=== PATIENT | female | born 1950 | race Caucasian/White ===

== ENCOUNTER → 2023-06-05 | Outpatient (CLI) | payer MEDICARE, OTHER ==
[2023-06-05 20:45] LABS: ALT 7 U/L (8-44); AST 20 U/L (13-35); Albumin 3.9 d/dL (3.8-4.9); Alkaline Phosphatase 81 U/L (41-126); Blood Urea Nitrogen 11.9 mg/dL (9.0-27.0); Calcium 9.2 mg/dL (8.7-10.3); Carbon Dioxide 27.5 mmol/L (21.6-31.8); Chloride 102 mmol/L (96-109); Globulin 2.3 d/dL (1.6-3.3); Glucose 90 mg/dL (70-110); Potassium 4.5 mmol/L (3.5-5.5); Sodium 141 mmol/L (135-145); Total Bilirubin 0.8 mg/dL (0.3-1.2); Total Protein 6.2 d/dL (6.2-8.2)
[2023-06-05 20:58] LABS: Hepatitis C IgG Antibody Reactive (Non-Reactive)
[2023-06-05 21:00] LABS: Hepatitis A Antibody IgM Nonreactive; Hepatitis B Core IgM Nonreactive; Hepatitis B Surface AB- Quant 3.5 mIU/mL; Hepatitis B Surface Antigen Nonreactive
[2023-06-05 21:42] LABS: Basophils # (A) 0.04 X 10*3/uL (0.00-0.10); Basophils % (A) 0.5 %; Eosinophils # (A) 0.34 X 10*3/uL (0.04-0.35); Eosinophils % (A) 4.7 %; HCT 31.7 % (37.2-46.3); Lymphocytes % (A) 28.8 %; MCH 25.6 pg (27.0-32.0); MCHC 28.4 d/dL (32.0-37.0); MCV 90.3 FL (80.0-97.0); Mean Platelet Volume 10.2 FL (9.5-12.2); Monocytes % (A) 9.6 %; NRBC Per 100 WBC 0 X 10*3/uL (0.00-0.01); Neutrophils # (A) 4.07 X 10*3/uL (1.80-7.70); Platelet Count 410 X 10*3/uL (140-440); RBC 3.51 X 10*6/uL (4.10-5.20); RDW 15.1 % (11.5-14.5); WBC 7.28 X 10*3/uL (4.50-10.00)
== END | disposition home or self-care (01) ==
LOC: LABWHC1 14:11
PROVIDERS: ATTEND Internal Medicine Infectious Disease
DX: A15.9 Respiratory tuberculosis unspecified (principal); L40.9 Psoriasis, unspecified; R21 Rash and other nonspecific skin eruption
CPT/HCPCS: 36415; 80053; 85025; 86140; 86480; 86705; 86706; 86709; 86803; 87340

== ENCOUNTER 2023-06-14 13:25 | Inpatient (IN) | payer MEDICARE, OTHER ==
[2023-06-14 16:51] LABS: Glucose,Whole Blood 145 mg/dL (70-110)
[2023-06-14] MEDS ORDERED: ACETAMINOPHEN TAB 325 MG TAB PO PRN (18:26)
[2023-06-14] MEDS ORDERED: DEXTROSE 50% SYRINGE 50 ML IVP PRN ×2 (18:31)
[2023-06-14] MEDS ORDERED: ONDANSETRON 4 MG/2 ML VIAL IVP PRN (18:36)
[2023-06-14] MEDS ORDERED: IPRATROPIUM-ALBUTEROL 3 ML NEB INHALATION SCH (20:00)
[2023-06-14 20:03] LABS: Glucose,Whole Blood 130 mg/dL (70-110)
[2023-06-14] MEDS: BUDESONIDE 0.5 MG/2 ML NEBU INHALATION SCH (20:19)
[2023-06-14] MEDS ORDERED: IPRATROPIUM-ALBUTEROL 3 ML NEB INHALATION PRN (20:27)
[2023-06-14] MEDS ORDERED: ATORVASTATIN 20 MG TAB PO SCH (21:00)
[2023-06-14] MEDS: INSULIN ASPART (NovoLOG) 100 UNIT/ML VIAL SQ SCH (22:05)
[2023-06-14] MEDS: METOPROLOL TARTRATE 25 MG TAB PO SCH (22:28)
[2023-06-14] MEDS: CARBIDOPA-LEVODOPA 25-100 MG 1 EACH TAB PO SCH (22:28)
[2023-06-14] MEDS ORDERED: PANTOPRAZOLE 40 MG/10 ML VIAL IVP ONE (22:51)
[2023-06-15 05:48] LABS: Glucose,Whole Blood 110 mg/dL (70-110)
[2023-06-15] MEDS: INSULIN ASPART (NovoLOG) 100 UNIT/ML VIAL SQ SCH ×4 (06:08→22:06)
[2023-06-15] MEDS: FERROUS SULFATE 325 MG TAB PO SCH ×2 (06:49→17:01)
[2023-06-15] MEDS: LEVOTHYROXINE 137 MCG TAB PO SCH (06:49)
[2023-06-15] MEDS: PANTOPRAZOLE 40 MG TABLET PO SCH (06:49)
[2023-06-15] MEDS: ASPIRIN 81 MG PO SCH (08:16)
[2023-06-15] MEDS: CARBIDOPA-LEVODOPA 25-100 MG 1 EACH TAB PO SCH ×3 (08:16→22:11)
[2023-06-15] MEDS: METOPROLOL TARTRATE 25 MG TAB PO SCH ×2 (08:16→22:10)
[2023-06-15] MEDS: ASCORBIC ACID 500 MG TAB PO SCH (08:17)
[2023-06-15] MEDS: lisinopriL 5 MG TAB PO SCH (08:17)
[2023-06-15 08:38] LABS: Basophils % (A) 0 %; Eosinophils # (A) 0.3 k/uL (0-0.7); Eosinophils % (A) 4 %; HCT 28.8 % (34.0-46.0); HGB 8.9 gm/dL (11.4-16.0); Hypochromasia Marked; Lymphocytes # (A) 1.6 k/uL (1.0-4.8); Lymphocytes % (A) 21 %; MCH 27.1 pg (25.0-35.0); MCHC 30.9 g/dL (31.0-37.0); MCV 87.8 fL (80.0-100.0); Mean Platelet Volume 8.6; Monocytes # (A) 0.5 k/uL (0-1.0); Monocytes % (A) 6 %; Neutrophils # (A) 5.3 k/uL (1.3-7.7); Neutrophils % (A) 67 %; Platelet Count 302 k/uL (150-450); RBC 3.28 m/uL (3.80-5.40); RDW 15.6 % (11.5-15.5); WBC 7.9 k/uL (3.8-10.6)
[2023-06-15] MEDS ORDERED: FAMOTIDINE 20 MG TAB PO SCH (09:00)
[2023-06-15] MEDS ORDERED: CLOPIDOGREL 75 MG TAB PO SCH (09:00)
[2023-06-15 09:08] LABS: African American GFR (CKD) 84 (>60 ml/min/1.73 sqM); Anion Gap 8 mmol/L; Blood Urea Nitrogen 16 mg/dL (7-17); Calcium 8.6 mg/dL (8.4-10.2); Carbon Dioxide 28 mmol/L (22-30); Chloride 101 mmol/L (98-107); Glucose 128 mg/dL (74-99); Non-African American GFR(CKD) 73 (>60 ml/min/1.73 sqM); Potassium 4.1 mmol/L (3.5-5.1); Sodium 137 mmol/L (137-145)
[2023-06-15] MEDS: BUDESONIDE 0.5 MG/2 ML NEBU INHALATION SCH ×2 (09:29→20:46)
[2023-06-15] MEDS: IPRATROPIUM-ALBUTEROL 3 ML NEB INHALATION SCH ×4 (09:29→20:46)
--- NOTE | 2023-06-15 09:29 | P.GSCN ---
History of Present Illness Consult date: 06/15/23 Reason for Consult: Open heart consult Requesting physician: Cleve Odom History of present illness: This is a 73-year-old female patient who follows outpatient with Dr. German Fields for primary care. She has a previous medical history of coronary artery disease with previous myocardial infarction and PCI, hypertension, hyperlipidemia, type 2 diabetes mellitus, previous tobacco dependence with recent cessation, COPD on 3 L nasal cannula around the clock, iron deficiency anemia, hypothyroidism, Parkinson's disease, and family history of heart disease with father from myocardial infarction at 67 years old. She presented to [facility] over the weekend with complaints of left-sided substernal constant chest pain, similar in nature to when she had her previous stent although not quite as intense. Her chest pain was associated with shortness of breath but no nausea, dizziness, lightheadedness, or any other symptoms. Reportedly EKG at [facility] demonstrated normal sinus rhythm with ST depression in leads V4 through V6. She was transferred to [facility] for evaluation and treatment. She had been given sublingual nitro in the ambulance on the ride over which reportedly relieved her symptoms. At [facility] an EKG was also completed with resolution of ST depression. She did have a stress test at [facility] which demonstrated stress-induced ischemia in the mid to distal anterior wall. She was recommended to undergo heart catheterization which demonstrated distal left main 99%, ostial LAD 99%, mid LAD 80%, and proximal RCA 70%. Transthoracic echocardiography demonstrated EF 50- 55%, mild mitral regurgitation, and trace to mild tricuspid regurgitation. Of note, while at [facility] she had some visual disturbances which resolved spontaneously. Due to that finding she underwent carotid dopplers demonstrating right ICA stenosis 50-69%, left ICA stenosis 16-49%, and anterograde flow to her bilateral vertebrals. CTA of the brain was negative. Repeat limited echo demonstrated EF 55-60%, mild to moderate mitral regurgitation as well as mild tricuspid regurgitation. Due to findings on heart catheterization the patient was transported to [facility] for cardiothoracic surgery consultation. Review of Systems Review of systems was completed and was negative except as noted - Cardiovascular Reports as per HPI, Reports chest pain, Reports shortness of breath Past Medical History Past Medical History: Coronary Artery Disease (CAD), Chest Pain / Angina, COPD, Diabetes Mellitus, Hyperlipidemia, Hypertension, Myocardial Infarction (VT), Thyroid Disorder Additional Past Medical History / Comment(s): 3L home oxygen ATC Last Myocardial Infarction Date:: 2018 History of Any Multi-Drug Resistant Organisms: None Reported Past Surgical History: Cholecystectomy, Heart Catheterization With Stent, Hysterectomy, Orthopedic Surgery Additional Past Surgical History / Comment(s): trigger finger surgery, tongue surgery, dental surgery, cataracts and lens implant, bladder surgery Past Anesthesia/Blood Transfusion Reactions: No Reported Reaction Date of Last Stent Placement:: 2018 Past Psychological History: No Psychological Hx Reported Smoking Status: Former smoker Past Alcohol Use History: None Reported Past Drug Use History: None Reported Additional History: Quit smoking approximately 2 weeks ago, reports no drugs or alcohol use - Past Family History Father Family Medical History: Coronary Artery Disease (CAD), Myocardial Infarction (VT) Additional Family Medical History / Comment(s): Father from myocardial infarction at 67 years old Mother Additional Family Medical History / Comment(s): sepsis Medications and Allergies Home Medications Medication Instructions Recorded Confirmed Type Acarbose 50 mg PO AC-TID 06/14/23 06/14/23 History Albuterol Inhaler [Ventolin Hfa 1 - 2 puff INHALATION RT-Q6H PRN 06/14/23 06/14/23 History Inhaler] Ascorbic Acid [Vitamin C] 500 mg PO DAILY 06/14/23 06/14/23 History Aspirin EC [Ecotrin Low Dose] 81 mg PO DAILY 06/14/23 06/14/23 History Atorvastatin [Lipitor] 20 mg PO DAILY 06/14/23 06/14/23 History Budesonide-Formot 160-4.5 Mcg 2 puff INHALATION RT-BID 06/14/23 06/14/23 History [Symbicort 160-4.5 Mcg Inhaler] Carbidopa-Levodopa 25-100 mg 1 tab PO AC-TID 06/14/23 06/14/23 History [Sinemet 25-100] Clobetasol Propionate [Temovate 1 applic TOPICAL DIRECTED 06/14/23 06/14/23 History 0.05% Oint] Clopidogrel [Plavix] 75 mg PO DAILY 06/14/23 06/14/23 History Ferrous Sulfate [Slow Release Iron] 250 mg PO DAILY 06/14/23 06/14/23 History Ketoconazole 2% Shampoo [Nizoral] 1 applic TOPICAL DIRECTED 06/14/23 06/14/23 History Levothyroxine Sodium [Synthroid] 137 mcg PO DAILY 06/14/23 06/14/23 History Metoprolol Tartrate 12.5 mg PO BID 06/14/23 06/14/23 History Nitroglycerin Sl Tabs [Nitrostat] 0.4 mg SUBLINGUAL Q5M PRN 06/14/23 06/14/23 History lisinopriL [Zestril] 20 mg PO DAILY 06/14/23 06/14/23 History rOPINIRole HCL [Requip] 1 mg PO HS 06/14/23 06/14/23 History sitaGLIPtin [Januvia] 100 mg PO DAILY 06/14/23 06/14/23 History Allergies Allergy/AdvReac Type Severity Reaction Status Date / Time diazepam [From Valium] Allergy Rash/Hives Verified 06/14/23 18:56 divalproex sodium Allergy Rash/Hives Verified 06/14/23 18:56 [From Depakote] empagliflozin Allergy Unknown Verified 06/14/23 18:56 [From Jardiance] levofloxacin Allergy Rash/Hives Verified 06/14/23 18:56 propoxyphene [From Darvon] Allergy Rash/Hives Verified 06/14/23 18:56 Surgical - Exam Vital Signs Temp Pulse Resp BP Pulse Ox 98.0 F 66 16 110/50 96 06/14/23 17:00 06/14/23 17:00 06/14/23 17:00 06/14/23 17:00 06/14/23 17:00 CONSTITUTIONAL: Awake and alert, appears comfortable, cooperative, well- developed, well-nourished, no pain, no acute distress EYES: Pupils equal, round, reactive to light, normal ocular movement ENT: Moist mucous membranes without oral lesions present NECK: No masses, no bruits, trachea midline RESPIRATORY: Lungs sounds clear but very diminished bilaterally. Respirations even, nonlabored. Currently on 3 L nasal cannula with oxygen saturation 98%. Strong cough. No chest wall deformities. No clubbing or cyanosis present CARDIOVASCULAR: S1, S2 present. Regular rate and rhythm, sinus rhythm on tele metry. Palpable peripheral pulses bilaterally. No edema present. No calf pain or tenderness noted. No significant lower extremity varicosities noted GASTROINTESTINAL: Abdomen soft, nontender, nondistended without masses or organomegaly noted. There is no rebound or guarding present. Active bowel sounds present 4 quadrants. GENITOURINARY: Deferred INTEGUMENTARY: Skin is warm and dry NEUROLOGIC: Cranial nerves II through XII intact, normal coordination, no obvious motor or sensory deficits, speech is normal MUSKULOSKELETAL: Able to move all extremities, strength equal bilaterally, normal posture PSYCHIATRIC: Alert and oriented to person place and time, appropriate affect, intact judgment and insight Results - Labs 06/15/23 08:04 Abnormal Lab Results - Last 24 Hours (Table) 06/14/23 06/14/23 06/15/23 Range/Units 16:47 20:01 08:04 RBC 3.28 L (3.80-5.40) m/uL Hgb 8.9 L (11.4-16.0) gm/dL Hct 28.8 L (34.0-46.0) % MCHC 30.9 L (31.0-37.0) g/dL RDW 15.6 H (11.5-15.5) % POC Glucose (mg/dL) 145 H 130 H (70-110) mg/dL - Imaging Additional studies: Reviewed heart catheterization/echo/carotid reports from [facility] Assessment and Plan Assessment: Coronary artery disease with previous myocardial infarction and PCI, current catheterization demonstrating distal left main 99%, ostial LAD 99%, mid LAD 80%, and proximal RCA 70% Preserved LV function, EF 50-55% Right internal carotid stenosis 50-69% Transient visual disturbances, resolved spontaneously, negative CTA of the brain History of hypertension History of hyperlipidemia, treated, cholesterol 121, LDL 42 Type 2 diabetes mellitus, hemoglobin A1c 6.8% Previous tobacco dependence with recent cessation 2 weeks ago COPD on 3 L nasal cannula around the clock Iron deficiency anemia Hypothyroidism Parkinson's disease Family history of heart disease with father from myocardial infarction at 67 years old Plan: The patient was seen and examined sitting up in bed on the cardiac stepdown unit in no acute distress. Currently appears quite comfortable and denies any chest pain or shortness of breath. Chart/diagnostics from [facility] as well as [facility] reviewed. The case was discussed briefly with Dr. Harris this morning. The usual perioperative course of open-heart surgery was discussed in detail with the patient, risks and benefits were reviewed, all questions were answered. Currently the patient is listed as a NO CODE status. It was discussed with the patient that she would need to be a full code if she is agreeable to surgery, she wishes to think about it. Of note, the patient had Plavix at [facility] 2 days ago, would need to be off Plavix for 1 week prior to surgical intervention. Recommend continuing aspirin, statin, beta leonora therapy. If patient is agreeable to surgery would recommend discontinuing FRED inhibitor 48 hours prior to surgery to prevent intra-and postoperative hypotension due to vasoplegia. Surgeon to see the patient this afternoon, we will initiate remaining preoperative testing if patient deemed to be a good candidate and patient is agreeable to surgery. Increase activity as tolerated. Medical management of other comorbidities per internal medicine, cardiology. More recommendations to follow. Thank you for this consult. I have personally seen and examined the patient, performed the documentation and the assessment and plan as written. Number of minutes spent on the visit: 30. KIRSTEN Lai
--- NOTE | 2023-06-15 11:44 | US ---
EXAMINATION TYPE: Pre-Operative Non-Invasive Evaluation of the hand for Potential Radial Artery Andrae luke, Measurements only DATE OF EXAM: 06/15/2023 11:32 AM CLINICAL INDICATION: Female, 73 years old with history of measurements only; pre open heart SIDE PERFORMED: Left TECHNIQUE: Radial artery is measured utilizing real time linear array sonography. Dominant hand: Right Duplex Findings: Radial Artery: Color flow seen Measurements in mm, transverse view: Left Radial: Proximal: 3.7 x 3.2 mm Mid: 2.6 x 2.9 mm Distal: 2.3 x 2.8 mm IMPRESSION: Left radial artery is patent with measurements listed above.
[2023-06-15 11:50] LABS: Glucose,Whole Blood 115 mg/dL (70-110)
--- NOTE | 2023-06-15 11:51 | US ---
EXAMINATION TYPE: US vein mapping BILAT DATE OF EXAM: 06/15/2023 11:32 AM COMPARISON: NONE CLINICAL INDICATION: Female, 73 years old with history of preop cardiac surgery; pre open heart SIDE PERFORMED: Bilateral TECHNIQUE: Lower extremity saphenous vein is examined and measured utilizing real time linear array sonography. DUPLEX FINDINGS: Greater Saphenous: Color flow seen Measurements in mm: Right Greater Saphenous: Groin: 11.0 x 10.7 mm High Thigh: 4.9 x 4.3 mm Mid Thigh: 4.4 x 4.7 mm Above Knee: 4.1 x 4.9 mm Knee: 3.2 x 4.1 mm Below Knee: 3.1 x 3.0 mm Mid Calf: 2.4 x 2.9 mm At Ankle: 2.2 x 2.6 mm Left Greater Saphenous: Groin: 10.4 x 9.3 mm High Thigh: 5.4 x 6.9 mm Mid Thigh: 4.1 x 5.0 mm Above Knee: 4.4 x 4.4 mm Knee: 3.1 x 3.4 mm Below Knee: 3.3 x 4.0 mm Mid Calf: 2.8 x 3.3 mm At Ankle: 2.4 x 2.4 mm IMPRESSION: 1. Bilateral GSV measurements listed above. 2. Performing surgeon to determine viability as conduit.
--- NOTE | 2023-06-15 12:28 | HP ---
HISTORY AND PHYSICAL CHIEF COMPLAINT: Chest pain. HISTORY OF PRESENT ILLNESS: This is a 73-year-old woman with a past medical history of multiple medical problems, was admitted with chest pain to [facility]. The patient had cardiac catheterization, which showed 3-vessel disease. The patient was transferred to [facility] for possible evaluation for CABG. The patient also had some visual difficulties in [facility] and ultrasound showed right internal carotid stenosis of 50% to 69%. There is no history of any fever, rigors, or chills at this time. PAST MEDICAL HISTORY: Reviewed include CAD. Rest of the history and rest of the chart is also reviewed. HOME MEDICATIONS: Reviewed include Januvia. Dose and rest of medications reviewed. ALLERGIES: Valium. Rest of the allergies noted. FAMILY HISTORY: History of CAD, myocardial infarction. SOCIAL HISTORY: Previous history of smoker. REVIEW OF SYSTEMS: Fourteen-point review is negative except as mentioned earlier. PHYSICAL EXAMINATION: VITAL SIGNS: Pulse is 72, blood pressure 116/45, respirations 18. CHEST: Conjunctivae normal. NECK: No JVD. RESPIRATIONS: Breath sounds diminished at the bases. No rhonchi. No crackles. ABDOMEN: Soft, nontender. LEGS: No edema. NERVOUS SYSTEM: Nonfocal. SKIN: No ulcer, rash, or bleeding. JOINTS: No active deforming arthropathy. LABORATORY DATA: Hemoglobin 8. Rest of the labs noted. ASSESSMENT: 1. Chest pain. 2. Three-vessel coronary artery disease, coronary artery bypass graft. 3. Transient visual disturbances, possible transient ischemic attack with right internal carotid artery stenosis. 4. Hypertension. 5. Hyperlipidemia. 6. Diabetes mellitus, type 2. 7. Chronic obstructive pulmonary disease. 8. Multiple medical issues. RECOMMENDATIONS: Recommend to continue current management and continue symptomatic treatment. Otherwise, continue the antiplatelet agents, Lipitor, bronchodilators. I would also recommend Neurology and Cardiology consultations. I would also recommend Vascular Surgery consultation for internal carotid artery stenosis also. Prognosis guarded because of multiple complex medical problems. Further recommendations to follow. See orders for further details. MMODL / IJN: [id number] /
--- NOTE | 2023-06-15 13:33 | P.GSCN ---
History of Present Illness Consult date: 06/15/23 Reason for Consult: Internal Carotid artery stenosis Requesting physician: Tanvir Fraser History of present illness: This is a 73-year-old female with a past medical history of coronary artery disease status post stenting, COPD oxygen dependent, diabetes mellitus, hypertension, hyperlipidemia, and Parkinson's disorder who initially presented to [facility] earlier in the week with complaints of chest pain and p ressure that would not subside. Patient was transferred to [facility] for further cardiac workup. While at [facility] she underwent a Cardiolite stress test that showed ischemia. She then underwent a cardiac cath with findings of distal left main 99%, distal LAD 99%, mid LAD 80% and proximal RCA 70% disease. Due to those findings patient was transferred to [facility] for further cardio thoracic consultation and recommendations. According to their consultation notes they reported patient had acute visual changes that lasted minutes of the evening following her stress test. Following that she had a CT without contrast of the brain that showed no acute changes and nonspecific white matter changes likely secondary to chronic small vessel ischemic disease. She also apparently had a carotid duplex which is not available for review at this time however according to cardiothoracic's notes it was reported as right ICA stenosis 50-69% and left 16-49%. Vascular surgery was consulted by the medical team for carotid stenosis. Patient's plan is to go through with the coronary artery bypass. Currently the patient denies any focal deficits. She states the night after her Cardiolite stress test she had acute onset of visual changes where she saw everything white, which she states was out of both eyes and lasted only for a few minutes. Once symptoms resolved she had no further symptoms and no other deficits. She has no prior history of TIA. Home medications did include aspirin and Plavix as well as Lipitor. Patient currently denies any chest pain or shortness of breath. Denies abdominal pain, nausea, vomiting, fevers or chills. Denied any upper or lower extremity weakness, no difficulty with speech or thought process and no facial drooping. Review of Systems A 14 point review systems was completed all pertinent positives and negatives as stated in the HPI. Past Medical History Past Medical History: Coronary Artery Disease (CAD), Chest Pain / Angina, COPD, Diabetes Mellitus, Hyperlipidemia, Hypertension, Myocardial Infarction (MT), Thyroid Disorder Additional Past Medical History / Comment(s): 3L home oxygen ATC Last Myocardial Infarction Date:: 2018 History of Any Multi-Drug Resistant Organisms: None Reported Past Surgical History: Cholecystectomy, Heart Catheterization With Stent, Hysterectomy, Orthopedic Surgery Additional Past Surgical History / Comment(s): trigger finger surgery, tongue surgery, dental surgery, cataracts and lens implant, bladder surgery Past Anesthesia/Blood Transfusion Reactions: No Reported Reaction Date of Last Stent Placement:: 2018 Past Psychological History: No Psychological Hx Reported Smoking Status: Former smoker Past Alcohol Use History: None Reported Past Drug Use History: None Reported - Past Family History Father Family Medical History: Coronary Artery Disease (CAD), Myocardial Infarction (MT) Additional Family Medical History / Comment(s): Father from myocardial infarction at 67 years old Mother Additional Family Medical History / Comment(s): sepsis Medications and Allergies Home Medications Medication Instructions Recorded Confirmed Type Acarbose 50 mg PO AC-TID 06/14/23 06/14/23 History Albuterol Inhaler [Ventolin Hfa 1 - 2 puff INHALATION RT-Q6H PRN 06/14/23 06/14/23 History Inhaler] Ascorbic Acid [Vitamin C] 500 mg PO DAILY 06/14/23 06/14/23 History Aspirin EC [Ecotrin Low Dose] 81 mg PO DAILY 06/14/23 06/14/23 History Atorvastatin [Lipitor] 20 mg PO DAILY 06/14/23 06/14/23 History Budesonide-Formot 160-4.5 Mcg 2 puff INHALATION RT-BID 06/14/23 06/14/23 History [Symbicort 160-4.5 Mcg Inhaler] Carbidopa-Levodopa 25-100 mg 1 tab PO AC-TID 06/14/23 06/14/23 History [Sinemet 25-100] Clobetasol Propionate [Temovate 1 applic TOPICAL DIRECTED 06/14/23 06/14/23 History 0.05% Oint] Clopidogrel [Plavix] 75 mg PO DAILY 06/14/23 06/14/23 History Ferrous Sulfate [Slow Release Iron] 250 mg PO DAILY 06/14/23 06/14/23 History Ketoconazole 2% Shampoo [Nizoral] 1 applic TOPICAL DIRECTED 06/14/23 06/14/23 History Levothyroxine Sodium [Synthroid] 137 mcg PO DAILY 06/14/23 06/14/23 History Metoprolol Tartrate 12.5 mg PO BID 06/14/23 06/14/23 History Nitroglycerin Sl Tabs [Nitrostat] 0.4 mg SUBLINGUAL Q5M PRN 06/14/23 06/14/23 History lisinopriL [Zestril] 20 mg PO DAILY 06/14/23 06/14/23 History rOPINIRole HCL [Requip] 1 mg PO HS 06/14/23 06/14/23 History sitaGLIPtin [Januvia] 100 mg PO DAILY 06/14/23 06/14/23 History Allergies Allergy/AdvReac Type Severity Reaction Status Date / Time diazepam [From Valium] Allergy Rash/Hives Verified 06/14/23 18:56 divalproex sodium Allergy Rash/Hives Verified 06/14/23 18:56 [From Depakote] empagliflozin Allergy Unknown Verified 06/14/23 18:56 [From Jardiance] levofloxacin Allergy Rash/Hives Verified 06/14/23 18:56 propoxyphene [From Darvon] Allergy Rash/Hives Verified 06/14/23 18:56 Surgical - Exam Vital Signs Temp Pulse Resp BP Pulse Ox 98.0 F 66 16 110/50 96 06/14/23 17:00 06/14/23 17:00 06/14/23 17:00 06/14/23 17:00 06/14/23 17:00 General appearance: The patient is alert, oriented, appears in no acute distress. Wearing Oxygen 2 L nasal cannula. HET: Head is normocephalic and atraumatic. Pupils are equal and reactive. Neck: Supple. No audible carotid bruit. Heart: Regular. Lungs: Equal expansion, normal respiratory effort. Abdomen: Soft, nondistended. Extremities: Normal skin color and turgor. Neurological: No focal deficits. Strength and sensation are grossly intact. Results - Labs 06/15/23 08:04 06/15/23 08:04 Abnormal Lab Results - Last 24 Hours (Table) 06/14/23 06/14/23 06/15/23 Range/Units 16:47 20:01 08:04 RBC 3.28 L (3.80-5.40) m/uL Hgb 8.9 L (11.4-16.0) gm/dL Hct 28.8 L (34.0-46.0) % MCHC 30.9 L (31.0-37.0) g/dL RDW 15.6 H (11.5-15.5) % Glucose (74-99) mg/dL POC Glucose (mg/dL) 145 H 130 H (70-110) mg/dL 06/15/23 06/15/23 Range/Units 08:04 11:49 RBC (3.80-5.40) m/uL Hgb (11.4-16.0) gm/dL Hct (34.0-46.0) % MCHC (31.0-37.0) g/dL RDW (11.5-15.5) % Glucose 128 H (74-99) mg/dL POC Glucose (mg/dL) 115 H (70-110) mg/dL Diabetes panel 06/15/23 Range/Units 08:04 Sodium 137 (137-145) mmol/L Potassium 4.1 (3.5-5.1) mmol/L Chloride 101 (98-107) mmol/L Carbon Dioxide 28 (22-30) mmol/L BUN 16 (7-17) mg/dL Creatinine 0.80 (0.52-1.04) mg/dL Glucose 128 H (74-99) mg/dL Calcium 8.6 (8.4-10.2) mg/dL Calcium panel 06/15/23 Range/Units 08:04 Calcium 8.6 (8.4-10.2) mg/dL Pituitary panel 06/15/23 Range/Units 08:04 Sodium 137 (137-145) mmol/L Potassium 4.1 (3.5-5.1) mmol/L Chloride 101 (98-107) mmol/L Carbon Dioxide 28 (22-30) mmol/L BUN 16 (7-17) mg/dL Creatinine 0.80 (0.52-1.04) mg/dL Glucose 128 H (74-99) mg/dL Calcium 8.6 (8.4-10.2) mg/dL Adrenal panel 06/15/23 Range/Units 08:04 Sodium 137 (137-145) mmol/L Potassium 4.1 (3.5-5.1) mmol/L Chloride 101 (98-107) mmol/L Carbon Dioxide 28 (22-30) mmol/L BUN 16 (7-17) mg/dL Creatinine 0.80 (0.52-1.04) mg/dL Glucose 128 H (74-99) mg/dL Calcium 8.6 (8.4-10.2) mg/dL Assessment and Plan Assessment: 1. Right internal carotid artery stenosis 50-69% per cardiothoracic notes (no available report at this time ) 2. Coronary artery disease with previous MT and PCI current catheterization demonstrated distal left main 99%, ostial LAD 99% mid LAD 80% and proximal RCA 70% 3. Chest pain 4. Transient visual disturbance with spontaneous resolution. Negative CT bCT rain 5. Type 2 diabetes mellitus 6. COPD, oxygen dependent 7. Former tobacco dependence, quit approximately 2 weeks ago 8. History of hypertension 9. History of hyperlipidemia 10. Parkinson's disease Plan: Patient would like to proceed with cardiac surgery and is currently undergoing preoperative testing. The patient was discussed with cardiothoracic nurse practitioner regarding her right ICA carotid stenosis 50-69%. Unclear etiology of visual changes with negative brain CT. They would like to proceed with cardiothoracic surgery and have further workup done and if intervention required following CABG as patient would have to be off her Plavix for 7 days prior to her surgery. This was discussed with the patient and patient's family at the bedside, continue medical management. Further workup can be done as an outpatient. Carotid duplex requested from [facility]. Thank you for this consultation, we will continue to follow. The impression and plan of care has been dictated as directed. Dr. Fernandes I performed a history and examination of this patient, discussed the same with the dictator. I agree with the dictator's note ,documented as a scribe. Any additional findings or plans will be noted.
--- NOTE | 2023-06-15 14:09 | P.CRDCN ---
History of Present Illness History of present illness: HISTORY OF PRESENT ILLNESS: This is a 73-year-old female with a past medical history significant for diabetes, hypertension, coronary artery disease with previous stenting, hyperlipidemia, COPD with home oxygen use, Parkinson's disease, and nicotine dependence with recent cessation. Patient initially presented to [facility] with complaints of chest pain. She was transferred to the [facility] for further evaluation. She underwent stress testing at [facility] which revealed stress-induced ischemia in the mid to distal anterior wall. She underwent cardiac catheterization with Dr. Perales revealing 99% distal left main stenosis, 99% ostial LAD stenosis, 80% mid LAD stenosis, and 70% proximal RCA stenosis. Echocardiogram completed [facility] revealed ejection fraction 50-55%, mild MR, trace to mild TR. She was transfe rred to [facility] for evaluation by CT surgery. Apparently, the patient had some vision changes when she was at [facility] and she underwent carotid Dopplers revealing right ICA stenosis 50-69% and left ICA stenosis 16-49%. Her vision issues have since resolved. Patient examined this morning at the bedside. She denies chest pain or pressure. She denies shortness of breath. Telemetry reveals sinus mechanism. Vital signs are stable. Blood pressure 120/61. REVIEW OF SYSTEMS: At the time of my exam: CONSTITUTIONAL: Denies fever or chills. HEENT: Denies blurred vision, vision changes, or eye pain. Denies hemoptysis CARDIOVASCULAR: Denies chest pain. Denies orthopnea. Denies PND. Denies palpitations RESPIRATORY: Denies shortness of breath. GASTROINTESTINAL: Denies abdominal pain. Denies nausea or vomiting. HEMATOLOGIC: Denies bleeding disorders. GENITOURINARY: Denies any blood in urine. SKIN: Denies pruitis. Denies rash. PHYSICAL EXAM: VITAL SIGNS: Reviewed. GENERAL: Well-developed in no acute distress. HEENT: Head is normocephalic. Pupils are equal, round. Sclerae anicteric. Mucous membranes of the mouth are moist. Neck supple. No JVD or thyromegaly LUNGS: Respirations even and unlabored. Lungs with decreased air exchange. HEART: Regular rate and rhythm. S1 and S2 heard. ABDOMEN: Soft. Nondistended. Nontender. EXTREMITIES: Normal range of motion. No clubbing or cyanosis. Peripheral pulse s intact. No lower extremity edema NEUROLOGIC: Awake and alert. Oriented x 3. ASSESSMENT: Chest pain, status post cardiac catheterization revealing 99% distal left main stenosis, 99% ostial LAD stenosis, 80% mid LAD stenosis, and 70% proximal RCA stenosis Coronary disease with previous PCI, details unknown Right internal carotid stenosis, 50-69% Transient visual disturbance with spontaneous resolution Hypertension Hyperlipidemia COPD with home oxygen use Diabetes Parkinson's disease Recent cessation of nicotine use, patient quit smoking 2 weeks ago PLAN: Continue current cardiac medications Continue to hold Plavix Increase atorvastatin to [address] surgery consulted for CABG. Await further input Vascular surgery consulted for ICA stenosis Further recommendations pending patient course Nurse practitioner note has been reviewed by physician. Signing provider agrees with the documented findings, assessment, and plan of care. Past Medical History Past Medical History: Coronary Artery Disease (CAD), Chest Pain / Angina, COPD, Diabetes Mellitus, Hyperlipidemia, Hypertension, Myocardial Infarction (ME), Thyroid Disorder Additional Past Medical History / Comment(s): 3L home oxygen ATC Last Myocardial Infarction Date:: 2018 History of Any Multi-Drug Resistant Organisms: None Reported Past Surgical History: Cholecystectomy, Heart Catheterization With Stent, Hysterectomy, Orthopedic Surgery Additional Past Surgical History / Comment(s): trigger finger surgery, tongue surgery, dental surgery, cataracts and lens implant, bladder surgery Past Anesthesia/Blood Transfusion Reactions: No Reported Reaction Date of Last Stent Placement:: 2018 Past Psychological History: No Psychological Hx Reported Smoking Status: Former smoker Past Alcohol Use History: None Reported Past Drug Use History: None Reported - Past Family History Father Family Medical History: Coronary Artery Disease (CAD), Myocardial Infarction (ME) Additional Family Medical History / Comment(s): Father from myocardial infarction at 67 years old Mother Additional Family Medical History / Comment(s): sepsis Medications and Allergies Home Medications Medication Instructions Recorded Confirmed Type Acarbose 50 mg PO AC-TID 06/14/23 06/14/23 History Albuterol Inhaler [Ventolin Hfa 1 - 2 puff INHALATION RT-Q6H PRN 06/14/23 06/14/23 History Inhaler] Ascorbic Acid [Vitamin C] 500 mg PO DAILY 06/14/23 06/14/23 History Aspirin EC [Ecotrin Low Dose] 81 mg PO DAILY 06/14/23 06/14/23 History Atorvastatin [Lipitor] 20 mg PO DAILY 06/14/23 06/14/23 History Budesonide-Formot 160-4.5 Mcg 2 puff INHALATION RT-BID 06/14/23 06/14/23 History [Symbicort 160-4.5 Mcg Inhaler] Carbidopa-Levodopa 25-100 mg 1 tab PO AC-TID 06/14/23 06/14/23 History [Sinemet 25-100] Clobetasol Propionate [Temovate 1 applic TOPICAL DIRECTED 06/14/23 06/14/23 History 0.05% Oint] Clopidogrel [Plavix] 75 mg PO DAILY 06/14/23 06/14/23 History Ferrous Sulfate [Slow Release Iron] 250 mg PO DAILY 06/14/23 06/14/23 History Ketoconazole 2% Shampoo [Nizoral] 1 applic TOPICAL DIRECTED 06/14/23 06/14/23 History Levothyroxine Sodium [Synthroid] 137 mcg PO DAILY 06/14/23 06/14/23 History Metoprolol Tartrate 12.5 mg PO BID 06/14/23 06/14/23 History Nitroglycerin Sl Tabs [Nitrostat] 0.4 mg SUBLINGUAL Q5M PRN 06/14/23 06/14/23 History lisinopriL [Zestril] 20 mg PO DAILY 06/14/23 06/14/23 History rOPINIRole HCL [Requip] 1 mg PO HS 06/14/23 06/14/23 History sitaGLIPtin [Januvia] 100 mg PO DAILY 06/14/23 06/14/23 History Allergies Allergy/AdvReac Type Severity Reaction Status Date / Time diazepam [From Valium] Allergy Rash/Hives Verified 06/14/23 18:56 divalproex sodium Allergy Rash/Hives Verified 06/14/23 18:56 [From Depakote] empagliflozin Allergy Unknown Verified 06/14/23 18:56 [From Jardiance] levofloxacin Allergy Rash/Hives Verified 06/14/23 18:56 propoxyphene [From Darvon] Allergy Rash/Hives Verified 06/14/23 18:56 Physical Exam Vitals: Vital Signs Temp Pulse Pulse Resp BP Pulse Ox 06/15/23 12:58 72 18 06/15/23 12:48 70 18 06/15/23 12:07 70 18 120/61 98 06/15/23 10:54 72 18 06/15/23 09:40 70 18 06/15/23 09:29 72 18 100 06/15/23 08:13 98.1 F 72 18 116/45 95 06/15/23 04:00 98.7 F 72 18 124/51 98 06/15/23 02:00 73 18 06/15/23 00:00 98.6 F 73 18 109/55 97 06/14/23 21:00 98.6 F 77 16 98/41 99 06/14/23 20:31 87 06/14/23 20:22 87 06/14/23 20:00 77 16 06/14/23 17:00 98.0 F 66 16 110/50 96 Intake and Output 06/14/23 06/15/23 06/15/23 22:59 06:59 14:59 Intake Total 240 Balance 240 Intake: Oral 240 Other: Voiding Method Toilet Toilet Toilet # Voids 1 1 Weight 68.1 kg Results 06/15/23 08:04 06/15/23 08:04 CBC 06/15/23 Range/Units 08:04 WBC 7.9 (3.8-10.6) k/uL RBC 3.28 L (3.80-5.40) m/uL Hgb 8.9 L (11.4-16.0) gm/dL Hct 28.8 L (34.0-46.0) % Plt Count 302 (150-450) k/uL Comprehensive Metabolic Panel 06/15/23 Range/Units 08:04 Sodium 137 (137-145) mmol/L Potassium 4.1 (3.5-5.1) mmol/L Chloride 101 (98-107) mmol/L Carbon Dioxide 28 (22-30) mmol/L BUN 16 (7-17) mg/dL Creatinine 0.80 (0.52-1.04) mg/dL Glucose 128 H (74-99) mg/dL Calcium 8.6 (8.4-10.2) mg/dL Current Medications Generic Name Dose Route Start Last Admin Trade Name Freq PRN Reason Stop Dose Admin Acetaminophen 650 mg 06/14/23 18:26 Acetaminophen Tab 325 Mg Tab PO Q6HR PRN Fever and/ or Pain Albuterol/Ipratropium 3 ml 06/15/23 08:00 06/15/23 12:48 Ipratropium-Albuterol 3 Ml Neb INHALATION 3 ml RT-QID GEORGIE Administration Albuterol/Ipratropium 3 ml 06/14/23 20:27 Ipratropium-Albuterol 3 Ml Neb INHALATION RT-Q2H PRN Shortness Of Breath Or Wheezing Ascorbic Acid 500 mg 06/15/23 09:00 06/15/23 08:17 Ascorbic Acid 500 Mg Tab PO 500 mg DAILY GEORGIE Administration Aspirin 81 mg 06/15/23 09:00 06/15/23 08:16 Aspirin 81 Mg PO 81 mg DAILY GEORGIE Administration Atorvastatin Calcium 40 mg 06/15/23 21:00 Atorvastatin 40 Mg Tab PO HS [facility] Budesonide 0.5 mg 06/14/23 20:00 06/15/23 09:29 Budesonide 0.5 Mg/2 Ml Nebu INHALATION 0.5 mg RT-BID GEORGIE Administration Carbidopa/Levodopa 1 each 06/14/23 22:00 06/15/23 08:16 Carbidopa-Levodopa 25-100 Mg 1 Each Tab PO 1 each TID GEORGIE Administration Clopidogrel Bisulfate 75 mg 06/15/23 09:00 06/15/23 07:59 Clopidogrel 75 Mg Tab PO Not Given DAILY [facility] Dextrose/Water 25 ml 06/14/23 18:31 Dextrose 50% Syringe 50 Ml IVP PER PROTOCOL PRN Hypoglycemia Protocol Dextrose/Water 50 ml 06/14/23 18:31 Dextrose 50% Syringe 50 Ml IVP PER PROTOCOL PRN Hypoglycemia Protocol Ferrous Sulfate 325 mg 06/15/23 07:30 06/15/23 06:49 Ferrous Sulfate 325 Mg Tab PO 325 mg BID-W/MEALS GEORGIE Administration Insulin Aspart 0 unit 06/14/23 21:00 06/15/23 12:07 Insulin Aspart (Novolog) 100 Unit/Ml Vial SQ Not Given ACHS [facility] Protocol Levothyroxine Sodium 137 mcg 06/15/23 06:30 06/15/23 06:49 Levothyroxine 137 Mcg Tab PO 137 mcg DAILY@0630 GEORGIE Administration Lisinopril 5 mg 06/15/23 09:00 06/15/23 08:17 Lisinopril 5 Mg Tab PO 5 mg DAILY GEORGIE Administration Metoprolol Tartrate 25 mg 06/14/23 21:00 06/15/23 08:16 Metoprolol Tartrate 25 Mg Tab PO 25 mg BID GEORGIE Administration Ondansetron HCl 4 mg 06/14/23 18:36 Ondansetron 4 Mg/2 Ml Vial IVP Q6HR PRN Nausea And Vomiting Pantoprazole Sodium 40 mg 06/15/23 07:30 06/15/23 06:49 Pantoprazole 40 Mg Tablet PO 40 mg AC-BRKFST GEORGIE Administration Ropinirole HCl 1 mg 06/14/23 22:00 06/15/23 08:16 Ropinirole Hcl 1 Mg Tab PO 1 mg TID GEORGIE Administration Intake and Output 06/14/23 06/15/23 06/15/23 22:59 06:59 14:59 Intake Total 240 Balance 240 Intake: Oral 240 Other: Voiding Method Toilet Toilet Toilet # Voids 1 1 Weight 68.1 kg 06/15/23 08:04 06/15/23 08:04
[2023-06-15 16:42] LABS: Glucose,Whole Blood 95 mg/dL (70-110)
[2023-06-15 20:15] LABS: Glucose,Whole Blood 141 mg/dL (70-110)
--- NOTE | 2023-06-15 21:54 | CT ---
EXAMINATION TYPE: CT chest wo con DATE OF EXAM: 06/15/2023 HISTORY: Assess ascending aorta for clampability. Inpatient. TECHNIQUE: CT scan of the thorax is performed without IV contrast. CT DLP: 402.1 mGycm. Automated Exposure Control for Dose Reduction was Utilized. COMPARISON: None FINDINGS: LUNGS: Severe emphysematous changes noted. The lungs are grossly clear, there is no concerning parenc hymal mass or nodule identified. There is no pleural effusion or pneumothorax seen. The tracheobronch ial tree is patent. MEDIASTINUM: Lack of IV contrast is noted to limit evaluation for mediastinal and especially hilar ad enopathy. There are no definitive greater than 1 cm hilar or mediastinal lymph nodes. There is mild c ardiomegaly and there are prominent left main, LAD, left circumflex, and RCA coronary calcifications the aorta is not enlarged but demonstrates prominent volume of atherosclerotic intimal calcifications throughout its extent. Pulmonary arteries are top normal OTHER: No additional significant abnormality is seen. IMPRESSION: No acute process.
[2023-06-15] MEDS: ATORVASTATIN 40 MG TAB PO SCH (22:11)
[2023-06-16 06:04] LABS: Glucose,Whole Blood 147 mg/dL (70-110)
[2023-06-16] MEDS: INSULIN ASPART (NovoLOG) 100 UNIT/ML VIAL SQ SCH ×4 (06:05→20:31)
[2023-06-16] MEDS: FERROUS SULFATE 325 MG TAB PO SCH ×2 (06:18→15:17)
[2023-06-16] MEDS: PANTOPRAZOLE 40 MG TABLET PO SCH (06:18)
[2023-06-16] MEDS: LEVOTHYROXINE 137 MCG TAB PO SCH (06:19)
[2023-06-16 06:36] LABS: Anisocytosis Slight; Basophils % (A) 0 %; Eosinophils # (A) 0.3 k/uL (0-0.7); Eosinophils % (A) 4 %; HCT 29.7 % (34.0-46.0); Hypochromasia Marked; Lymphocytes # (A) 1.6 k/uL (1.0-4.8); Lymphocytes % (A) 23 %; MCH 26.8 pg (25.0-35.0); MCHC 30.5 g/dL (31.0-37.0); MCV 88.1 fL (80.0-100.0); Mean Platelet Volume 8.6; Monocytes # (A) 0.5 k/uL (0-1.0); Monocytes % (A) 7 %; Neutrophils # (A) 4.3 k/uL (1.3-7.7); Neutrophils % (A) 63 %; Platelet Count 295 k/uL (150-450); RBC 3.37 m/uL (3.80-5.40); RDW 16.2 % (11.5-15.5); WBC 6.9 k/uL (3.8-10.6)
[2023-06-16 06:47] LABS: ALT 6 U/L (4-34); AST 19 U/L (14-36); African American GFR (CKD) 88 (>60 ml/min/1.73 sqM); Albumin 3.3 g/dL (3.5-5.0); Alkaline Phosphatase 63 U/L (38-126); Anion Gap 8 mmol/L; Blood Urea Nitrogen 12 mg/dL (7-17); Calcium 8.7 mg/dL (8.4-10.2); Carbon Dioxide 31 mmol/L (22-30); Chloride 100 mmol/L (98-107); Glucose 134 mg/dL (74-99); Magnesium 1.9 mg/dL (1.6-2.3); Non-African American GFR(CKD) 76 (>60 ml/min/1.73 sqM); Potassium 4.4 mmol/L (3.5-5.1); Sodium 139 mmol/L (137-145); Total Bilirubin 1.2 mg/dL (0.2-1.3); Total Protein 5.9 g/dL (6.3-8.2)
--- NOTE | 2023-06-16 07:50 | P.PN ---
Subjective Progress Note Date: 06/16/23 Principal diagnosis: Coronary artery disease with previous myocardial infarction and PCI, current catheterization demonstrating distal left main 99%, ostial LAD 99%, mid LAD 80%, and proximal RCA 70%, preserved LV function, EF 50-55%, right internal carotid stenosis 50-69%, transient visual disturbances with spontaneous resolution. History of hypertension, hyperlipidemia, type 2 diabetes mellitus, previous tobacco dependence with recent cessation 2 weeks ago, severe COPD on 3 L nasal cannula around the clock for 7-8 years, iron deficiency anemia, hypothyroidism, Parkinson's disease, family history of heart disease with father from myocardial infarction at 67 years old The patient was seen and examined this morning sitting up in bed on the cardiac stepdown unit in no acute distress. She denies any pain or shortness of breath currently. Remains in sinus rhythm. She was seen by Dr. Harris yesterday and giulia discussion was had with the patient regarding high risk of surgery due to her very poor lung function, however he will defer to pulmonology judgment. Pulmonary function test which was completed yesterday demonstrated FEV1 35% of predicted which is 0.84 L. This was shown to Dr. Ann this morning who ordered an ABG and who will see the patient today. The patient has indicated she has never seen a rn dermatology and her primary care physician has been overseeing her inhaler use as well as oxygen use. In addition the patient's daughter indicated yesterday that the patient was recently told that her mammogram was suspicious for possible breast cancer, patient has had no biopsy, no cancer markers drawn, and states she would not want chemo or radiation anyway. According to the daughter the patient is scheduled to follow-up in August for further monitoring. CT of the chest was completed yesterday demonstrating significant calcifications throughout the aorta, likely rendering the patient unclampable. Objective - Vital Signs Vital signs: Vital Signs Temp 97.7 F 06/16/23 03:40 Pulse 67 06/16/23 03:40 Resp 20 06/16/23 03:40 BP 121/57 06/16/23 03:40 Pulse Ox 95 06/16/23 03:40 FiO2 Intake & Output 06/15/23 06/16/23 06/16/23 18:59 06:59 18:59 Intake Total 118 Output Total 600 Balance -482 Weight 67.8 kg Intake: Oral 118 Output: Urine 600 Other: Voiding Method Toilet Toilet # Voids 2 1 - Exam CONSTITUTIONAL: Appears comfortable, cooperative, no acute distress RESPIRATORY: Lungs sounds diminished bilaterally. Respirations even, nonlabored. Currently on 3 L nasal cannula with oxygen saturation 95%. Able to achieve 1250 mL on incentive spirometry. Strong loose cough. CARDIOVASCULAR: S1, S2 present. Regular rate and rhythm, sinus rhythm on telemetry. Sternum stable. Palpable peripheral pulses bilaterally. No edema present. No calf pain or tenderness noted GASTROINTESTINAL: Abdomen soft, nontender, nondistended. Active bowel sounds present 4 quadrants. Tolerating diet GENITOURINARY: Continues to void INTEGUMENTARY: Skin is warm and dry NEUROLOGIC: Cranial nerves II through XII intact MUSKULOSKELETAL: Able to move all extremities, strength equal bilaterally, gait normal PSYCHIATRIC: Alert and oriented to person place and time, appropriate affect, intact judgment and insight - Allied health notes Allied health notes reviewed: nursing - Labs CBC & Chem 7: 06/16/23 05:53 06/16/23 05:53 Labs: Abnormal Lab Results - Last 24 Hours (Table) 06/15/23 06/15/23 06/15/23 Range/Units 08:04 08:04 08:04 RBC 3.28 L (3.80-5.40) m/uL Hgb 8.9 L (11.4-16.0) gm/dL Hct 28.8 L (34.0-46.0) % MCHC 30.9 L (31.0-37.0) g/dL RDW 15.6 H (11.5-15.5) % Carbon Dioxide (22-30) mmol/L Glucose 128 H (74-99) mg/dL POC Glucose (mg/dL) (70-110) mg/dL Hemoglobin A1c 6.6 H (<=6.0) % Total Protein (6.3-8.2) g/dL Albumin (3.5-5.0) g/dL TSH (0.465-4.680) mIU/L 06/15/23 06/15/23 06/16/23 Range/Units 11:49 20:13 05:53 RBC 3.37 L (3.80-5.40) m/uL Hgb 9.0 L (11.4-16.0) gm/dL Hct 29.7 L (34.0-46.0) % MCHC 30.5 L (31.0-37.0) g/dL RDW 16.2 H (11.5-15.5) % Carbon Dioxide (22-30) mmol/L Glucose (74-99) mg/dL POC Glucose (mg/dL) 115 H 141 H (70-110) mg/dL Hemoglobin A1c (<=6.0) % Total Protein (6.3-8.2) g/dL Albumin (3.5-5.0) g/dL TSH (0.465-4.680) mIU/L 06/16/23 06/16/23 Range/Units 05:53 06:03 RBC (3.80-5.40) m/uL Hgb (11.4-16.0) gm/dL Hct (34.0-46.0) % MCHC (31.0-37.0) g/dL RDW (11.5-15.5) % Carbon Dioxide 31 H (22-30) mmol/L Glucose 134 H (74-99) mg/dL POC Glucose (mg/dL) 147 H (70-110) mg/dL Hemoglobin A1c (<=6.0) % Total Protein 5.9 L (6.3-8.2) g/dL Albumin 3.3 L (3.5-5.0) g/dL TSH 0.157 L (0.465-4.680) mIU/L - Imaging and Cardiology CT scan - chest: report reviewed, image reviewed Assessment and Plan Assessment: Coronary artery disease with previous myocardial infarction and PCI, current catheterization demonstrating distal left main 99%, ostial LAD 99%, mid LAD 80%, and proximal RCA 70% Preserved LV function, EF 50-55% Right internal carotid stenosis 50-69% Transient visual disturbances, resolved spontaneously, negative CTA of the brain History of hypertension History of hyperlipidemia, treated, cholesterol 121, LDL 42 Type 2 diabetes mellitus, hemoglobin A1c 6.8% Previous tobacco dependence with recent cessation 2 weeks ago Severe COPD on 3 L nasal cannula around the clock, preoperative FEV1 35% of predicted Iron deficiency anemia Hypothyroidism Parkinson's disease Questionable breast cancer based on mammography per patient's daughter Family history of heart disease with father from myocardial infarction at 67 years old Plan: Continue to maximize medical therapy with aspirin, statin, beta leonora Encourage incentive spirometry Patient to be seen by pulmonology today, appreciate recommendations Activity as tolerated Medical management of other comorbidities per internal medicine, cardiology More recommendations to follow.
[2023-06-16] MEDS: BUDESONIDE 0.5 MG/2 ML NEBU INHALATION SCH (07:56)
[2023-06-16] MEDS: IPRATROPIUM-ALBUTEROL 3 ML NEB INHALATION SCH ×4 (07:56→19:31)
[2023-06-16] MEDS: ASCORBIC ACID 500 MG TAB PO SCH (08:16)
[2023-06-16] MEDS: lisinopriL 5 MG TAB PO SCH (08:16)
[2023-06-16] MEDS: ASPIRIN 81 MG PO SCH (08:16)
[2023-06-16] MEDS: METOPROLOL TARTRATE 25 MG TAB PO SCH ×2 (08:16→20:31)
[2023-06-16] MEDS: CARBIDOPA-LEVODOPA 25-100 MG 1 EACH TAB PO SCH ×3 (08:16→20:31)
[2023-06-16 08:21] LABS: T4, Free (Free Thyroxine) 2.23 ng/dL (0.78-2.19)
--- NOTE | 2023-06-16 08:36 | CDI ---
Documentation Clarification Form Date: 06/16/2023 08:20:37 AM From: Veronica Roberts RN CCDS Phone: [phone] Admit Date: 06/14/2023 04:09:00 PM Patient Name: Chandrika Mcgrath Visit Number: [id number] Discharge Date: ATTENTION: The Clinical Documentation Specialists (CDI) and [facility] Coding Staff appreciate your assistance in clarifying documentation. Please respond to the clarification below the line at the bottom and electronically sign. The CDI & [facility] Coding staff will review the response and follow-up if needed. Please note: Queries are made part of the Legal Health Record. If you have any questions, please contact the author of this message via ITS. Dr. Tanvir Fraser Your patient is on 3L home oxygen around the clock, 06/15, Cardiology consult. Based on this information and the findings below, is there an additional diagnosis that is clinically appropriate for this patient? History/Risk Factors: 73-year-old female presents as a transfer from [facility] for after a heart catheterization with stents for further work up for possible CABG. Medical History: Severe COPD on 3L nasal cannula around the clock Preoperative FEV1 35% of predicted, HTN, Parkinsons, CAD, HLD and DM2. 06/16, Cardiothoracic Surgery note. Tobacco use: Pervious tobacco dependence with recent cessation two weeks ago Home oxygen: 3L oxygen nasal cannula ATC Clinical Indicators: Vital signs: 06/15 B/P 110/50; HR 66; Temp 98.0F Oral; RR 16; SpO2 96% 3L nasal cannula Lung/Breathing assessment: 06/16, Cardiothoracic Surgery: Lung sounds diminished bilaterally. Respirations even, unlabored. Currently on 3L nasal cannula with oxygen saturation of 95%. Able to achieve 1250ml on incentive spirometry. Strong loose cough. Treatment: Breathing tx: Duoneb Inhalation QID GEORGIE and PRN q2h; Pulmicort Inhalation BID Oxygen 3L nasal cannula Is there an additional diagnosis that is clinically appropriate for this patient? [ ] Chronic Respiratory Failure [ ] Other Diagnosis, please specify [ ] Unable to determine (Template Last Revised: January 2021) Chronic Respiratory Failure MTDD
--- NOTE | 2023-06-16 09:38 | P.PN ---
Subjective Progress Note Date: 06/16/23 Principal diagnosis: Carotid stenosis Patient was seen and examined today as a follow-up. She is sitting up in bed in no apparent acute distress. She remains with 3 L of nasal cannula. Denies any shortness of breath or chest pain at this time. We were able to get the ultraso und report of the carotid duplex which did report 50-69% of right ICA stenosis and 16-49% of left ICA stenosis. Patient denies any focal deficits. She is currently being worked up for possible CABG, however awaiting further evaluation and recommendations from pulmonology. She currently remains on low-dose aspirin and Lipitor. Plavix is currently being held. Objective - Vital Signs Vital signs: Vital Signs Temp 97.7 F 06/16/23 08:15 Pulse 67 06/16/23 08:15 Resp 20 06/16/23 08:15 BP 134/68 06/16/23 08:15 Pulse Ox 100 06/16/23 08:15 FiO2 Intake & Output 06/15/23 06/16/23 06/16/23 18:59 06:59 18:59 Intake Total 118 128 Output Total 600 Balance -482 128 Weight 67.8 kg Intake: IV 10 Invasive Line 1 10 Oral 118 118 Output: Urine 600 Other: Voiding Method Toilet Toilet Toilet # Voids 2 1 - Exam General appearance: The patient is alert, oriented, appears in no acute distress. HET: Head is normocephalic and atraumatic. Pupils are equal and reactive. Neck: Supple. Heart: Regular. Lungs: Equal expansion, normal respiratory effort. Abdomen: Soft, nondistended. Extremities: Normal skin color and turgor. Neurological: No focal deficits. Strength and sensation are grossly intact. - Labs CBC & Chem 7: 06/16/23 05:53 06/16/23 05:53 Labs: Abnormal Lab Results - Last 24 Hours (Table) 06/15/23 06/15/23 06/15/23 Range/Units 08:04 11:49 20:13 RBC (3.80-5.40) m/uL Hgb (11.4-16.0) gm/dL Hct (34.0-46.0) % MCHC (31.0-37.0) g/dL RDW (11.5-15.5) % Carbon Dioxide (22-30) mmol/L Glucose (74-99) mg/dL POC Glucose (mg/dL) 115 H 141 H (70-110) mg/dL Hemoglobin A1c 6.6 H (<=6.0) % Total Protein (6.3-8.2) g/dL Albumin (3.5-5.0) g/dL TSH (0.465-4.680) mIU/L Free T4 (0.78-2.19) ng/dL 06/16/23 06/16/23 06/16/23 Range/Units 05:53 05:53 06:03 RBC 3.37 L (3.80-5.40) m/uL Hgb 9.0 L (11.4-16.0) gm/dL Hct 29.7 L (34.0-46.0) % MCHC 30.5 L (31.0-37.0) g/dL RDW 16.2 H (11.5-15.5) % Carbon Dioxide 31 H (22-30) mmol/L Glucose 134 H (74-99) mg/dL POC Glucose (mg/dL) 147 H (70-110) mg/dL Hemoglobin A1c (<=6.0) % Total Protein 5.9 L (6.3-8.2) g/dL Albumin 3.3 L (3.5-5.0) g/dL TSH 0.157 L (0.465-4.680) mIU/L Free T4 2.23 H (0.78-2.19) ng/dL Assessment and Plan Assessment: 1. Right internal carotid artery stenosis 50-69% per carotid duplex 2. Coronary artery disease with previous IA and PCI current catheterization demonstrated distal left main 99%, ostial LAD 99% mid LAD 80% and proximal RCA 70% 3. Chest pain 4. Transient visual disturbance with spontaneous resolution. Negative CT bCT rain 5. Type 2 diabetes mellitus 6. COPD, oxygen dependent 7. Former tobacco dependence, quit approximately 2 weeks ago 8. History of hypertension 9. History of hyperlipidemia 10. Parkinson's disease Plan: Carotid duplex requested and reviewed from [facility]. Patient would like to proceed with cardiac surgery and is currently undergoing preoperative testing. The patient was discussed with cardiothoracic nurse practitioner regarding her right ICA carotid stenosis 50-69%. Unclear etiology of visual changes with negative brain CT. Cardiothoracic surgery are continuing with workup, Plavix is currently on hold. Pulmonology consuslted for surgical clearance. However pulmonology deemed patient to high risk to proceed with cardiothoracic surgery. Cardiology is recommending transfer to tertiary center for further evaluation and treatment. Plan is for patient be transferred to [facility] in [place]. Further evaluation of internal carotid artery stenosis can be done as an outpatient. Patient and daughter were given business card. Thank you for this consultation, we will sign off at this time. The impression and plan of care has been dictated as directed. Dr. Haas I performed a history and examination of this patient, discussed the same with the dictator. I agree with the dictator's note ,documented as a scribe. Any additional findings or plans will be noted.
[2023-06-16 10:13] LABS: ABG Base Excess 4.9 mmol/L; ABG HCO3 29 mmol/L (21-25); ABG Oxygen Saturation 97.1 % (94-97); ABG PCO2 45 mmHg (35-45); ABG PH 7.42 (7.35-7.45); ABG PO2 84 mmHg (83-108); ABG TCO2 31 mmol/L (19-24); Allen Test Performed? Yes
--- NOTE | 2023-06-16 10:41 | P.CNNES ---
History of Present Illness Consult date: 06/15/23 Requesting physician: Tanvir Fraser Reason for Consult: TIA?? History of Present Illness: Patient is a 73-year-old ambidextrous female with history CAD, COPD, oxygen dependent, diabetes, hypertension, hyperlipidemia and questionable Parkinson's disease was transferred from [facility] yesterday at 4:09 PM for cardiothoracic evaluation. Patient initially presented to [facility] on 06/11/2023 around 3 AM with complaints of chest pain. Patient was immediately transferred to [facility] for further cardiac workup. While she was in [facility] she underwent Cardiolite stress test that showed ischemia. She then underwent cardiac catheterization with findings of distal left main 99%, distal LAD 99% and mid LAD 80% and proximal RCA 70% disease. Due to these findings, patient was transferred to [facility] for further cardiothoracic consultation and recommendation. Patient also had an episode of acute visual changes that lasted minutes of the evening following her stress test. Patient states that she was sitting on the table in the contrast medium was infused in her arm. She moved her chair, did not feel well. And everything turned white in bilateral visual key. Everything in the wall she couldn't see including the TV, clock or the pictures. This episode lasted for about 5-10 minutes, and then the curtain cleared up. Patient denied any associated slurred speech, facial droop, any focal numbness tingling or stroke like symptoms. She denied any headache. She says that she used to get headache before but never had any migraines. The headaches are usually stress related. Following that, she had computed tomography scan without contrast of the brain that showed no acute process. Some white matter changes secondary to chronic small vessel ischemic disease. She had a carotid Doppler which revealed right ICA stenosis 50-69% and left 60-49%. Patient's hemoglobin A1c 6.6, CBC with normal WBC, hemoglobin 8.9, platelets 3 02. Chem-7 is normal. Patient has history of hypertension, diabetes diagnosed 8 or 9 years ago. She smoked 1 pack per day for 54 years, quit 2 weeks ago. She used to drink, but not heavy, and has stopped drinking 35 years ago.Home medications include Januvia, metoprolol, levothyroxine, aspirin 81 mg, lisinopril 20 mg, acarbose 50 mg, Symbicort, Lipitor 20 mg, Requip 1 mg at bedtime, Lasix 75 mg, Sinemet 25/100 3 times a day. patient says that she has been taking aspirin and Plavix for a few years. Denies any previous history of strokes or TIA. She does have a history of tremors, which at one point was diagnosed as essential tremors, but then one neurologist that it was Parkinson's. To me it appears more like essential tremors. It started out with tremor in the dominant right arm, since then she started using the left hand, and became ambidextrous. Records from [facility]: Carotid Doppler 06/13/2023 showed duplex evaluation demonstrates no evidence of hemodynamically significant stenosis of the left internal carotid artery. There is hemodynamically significant stenosis of the right distal ICA moderate intratubular block was visualized in bilateral carotid arteries. Vertebral arteries are patent with antegrade flow. Hemoglobin A1c 6.8, basic metabolic panel normal, CBC normal CMP normal. CT head 06/12/2023 showed no acute intracranial process. Nonspecific white matter changes likely secondary to chronic small vessel ischemic disease. EKG shows sinus rhythm. Patient was seen by neurologist Dr. Skelton on 06/13/2023 by telemedicine, for transient visual scotomata both eyes, which he felt unlikely to be amaurosis fugax since it is bilateral. TIA involving posterior circulation possible with hemianopia. Carotid ultrasound, CTA head and neck, echo with bubble study, lipid panel was recommended. He also recommended to continue aspirin and Plavix and statin. Review of Systems Constitutional: Denies chills, Denies fever Eyes: bilateral loss of vision (Transient, as mentioned in HPI), denies blurred vision, denies diplopia Ears: deny: decreased hearing, ear discharge Ears, nose, mouth and throat: Denies headache, Denies sore throat Cardiovascular: Reports chest pain (Only on presentation to [facility] Reports shortness of breath Respiratory: Reports cough, Denies excessive sputum Gastrointestinal: Denies abdominal pain, Denies diarrhea, Denies nausea, Denies vomiting Genitourinary: Denies dysuria, Denies hematuria Musculoskeletal: Denies low back pain, Denies myalgias, Denies neck pain Integumentary: Denies pruritus, Denies rash Neurological: Reports as per HPI Psychiatric: Denies anxiety, Denies depression Endocrine: Denies thyroid mass, Denies weight change Hematologic/Lymphatic: Reports easy bruising, Denies easy bleeding Past Medical History Past Medical History: Coronary Artery Disease (CAD), Chest Pain / Angina, COPD, Diabetes Mellitus, Hyperlipidemia, Hypertension, Myocardial Infarction (SD), Thyroid Disorder Additional Past Medical History / Comment(s): 3L home oxygen ATC Last Myocardial Infarction Date:: 2018 History of Any Multi-Drug Resistant Organisms: None Reported Past Surgical History: Cholecystectomy, Heart Catheterization With Stent, Hysterectomy, Orthopedic Surgery Additional Past Surgical History / Comment(s): trigger finger surgery, tongue surgery, dental surgery, cataracts and lens implant, bladder surgery Past Anesthesia/Blood Transfusion Reactions: No Reported Reaction Date of Last Stent Placement:: 2018 Past Psychological History: No Psychological Hx Reported Smoking Status: Former smoker Past Alcohol Use History: None Reported Past Drug Use History: None Reported - Past Family History Father Family Medical History: Coronary Artery Disease (CAD), Myocardial Infarction (SD) Additional Family Medical History / Comment(s): Father from myocardial infarction at 67 years old Mother Additional Family Medical History / Comment(s): sepsis Medications and Allergies Home Medications Medication Instructions Recorded Confirmed Type Acarbose 50 mg PO AC-TID 06/14/23 06/14/23 History Albuterol Inhaler [Ventolin Hfa 1 - 2 puff INHALATION RT-Q6H PRN 06/14/23 06/14/23 History Inhaler] Ascorbic Acid [Vitamin C] 500 mg PO DAILY 06/14/23 06/14/23 History Aspirin EC [Ecotrin Low Dose] 81 mg PO DAILY 06/14/23 06/14/23 History Atorvastatin [Lipitor] 20 mg PO DAILY 06/14/23 06/14/23 History Budesonide-Formot 160-4.5 Mcg 2 puff INHALATION RT-BID 06/14/23 06/14/23 History [Symbicort 160-4.5 Mcg Inhaler] Carbidopa-Levodopa 25-100 mg 1 tab PO AC-TID 06/14/23 06/14/23 History [Sinemet 25-100] Clobetasol Propionate [Temovate 1 applic TOPICAL DIRECTED 06/14/23 06/14/23 History 0.05% Oint] Clopidogrel [Plavix] 75 mg PO DAILY 06/14/23 06/14/23 History Ferrous Sulfate [Slow Release Iron] 250 mg PO DAILY 06/14/23 06/14/23 History Ketoconazole 2% Shampoo [Nizoral] 1 applic TOPICAL DIRECTED 06/14/23 06/14/23 History Levothyroxine Sodium [Synthroid] 137 mcg PO DAILY 06/14/23 06/14/23 History Metoprolol Tartrate 12.5 mg PO BID 06/14/23 06/14/23 History Nitroglycerin Sl Tabs [Nitrostat] 0.4 mg SUBLINGUAL Q5M PRN 06/14/23 06/14/23 History lisinopriL [Zestril] 20 mg PO DAILY 06/14/23 06/14/23 History rOPINIRole HCL [Requip] 1 mg PO HS 06/14/23 06/14/23 History sitaGLIPtin [Januvia] 100 mg PO DAILY 06/14/23 06/14/23 History Allergies Allergy/AdvReac Type Severity Reaction Status Date / Time diazepam [From Valium] Allergy Rash/Hives Verified 06/14/23 18:56 divalproex sodium Allergy Rash/Hives Verified 06/14/23 18:56 [From Depakote] empagliflozin Allergy Unknown Verified 06/14/23 18:56 [From Jardiance] levofloxacin Allergy Rash/Hives Verified 06/14/23 18:56 propoxyphene [From Darvon] Allergy Rash/Hives Verified 06/14/23 18:56 Physical Examination - Vital Signs Vital Signs: Vital Signs Temp Pulse Pulse Resp BP Pulse Ox 06/15/23 16:56 74 18 137/57 99 06/15/23 15:54 72 18 06/15/23 15:43 70 18 06/15/23 15:26 70 18 06/15/23 12:58 72 18 06/15/23 12:48 70 18 06/15/23 12:07 70 18 120/61 98 06/15/23 10:54 72 18 06/15/23 09:40 70 18 06/15/23 09:29 72 18 100 06/15/23 08:13 98.1 F 72 18 116/45 95 06/15/23 04:00 98.7 F 72 18 124/51 98 06/15/23 02:00 73 18 06/15/23 00:00 98.6 F 73 18 109/55 97 06/14/23 21:00 98.6 F 77 16 98/41 99 06/14/23 20:31 87 06/14/23 20:22 87 Intake and Output 06/15/23 06/15/23 06/15/23 06:59 14:59 22:59 Intake Total 118 Output Total 600 Balance -482 Intake: Oral 118 Output: Urine 600 Other: Voiding Method Toilet Toilet Toilet # Voids 1 2 Patient is an elderly female, very pleasant, in no acute distress. Patient is alert awake oriented to time place and person. Speech and language functions are normal. Patient can name and repeat very well. No aphasia or dysarthria. Attention, concentration and fund of knowledge is adequate. On cranial nerve examination, pupils are equal, round and reacting to light, visual key are full on confrontation, with no neglect on double simultaneous stimulation. Extraocular muscles are intact with no nystagmus. Face is symmetric, tongue protrudes to the midline. Palatal elevation and sensation normal, hearing and shoulder shrug normal, facial sensation normal. On muscle strength testing, there is no pronator drift and the strength is normal in arms and legs distally and proximally, except hip flexion which is 4+5-bilaterally. Deep tendon reflexes are symmetric 1 in the upper limbs and lower limbs and plantars downgoing. Sensory to touch is equal with no neglect on double simultaneous stimulation. Cerebellar function showed no ataxia for [id number] testing. No dysdiadocho kinesia. No ataxia for [id number] testing on either side. Tone and bulk of muscles normal. Patient has mild tremors of outstretched hands, left more than right. No tremors at rest. Patient has very slight tremor for uayzdo-lf-utto testing. Gait deferred.. On general examination, there is no carotid bruit or murmur, S1-S2 audible. Chest is clear on consultation. Abdomen is soft nontender. No organomegaly, bowel sounds present. Peripheral pulses are present. No edema. Patient has m ultiple bruises on her arms. Results - Laboratory Findings CBC and BMP: 06/16/23 05:53 06/16/23 05:53 Abnormal Lab Findings: Abnormal Labs 06/14/23 06/14/23 06/15/23 16:47 20:01 08:04 RBC Hgb Hct MCHC RDW Glucose POC Glucose (mg/dL) 145 H 130 H Hemoglobin A1c 6.6 H 06/15/23 06/15/23 06/15/23 08:04 08:04 11:49 RBC 3.28 L Hgb 8.9 L Hct 28.8 L MCHC 30.9 L RDW 15.6 H Glucose 128 H POC Glucose (mg/dL) 115 H Hemoglobin A1c Assessment and Plan Assessment: * Probable TIA in the posterior circulation, manifesting with transient bilateral vision loss, that lasted for about 5-10 minutes. Does not appear morose is fugax, as symptoms were bilateral. * Hypertension * Diabetes * Tobacco use * CAD * Hypothyroidism * Carotid stenosis * Tremors, probably essential Plan: * Patient had a probable TIA manifesting with transient vision loss bilaterally. Does not appear amaurosis fugax, as it involved bilateral visual field, but TIA in the posterior circulation is a possibility. * Check 2-D echo with bubble study to rule out PFO * Carotid Doppler from [facility], reported hemodynamically significant stenosis of the right distal ICA with moderate intraluminal plaque visualized in bilateral carotid arteries. No significant stenosis of the left ICA. * Check CTA head and neck to follow up on carotid stenosis, rule out intracranial stenosis. * Cardiology and cardiothoracic surgery on case. * Fasting a.m. lipid panel cholesterol 121, LDL 42, HDL 63 and triglyceride 79. Continue Lipitor 20 mg daily. * Hemoglobin A1c 6.8 06/12/2023. Diabetes well controlled. * Optimize control of blood pressure. * Continue aspirin 81 mg and Plavix 75 g daily. * Thyroid functions are abnormal, we will defer to IM to address. * Telemetry monitoring rule out any arrhythmia * Neurology will continue ot follow. Thank you for the consult.
--- NOTE | 2023-06-16 11:09 | P.PN ---
Subjective HISTORY OF PRESENT ILLNESS: This is a 73-year-old female with a past medical history significant for diabetes, hypertension, coronary artery disease with previous stenting, hyperlipidemia, COPD with home oxygen use, Parkinson's disease, and nicotine dependence with recent cessation. Patient initially presented to [facility] with complaints of chest pain. She was transferred to the [facility] for further evaluation. She underwent stress testing at [facility] which revealed stress-induced ischemia in the mid to distal anterior wall. She underwent cardiac catheterization with Dr. Perales revealing 99% distal left main stenosis, 99% ostial LAD stenosis, 80% mid LAD stenosis, and 70% proximal RCA stenosis. Echocardiogram completed [facility] revealed ejection fraction 50-55%, mild MR, trace to mild TR. She was transferred to [facility] for evaluation by CT surgery. Apparently, the patient had some vision changes when she was at [facility] and she underwent carotid Dopplers revealing right ICA stenosis 50-69% and left ICA stenosis 16-49%. Her vision issues have since resolved. Patient examined this morning at the bedside. She denies chest pain or pressure. She denies shortness of breath. Telemetry reveals sinus mechanism. Vital signs are st able. Blood pressure 120/61. 06/16/2023 Patient examined this morning at the bedside. Patient denies chest pain or pressure. She denies shortness of breath. Patient was evaluated by CT surgery and pulmonary and was deemed too high risk to undergo CABG. Vital signs are stable. PHYSICAL EXAM: VITAL SIGNS: Reviewed. GENERAL: Well-developed in no acute distress. HEENT: Head is normocephalic. Pupils are equal, round. Sclerae anicteric. Mucous membranes of the mouth are moist. Neck supple. No JVD or thyromegaly LUNGS: Respirations even and unlabored. Lungs with decreased air exchange. HEART: Regular rate and rhythm. S1 and S2 heard. ABDOMEN: Soft. Nondistended. Nontender. EXTREMITIES: Normal range of motion. No clubbing or cyanosis. Peripheral pulses intact. No lower extremity edema NEUROLOGIC: Awake and alert. Oriented x 3. ASSESSMENT: Chest pain, status post cardiac catheterization revealing 99% distal left main stenosis, 99% ostial LAD stenosis, 80% mid LAD stenosis, and 70% proximal RCA stenosis Coronary disease with previous PCI, details unknown Right internal carotid stenosis, 50-69% Transient visual disturbance with spontaneous resolution Hypertension Hyperlipidemia COPD with home oxygen use Diabetes Parkinson's disease Recent cessation of nicotine use, patient quit smoking 2 weeks ago PLAN: Continue current cardiac medications Resume Plavix (held yesterday for possibility of CABG) Patient deemed too high risk for CABG from CT surgery and pulmonary standpoint Dr. Perales to speak to Dr. Lr regarding possible PCI versus transfer to tertiary care center for high risk PCI Further recommendations pending patient course Nurse practitioner note has been reviewed by physician. Signing provider agrees with the documented findings, assessment, and plan of care. Objective - Vital Signs Vital signs: Vital Signs Temp 97.7 F 06/16/23 08:15 Pulse 67 06/16/23 08:15 Resp 20 06/16/23 08:15 BP 134/68 06/16/23 08:15 Pulse Ox 100 06/16/23 08:15 FiO2 Intake & Output 06/15/23 06/16/23 06/16/23 18:59 06:59 18:59 Intake Total 118 128 Output Total 600 Balance -482 128 Weight 67.8 kg Intake: IV 10 Invasive Line 1 10 Oral 118 118 Output: Urine 600 Other: Voiding Method Toilet Toilet Toilet # Voids 2 1 1 - Labs CBC & Chem 7: 06/16/23 05:53 06/16/23 05:53 Labs: Abnormal Lab Results - Last 24 Hours (Table) 06/15/23 06/15/23 06/15/23 Range/Units 08:04 11:49 20:13 RBC (3.80-5.40) m/uL Hgb (11.4-16.0) gm/dL Hct (34.0-46.0) % MCHC (31.0-37.0) g/dL RDW (11.5-15.5) % ABG HCO3 (21-25) mmol/L ABG Total CO2 (19-24) mmol/L ABG O2 Saturation (94-97) % Carbon Dioxide (22-30) mmol/L Glucose (74-99) mg/dL POC Glucose (mg/dL) 115 H 141 H (70-110) mg/dL Hemoglobin A1c 6.6 H (<=6.0) % Total Protein (6.3-8.2) g/dL Albumin (3.5-5.0) g/dL TSH (0.465-4.680) mIU/L Free T4 (0.78-2.19) ng/dL 06/16/23 06/16/23 06/16/23 Range/Units 05:53 05:53 06:03 RBC 3.37 L (3.80-5.40) m/uL Hgb 9.0 L (11.4-16.0) gm/dL Hct 29.7 L (34.0-46.0) % MCHC 30.5 L (31.0-37.0) g/dL RDW 16.2 H (11.5-15.5) % ABG HCO3 (21-25) mmol/L ABG Total CO2 (19-24) mmol/L ABG O2 Saturation (94-97) % Carbon Dioxide 31 H (22-30) mmol/L Glucose 134 H (74-99) mg/dL POC Glucose (mg/dL) 147 H (70-110) mg/dL Hemoglobin A1c (<=6.0) % Total Protein 5.9 L (6.3-8.2) g/dL Albumin 3.3 L (3.5-5.0) g/dL TSH 0.157 L (0.465-4.680) mIU/L Free T4 2.23 H (0.78-2.19) ng/dL 06/16/23 Range/Units 10:09 RBC (3.80-5.40) m/uL Hgb (11.4-16.0) gm/dL Hct (34.0-46.0) % MCHC (31.0-37.0) g/dL RDW (11.5-15.5) % ABG HCO3 29 H (21-25) mmol/L ABG Total CO2 31 H (19-24) mmol/L ABG O2 Saturation 97.1 H (94-97) % Carbon Dioxide (22-30) mmol/L Glucose (74-99) mg/dL POC Glucose (mg/dL) (70-110) mg/dL Hemoglobin A1c (<=6.0) % Total Protein (6.3-8.2) g/dL Albumin (3.5-5.0) g/dL TSH (0.465-4.680) mIU/L Free T4 (0.78-2.19) ng/dL
[2023-06-16] MEDS ORDERED: CLOPIDOGREL 75 MG TAB PO SCH (11:15)
[2023-06-16 11:39] LABS: Glucose,Whole Blood 99 mg/dL (70-110)
--- NOTE | 2023-06-16 12:20 | P.CNPUL ---
History of Present Illness Consult date: 06/16/23 Requesting physician: Jr Frias Reason for consult: COPD Chief complaint: Chest pain History of present illness: This is a very pleasant 73-year-old female patient with a known history of Parkinson's disease, hypothyroidism, iron deficiency anemia, coronary artery disease with previous myocardial infarction and intervention, hypertension, hyperlipidemia, diabetes mellitus, chronic and ongoing tobacco dependence of greater than 50 years, chronic obstructive pulmonary disease maintained on oxygen at 3 L/m per nasal cannula. She states she has not been seen by a purchasing administrator in the past. He was having chest pain and was transferred from [facility] to [facility] where she had undergone cardiac catheterization and found to have significant triple-vessel coronary artery disease and was transferred here for further evaluation and care. He is being considered for coronary artery bypass grafting and we are consulted for pulmonary management. The patient however was found to have an FEV1 value of 35% of predicted. Her Blood gases on 32% FiO2 revealed a pO2 of 84, pCO2 45, pH 7.42. White count 6.9. Hemoglobin 9.0. Platelets 295. Sodium 139. Potassium 4.4. Bicarb 31. BUN 12. Creatinine 0.77. Glucose 134. Computed tomography scan of the chest revealed severe emphysematous changes but no acute pulmonary process. He is seen today on the selective care unit. She is currently sitting up in bed. Awake and alert in no acute distress. No chest pain currently. No worsening shortness of breath, cough or congestion. Maintaining O2 saturations in the 90s on 3 L/m per nasal cannula. Afebrile. Hemodynamically stable. Initiated on DuoNeb inhalations, Pulmicort inhalations. Review of Systems REVIEW OF SYSTEMS: CONSTITUTIONAL: Denies any recent significant weight loss or weight gain. EYES: Denies change in vision. EARS, NOSE, MOUTH, THROAT: Denies headaches, denies sore throat. CARDIOVASCULAR: Positive for chest pain, no palpitations or syncopal episodes. RESPIRATORY: Denies shortness of breath, cough, congestion or hemoptysis. GASTROINTESTINAL: Denies change in appetite, denies abdominal pain GENITOURINARY: Denies hematuria, denies infections. MUSKULOSKELETAL: Denies pain, denies swelling. INTEGUMENTARY: Denies rash, denies eczema. NEUROLOGICAL: Denies recent memory loss, no recent seizure activity. PSYCHIATRIC: Denies anxiety, denies depression. HEMATOLOGIC/LYMPHATIC: Denies anemia, denies enlarged lymph nodes. Past Medical History Past Medical History: Coronary Artery Disease (CAD), Chest Pain / Angina, COPD, Diabetes Mellitus, Hyperlipidemia, Hypertension, Myocardial Infarction ([place]), Thyroid Disorder Additional Past Medical History / Comment(s): 3L home oxygen ATC Last Myocardial Infarction Date:: 2018 History of Any Multi-Drug Resistant Organisms: None Reported Past Surgical History: Cholecystectomy, Heart Catheterization With Stent, Hysterectomy, Orthopedic Surgery Additional Past Surgical History / Comment(s): trigger finger surgery, tongue surgery, dental surgery, cataracts and lens implant, bladder surgery Past Anesthesia/Blood Transfusion Reactions: No Reported Reaction Date of Last Stent Placement:: 2018 Past Psychological History: No Psychological Hx Reported Smoking Status: Former smoker Past Alcohol Use History: None Reported Past Drug Use History: None Reported - Past Family History Father Family Medical History: Coronary Artery Disease (CAD), Myocardial Infarction ([place]) Additional Family Medical History / Comment(s): Father from myocardial infarction at 67 years old Mother Additional Family Medical History / Comment(s): sepsis Medications and Allergies Home Medications Medication Instructions Recorded Confirmed Type Acarbose 50 mg PO AC-TID 06/14/23 06/14/23 History Albuterol Inhaler [Ventolin Hfa 1 - 2 puff INHALATION RT-Q6H PRN 06/14/23 06/14/23 History Inhaler] Ascorbic Acid [Vitamin C] 500 mg PO DAILY 06/14/23 06/14/23 History Aspirin EC [Ecotrin Low Dose] 81 mg PO DAILY 06/14/23 06/14/23 History Atorvastatin [Lipitor] 20 mg PO DAILY 06/14/23 06/14/23 History Budesonide-Formot 160-4.5 Mcg 2 puff INHALATION RT-BID 06/14/23 06/14/23 History [Symbicort 160-4.5 Mcg Inhaler] Carbidopa-Levodopa 25-100 mg 1 tab PO AC-TID 06/14/23 06/14/23 History [Sinemet 25-100] Clobetasol Propionate [Temovate 1 applic TOPICAL DIRECTED 06/14/23 06/14/23 History 0.05% Oint] Clopidogrel [Plavix] 75 mg PO DAILY 06/14/23 06/14/23 History Ferrous Sulfate [Slow Release Iron] 250 mg PO DAILY 06/14/23 06/14/23 History Ketoconazole 2% Shampoo [Nizoral] 1 applic TOPICAL DIRECTED 06/14/23 06/14/23 History Levothyroxine Sodium [Synthroid] 137 mcg PO DAILY 06/14/23 06/14/23 History Metoprolol Tartrate 12.5 mg PO BID 06/14/23 06/14/23 History Nitroglycerin Sl Tabs [Nitrostat] 0.4 mg SUBLINGUAL Q5M PRN 06/14/23 06/14/23 History lisinopriL [Zestril] 20 mg PO DAILY 06/14/23 06/14/23 History rOPINIRole HCL [Requip] 1 mg PO HS 06/14/23 06/14/23 History sitaGLIPtin [Januvia] 100 mg PO DAILY 06/14/23 06/14/23 History Allergies Allergy/AdvReac Type Severity Reaction Status Date / Time diazepam [From Valium] Allergy Rash/Hives Verified 06/14/23 18:56 divalproex sodium Allergy Rash/Hives Verified 06/14/23 18:56 [From Depakote] empagliflozin Allergy Unknown Verified 06/14/23 18:56 [From Jardiance] levofloxacin Allergy Rash/Hives Verified 06/14/23 18:56 propoxyphene [From Darvon] Allergy Rash/Hives Verified 06/14/23 18:56 Physical Exam Vitals: Vital Signs Temp Pulse Pulse Resp BP Pulse Ox 06/16/23 11:21 80 06/16/23 11:11 82 06/16/23 08:15 97.7 F 67 20 134/68 100 06/16/23 08:11 80 06/16/23 07:56 78 95 06/16/23 03:40 97.7 F 67 20 121/57 95 06/16/23 02:00 72 18 06/16/23 00:00 98.2 F 72 18 127/56 96 06/15/23 21:02 77 06/15/23 20:46 71 06/15/23 20:00 97.7 F 72 18 120/46 97 06/15/23 16:56 74 18 137/57 99 06/15/23 15:54 72 18 06/15/23 15:43 70 18 06/15/23 15:26 70 18 06/15/23 12:58 72 18 06/15/23 12:48 70 18 06/15/23 12:07 70 18 120/61 98 Intake and Output 06/15/23 06/16/23 06/16/23 22:59 06:59 14:59 Intake Total 118 128 Output Total 600 Balance -482 128 Intake: IV 10 Invasive Line 1 10 Oral 118 118 Output: Urine 600 Other: Voiding Method Toilet Toilet Toilet # Voids 1 1 Weight 67.8 kg GENERAL EXAM: Alert, pleasant 73-year-old female, on 3 L nasal cannula, comfortable in no apparent distress. HEAD: Normocephalic. EYES: Normal reaction of pupils, equal size. NOSE: Clear with pink turbinates. THROAT: No erythema or exudates. NECK: No masses, no JVD. CHEST: No chest wall deformity. LUNGS: Equal air entry with no crackles, wheeze, rhonchi or dullness. Diminished. CVS: S1 and S2 normal with no audible murmur, regular rhythm. ABDOMEN: No hepatosplenomegaly, normal bowel sounds, no guarding or rigidity. SPINE: No scoliosis or deformity SKIN: No rashes CENTRAL NERVOUS SYSTEM: No focal deficits, tone is normal in all 4 extremities. EXTREMITIES: There is no peripheral edema. No clubbing, no cyanosis. Peripheral pulses are intact. Results - Laboratory Findings CBC and BMP: 06/16/23 05:53 06/16/23 05:53 ABG ABG pH 7.42 (7.35-7.45) 06/16/23 10:09 ABG pCO2 45 mmHg (35-45) 06/16/23 10:09 ABG pO2 84 mmHg (83-108) 06/16/23 10:09 ABG O2 Saturation 97.1 % (94-97) H 06/16/23 10:09 Abnormal lab findings: Abnormal Labs 06/14/23 06/14/23 06/15/23 16:47 20:01 08:04 RBC Hgb Hct MCHC RDW ABG HCO3 ABG Total CO2 ABG O2 Saturation Carbon Dioxide Glucose POC Glucose (mg/dL) 145 H 130 H Hemoglobin A1c 6.6 H Total Protein Albumin TSH Free T4 06/15/23 06/15/23 06/15/23 08:04 08:04 11:49 RBC 3.28 L Hgb 8.9 L Hct 28.8 L MCHC 30.9 L RDW 15.6 H ABG HCO3 ABG Total CO2 ABG O2 Saturation Carbon Dioxide Glucose 128 H POC Glucose (mg/dL) 115 H Hemoglobin A1c Total Protein Albumin TSH Free T4 06/15/23 06/16/23 06/16/23 20:13 05:53 05:53 RBC 3.37 L Hgb 9.0 L Hct 29.7 L MCHC 30.5 L RDW 16.2 H ABG HCO3 ABG Total CO2 ABG O2 Saturation Carbon Dioxide 31 H Glucose 134 H POC Glucose (mg/dL) 141 H Hemoglobin A1c Total Protein 5.9 L Albumin 3.3 L TSH 0.157 L Free T4 2.23 H 06/16/23 06/16/23 06:03 10:09 RBC Hgb Hct MCHC RDW ABG HCO3 29 H ABG Total CO2 31 H ABG O2 Saturation 97.1 H Carbon Dioxide Glucose POC Glucose (mg/dL) 147 H Hemoglobin A1c Total Protein Albumin TSH Free T4 - Diagnostic Findings CT scan - chest: image reviewed Assessment and Plan Assessment: Chest pain in a patient found to have significant coronary artery disease including 99% distal left main stenosis, 99% ostial LAD stenosis, 80% mid LAD stenosis and proximal RCA with 70% stenosis. Left ventricular systolic function 50-55% Prior history of coronary artery disease with previous myocardial infarction and her cutaneous coronary intervention Carotid stenosis with 50-70% occlusion on the right Chronic and ongoing tobacco dependence of greater than 50 years Severe chronic obstructive pulmonary disease with an FEV1 value 35% of predicted Chronic hypoxemic respiratory failure secondary to above normally maintained on oxygen at 3 L in the outpatient setting Iron deficiency anemia Hypothyroidism Parkinson's disease Hypertension Hyperlipidemia Diabetes mellitus, type II Plan: The patient was seen and evaluated PFT, CT chest, labs and medications reviewed The patient has severe COPD with FEV1 value 35% of predicted Would be extremely high risk candidate for open heart surgery Discussed with both the cardiothoracic team and business services assistant We'll optimize her COPD medications We will continue to follow and make further recommendations based on her clinical status I have personally seen and examined the patient, performed the documentation and the assessment and plan as written. Number of minutes spent on the visit: 20.
[2023-06-16 13:30] LABS: Hepatitis C IgG Antibody Reactive (Non-Reactive)
[2023-06-16 13:50] LABS: Chol/HDL Ratio 2.38 Ratio; Hepatitis A Antibody IgM Nonreactive; Hepatitis B Core IgM Nonreactive; Hepatitis B Surface Antigen Nonreactive; LDL Cholesterol,Calculated 41.5 mg/dL (0.0-131.0); VLDL Calculation 16.38 mg/dL (5.00-40.00)
--- NOTE | 2023-06-16 13:50 | DS ---
DISCHARGE SUMMARY FINAL DIAGNOSES: 1. Chest pain secondary to three-vessel coronary disease. 2. Transmission visual disturbances and possible TIA. 3. Internal carotid artery stenosis. 4. Hypertension. 5. Hyperlipidemia. 6. Diabetes mellitus, type 2. 7. Severe COPD with FEV1 less than 35%. 8. Multiple complex medical issues. DISCHARGE DISPOSITION: The patient will be transferred to [facility] per Cardiology. HISTORY OF PRESENT ILLNESS: This is a 73-year-old woman with past medical history of multiple medical issues, presented to [facility] with chest pain. Cardiac cath showed three- vessel coronary disease. The patient was transferred for possible CABG, however, the patient was found to have significant severe COPD with FEV1 less than 35%. Dr. Ann recommended percutaneous intervention rather than surgery because of the extremely grave prognosis. Dr. García discussed with [facility] and the patient will be transferred to [facility] for further evaluation and treatment. Please refer to the multiple progress notes and consultations for further details. Please refer to the current medication list for list of medications. Once again the patient is stable but overall prognosis extremely guarded. MMODL / IJN: [id number] /
[2023-06-16 14:55] VITALS: TEMP 97.8
[2023-06-16 16:22] LABS: Glucose,Whole Blood 107 mg/dL (70-110)
[2023-06-16 19:51] LABS: Glucose,Whole Blood 135 mg/dL (70-110)
[2023-06-16] MEDS ORDERED: FORMOTEROL FUMARATE 20 MCG/2 ML NEBU INHALATION SCH (20:00)
[2023-06-16] MEDS ORDERED: BUDESONIDE 1 MG/2 ML NEBU INHALATION SCH (20:00)
[2023-06-16] MEDS: ATORVASTATIN 40 MG TAB PO SCH (20:31)
[2023-06-16 23:59] VITALS: BP 114/60; PULSE 66; RESP 18
--- NOTE | 2023-06-17 00:15 | CT ---
EXAMINATION TYPE: CT head without contrast CT angio head neck DATE OF EXAM: 06/16/2023 COMPARISON: None HISTORY: 73-year-old female Carotid stenosis, h/o TIA TECHNIQUE: Contiguous axial scanning of the head performed without IV contrast. Subsequent scanning o f the head and neck; patient injected with 65 mL of Isovue 370. Coronal/sagittal MIP reconstructions performed. 3-D reconstructions generated on a dedicated independent workstation. CT DLP: 1553.4 mGycm Automated exposure control for dose reduction was used. FINDINGS: CT HEAD WITHOUT CONTRAST: No evidence for acute intracranial hemorrhage, acute ischemic change, mass, mass effect, midline shif t, or extra-axial fluid collection. No hydrocephalus. No effacement of cerebral sulci or basal subara chnoid cisterns. Atherosclerotic calcifications within the carotid siphons. Scattered mild patchy subcortical and lisa ventricular white matter hypodensities. Partially empty sella. Leftward anterior nasal septal deviation. Trace mucosal thickening ethmoid air cells. Orbits and glob es are intact. Mastoid air cells well pneumatized. CTA NECK: Prominent bilateral hilar lymph nodes measuring up to 1.5 cm. Subcarinal node measuring 1.0 cm. Lower right paratracheal node measuring 1.0 cm. AP window node measuring 8 mm. There is advanced underlying emphysematous change in the visualized upper lungs. Moderate atherosclerotic calcifications within the aortic arch with very direct takeoff of the left v ertebral artery directly from the aortic arch. Moderate atherosclerotic narrowing at the origin of the left common carotid artery. There is moderate atherosclerotic change at the left carotid bifurcation and more moderate to severe at the left carotid bulb. This contributes to a severe, 90% narrowing of the left carotid bulb. NASCET criteria was utilized. The right common carotid artery is patent. Moderate atherosclerotic changes of the right carotid bifurcation. This results in a moderate, 60% stenosis at the origin of the right ICA. Additional moderate atherosclerotic calcification in the proximal right ICA just beyond the carotid b ulb with moderate, just over 50% stenosis. The remainder of the right ICA is patent. CTA HEAD: Mild atherosclerotic narrowing within the V4 segments bilateral vertebral arteries. Otherwise, both v ertebral and basilar arteries as well as the remainder of the posterior circulation are patent. Patent bilateral posterior communicating arteries are noted. There is segmental moderate atherosclerotic narrowing throughout the bilateral carotid siphons. Otherwise, the anterior circulation is patent. No aneurysmal change is seen. IMPRESSION: CT HEAD: 1. NO ACUTE INTRACRANIAL ABNORMALITY SEEN. CTA BRAIN: 2. MODERATE SEGMENTAL ATHEROSCLEROTIC STENOSES THROUGHOUT THE BILATERAL CAROTID SIPHONS. 3. PATENT BILATERAL POSTERIOR COMMUNICATING ARTERIES. 4. NO LARGE VESSEL INTRACRANIAL ARTERIAL OCCLUSION, SIGNIFICANT STENOSIS, OR ANEURYSMAL CHANGE IS SEE N. CTA NECK: 5. Severe, 90% proximal left ICA stenosis. 6. Segmental moderate stenoses proximal right ICA; 60% stenosis right ICA origin and just over 50% st enosis just above the carotid bulb 7. There may be a moderate atherosclerotic stenosis at the origin of the left common carotid artery. 8. Incidental: Scattered prominent mediastinal and hilar lymph nodes may be reactive/post inflammator y. Recommend three-month follow-up CT to reassess. COPD with advanced emphysema.
--- NOTE | 2023-06-17 11:25 | CA ---
Transthoracic Echo Report Name: Chandrika Mcgrath Age: 73 Gender: F : 1950 Exam Date: 06/16/2023 11:16 Exam Location: [facility] Ht (in): 65 Wt (lb): 149 Ordering Physician: Hailey Black MD Attending/Referring Phys: Spare Parts Clerk Marichuy Macias RDCS Procedure CPT: Indications: tia Cardiac Hx: Technical Quality: Good Contrast 1: Total Dose (mL): Contrast 2: Total Dose (mL): MEASUREMENTS (Male / Female) Normal Values 2D ECHO LV Diastolic Diameter PLAX 5.1 cm 4.2 - 5.9 / 3.9 - 5.3 cm LV Systolic Diameter PLAX 3.8 cm IVS Diastolic Thickness 1.0 cm 0.6 - 1.0 / 0.6 - 0.9 cm LVPW Diastolic Thickness 1.0 cm 0.6 - 1.0 / 0.6 - 0.9 cm LV Relative Wall Thickness 0.4 RV Internal Dim ED PLAX 3.3 cm LA Systolic Diameter LX 3.9 cm 3.0 - 4.0 / 2.7 - 3.8 cm LV Diastolic Volume MOD 4C 92.6 cm??? LV Systolic Volume MOD 4C 41.0 cm??? LV Ejection Fraction MOD 4C 55.7 % LV Cardiac Index MOD 4C 1892.3 cm???/min???m??? LV Diastolic Length 4C 7.7 cm LV Systolic Length 4C 6.4 cm LV Diastolic Volume MOD 2C 94.0 cm??? LV Systolic Volume MOD 2C 47.2 cm??? LV Ejection Fraction MOD 2C 49.8 % LV Cardiac Index MOD 2C 1716.3 cm???/min???m??? LV Diastolic Length 2C 7.5 cm LV Systolic Length 2C 6.4 cm LA Volume 64.4 cm??? 18 - 58 / 22 - 52 cm??? M-MODE Aortic Root Diameter MM 3.2 cm MV E Point Septal Separation 0.8 cm AV Cusp Separation MM 2.2 cm DOPPLER AV Peak Velocity 98.2 cm/s AV Peak Gradient 3.9 mmHg MV Area PHT 3.7 cm??? Mitral E Point Velocity 85.8 cm/s Mitral A Point Velocity 95.0 cm/s Mitral E to A Ratio 0.9 MV Deceleration Time 204.0 ms MV E' Velocity 3.4 cm/s Mitral E to MV E' Ratio 24.9 TR Peak Velocity 342.7 cm/s TR Peak Gradient 47.0 mmHg Right Ventricular Systolic Press 52.0 mmHg FINDINGS Left Ventricle Left ventricular ejection fraction is estimated at 50-55 %. Left ventricular cavity size normal. Mildly increased septal wall thickness. Mildly increased posterior wall thickness. Right Ventricle Mild right ventricular dilatation. Moderate pulmonary hypertension. Right ventricular systolic pressure estimated at 52 mm hg. Right Atrium Normal right atrial size. Bubbles not needed at this time per medical van driver. Patient beeing transfer for heart stenting Left Atrium Moderately increased left atrial volume. Mildly increased left atrial area. Mitral Valve Structurally normal mitral valve. Mild mitral regurgitation. Aortic Valve Trileaflet aortic valve. No aortic valve stenosis or regurgitation. Tricuspid Valve Structurally normal tricuspid valve. Mild tricuspid regurgitation. Pulmonic Valve Structurally normal pulmonic valve. Trace pulmonic regurgitation. Pericardium No pericardial effusion. Aorta Normal size aortic root and proximal ascending aorta. CONCLUSIONS Normal LV systolic function Mildly enlarged right ventricle with RVSP around 50 mg mercury No Doppler flow across the interatrial septum Previewed by: Dr. Oneil Cottrell MD (Electronically Signed) Final Date: 17 June 2023 11:24
== END 2023-06-17 00:41 | disposition short-term general hospital (02) | DRG 303 ==
LOC: 3SCARD 16:09
PROVIDERS: ADMIT Internal Medicine; ATTEND Internal Medicine
DX: I25.119 Atherosclerotic heart disease of native coronary artery with unspecified angina pectoris (principal); J96.11 Chronic respiratory failure with hypoxia; C50.919 Malignant neoplasm of unspecified site of unspecified female breast; G20 Parkinson's disease; E11.9 Type 2 diabetes mellitus without complications; J44.9 Chronic obstructive pulmonary disease, unspecified; G45.9 Transient cerebral ischemic attack, unspecified; H53.123 Transient visual loss, bilateral; H53.47 Heteronymous bilateral field defects; D50.9 Iron deficiency anemia, unspecified; I10 Essential (primary) hypertension; E03.9 Hypothyroidism, unspecified; H53.459 Other localized visual field defect, unspecified eye; E78.5 Hyperlipidemia, unspecified; Z66 Do not resuscitate; Z99.81 Dependence on supplemental oxygen; I25.2 Old myocardial infarction; Z95.5 Presence of coronary angioplasty implant and graft; Z87.891 Personal history of nicotine dependence; Z79.890 Hormone replacement therapy; Z79.82 Long term (current) use of aspirin; Z79.51 Long term (current) use of inhaled steroids; Z79.02 Long term (current) use of antithrombotics/antiplatelets; Z79.84 Long term (current) use of oral hypoglycemic drugs; Z88.8 Allergy status to other drugs, medicaments and biological substances; Z88.1 Allergy status to other antibiotic agents; Z88.5 Allergy status to narcotic agent; Z79.899 Other long term (current) drug therapy; Z82.49 Family history of ischemic heart disease and other diseases of the circulatory system; Z95.1 Presence of aortocoronary bypass graft
CPT/HCPCS: 36600; 70496; 70498; 71250; 80048; 80053; 80061; 80074; 82805; 83036; 83735; 84439; 84443; 85025; 87070; 87635; 93306; 93970; 94150; 94640; 94760

== ENCOUNTER 2024-05-17 07:42 | Inpatient (IN) | payer MEDICARE, OTHER ==
[2024-05-17] MEDS: HYDROmorphone 0.5 MG/0.5 ML SYRINGE IVP STA ×2 (08:19→10:23)
[2024-05-17 08:22] LABS: Basophils # (A) 0.1 k/uL (0-0.2); Basophils % (A) 1 %; Eosinophils # (A) 0.3 k/uL (0-0.7); Eosinophils % (A) 3 %; HCT 38.2 % (34.0-46.0); HGB 12.4 gm/dL (11.4-16.0); Hypochromasia Slight; Lymphocytes # (A) 1.3 k/uL (1.0-4.8); Lymphocytes % (A) 12 %; MCH 32.5 pg (25.0-35.0); MCHC 32.4 g/dL (31.0-37.0); MCV 100.5 fL (80.0-100.0); Mean Platelet Volume 8.5; Monocytes # (A) 0.6 k/uL (0-1.0); Monocytes % (A) 6 %; Neutrophils # (A) 8.2 k/uL (1.3-7.7); Neutrophils % (A) 77 %; Platelet Count 210 k/uL (150-450); RDW 13.4 % (11.5-15.5); WBC 10.6 k/uL (3.8-10.6)
--- NOTE | 2024-05-17 08:24 | ED ---
General Adult HPI - General Chief complaint: Fall Stated complaint: Hip Pain Time Seen by Provider: 05/17/24 08:00 Source: patient, EMS, RN notes reviewed, old records reviewed Limitations: no limitations - History of Present Illness Initial comments: This is a 74-year-old female who presents to the emergency department after she fell onto her left hip this morning. Patient states she tripped and now she is unable to move her left hip. Patient denied hitting her head or neck. Patient denied hitting her chest or back. Patient Nuys any other complaints besides left hip pain. - Related Data Home Medications Medication Instructions Recorded Confirmed Acarbose 50 mg PO AC-TID 06/14/23 09/20/23 Albuterol Inhaler [Ventolin Hfa 1 - 2 puff INHALATION RT-Q6H PRN 06/14/23 09/20/23 Inhaler] Ascorbic Acid [Vitamin C] 500 mg PO DAILY 06/14/23 09/20/23 Aspirin EC [Ecotrin Low Dose] 81 mg PO DAILY 06/14/23 09/20/23 Atorvastatin [Lipitor] 20 mg PO DAILY 06/14/23 09/20/23 Budesonide-Formot 160-4.5 Mcg 2 puff INHALATION RT-BID 06/14/23 09/20/23 [Symbicort 160-4.5 Mcg Inhaler] Carbidopa-Levodopa 25-100 mg 1 tab PO AC-TID 06/14/23 09/20/23 [Sinemet 25-100] Clopidogrel [Plavix] 75 mg PO DAILY 06/14/23 09/20/23 Ferrous Sulfate [Slow Release Iron] 250 mg PO DAILY 06/14/23 09/20/23 Levothyroxine Sodium [Synthroid] 137 mcg PO DAILY 06/14/23 09/20/23 Metoprolol Tartrate 12.5 mg PO BID 06/14/23 09/20/23 Nitroglycerin Sl Tabs [Nitrostat] 0.4 mg SUBLINGUAL Q5M PRN 06/14/23 09/20/23 lisinopriL [Zestril] 20 mg PO DAILY 06/14/23 09/20/23 rOPINIRole HCL [Requip] 1 mg PO HS 06/14/23 09/20/23 sitaGLIPtin [Januvia] 100 mg PO DAILY 06/14/23 09/20/23 Allergies Allergy/AdvReac Type Severity Reaction Status Date / Time diazepam [From Valium] Allergy Rash/Hives Verified 05/17/24 07:54 divalproex sodium Allergy Rash/Hives Verified 05/17/24 07:54 [From Depakote] empagliflozin Allergy Unknown Verified 05/17/24 07:54 [From Jardiance] levofloxacin Allergy Rash/Hives Verified 05/17/24 07:54 propoxyphene [From Darvon] Allergy Rash/Hives Verified 05/17/24 07:54 Review of Systems ROS Statement: Those systems with pertinent positive or pertinent negative responses have been documented in the HPI. ROS Other: All systems not noted in ROS Statement are negative. Past Medical History Past Medical History: Coronary Artery Disease (CAD), Chest Pain / Angina, COPD, CVA/TIA, Diabetes Mellitus, Hyperlipidemia, Hypertension, Myocardial Infarction ([place]), Thyroid Disorder Additional Past Medical History / Comment(s): 3L home oxygen ATC,parkinson's was told with last mi she'd also had a mild cva. pt reports she's been having dizzy spells and a couple of near falls in last few days. Last Myocardial Infarction Date:: History of Any Multi-Drug Resistant Organisms: None Reported Past Surgical History: Cholecystectomy, Heart Catheterization With Stent, Hysterectomy, Orthopedic Surgery Additional Past Surgical History / Comment(s): trigger finger surgery, tongue surgery, dental surgery, cataracts and lens implant, bladder surgery Past Anesthesia/Blood Transfusion Reactions: No Reported Reaction Additional Past Anesthesia/Blood Transfusion Reaction / Comment(s): no blood tx hx Date of Last Stent Placement:: Past Psychological History: No Psychological Hx Reported Smoking Status: Former smoker - Past Family History Father Family Medical History: Coronary Artery Disease (CAD), Myocardial Infarction ([place]) Additional Family Medical History / Comment(s): Father from myocardial infarction at 67 years old Mother Additional Family Medical History / Comment(s): sepsis General Exam - General Exam Comments Initial Comments: GENERAL: Patient is well-developed and well-nourished. Patient is nontoxic and well- hydrated and is in moderate distress. ENT: Neck is soft and supple. No significant lymphadenopathy is noted. Oropharynx is clear. Moist mucous membranes. Neck has full range of motion without eliciting any pain. EYES: The sclera were anicteric and conjunctiva were pink and moist. Extraocular movements were intact and pupils were equal round and reactive to light. Eyel ids were unremarkable. PULMONARY: Unlabored respirations. Good breath sounds bilaterally. No audible rales rhonchi or wheezing was noted. CARDIOVASCULAR: There is a regular rate and rhythm without any murmurs gallops or rubs. ABDOMEN: Soft and nontender with normal bowel sounds. SKIN: Skin is clear with no lesions or rashes and otherwise unremarkable. NEUROLOGIC: Patient is alert and oriented x3. Cranial nerves II through XII are grossly intact. Motor and sensory are also intact. Normal speech, volume and content. Symmetrical smile. MUSCULOSKELETAL: Patient is unable to move the left hip the leg is shortened and rotated inward and bent at the knee. LYMPHATICS: No significant lymphadenopathy is noted PSYCHIATRIC: Normal psychiatric evaluation. Limitations: no limitations Course Vital Signs 05/17/24 07:51 Temperature 97.7 F Pulse Rate 63 Respiratory 20 Rate Blood Pressure 120/42 O2 Sat by Pulse 92 L Oximetry Medical Decision Making - Medical Decision Making EKG is interpreted by myself. EKG shows sinus rhythm at 64 bpm TN interval 140 QRS is 88 QT interval is 431 QTc is 440. Patient's EKG shows no ST segment ovation or depression. Was pt. sent in by a medical professional or institution (, PA, [facility], urgent care, hospital, or retirement...) When possible be specific @ -No Did you speak to anyone other than the patient for history (EMS, parent, family, police, friend...)? What history was obtained from this source @ -No Did you review nursing and triage notes (agree or disagree)? Why? @ -I reviewed and agree with nursing and triage notes Were old charts reviewed (outside hosp., previous admission, EMS record, old EKG, old radiological studies, urgent care reports/EKG's, retirement records)? Report findings @ -No old charts were reviewed Differential Diagnosis? @ -Differential Musculoskeletal Muscular strain, contusion, ligament sprain, fracture, arthritis, septic arthritis, bursitis, cellulitis, muscle spasm, nerve compression, DVT, arterial occlusion, herpes zoster, electrolyte abnormality, tumor.... This is not meant to be in all inclusive list EKG interpreted by me (3pts min.). @ -As above X-rays interpreted by me (1pt min.). @ -X-ray of the left hip shows an intertrochanteric fracture. Chest x-ray shows no acute normality CT interpreted by me (1pt min.). @ -None done U/S interpreted by me (1pt. min.). @ -None done What testing was considered but not performed or refused? (CT, X-rays, U/S, labs)? Why? @ -None What meds were considered but not given or refused? Why? @ -None Did you discuss the management of the patient with other professionals (professionals i.e. , PA, [facility], lab, RT, psych nurse, social media editor, wound care coordinator, teacher, control officer manager, clinical case manager)? Give summary @ -I spoke with AO and the physician office clerk assistant excepted the admission of this patient. Was smoking cessation discussed for >3mins.? @ -No Was critical care preformed (if so, how long)? @ -No Were there social determinants of health that impacted care today? How? (Homelessness, low income, unemployed, alcoholism, drug addiction, transportation, low edu. Level, literacy, decrease access to med. care, prison, rehab)? @ -No Was there de-escalation of care discussed even if they declined (Discuss DNR or withdrawal of care, Hospice)? DNR status @ -No What co-morbidities impacted this encounter? (DM, HTN, Smoking, COPD, CAD, Cancer, CVA, ARF, Chemo, Hep., AIDS, mental health diagnosis, sleep apnea, mor bid obesity)? @ -None Was patient admitted / discharged? Hospital course, mention meds given and rou te, prescriptions, significant lab abnormalities, going to OR and other pertinent info. @ -Patient had an intertrochanteric hip fracture and will be admitted to advanced orthopedics and a consult we put into medicine Undiagnosed new problem with uncertain prognosis? @ -No Drug Therapy requiring intensive monitoring for toxicity (Heparin, Nitro, Insulin, Cardizem)? @ -No Were any procedures done? @ -No Diagnosis/symptom? @ -Intertrochanteric hip fracture Acute, or Chronic, or Acute on Chronic? @ -Acute Uncomplicated (without systemic symptoms) or Complicated (systemic symptoms)? @ -Complicated Side effects of treatment? @ -No Exacerbation, Progression, or Severe Exacerbation? @ -No Poses a threat to life or bodily function? How? (Chest pain, [place], [place], pneumonia, PE, COPD, DKA, ARF, appy, cholecystitis, CVA, Diverticulitis, Homicidal, Suicidal, threat to staff... and all critical care pts) @ -No - Lab Data Result diagrams: 05/17/24 08:08 05/17/24 08:08 Lab Results 05/17/24 05/17/24 05/17/24 Range/Units 08:08 08:08 08:08 WBC 10.6 (3.8-10.6) k/uL RBC 3.80 (3.80-5.40) m/uL Hgb 12.4 (11.4-16.0) gm/dL Hct 38.2 (34.0-46.0) % MCV 100.5 H (80.0-100.0) fL MCH 32.5 (25.0-35.0) pg MCHC 32.4 (31.0-37.0) g/dL RDW 13.4 (11.5-15.5) % Plt Count 210 (150-450) k/uL MPV 8.5 Neutrophils % 77 % Lymphocytes % 12 % Monocytes % 6 % Eosinophils % 3 % Basophils % 1 % Neutrophils # 8.2 H (1.3-7.7) k/uL Lymphocytes # 1.3 (1.0-4.8) k/uL Monocytes # 0.6 (0-1.0) k/uL Eosinophils # 0.3 (0-0.7) k/uL Basophils # 0.1 (0-0.2) k/uL Hypochromasia Slight PT 10.7 (10.0-12.5) sec INR 1.0 (<1.2) APTT 22.6 (22.0-30.0) sec Sodium 139 (137-145) mmol/L Potassium 4.5 (3.5-5.1) mmol/L Chloride 105 (98-107) mmol/L Carbon Dioxide 32 H (22-30) mmol/L Anion Gap 2 mmol/L BUN 15 (7-17) mg/dL Creatinine 0.85 (0.52-1.04) mg/dL Est GFR (CKD-EPI)AfAm 78 (>60 ml/min/1.73 sqM) Est GFR (CKD-EPI)NonAf 68 (>60 ml/min/1.73 sqM) Glucose 126 H (74-99) mg/dL Calcium 9.2 (8.4-10.2) mg/dL Total Bilirubin 1.8 H (0.2-1.3) mg/dL AST 29 (14-36) U/L ALT 14 (4-34) U/L Alkaline Phosphatase 65 (38-126) U/L Total Protein 5.8 L (6.3-8.2) g/dL Albumin 3.3 L (3.5-5.0) g/dL Disposition Clinical Impression: Fall, Intertrochanteric fracture of left hip Disposition: ADMITTED IP TO THIS HOSP Referrals: Celso Almeida MD [Primary Care Provider] - 1-2 days Time of Disposition: 10:05
[2024-05-17 08:31] LABS: Partial Thromboplastin Time 22.6 sec (22.0-30.0); Prothrombin Time 10.7 sec (10.0-12.5)
[2024-05-17 08:52] LABS: ALT 14 U/L (4-34); AST 29 U/L (14-36); African American GFR (CKD) 78 (>60 ml/min/1.73 sqM); Albumin 3.3 g/dL (3.5-5.0); Alkaline Phosphatase 65 U/L (38-126); Anion Gap 2 mmol/L; Blood Urea Nitrogen 15 mg/dL (7-17); Calcium 9.2 mg/dL (8.4-10.2); Carbon Dioxide 32 mmol/L (22-30); Chloride 105 mmol/L (98-107); Glucose 126 mg/dL (74-99); Non-African American GFR(CKD) 68 (>60 ml/min/1.73 sqM); Potassium 4.5 mmol/L (3.5-5.1); Sodium 139 mmol/L (137-145); Total Bilirubin 1.8 mg/dL (0.2-1.3); Total Protein 5.8 g/dL (6.3-8.2)
--- NOTE | 2024-05-17 09:06 | XR ---
EXAMINATION TYPE: XR Hip LT and AP Pelvis DATE OF EXAM: 05/17/2024 8:45 AM CLINICAL INDICATION:Female, 74 years old with history of fall; [facility] COMPARISON: None. TECHNIQUE: XR Hip LT and AP Pelvis; hip was examined in the frontal and lateral projections and a AP pelvis. FINDINGS: Acute fracture through the left proximal femur with fracture line extending through the int ertrochanteric region. There is mild displacement/distraction of the fracture fragments. Osteophyte f ormation of the superior acetabulum of the hip. There is mild joint space narrowing. Atherosclerosis of the arterial vasculature. IMPRESSION: 1. Acute left femur intertrochanteric fracture. 2. Moderate hip osteoarthrosis.
--- NOTE | 2024-05-17 10:03 | XR ---
EXAMINATION TYPE: XR chest 1V portable DATE OF EXAM: 05/17/2024 COMPARISON: None INDICATION: Surgical evaluation TECHNIQUE: Single frontal view of the chest is obtained. FINDINGS: The heart size is normal. The pulmonary vasculature is normal. Some mild increased lung markings are at the right apex. This may be summation density. However, foll ow-up is recommended. No suspicious infiltrates evident. IMPRESSION: 1. Some mild increased lung markings at the right apex of uncertain etiology. Summation density small densities are within the differential. Follow-up chest x-ray recommended in 3 months.
[2024-05-17] MEDS: SODIUM CHLORIDE 0.9% 1,000 ML IV ONE (10:24)
--- NOTE | 2024-05-17 10:45 | P.HPOR ---
History of Present Illness H&P Date: 05/17/24 Chief Complaint: Left intertrochanteric femur fracture Patient is a 74-year-old female who presented to [facility] on 05/17/2024 after falling at home. Patient got out of bed this morning when she tripped over her nightgown and fell onto her left side. She was unable to weight-bear at that time, EMS did bring patient to the hospital for further evaluation. Imaging did demonstrate a minimally displaced left intertrochanteric femur fracture. I was contacted by the emergency room staff regarding this patient, patient was then admitted under our orthopedic care with plan for likely surgical intervention. Patient was evaluated in the emergency room, she is resting in her hospital bed. She notes most discomfort in the left hip with any type of movement. She denies any right lower extremity pain, bilateral upper extremity pain, new onset cervical, thoracic or lumbar pain. Patient does live alone, she has a daughter that is around and checks in on her quite a bit. Patient denies any previous surgery to the left lower extremity. Patient has a very complicated cardiac and pulmonary history. She has been on home O2 for a long time due to COPD. She has known cardiovascular disease. Review of Systems Constitutional: Reports as per HPI Past Medical History Past Medical History: Coronary Artery Disease (CAD), Chest Pain / Angina, COPD, CVA/TIA, Diabetes Mellitus, Hyperlipidemia, Hypertension, Myocardial Infarction ([place]), Thyroid Disorder Additional Past Medical History / Comment(s): 3L home oxygen ATC,parkinson's was told with last mi she'd also had a mild cva. pt reports she's been having dizzy spells and a couple of near falls in last few days. Last Myocardial Infarction Date:: History of Any Multi-Drug Resistant Organisms: None Reported Past Surgical History: Cholecystectomy, Heart Catheterization With Stent, Hysterectomy, Orthopedic Surgery Additional Past Surgical History / Comment(s): trigger finger surgery, tongue surgery, dental surgery, cataracts and lens implant, bladder surgery Past Anesthesia/Blood Transfusion Reactions: No Reported Reaction Additional Past Anesthesia/Blood Transfusion Reaction / Comment(s): no blood tx hx Date of Last Stent Placement:: Past Psychological History: No Psychological Hx Reported Smoking Status: Former smoker - Past Family History Father Family Medical History: Coronary Artery Disease (CAD), Myocardial Infarction ([place]) Additional Family Medical History / Comment(s): Father from myocardial infarction at 67 years old Mother Additional Family Medical History / Comment(s): sepsis Medications and Allergies Home Medications Medication Instructions Recorded Confirmed Type Acarbose 50 mg PO AC-TID 06/14/23 09/20/23 History Albuterol Inhaler [Ventolin Hfa 1 - 2 puff INHALATION RT-Q6H PRN 06/14/23 09/20/23 History Inhaler] Ascorbic Acid [Vitamin C] 500 mg PO DAILY 06/14/23 09/20/23 History Aspirin EC [Ecotrin Low Dose] 81 mg PO DAILY 06/14/23 09/20/23 History Atorvastatin [Lipitor] 20 mg PO DAILY 06/14/23 09/20/23 History Budesonide-Formot 160-4.5 Mcg 2 puff INHALATION RT-BID 06/14/23 09/20/23 History [Symbicort 160-4.5 Mcg Inhaler] Carbidopa-Levodopa 25-100 mg 1 tab PO AC-TID 06/14/23 09/20/23 History [Sinemet 25-100] Clopidogrel [Plavix] 75 mg PO DAILY 06/14/23 09/20/23 History Ferrous Sulfate [Slow Release Iron] 250 mg PO DAILY 06/14/23 09/20/23 History Levothyroxine Sodium [Synthroid] 137 mcg PO DAILY 06/14/23 09/20/23 History Metoprolol Tartrate 12.5 mg PO BID 06/14/23 09/20/23 History Nitroglycerin Sl Tabs [Nitrostat] 0.4 mg SUBLINGUAL Q5M PRN 06/14/23 09/20/23 History lisinopriL [Zestril] 20 mg PO DAILY 06/14/23 09/20/23 History rOPINIRole HCL [Requip] 1 mg PO HS 06/14/23 09/20/23 History sitaGLIPtin [Januvia] 100 mg PO DAILY 06/14/23 09/20/23 History Allergies Allergy/AdvReac Type Severity Reaction Status Date / Time diazepam [From Valium] Allergy Rash/Hives Verified 05/17/24 10:40 divalproex sodium Allergy Rash/Hives Verified 05/17/24 10:40 [From Depakote] empagliflozin Allergy Unknown Verified 05/17/24 10:40 [From Jardiance] levofloxacin Allergy Rash/Hives Verified 05/17/24 10:40 propoxyphene [From Darvon] Allergy Rash/Hives Verified 05/17/24 10:40 Physical Examination Left lower extremity: No open lesions, sores, ecchymosis to the left lower extremity. Patient's knee is flexed to about 90 and the hip is externally rotated at this time, this is the most comfortable position for at this time Patient demonstrates tenderness to palpation to the proximal femur. She is nontender with palpation surrounding the knee, lower leg, foot or ankle Logroll maneuver reproduces severe pain in the left hip, she is unable to straight leg raise. Range of motion at the knee was limited due to discomfort in her left hip. Plantarflexion, dorsiflexion, EHL, FHL are intact Calf is soft, no tenderness with palpation Plantarflexion, dorsiflexion, EHL, FHL are intact Skin is warm to touch Results - Labs Labs: Abnormal Lab Results - Last 24 Hours (Table) 05/17/24 05/17/24 Range/Units 08:08 08:08 MCV 100.5 H (80.0-100.0) fL Neutrophils # 8.2 H (1.3-7.7) k/uL Carbon Dioxide 32 H (22-30) mmol/L Glucose 126 H (74-99) mg/dL Total Bilirubin 1.8 H (0.2-1.3) mg/dL Total Protein 5.8 L (6.3-8.2) g/dL Albumin 3.3 L (3.5-5.0) g/dL H & H 05/17/24 Range/Units 08:08 Hgb 12.4 (11.4-16.0) gm/dL Hct 38.2 (34.0-46.0) % Coagulation 05/17/24 Range/Units 08:08 INR 1.0 (<1.2) Result Diagrams: 05/17/24 08:08 05/17/24 08:08 - Diagnostic results Hip x-ray: report reviewed, image reviewed ( report and images reviewed of the left hip x-ray. Images demonstrate a nondisplaced left intertrochanteric femur fracture) Assessment and Plan Assessment: Nondisplaced left intertrochanteric femur fracture Status post fall from standing COPD Coronary artery disease Multiple medical comorbidities Plan: I was able to discuss the case, this to include both physical exam findings and imaging studies my attending Dr. Bowden. We are recommending surgical fixation, more specifically a intramedullary nail of the left intertrochanteric femur f racture. We would like to proceed with surgery on 05/18/2024 Discussed the procedure, this to include risk and benefits with the patient today at bedside. I informed patient that I would reach out to her daughter regarding treatment plan Multiple consults have been placed, this to include internal medicine cardiology and pulmonology further input regarding surgical clearance. Await their gabino mmendations DVT prophylaxis, recommend compression sleeves and HELENA hose at this time. Would hold oral anticoagulant with pending surgery Pain control, both IV and oral as needed Nonweightbearing left lower extremity Urinary catheter placement Further recommendations to follow Time with Patient: Less than 30
[2024-05-17] MEDS ORDERED: traMADol 50 MG TAB PO PRN (12:35)
[2024-05-17] MEDS ORDERED: IPRATROPIUM-ALBUTEROL 3 ML NEB INHALATION PRN (12:56)
--- NOTE | 2024-05-17 12:58 | P.CNPUL ---
History of Present Illness Consult date: 05/17/24 Requesting physician: Carlos Bowden Reason for consult: other (Preop clearance) Chief complaint: Left hip pain, status post fall History of present illness: This is a 74-year-old female patient with a known history of coronary disease with previous stent placements, former smoker, oxygen dependent chronic obstructive pulmonary disease with an FEV1 value 30% of predicted, 0.67 L in 2021, diabetes mellitus, hypertension, hyperlipidemia, hypothyroidism. She presented to the emergency room this morning after sustaining a fall while up to her bathroom. She fell on her left hip and has significant left hip pain. She denied any loss of consciousness or other injuries. Left hip x-ray does reveal acute left femur intertrochanteric fracture. Moderate hip osteoarthrosis. EKG reveals sinus rhythm with no significant ST or T wave abnormalities. Chest x- ray shows no acute pulmonary process. White count 10.6. Hemoglobin 12.4. Platelets 210. Sodium 139. Potassium 4.5. Bicarb 32. BUN 15. Creatinine 0.85. Glucose 126. She is seen today in consultation in the emergency department. She is currently resting on a stretcher. Fairly comfortable at present. She has received Dilaudid. Denies any worsening shortness of breath, cough or congestion. No chest pain or palpitations. She is receiving normal saline at 75 MLS per hour. She is maintaining O2 saturation in the 90s on 3 L/ min per nasal cannula. She is afebrile. Hemodynamically stable. Review of Systems REVIEW OF SYSTEMS: CONSTITUTIONAL: Denies any recent significant weight loss or weight gain. EYES: Denies change in vision. EARS, NOSE, MOUTH, THROAT: Denies headaches, denies sore throat. CARDIOVASCULAR: Denies chest pain, palpitations or syncopal episodes. RESPIRATORY: Denies shortness of breath, cough, congestion or hemoptysis. GASTROINTESTINAL: Denies change in appetite, denies abdominal pain GENITOURINARY: Denies hematuria, denies infections. MUSKULOSKELETAL: Positive for left hip pain. INTEGUMENTARY: Denies rash, denies eczema. NEUROLOGICAL: Denies recent memory loss, no recent seizure activity. PSYCHIATRIC: Denies anxiety, denies depression. HEMATOLOGIC/LYMPHATIC: Denies anemia, denies enlarged lymph nodes. Past Medical History Past Medical History: Coronary Artery Disease (CAD), Chest Pain / Angina, COPD, CVA/TIA, Diabetes Mellitus, Hyperlipidemia, Hypertension, Myocardial Infarction ([place]), Thyroid Disorder Additional Past Medical History / Comment(s): 3L home oxygen ATC,parkinson's was told with last mi she'd also had a mild cva. pt reports she's been having dizzy spells and a couple of near falls in last few days. Last Myocardial Infarction Date:: History of Any Multi-Drug Resistant Organisms: None Reported Past Surgical History: Cholecystectomy, Heart Catheterization With Stent, Hysterectomy, Orthopedic Surgery Additional Past Surgical History / Comment(s): trigger finger surgery, tongue surgery, dental surgery, cataracts and lens implant, bladder surgery Past Anesthesia/Blood Transfusion Reactions: No Reported Reaction Additional Past Anesthesia/Blood Transfusion Reaction / Comment(s): no blood tx hx Date of Last Stent Placement:: Past Psychological History: No Psychological Hx Reported Smoking Status: Former smoker - Past Family History Father Family Medical History: Coronary Artery Disease (CAD), Myocardial Infarction ([place]) Additional Family Medical History / Comment(s): Father from myocardial infarction at 67 years old Mother Additional Family Medical History / Comment(s): sepsis Medications and Allergies Home Medications Medication Instructions Recorded Confirmed Type Albuterol Inhaler [Ventolin Hfa 2 puff INHALATION RT-Q4H PRN 06/14/23 05/17/24 History Inhaler] Budesonide-Formot 160-4.5 Mcg 2 puff INHALATION RT-BID 06/14/23 05/17/24 History [Symbicort 160-4.5 Mcg Inhaler] Clopidogrel [Plavix] 75 mg PO DAILY 06/14/23 05/17/24 History Nitroglycerin Sl Tabs [Nitrostat] 0.4 mg SUBLINGUAL Q5M PRN 06/14/23 05/17/24 History lisinopriL [Zestril] 20 mg PO DAILY 06/14/23 05/17/24 History rOPINIRole HCL [Requip] 1 mg PO BID 06/14/23 05/17/24 History sitaGLIPtin [Januvia] 100 mg PO DAILY 06/14/23 05/17/24 History Atorvastatin Calcium [Lipitor] 40 mg PO DAILY 05/17/24 05/17/24 History Levothyroxine Sodium [Synthroid] 125 mcg PO DAILY 05/17/24 05/17/24 History Meclizine [Antivert] 25 mg PO TID PRN 05/17/24 05/17/24 History Metoprolol Succinate (ER) [Toprol 25 mg PO DAILY 05/17/24 05/17/24 History Xl] Allergies Allergy/AdvReac Type Severity Reaction Status Date / Time diazepam [From Valium] Allergy Rash/Hives Verified 05/17/24 10:40 divalproex sodium Allergy Rash/Hives Verified 05/17/24 10:40 [From Depakote] empagliflozin Allergy Unknown Verified 05/17/24 10:40 [From Jardiance] levofloxacin Allergy Rash/Hives Verified 05/17/24 10:40 propoxyphene [From Darvon] Allergy Rash/Hives Verified 05/17/24 10:40 Physical Exam Vitals: Vital Signs Temp Pulse Resp BP Pulse Ox 05/17/24 11:00 93 20 149/54 97 05/17/24 10:00 72 20 146/62 91 L 05/17/24 09:00 71 121/45 93 L 05/17/24 07:51 97.7 F 63 20 120/42 92 L Intake and Output 05/16/24 05/17/24 05/17/24 22:59 06:59 14:59 Other: Weight 65.771 kg GENERAL EXAM: Alert, pleasant 74-year-old female, on 3 L nasal cannula, fairly comfortable in no apparent distress. HEAD: Normocephalic. EYES: Normal reaction of pupils, equal size. NOSE: Clear with pink turbinates. THROAT: No erythema or exudates. NECK: No masses, no JVD. CHEST: No chest wall deformity. LUNGS: Equal air entry with no crackles, wheeze, rhonchi or dullness. CVS: S1 and S2 normal with no audible murmur, regular rhythm. ABDOMEN: No hepatosplenomegaly, normal bowel sounds, no guarding or rigidity. SPINE: No scoliosis or deformity SKIN: No rashes CENTRAL NERVOUS SYSTEM: No focal deficits, tone is normal in all 4 extremities. EXTREMITIES: Pain in left hip. Limited motion. There is no peripheral edema. No clubbing, no cyanosis. Peripheral pulses are intact. Results - Laboratory Findings CBC and BMP: 05/17/24 08:08 05/17/24 08:08 PT/INR, D-dimer PT 10.7 sec (10.0-12.5) 05/17/24 08:08 INR 1.0 (<1.2) 05/17/24 08:08 Abnormal lab findings: Abnormal Labs 05/17/24 05/17/24 08:08 08:08 MCV 100.5 H Neutrophils # 8.2 H Carbon Dioxide 32 H Glucose 126 H Total Bilirubin 1.8 H Total Protein 5.8 L Albumin 3.3 L - Diagnostic Findings Chest x-ray: image reviewed Assessment and Plan Assessment: Acute nondisplaced left intertrochanteric femur fracture status post fall from standing position Severe oxygen dependent chronic obstructive pulmonary disease with an FEV1 value 0.67 L, 30% of predicted Coronary artery disease with previous stent placements Diabetes mellitus Hyperlipidemia Hypertension Hypothyroidism Plan: The patient was seen and evaluated Chest x-ray, labs and medications reviewed Previous PFT from 2021 reviewed The patient is high risk for surgery however no absolute contraindication Benefits outweigh the risk from the pulmonary standpoint Cardiology clearance pending Add DuoNeb inhalations and Symbicort Titrate the FiO2 as tolerated We will continue to follow and make further recommendations after her clinical status I have personally seen and examined the patient, performed the documentation and the assessment and plan as written. Number of minutes spent on the visit: 20.
[2024-05-17] MEDS: HYDROmorphone 0.5 MG/0.5 ML SYRINGE IVP PRN (14:44)
[2024-05-17] MEDS: IPRATROPIUM-ALBUTEROL 3 ML NEB INHALATION SCH (15:30)
[2024-05-17] MEDS ORDERED: MECLIZINE 25 MG TAB PO PRN (17:34)
[2024-05-17] MEDS ORDERED: NITROGLYCERIN SL TABS 0.4 MG TAB SUBLINGUAL PRN (17:34)
[2024-05-17] MEDS ORDERED: NON FORMULARY DRUG (Albuterol Inhaler 90 MCG Puff) INHALATION PRN (17:34)
[2024-05-17 17:35] LABS: Glucose,Whole Blood 133 mg/dL (70-110)
[2024-05-17] MEDS ORDERED: DEXTROSE 50% SYRINGE 50 ML IVP PRN ×2 (17:38)
[2024-05-17] MEDS ORDERED: SYMBICORT 160-4.5 MCG INHALER INHALATION SCH (20:00)
[2024-05-17 20:25] LABS: Glucose,Whole Blood 121 mg/dL (70-110)
[2024-05-17] MEDS: INSULIN ASPART (NovoLOG) 100 UNIT/ML VIAL SQ SCH (20:38)
[2024-05-17] MEDS: lisinopriL 20 MG TAB PO SCH (20:42)
[2024-05-17] MEDS: METOPROLOL SUCCINATE (ER) 25 MG TAB.ER.24H PO SCH (20:42)
[2024-05-17] MEDS: SYMBICORT 160-4.5 MCG INHALER INHALATION SCH (20:48)
--- NOTE | 2024-05-17 23:14 | P.CRDCN ---
History of Present Illness History of present illness: HISTORY OF PRESENT ILLNESS: This is a 74-year-old female with a past medical history significant for diabetes, hypertension, coronary artery disease with previous stenting, hyperlipidemia, COPD with home oxygen use, Parkinson's disease, and nicotine dependence with recent cessation. Patient had been evaluated at [facility] initially 11 months ago with NSTEMI and LM 99% stenosis as well as LAD 99% stenosis. 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 She underwent PCI and was doing OK and eventually able to undergo TCAR with Dr Manzanares. She was able to tolerate this vascular surgery without much issue. Unfortunately she had a fall. Currently patient is somewhat confused that she has been receiving pain medications. Most of the history is supplied by her daughter. She believes this was a mechanical fall. Denies any lightheadedness. She was found to have femur fracture with recommendations for surgery. Cardiology was consulted for preoperative evaluation. She denies any chest pain or pressure. EKG shows normal sinus rhythm, normal axis, no significant ST or T-wave abnormalities. Previous echo around her non-STEMI last June showed normal left circumflex creatinine 50-55% with RVSP 52 REVIEW OF SYSTEMS: At the time of my exam: CONSTITUTIONAL: Denies fever or chills. HEENT: Denies blurred vision, vision changes, or eye pain. Denies hemoptysis CARDIOVASCULAR: Denies chest pain. Denies orthopnea. Denies PND. Denies palpitations RESPIRATORY: Denies shortness of breath. GASTROINTESTINAL: Denies abdominal pain. Denies nausea or vomiting. HEMATOLOGIC: Denies bleeding disorders. GENITOURINARY: Denies any blood in urine. SKIN: Denies pruitis. Denies rash. PHYSICAL EXAM: VITAL SIGNS: Reviewed. GENERAL: Well-developed in no acute distress. HEENT: Head is normocephalic. Pupils are equal, round. Sclerae anicteric. Mucous membranes of the mouth are moist. Neck supple. No JVD or thyromegaly LUNGS: Respirations even and unlabored. Lungs with decreased air exchange. HEART: Regular rate and rhythm. S1 and S2 heard. ABDOMEN: Soft. Nondistended. Nontender. EXTREMITIES: Normal range of motion. No clubbing or cyanosis. Peripheral pulses intact. No lower extremity edema NEUROLOGIC: Awake and alert. Oriented x 3. ASSESSMENT: CAD status post complex left main PCI Elliot Salas 09/2023 Right internal carotid stenosis, S/p TCAR S/p mechanical fall Preoperative cardiovascular evaluation Hypertension Hyperlipidemia COPD with home oxygen use Diabetes Parkinson's disease Recent cessation of nicotine use, patient quit smoking 2 weeks ago PLAN: Patient with multiple medical coronary disease and does have complex coronary disease however underwent successful PCI Elliot Salas 06/2023 and additionally was able to tolerate vascular surgery. Previous echo showed preserved EF and not having significant heart failure or angina-type symptoms. EKG not showing any significant ischemic changes. Patient however at high risk given multiple medical comorbidities however no absolute contraindications and patient is cleared for surgery. Would however recommend continuing aspirin at a minimum throoughout surgery however since his been almost 11 months since stenting okay to stop Plavix from a cardiovascular standpoint. Past Medical History Past Medical History: Coronary Artery Disease (CAD), Chest Pain / Angina, COPD, CVA/TIA, Diabetes Mellitus, Hyperlipidemia, Hypertension, Myocardial Infarction ([place]), Thyroid Disorder Additional Past Medical History / Comment(s): 3L home oxygen ATC,parkinson's was told with last mi she'd also had a mild cva. pt reports she's been having dizzy spells and a couple of near falls in last few days, essential tremors, stage 3 emphysema Last Myocardial Infarction Date:: 2018 History of Any Multi-Drug Resistant Organisms: None Reported Past Surgical History: Cholecystectomy, Heart Catheterization With Stent, Hysterectomy, Orthopedic Surgery Additional Past Surgical History / Comment(s): trigger finger surgery, tongue surgery, dental surgery, cataracts and lens implant, bladder surgery Past Anesthesia/Blood Transfusion Reactions: No Reported Reaction Additional Past Anesthesia/Blood Transfusion Reaction / Comment(s): no blood tx hx Date of Last Stent Placement:: Past Psychological History: No Psychological Hx Reported Smoking Status: Former smoker Past Alcohol Use History: None Reported Additional Past Alcohol Use History / Comment(s): quit smoking off and on. 2 mos this time Past Drug Use History: None Reported Additional Drug Use History / Comment(s): patient smokes "once in a while" - Past Family History Father Family Medical History: Coronary Artery Disease (CAD), Myocardial Infarction ([place]) Additional Family Medical History / Comment(s): Father from myocardial infarction at 67 years old Mother Additional Family Medical History / Comment(s): sepsis Medications and Allergies Home Medications Medication Instructions Recorded Confirmed Type Albuterol Inhaler [Ventolin Hfa 2 puff INHALATION RT-Q4H PRN 06/14/23 05/17/24 History Inhaler] Budesonide-Formot 160-4.5 Mcg 2 puff INHALATION RT-BID 06/14/23 05/17/24 History [Symbicort 160-4.5 Mcg Inhaler] Clopidogrel [Plavix] 75 mg PO DAILY 06/14/23 05/17/24 History Nitroglycerin Sl Tabs [Nitrostat] 0.4 mg SUBLINGUAL Q5M PRN 06/14/23 05/17/24 History lisinopriL [Zestril] 20 mg PO DAILY 06/14/23 05/17/24 History rOPINIRole HCL [Requip] 1 mg PO BID 06/14/23 05/17/24 History sitaGLIPtin [Januvia] 100 mg PO DAILY 06/14/23 05/17/24 History Atorvastatin Calcium [Lipitor] 40 mg PO DAILY 05/17/24 05/17/24 History Levothyroxine Sodium [Synthroid] 125 mcg PO DAILY 05/17/24 05/17/24 History Meclizine [Antivert] 25 mg PO TID PRN 05/17/24 05/17/24 History Metoprolol Succinate (ER) [Toprol 25 mg PO DAILY 05/17/24 05/17/24 History Xl] Allergies Allergy/AdvReac Type Severity Reaction Status Date / Time diazepam [From Valium] Allergy Rash/Hives Verified 05/17/24 10:40 divalproex sodium Allergy Rash/Hives Verified 05/17/24 10:40 [From Depakote] empagliflozin Allergy Unknown Verified 05/17/24 10:40 [From Jardiance] levofloxacin Allergy Rash/Hives Verified 05/17/24 10:40 propoxyphene [From Darvon] Allergy Rash/Hives Verified 05/17/24 10:40 Physical Exam Vitals: Vital Signs Temp Pulse Pulse Pulse Resp BP BP 05/17/24 20:55 96 05/17/24 20:49 95 05/17/24 19:23 97.6 F 92 16 166/71 05/17/24 17:14 99.5 F 104 H 22 160/68 05/17/24 16:00 98.9 F 98 18 149/61 05/17/24 15:40 95 05/17/24 15:31 96 05/17/24 15:00 97 18 168/64 05/17/24 14:00 93 175/72 05/17/24 13:44 05/17/24 13:00 103 H 152/74 05/17/24 12:00 94 132/60 05/17/24 11:00 93 20 149/54 05/17/24 10:00 72 20 146/62 05/17/24 09:00 71 121/45 05/17/24 07:51 97.7 F 63 20 120/42 Pulse Ox 05/17/24 20:55 05/17/24 20:49 05/17/24 19:23 90 L 05/17/24 17:14 90 L 05/17/24 16:00 94 L 05/17/24 15:40 05/17/24 15:31 05/17/24 15:00 94 L 05/17/24 14:00 97 05/17/24 13:44 90 L 05/17/24 13:00 87 L 05/17/24 12:00 90 L 05/17/24 11:00 97 05/17/24 10:00 91 L 05/17/24 09:00 93 L 05/17/24 07:51 92 L Intake and Output 05/17/24 05/17/24 05/18/24 14:59 22:59 06:59 Output Total 200 Balance -200 Output: Urine 200 Other: Voiding Method Indwelling Catheter Weight 65.771 kg 65.771 kg Results 05/17/24 08:08 05/17/24 08:08 Cardiac Enzymes 05/17/24 Range/Units 08:08 AST 29 (14-36) U/L Coagulation 05/17/24 Range/Units 08:08 PT 10.7 (10.0-12.5) sec APTT 22.6 (22.0-30.0) sec CBC 05/17/24 Range/Units 08:08 WBC 10.6 (3.8-10.6) k/uL RBC 3.80 (3.80-5.40) m/uL Hgb 12.4 (11.4-16.0) gm/dL Hct 38.2 (34.0-46.0) % Plt Count 210 (150-450) k/uL Comprehensive Metabolic Panel 05/17/24 Range/Units 08:08 Sodium 139 (137-145) mmol/L Potassium 4.5 (3.5-5.1) mmol/L Chloride 105 (98-107) mmol/L Carbon Dioxide 32 H (22-30) mmol/L BUN 15 (7-17) mg/dL Creatinine 0.85 (0.52-1.04) mg/dL Glucose 126 H (74-99) mg/dL Calcium 9.2 (8.4-10.2) mg/dL AST 29 (14-36) U/L ALT 14 (4-34) U/L Alkaline Phosphatase 65 (38-126) U/L Total Protein 5.8 L (6.3-8.2) g/dL Albumin 3.3 L (3.5-5.0) g/dL Current Medications Generic Name Dose Route Start Last Admin Trade Name Freq PRN Reason Stop Dose Admin Hydrocodone Bitart/Acetaminophen 1 each 05/17/24 12:35 Hydrocodone/Apap 5-325mg 1 Each Tab PO Q6HR PRN Pain Scale 4 to 6 Hydrocodone Bitart/Acetaminophen 1 each 05/17/24 12:36 Hydrocodone/Apap 7.5-325mg 1 Each Tab PO Q6HR PRN Pain Scale 6 To 8 Albuterol/Ipratropium 3 ml 05/17/24 16:00 05/17/24 20:47 Ipratropium-Albuterol 3 Ml Neb INHALATION 3 ml RT-QID GEORGIE Administration Albuterol/Ipratropium 3 ml 05/17/24 12:56 Ipratropium-Albuterol 3 Ml Neb INHALATION RT-Q2H PRN Shortness Of Breath Or Wheezing Atorvastatin Calcium 40 mg 05/18/24 09:00 Atorvastatin 40 Mg Tab PO DAILY GEORGIE Budesonide/Formoterol Fumarate 2 puff 05/17/24 20:00 05/17/24 20:48 Symbicort 160-4.5 Mcg Inhaler INHALATION 2 puff RT-BID GEORGIE Administration Dextrose/Water 25 ml 05/17/24 17:38 Dextrose 50% Syringe 50 Ml IVP PER PROTOCOL PRN Hypoglycemia Protocol Dextrose/Water 50 ml 05/17/24 17:38 Dextrose 50% Syringe 50 Ml IVP PER PROTOCOL PRN Hypoglycemia Protocol Hydromorphone HCl 0.5 mg 05/17/24 12:36 05/17/24 20:42 Hydromorphone 0.5 Mg/0.5 Ml Syringe IVP 0.5 mg Q3HR PRN Administration Pain Scale 9 To 10 Sodium Chloride 1,000 mls @ 75 mls/hr 05/17/24 10:05 05/17/24 10:24 Saline 0.9% IV 05/17/24 23:24 75 mls/hr .[id number] ONE Administration Insulin Aspart 0 unit 05/17/24 21:00 05/17/24 20:38 Insulin Aspart (Novolog) 100 Unit/Ml Vial SQ Not Given ACHS [facility] Protocol Levothyroxine Sodium 125 mcg 05/18/24 06:30 Levothyroxine 125 Mcg Tab PO DAILY@0630 [facility] Linagliptin 5 mg 05/18/24 09:00 Linagliptin 5 Mg Tablet PO DAILY [facility] Lisinopril 20 mg 05/17/24 21:00 05/17/24 20:42 Lisinopril 20 Mg Tab PO 20 mg DAILY [facility] Administration Meclizine HCl 25 mg 05/17/24 17:34 Meclizine 25 Mg Tab PO TID PRN Vertigo Metoprolol Succinate 25 mg 05/17/24 21:00 05/17/24 20:42 Metoprolol Succinate (Er) 25 Mg Tab.Er.24h PO 25 mg DAILY [facility] Administration Nitroglycerin 0.4 mg 05/17/24 17:34 Nitroglycerin Sl Tabs 0.4 Mg Tab SUBLINGUAL Q5M PRN Chest Pain Polyethylene Glycol 17 gm 05/18/24 09:00 Polyethylene Glycol 3350 17 Gm Powd.Pack PO DAILY [facility] Ropinirole HCl 1 mg 05/17/24 21:00 05/17/24 20:42 Ropinirole Hcl 1 Mg Tab PO 1 mg BID [facility] Administration Senna/Docusate Sodium 1 each 05/18/24 09:00 Sennosides-Docusate Sodium 1 Each Tab PO DAILY [facility] Tramadol HCl 50 mg 05/17/24 12:35 Tramadol 50 Mg Tab PO QID PRN Pain Scale 3 To 5 Intake and Output 05/17/24 05/17/24 05/18/24 14:59 22:59 06:59 Output Total 200 Balance -200 Output: Urine 200 Other: Voiding Method Indwelling Catheter Weight 65.771 kg 65.771 kg Patient Weight 05/18/24 06:59 Weight 65.771 kg 05/17/24 08:08 05/17/24 08:08
--- NOTE | 2024-05-18 01:22 | P.CONS ---
History of Present Illness - Reason for Consult Consult date: 05/17/24 Medical management/clearance - Chief Complaint Left femur intertrochanteric fracture - History of Present Illness Patient is a 74-year-old female with a past medical history of coronary disease status post stent placement, COPD on 3 L oxygen via nasal cannula at home, history of CVA/TIA, hypertension, diabetes type 2, hyperlipidemia, history of AL, hypothyroidism, and prior history of smoking and recent dizzy spells. Patient presents to ER after sustaining a fall while she was in her bathroom. She slipped and fell on her left side and injured her hip. Denied any loss of consciousness as per her daughter. Patient is unable to provide much history and has been lethargic and sleepy. Denies any complaints of chest pain or shortness of breath. EKG showed sinus rhythm. 2D echocardiogram done on 06/16/2023 showed normal LV systolic function. Mildly enlarged right ventricle with RVSP around 50 mmHg and Chest x-ray on admission showed some mildly increased lung markings at the right apex of uncertain etiology. Summation density small densities are within the differential. X-ray of the hip/pelvis showed acute left femur intertrochanteric fracture. Moderate hip osteoarthrosis. On admission blood pressure 120/42 pulse 63 respiration 20 pulse ox 92% on 3 L oxygen via nasal cannula. Laboratory data showed WBC 10.6 hemoglobin 12.4 and platelets 210, MCV 100.5 Sodium 139 potassium 4.5 chloride 105 bicarb is 32 BUN 15 and creatinine 0.85 and blood sugar 126 and total bili 1.8 liver enzymes are not elevated albumin 3.3. Review of Systems ROS unobtainable: due to mental status Past Medical History Past Medical History: Coronary Artery Disease (CAD), Chest Pain / Angina, COPD, CVA/TIA, Diabetes Mellitus, Hyperlipidemia, Hypertension, Myocardial Infarction (AL), Thyroid Disorder Additional Past Medical History / Comment(s): 3L home oxygen ATC,parkinson's was told with last mi she'd also had a mild cva. pt reports she's been having dizzy spells and a couple of near falls in last few days. Last Myocardial Infarction Date:: History of Any Multi-Drug Resistant Organisms: None Reported Past Surgical History: Cholecystectomy, Heart Catheterization With Stent, Hysterectomy, Orthopedic Surgery Additional Past Surgical History / Comment(s): trigger finger surgery, tongue surgery, dental surgery, cataracts and lens implant, bladder surgery Past Anesthesia/Blood Transfusion Reactions: No Reported Reaction Additional Past Anesthesia/Blood Transfusion Reaction / Comm: no blood tx hx Date of Last Stent Placement:: Past Psychological History: No Psychological Hx Reported Smoking Status: Former smoker - Past Family History Father Family Medical History: Coronary Artery Disease (CAD), Myocardial Infarction (AL) Additional Family Medical History / Comment(s): Father from myocardial infarction at 67 years old Mother Additional Family Medical History / Comment(s): sepsis Medications and Allergies Home Medications Medication Instructions Recorded Confirmed Type Albuterol Inhaler [Ventolin Hfa 2 puff INHALATION RT-Q4H PRN 06/14/23 05/17/24 History Inhaler] Budesonide-Formot 160-4.5 Mcg 2 puff INHALATION RT-BID 06/14/23 05/17/24 History [Symbicort 160-4.5 Mcg Inhaler] Clopidogrel [Plavix] 75 mg PO DAILY 06/14/23 05/17/24 History Nitroglycerin Sl Tabs [Nitrostat] 0.4 mg SUBLINGUAL Q5M PRN 06/14/23 05/17/24 History lisinopriL [Zestril] 20 mg PO DAILY 06/14/23 05/17/24 History rOPINIRole HCL [Requip] 1 mg PO BID 06/14/23 05/17/24 History sitaGLIPtin [Januvia] 100 mg PO DAILY 06/14/23 05/17/24 History Atorvastatin Calcium [Lipitor] 40 mg PO DAILY 05/17/24 05/17/24 History Levothyroxine Sodium [Synthroid] 125 mcg PO DAILY 05/17/24 05/17/24 History Meclizine [Antivert] 25 mg PO TID PRN 05/17/24 05/17/24 History Metoprolol Succinate (ER) [Toprol 25 mg PO DAILY 05/17/24 05/17/24 History Xl] Allergies Allergy/AdvReac Type Severity Reaction Status Date / Time diazepam [From Valium] Allergy Rash/Hives Verified 05/17/24 10:40 divalproex sodium Allergy Rash/Hives Verified 05/17/24 10:40 [From Depakote] empagliflozin Allergy Unknown Verified 05/17/24 10:40 [From Jardiance] levofloxacin Allergy Rash/Hives Verified 05/17/24 10:40 propoxyphene [From Darvon] Allergy Rash/Hives Verified 05/17/24 10:40 Physical Exam Vitals: Vital Signs Temp Pulse Resp BP Pulse Ox 05/17/24 13:44 90 L 05/17/24 11:00 93 20 149/54 97 05/17/24 10:00 72 20 146/62 91 L 05/17/24 09:00 71 121/45 93 L 05/17/24 07:51 97.7 F 63 20 120/42 92 L Intake and Output 05/16/24 05/17/24 05/17/24 22:59 06:59 14:59 Other: Weight 65.771 kg PHYSICAL EXAMINATION: Patient is lying in the bed comfortably, no acute distress, awake alert but lethargic and drowsy. HEENT: Normocephalic. Neck is supple. Pupils reactive. Nostrils clear. Oral cavity is moist. Neck reveals no JVD, carotid bruits, or thyromegaly. CHEST EXAMINATION: Trachea is central. Symmetrical expansion. Lung key clear to auscultation and percussion. CARDIAC: Normal S1, S2 with no gallops. No murmurs ABDOMEN: Soft. Bowel sounds present, nontender.. No organomegaly. No abdominal b ruits. Extremities: reveal no edema. No clubbing or cyanosis Neurologically awake, alert, oriented x 2-3. Lethargic and drowsy. Able to move all extremities. No gross no focal deficits noted Skin: No rash or skin lesions. Psychiatric: Coperative. Could not be assessed completely Musculoskeletal: No joint swelling or deformity. Left hip tenderness over the trochanteric region and decreased range of motion. Results CBC & Chem 7: 05/17/24 08:08 05/17/24 08:08 Labs: Abnormal Lab Results - Last 24 Hours (Table) 05/17/24 05/17/24 Range/Units 08:08 08:08 MCV 100.5 H (80.0-100.0) fL Neutrophils # 8.2 H (1.3-7.7) k/uL Carbon Dioxide 32 H (22-30) mmol/L Glucose 126 H (74-99) mg/dL Total Bilirubin 1.8 H (0.2-1.3) mg/dL Total Protein 5.8 L (6.3-8.2) g/dL Albumin 3.3 L (3.5-5.0) g/dL Assessment and Plan Assessment: Status post mechanical fall Acute left femur intertrochanteric fracture COPD on home oxygen 3 L via nasal cannula Coronary artery disease with history of stent placement to left main at [facility] in September 2023 History of right internal carotid artery stenosis status post TCAR by vascular surgery. History of AL Hypertension Hyperlipidemia Diabetes type 2 jqy-[id number]-[id number] Parkinson's disease Prior history of smoking Hypothyroidism DVT prophylaxis as per primary team. Plan: Patient will be continued on telemonitoring. Gentle IV hydration. Continue insulin sliding scale for better blood sugar control. Started back on home medication including metoprolol, lisinopril and statins. Aspirin to be started immediately after surgery. Plavix is on hold. Current with home medication including Synthroid. Patient does not have any active symptoms of chest pain or shortness of breath. Patient does have significant cardiac disease and peripheral vascular disease but there is no absolute contraindication for orthopedic surgery at this time. Will continue to follow and further recommendations based on the clinical course. Cardiology and pulmonary is on board. Thank you kindly for your consult. Time with Patient: Greater than 30
[2024-05-18] MEDS: FUROSEMIDE 10 MG/ML 2 ML VIAL IV ONE (05:01)
[2024-05-18 06:16] LABS: Glucose,Whole Blood 130 mg/dL (70-110)
[2024-05-18] MEDS: LEVOTHYROXINE 125 MCG TAB PO SCH (06:58)
[2024-05-18] MEDS: ONDANSETRON 4 MG TAB PO PRN (07:38)
--- NOTE | 2024-05-18 07:51 | XR ---
EXAMINATION TYPE: XR chest 1V portable DATE OF EXAM: 05/18/2024 COMPARISON: 05/17/2024 INDICATION: New short of breath TECHNIQUE: Single frontal view of the chest is obtained. FINDINGS: The heart size is prominent. The pulmonary vasculature is normal. Bibasilar infiltrates are present. No acute pulmonary process radiographically apparent. IMPRESSION: 1. Bibasilar infiltrates. Correlate for atelectasis or pneumonia. Follow-up is recommended
--- NOTE | 2024-05-18 09:24 | CT ---
CTA CHEST EXAMINATION TYPE: CT angio chest DATE OF EXAM: 05/18/2024 INDICATION: PE, SOB CT DLP: 229.6 mGycm, Automated exposure control for dose reduction was used. CONTRAST: Patient injected with 100 ml mL of Isovue 370. COMPARISON: 06/15/2023 TECHNIQUE: CT of the chest is performed on a spiral scan at 2 mm thick sections. Study is performed with intravenous contrast timed for evaluation for pulmonary embolism. This will limit additional po rtions of the evaluation. 3-D MIP images reconstructed by the technologist are reviewed on the compu ter in the coronal and sagittal planes. FINDINGS: No persistent filling defects are evident to suggest an acute pulmonary embolism. No mediastinal or hilar adenopathy enlarged by CT criteria is evident. The ascending aorta diameter at the level of the main pulmonary artery is 3.3 cm. The main pulmonary artery diameter at the bifurcation is 3.2 cm. Moderately advanced Emphysematous changes are present in the lung key. Compressive atelectasis at the right base is present. Minimal compressive atelectasis at the left lung base. Minimal effusion is present on the right lung base Limited CT sections were through the upper abdomen. Upper abdomen appears unremarkable. IMPRESSION: 1. No acute pulmonary embolism. 2. COPD.
[2024-05-18 09:35] LABS: Glucose,Whole Blood 137 mg/dL (70-110)
--- NOTE | 2024-05-18 09:51 | XR ---
EXAMINATION TYPE: XR Hip Complete LT DATE OF EXAM: 05/18/2024 COMPARISON: None HISTORY: Presurgical evaluation TECHNIQUE: 2 view left hip crosstable lateral view is essentially nondiagnostic. FINDINGS: There is an intertrochanteric fracture. This extends from the lesser trochanter to the grea ter trochanter. Femoral head articulates with the acetabulum. Joint space is preserved. No additional fractures evide nt. IMPRESSION: 1. Intertrochanteric fracture left hip
[2024-05-18 09:57] LABS: BUN/Creat Ratio 20.09 Ratio (12.00-20.00); Blood Urea Nitrogen 22.1 mg/dL (9.0-27.0); Calcium 8.8 mg/dL (8.7-10.3); Carbon Dioxide 23.9 mmol/L (21.6-31.8); Chloride 105 mmol/L (96-109); Glucose 152 mg/dL (70-110); Potassium 5.1 mmol/L (3.5-5.5); Sodium 141 mmol/L (135-145)
[2024-05-18] MEDS: SODIUM CHLORIDE 0.9% 1,000 ML IV SCH (10:03)
[2024-05-18] MEDS: SENNOSIDES-DOCUSATE SODIUM 1 EACH TAB PO SCH (10:08)
[2024-05-18] MEDS: ASPIRIN 81 MG PO SCH (10:08)
[2024-05-18] MEDS: ATORVASTATIN 40 MG TAB PO SCH (10:08)
[2024-05-18 10:27] LABS: Vitamin B12 <150.0 pg/mL (200.0-944.0)
--- NOTE | 2024-05-18 10:27 | P.PN ---
Subjective Progress Note Date: 05/18/24 Principal diagnosis: Left hip fracture secondary to mechanical fall This is a 74-year-old female patient with a known history of coronary disease with previous stent placements, former smoker, oxygen dependent chronic obstructive pulmonary disease with an FEV1 value 30% of predicted, 0.67 L in 2021, diabetes mellitus, hypertension, hyperlipidemia, hypothyroidism. She presented to the emergency room this morning after sustaining a fall while up to her bathroom. She fell on her left hip and has significant left hip pain. She denied any loss of consciousness or other injuries. Left hip x-ray does reveal acute left femur intertrochanteric fracture. Moderate hip osteoarthrosis. EKG reveals sinus rhythm with no significant ST or T wave abnormalities. Chest x- ray shows no acute pulmonary process. White count 10.6. Hemoglobin 12.4. Platelets 210. Sodium 139. Potassium 4.5. Bicarb 32. BUN 15. Creatinine 0.85. Glucose 126. She is seen today in consultation in the emergency department. She is currently resting on a stretcher. Fairly comfortable at present. She has received Dilaudid. Denies any worsening shortness of breath, cough or congestion. No chest pain or palpitations. She is receiving normal saline at 75 MLS per hour. She is maintaining O2 saturation in the 90s on 3 L/min per nasal cannula. She is afebrile. Hemodynamically stable. Patient was reevaluated today on 05/18/24, patient was seen yesterday and cleared for surgery for her left hip, although she does have severe end-stage COPD. Today the patient developed more shortness of breath, she was initially on few liters nasal cannula, and overnight her O2 requirement has gone up significantly, I was notified multiple times about this patient earlier today not doing well experiencing mostly episodes of shortness of breath, and episodes of nausea and vomiting. I recommended placing the patient on BiPAP, and I recommended transferring the patient to the ICU. In the meantime I recommended holding on surgical plans, and a CT angiogram of the chest was ordered which came back negative for pulmonary embolism, but it did show evidence of advanced emphysema and compressive atelectasis at the right base as well as the left base with minimal effusion present at the right base labs today showed relatively normal electrolytes, BUN is 22 creatinine 1.1, blood sugar is 152. D-dimer was elevated at 5.32, but CT angiogram showed no evidence of thromboembolic disease. Objective - Vital Signs Vital signs: Vital Signs Temp 98.1 F 05/18/24 08:14 Pulse 92 05/18/24 08:54 Resp 20 05/18/24 08:14 BP 133/57 05/18/24 08:14 Pulse Ox 92 L 05/18/24 08:14 FiO2 40 05/18/24 08:46 Intake & Output 05/17/24 05/18/24 05/18/24 18:59 06:59 18:59 Output Total 200 550 Balance -200 -550 Weight 65.771 kg Output: Urine 200 550 Other: Voiding Method Indwelling Catheter Indwelling Catheter Indwelling Catheter - Exam GENERAL EXAM: Revealed a 74-year-old female anxious on BiPAP, in mild distress. HEAD: Normocephalic. EYES: Normal reaction of pupils, equal size. NOSE: Clear with pink turbinates. THROAT: No erythema or exudates. NECK: No masses, no JVD. CHEST: No chest wall deformity. LUNGS: Diminished breath sound bilaterally no crackles rhonchi or wheezes CVS: S1 and S2 normal with no audible murmur, regular rhythm. ABDOMEN: No hepatosplenomegaly, normal bowel sounds, no guarding or rigidity. SKIN: No rashes CENTRAL NERVOUS SYSTEM: Alert and oriented x 3 no gross focal deficit Psychiatric: Anxious mood, normal affect and normal mental status examination. EXTREMITIES: Pain in left hip. Limited motion. - Labs CBC & Chem 7: 05/17/24 08:08 05/18/24 04:36 Labs: Abnormal Lab Results - Last 24 Hours (Table) 05/17/24 05/17/24 05/18/24 Range/Units 17:33 20:23 04:36 D-Dimer (<0.60) mg/L FEU Anion Gap 12.10 H (4.00-12.00) mmol/L Est GFR (CKD-EPI) 52 L (>=60) BUN/Creatinine Ratio 20.09 H (12.00-20.00) Ratio Glucose 152 H (70-110) mg/dL POC Glucose (mg/dL) 133 H 121 H (70-110) mg/dL Troponin I (0.000-0.034) ng/mL 05/18/24 05/18/24 05/18/24 Range/Units 04:36 06:14 08:34 D-Dimer 5.32 H (<0.60) mg/L FEU Anion Gap (4.00-12.00) mmol/L Est GFR (CKD-EPI) (>=60) BUN/Creatinine Ratio (12.00-20.00) Ratio Glucose (70-110) mg/dL POC Glucose (mg/dL) 130 H (70-110) mg/dL Troponin I 0.051 H* (0.000-0.034) ng/mL 05/18/24 Range/Units 09:33 D-Dimer (<0.60) mg/L FEU Anion Gap (4.00-12.00) mmol/L Est GFR (CKD-EPI) (>=60) BUN/Creatinine Ratio (12.00-20.00) Ratio Glucose (70-110) mg/dL POC Glucose (mg/dL) 137 H (70-110) mg/dL Troponin I (0.000-0.034) ng/mL Assessment and Plan Assessment: Impression: Severe COPD with acute exacerbation Acute nondisplaced left intertrochanteric femur fracture status post fall from standing position Severe oxygen dependent chronic obstructive pulmonary disease with an FEV1 value 0.67 L, 30% of predicted Coronary artery disease with previous stent placements Diabetes mellitus Hyperlipidemia Hypertension Hypothyroidism Recommendation: Transfer patient to ICU Continue BiPAP Hold plans for surgery, patient to be reevaluated by cardiology for elevated troponin level Check ABG on BiPAP CT angiogram of the chest was reviewed and negative for thromboembolic disease but significantly abnormal with significant bullous disease. Continue bronchodilators/DuoNeb, continue inhalers, Will continue to follow Time with Patient: Less than 30
--- NOTE | 2024-05-18 10:46 | P.PN ---
Subjective Progress Note Date: 05/18/24 HISTORY OF PRESENT ILLNESS: This is a 74-year-old female with a past medical history significant for di abetes, hypertension, coronary artery disease with previous stenting, hyperlipidemia, COPD with home oxygen use, Parkinson's disease, and nicotine dependence with recent cessation. Patient had been evaluated at [facility] initially 11 months ago with NSTEMI and LM 99% stenosis as well as LAD 99% stenosis. 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 She underwent PCI and was doing OK and eventually able to undergo TCAR with Dr Manzanares. She was able to tolerate this vascular surgery without much issue. Unfortunately she had a fall. Currently patient is somewhat confused that she has been receiving pain medications. Most of the history is supplied by her daughter. She believes this was a mechanical fall. Denies any lightheadedness. She was found to have femur fracture with recommendations for surgery. Cardiology was consulted for preoperative evaluation. She denies any chest pain or pressure. EKG shows normal sinus rhythm, normal axis, no significant ST or T-wave abnormalities. Previous echo around her non-STEMI last June showed normal left circumflex creatinine 50-55% with RVSP 52 05/18 Patient is seen today and examined. Chest x-ray reveals bibasilar infiltrates correlate for atelectasis or pneumonia. Blood pressure 133/57, pulse ox 92% on BiPAP, heart rate 85. Telemetry is sinus rhythm. Overnight, patient had a deterioration of her respiratory status with increased oxygen need to eventually placed on nonrebreather, transition to Ventimask and is now on BiPAP with pulse ox of 92%. Pulmonary medicine has been on consult for COPD and subsequently ordered CTA of the chest as D-dimer came back elevated. Echocardiogram is currently pending. She is tentatively scheduled for surgery on 05/19. PHYSICAL EXAM: VITAL SIGNS: Reviewed. GENERAL: Well-developed in no acute distress. HEENT: Head is normocephalic. Pupils are equal, round. Sclerae anicteric. Mucous membranes of the mouth are moist. Neck supple. No JVD or thyromegaly LUNGS: Respirations even and unlabored. Lungs with decreased air exchange. HEART: Regular rate and rhythm. S1 and S2 heard. ABDOMEN: Soft. Nondistended. Nontender. EXTREMITIES: Normal range of motion. No clubbing or cyanosis. Peripheral pulses intact. No lower extremity edema ASSESSMENT: CAD status post complex left main PCI [facility] Salas 09/2023 Right internal carotid stenosis, S/p TCAR S/p mechanical fall Preoperative cardiovascular evaluation Acute hypoxic respiratory failure Elevated D-dimer Hypertension Hyperlipidemia COPD with home oxygen use Diabetes Parkinson's disease Recent cessation of nicotine use, patient quit smoking 2 weeks ago PLAN: Patient with multiple medical coronary disease and does have complex coronary disease however underwent successful PCI [facility] 06/2023 and additionally was able to tolerate vascular surgery. Previous echo showed preserved EF and not having significant heart failure or angina-type symptoms. EKG not showing any significant ischemic changes. Patient however at high risk given multiple medic al comorbidities however no absolute contraindications. Patient has now developed acute respiratory failure which will need to be stabilized prior to surgery. Patient was transferred into the intensive care unit. Would however recommend continuing aspirin at a minimum throoughout surgery however since it has been almost 11 months since stenting okay to stop Plavix from a cardiovascular standpoint. Nurse practitioner note has been reviewed, I agree with documented findings and plan of care. Patient was seen and examined. Objective - Vital Signs Vital signs: Vital Signs Temp 98.1 F 05/18/24 08:14 Pulse 85 05/18/24 08:14 Resp 20 05/18/24 08:14 BP 133/57 05/18/24 08:14 Pulse Ox 92 L 05/18/24 08:14 FiO2 40 05/18/24 06:51 Intake & Output 05/17/24 05/18/24 05/18/24 18:59 06:59 18:59 Output Total 200 550 Balance -200 -550 Weight 65.771 kg Output: Urine 200 550 Other: Voiding Method Indwelling Catheter Indwelling Catheter Indwelling Catheter - Labs CBC & Chem 7: 05/17/24 08:08 05/18/24 04:36 Labs: Abnormal Lab Results - Last 24 Hours (Table) 05/17/24 05/17/24 05/17/24 Range/Units 08:08 17:33 20:23 D-Dimer (<0.60) mg/L FEU Carbon Dioxide 32 H (22-30) mmol/L Glucose 126 H (74-99) mg/dL POC Glucose (mg/dL) 133 H 121 H (70-110) mg/dL Total Bilirubin 1.8 H (0.2-1.3) mg/dL Total Protein 5.8 L (6.3-8.2) g/dL Albumin 3.3 L (3.5-5.0) g/dL 05/18/24 05/18/24 Range/Units 04:36 06:14 D-Dimer 5.32 H (<0.60) mg/L FEU Carbon Dioxide (22-30) mmol/L Glucose (74-99) mg/dL POC Glucose (mg/dL) 130 H (70-110) mg/dL Total Bilirubin (0.2-1.3) mg/dL Total Protein (6.3-8.2) g/dL Albumin (3.5-5.0) g/dL
--- NOTE | 2024-05-18 11:08 | P.PN ---
Progress Note - Text Progress Note Date: 05/18/24 Patient was scheduled for surgery for 05/18/2024, the morning of she developed worsening COPD symptoms which required to be placed on BiPAP. Patient was then transferred to the ICU. Surgery was canceled for today for patient to continue further workup with both cardiology and pulmonology. Ortho recommendations to include nonweightbearing of the left lower extremity. Recommend symptomatic treatment at this time with pain medication as needed. Surgery is tentatively scheduled for 05/19/2024 pending clinical state. We will continue to follow patient during hospital stay
[2024-05-18 11:29] LABS: ABG Base Excess 0.3 mmol/L; ABG HCO3 27 mmol/L (21-25); ABG Oxygen Saturation 95.2 % (94-97); ABG PCO2 54 mmHg (35-45); ABG PH 7.31 (7.35-7.45); ABG PO2 74 mmHg (83-108); ABG TCO2 29 mmol/L (19-24); Allen Test Performed? Yes
[2024-05-18 11:40] LABS: Glucose,Whole Blood 145 mg/dL (70-110)
[2024-05-18] MEDS: polyethylene glycoL 3350 17 GM POWD.PACK PO SCH (11:54)
[2024-05-18] MEDS: LINAGLIPTIN 5 MG TABLET PO SCH (11:55)
--- NOTE | 2024-05-18 12:42 | PN ---
PROGRESS NOTE SUBJECTIVE: Chandrika is a 74-year-old lady who has history of coronary artery disease, status post prior angioplasty, hypertension, dyslipidemia, COPD on home O2, and diabetes who presented to hospital following a fall and Cardiology had been consulted for preop cardiac evaluation prior to hip surgery. She has history of coronary artery disease with severe left main stenosis and stenosis is about 99% at the proximal LAD. She had heavily calcified aorta due to which surgery was thought to be high-risk and she underwent complex percutaneous intervention that was done at [facility]. She has history of carotid stenosis and underwent right carotid stenting. She was thought to be high-risk for surgery without any absolute contraindications for surgery following cardiac evaluation by Dr. Grubbs yesterday. The patient developed worsening shortness of breath overnight with increased requirement of the oxygen. She also had episodes of nausea and vomiting. The patient was placed on BiPAP and transferred to the ICU. A D-dimer was done that came back elevated. She underwent a CT angiogram that was negative for pulmonary embolism. The EKG done yesterday was within normal limits. I do not have an EKG from this morning. Troponin is slightly elevated at 0.05. At the time of my evaluation, I am not able to obtain any information from the patient. OBJECTIVE: VITAL SIGNS: Heart rate is 80 beats per minute, blood pressure is 133/57, respiratory rate is 18, and O2 saturation is 92% on BiPAP. CHEST: Reveals occasional rhonchi bilaterally. HEART: Reveals first and second heart sounds and systolic murmur at the apex. ABDOMEN: Soft. EXTREMITIES: Did not reveal any edema. Peripheral pulses are felt. LABS: Showed that the potassium is 5.1, creatinine is 1.1. ASSESSMENT: 1. Fall, status post hip fracture, awaiting surgery. 2. Known coronary artery disease, status post stenting of the left main and LAD. 3. Preop cardiac evaluation. 4. Shortness of breath. PLAN: I am going to check an EKG on her today. Obtain a 2D echo. Obtain another set of troponin and decide on whether she can proceed with surgery tomorrow or not. MMODL / IJN: [id number] /
[2024-05-18 13:11] LABS: Glucose,Whole Blood 128 mg/dL (70-110)
[2024-05-18] MEDS: ONDANSETRON 4 MG/2 ML VIAL IVP PRN (13:12)
[2024-05-18] MEDS: DEXMEDETOMIDINE/0.9% NACL(PMX) 400 MCG in EMPTY BAG 1 BAG IV SCH (15:15)
[2024-05-18] MEDS: amLODIPine 10 MG TAB PO SCH (15:19)
[2024-05-18 17:04] LABS: Glucose,Whole Blood 128 mg/dL (70-110)
[2024-05-18 20:45] LABS: Glucose,Whole Blood 147 mg/dL (70-110)
[2024-05-19] MEDS: CYANOCOBALAMIN 1,000 MCG/ML 1 ML VIAL IM ONE (00:01)
[2024-05-19 05:27] LABS: Basophils % (A) 0 %; Eosinophils % (A) 0 %; HCT 37.7 % (34.0-46.0); HGB 11.5 gm/dL (11.4-16.0); Hypochromasia Moderate; Lymphocytes % (A) 11 %; MCH 31.6 pg (25.0-35.0); MCHC 30.6 g/dL (31.0-37.0); MCV 103.5 fL (80.0-100.0); Macrocytosis Slight; Mean Platelet Volume 8.5; Monocytes # (A) 0.5 k/uL (0-1.0); Monocytes % (A) 6 %; Neutrophils # (A) 6.9 k/uL (1.3-7.7); Neutrophils % (A) 81 %; Platelet Count 189 k/uL (150-450); RBC 3.65 m/uL (3.80-5.40); RDW 13.3 % (11.5-15.5); WBC 8.5 k/uL (3.8-10.6)
[2024-05-19 05:41] LABS: African American GFR (CKD) 60 (>60 ml/min/1.73 sqM); Anion Gap 11 mmol/L; Blood Urea Nitrogen 41 mg/dL (7-17); Calcium 9.2 mg/dL (8.4-10.2); Carbon Dioxide 20 mmol/L (22-30); Chloride 108 mmol/L (98-107); Glucose 144 mg/dL (74-99); Non-African American GFR(CKD) 52 (>60 ml/min/1.73 sqM); Sodium 139 mmol/L (137-145)
[2024-05-19 06:56] LABS: Glucose,Whole Blood 144 mg/dL (70-110)
[2024-05-19] MEDS: HYDROcodone/APAP 5-325MG 1 EACH TAB PO PRN (08:12)
[2024-05-19] MEDS: FUROSEMIDE 10 MG/ML 2 ML VIAL IV ONE (08:40)
[2024-05-19] MEDS: CYANOCOBALAMIN 500 MCG TAB PO SCH (09:19)
[2024-05-19] MEDS: methylPREDNISolone 4 MG TAB TAPER PO SCH (09:20)
--- NOTE | 2024-05-19 09:54 | XR ---
EXAMINATION TYPE: XR chest 1V portable DATE OF EXAM: 05/19/2024 HISTORY: Shortness of breath. COMPARISON: 05/18/2024 TECHNIQUE: Single view of the chest is submitted. FINDINGS: Demonstrated are scattered senescent parenchymal change. Improving basilar aeration with mild strandy atelectasis or improving infiltrates. The heart is stable. Hilar and mediastinal structures are within normal limits. Degenerative changes are seen of the dorsal spine. IMPRESSION: 1. Improving basilar aeration with mild strandy atelectasis or improving infiltrates.
--- NOTE | 2024-05-19 10:22 | P.PN ---
Subjective Progress Note Date: 05/18/24 Patient is a 74-year-old female with a past medical history of coronary disease status post stent placement, COPD on 3 L oxygen via nasal cannula at home, history of CVA/TIA, hypertension, diabetes type 2, hyperlipidemia, history of AL, hypothyroidism, and prior history of smoking and recent dizzy spells. Patient presents to ER after sustaining a fall while she was in her bathroom. She slipped and fell on her left side and injured her hip. Denied any loss of consciousness as per her daughter. Patient is unable to provide much history and has been lethargic and sleepy. Denies any complaints of chest pain or shortness of breath. EKG showed sinus rhythm. 2D echocardiogram done on 06/16/2023 showed normal LV systolic function. Mildly enlarged right ventricle with RVSP around 50 mmHg and Chest x-ray on admission showed some mildly increased lung markings at the right apex of uncertain etiology. Summation density small densities are within the differential. X-ray of the hip/pelvis showed acute left femur intertrochanteric fracture. Moderate hip osteoarthrosis. On admission blood pressure 120/42 pulse 63 respiration 20 pulse ox 92% on 3 L oxygen via nasal cannula. Laboratory data showed WBC 10.6 hemoglobin 12.4 and platelets 210, MCV 100.5 Sodium 139 potassium 4.5 chloride 105 bicarb is 32 BUN 15 and creatinine 0.85 and blood sugar 126 and total bili 1.8 liver enzymes are not elevated albumin 3.3. 05/18/2024 Patient is in the MICU currently. Overnight patient has patient's respiratory status worsened requiring nonrebreather and was transferred to MICU and gradually transition to BiPAP. Patient is currently on BiPAP. Slightly agitated and trying to remove the mask. Chest x-ray showed bibasilar infiltrates correlate for atelectasis or pneumonia. Patient has been afebrile. No complaints of chest pain. Hip pain is better controlled. Patient was also found to have elevated D-dimer level. CTA chest was ordered negative for PE. Laboratory data showed sodium 141 potassium 5.1 chloride 105 BUN 22.1 creatinine 1.1 and blood sugar 152. A1c 6.0. Patient was also found to have B12 vitamin less than 150. Current medications reviewed. Objective - Vital Signs Vital signs: Vital Signs Temp 97.6 F 05/18/24 20:00 Pulse 67 05/18/24 22:00 Resp 19 05/18/24 22:00 BP 102/54 05/18/24 22:00 Pulse Ox 95 05/18/24 22:00 FiO2 35 05/18/24 20:19 Intake & Output 05/18/24 05/18/24 05/19/24 06:59 18:59 06:59 Intake Total 600 255.368 Output Total 550 285 110 Balance -550 315 145.368 Weight 65.771 kg Intake: Intake, IV Titration 600 255.368 Amount Dexmedetomidine/0.9% NaCl 30.368 (Pmx) 400 mcg In Empty Bag 1 bag @ 0.2 MCG/KG/HR 3.289 mls/hr IV .Q24H [facility] Rx#:[id number] Sodium Chloride 0.9% 1, 600 225 000 ml @ 75 mls/hr IV . [id number] [facility] Rx#:[id number] Output: Urine 550 285 110 Other: Voiding Method Indwelling Catheter Indwelling Catheter Indwelling Catheter - Exam PHYSICAL EXAMINATION: Patient is lying in the bed. Agitated and trying to remove the BiPAP mask. Awake alert and oriented. HEENT: Normocephalic. Neck is supple. Pupils reactive. Nostrils clear. Oral cavity is moist. Neck reveals no JVD, carotid bruits, or thyromegaly. CHEST EXAMINATION: Trachea is central. Symmetrical expansion. Bibasilar diminished sounds otherwise lung key clear to auscultation and percussion. CARDIAC: Normal S1, S2 with no gallops. No murmurs ABDOMEN: Soft. Bowel sounds present, nontender.. No organomegaly. No abdominal bruits. Extremities: reveal no edema. No clubbing or cyanosis Neurologically awake, alert, oriented x 2-3. L patient is agitated. Able to move all extremities. No gross no focal deficits noted Skin: No rash or skin lesions. Psychiatric: Coperative. Could not be assessed completely Musculoskeletal: No joint swelling or deformity. Left hip tenderness over the trochanteric region and decreased range of motion. - Labs CBC & Chem 7: 05/19/24 04:35 05/19/24 04:35 Labs: Abnormal Lab Results - Last 24 Hours (Table) 05/18/24 05/18/24 05/18/24 Range/Units 04:36 04:36 06:14 D-Dimer 5.32 H (<0.60) mg/L FEU ABG pH (7.35-7.45) ABG pCO2 (35-45) mmHg ABG pO2 (83-108) mmHg ABG HCO3 (21-25) mmol/L ABG Total CO2 (19-24) mmol/L Anion Gap 12.10 H (4.00-12.00) mmol/L Est GFR (CKD-EPI) 52 L (>=60) BUN/Creatinine Ratio 20.09 H (12.00-20.00) Ratio Glucose 152 H (70-110) mg/dL POC Glucose (mg/dL) 130 H (70-110) mg/dL Troponin I (0.000-0.034) ng/mL Vitamin B12 <150.0 L (200.0-944.0) pg/mL 05/18/24 05/18/24 05/18/24 Range/Units 08:34 09:33 11:28 D-Dimer (<0.60) mg/L FEU ABG pH 7.31 L (7.35-7.45) ABG pCO2 54 H (35-45) mmHg ABG pO2 74 L (83-108) mmHg ABG HCO3 27 H (21-25) mmol/L ABG Total CO2 29 H (19-24) mmol/L Anion Gap (4.00-12.00) mmol/L Est GFR (CKD-EPI) (>=60) BUN/Creatinine Ratio (12.00-20.00) Ratio Glucose (70-110) mg/dL POC Glucose (mg/dL) 137 H (70-110) mg/dL Troponin I 0.051 H* (0.000-0.034) ng/mL Vitamin B12 (200.0-944.0) pg/mL 05/18/24 05/18/24 05/18/24 Range/Units 11:39 13:09 14:11 D-Dimer (<0.60) mg/L FEU ABG pH (7.35-7.45) ABG pCO2 (35-45) mmHg ABG pO2 (83-108) mmHg ABG HCO3 (21-25) mmol/L ABG Total CO2 (19-24) mmol/L Anion Gap (4.00-12.00) mmol/L Est GFR (CKD-EPI) (>=60) BUN/Creatinine Ratio (12.00-20.00) Ratio Glucose (70-110) mg/dL POC Glucose (mg/dL) 145 H 128 H (70-110) mg/dL Troponin I 0.062 H* (0.000-0.034) ng/mL Vitamin B12 (200.0-944.0) pg/mL 05/18/24 05/18/24 Range/Units 17:03 20:44 D-Dimer (<0.60) mg/L FEU ABG pH (7.35-7.45) ABG pCO2 (35-45) mmHg ABG pO2 (83-108) mmHg ABG HCO3 (21-25) mmol/L ABG Total CO2 (19-24) mmol/L Anion Gap (4.00-12.00) mmol/L Est GFR (CKD-EPI) (>=60) BUN/Creatinine Ratio (12.00-20.00) Ratio Glucose (70-110) mg/dL POC Glucose (mg/dL) 128 H 147 H (70-110) mg/dL Troponin I (0.000-0.034) ng/mL Vitamin B12 (200.0-944.0) pg/mL Assessment and Plan Assessment: Acute on chronic hypoxic respiratory failure secondary to COPD exacerbation. Currently on BiPAP. Status post mechanical fall Acute left femur intertrochanteric fracture COPD on home oxygen 3 L via nasal cannula Coronary artery disease with history of stent placement to left main at [facility] in September 2023 History of right internal carotid artery stenosis status post TCAR by vascular surgery. History of AL Hypertension Hyperlipidemia Diabetes type 2 [id number] Parkinson's disease Prior history of smoking Hypothyroidism DVT prophylaxis as per primary team. Plan: Patient will be continued on telemonitoring. Patient was given a dose of IV Lasix.. Patient is in MICU. Currently on BiPAP. Continue insulin sliding scale for better blood sugar control. Started back on home medication including metoprolol, lisinopril and statins. Aspirin to be started immediately after surgery. Plavix is on hold. Current with home medication including Synthroid. Patient does have significant cardiac disease and peripheral vascular disease but there is no absolute contraindication for orthopedic surgery at this time. Will continue to follow and further recommendations based on the clinical course. Cardiology and pulmonary is on board. Continue to monitor respiratory status closely. Time with Patient: Greater than 30
--- NOTE | 2024-05-19 11:08 | P.PN ---
Subjective Progress Note Date: 05/19/24 Principal diagnosis: Left hip fracture secondary to mechanical fall This is a 74-year-old female patient with a known history of coronary disease with previous stent placements, former smoker, oxygen dependent chronic obstructive pulmonary disease with an FEV1 value 30% of predicted, 0.67 L in 2021, diabetes mellitus, hypertension, hyperlipidemia, hypothyroidism. She presented to the emergency room this morning after sustaining a fall while up to her bathroom. She fell on her left hip and has significant left hip pain. She denied any loss of consciousness or other injuries. Left hip x-ray does reveal acute left femur intertrochanteric fracture. Moderate hip osteoarthrosis. EKG reveals sinus rhythm with no significant ST or T wave abnormalities. Chest x- ray shows no acute pulmonary process. White count 10.6. Hemoglobin 12.4. Platelets 210. Sodium 139. Potassium 4.5. Bicarb 32. BUN 15. Creatinine 0.85. Glucose 126. She is seen today in consultation in the emergency department. She is currently resting on a stretcher. Fairly comfortable at present. She has received Dilaudid. Denies any worsening shortness of breath, cough or congestion. No chest pain or palpitations. She is receiving normal saline at 75 MLS per hour. She is maintaining O2 saturation in the 90s on 3 L/min per nasal cannula. She is afebrile. Hemodynamically stable. Patient was reevaluated today on 05/18/24, patient was seen yesterday and cleared for surgery for her left hip, although she does have severe end-stage COPD. Today the patient developed more shortness of breath, she was initially on few liters nasal cannula, and overnight her O2 requirement has gone up significantly, I was notified multiple times about this patient earlier today not doing well experiencing mostly episodes of shortness of breath, and episodes of nausea and vomiting. I recommended placing the patient on BiPAP, and I recommended transferring the patient to the ICU. In the meantime I recommended holding on surgical plans, and a CT angiogram of the chest was ordered which came back negative for pulmonary embolism, but it did show evidence of advanced emphysema and compressive atelectasis at the right base as well as the left base with minimal effusion present at the right base labs today showed relatively normal electrolytes, BUN is 22 creatinine 1.1, blood sugar is 152. D-dimer was elevated at 5.32, but CT angiogram showed no evidence of thromboembolic disease. Patient was reevaluated today on 05/19/2024, remains on BiPAP 10/11/35%, patient became extremely agitated yesterday, and had to place the patient on Precedex at 0.8 mcg/kg/h. Patient seems to be doing better today, she is [place]. Troponin level has been on the rise, cardiology is evaluating the patient, she does have very strong history of coronary artery disease and multiple stents, cardiology will decide whether a cardiac catheterization will be necessary before clearing the patient for surgery. Workup by cardiology is in progress. In the meantime surgery for her intertrochanteric hip fracture is pending. Patient had a bit of low urine output, she will receive some Lasix today, and her daughter is at bedside, updated daughter on her condition. Labs today show WBC count of 8.5 hemoglobin 11.5 electrolytes are normal renal profile showed a BUN of [address] angiogram on this patient showed mostly COPD, no evidence of pulmonary embolism Objective - Vital Signs Vital signs: Vital Signs Temp 97.5 F L 05/19/24 08:00 Pulse 74 05/19/24 10:00 Resp 18 05/19/24 10:00 BP 107/41 05/19/24 10:00 Pulse Ox 98 05/19/24 10:00 FiO2 35 05/19/24 08:00 Intake & Output 05/18/24 05/19/24 05/19/24 18:59 06:59 18:59 Intake Total 600 805.232 265.940 Output Total 285 285 90 Balance 315 520.232 175.940 Weight 65.771 kg 72.2 kg Intake: Intake, IV Titration 600 805.232 265.940 Amount Dexmedetomidine/0.9% NaCl 130.232 40.940 (Pmx) 400 mcg In Empty Bag 1 bag @ 0.2 MCG/KG/HR 3.289 mls/hr IV .Q24H [facility] Rx#:[id number] Sodium Chloride 0.9% 1, 600 675 225 000 ml @ 75 mls/hr IV . [id number] [facility] Rx#:[id number] Output: Urine 285 285 90 Other: Voiding Method Indwelling Catheter Indwelling Catheter - Exam GENERAL EXAM: Revealed a 74-year-old female anxious on BiPAP, in no distress, calm, patient is on Precedex HEAD: Normocephalic. EYES: Normal reaction of pupils, equal size. NOSE: Clear with pink turbinates. THROAT: No erythema or exudates. NECK: No masses, no JVD. CHEST: No chest wall deformity. LUNGS: Diminished breath sound bilaterally no crackles rhonchi or wheezes CVS: S1 and S2 normal with no audible murmur, regular rhythm. ABDOMEN: No hepatosplenomegaly, normal bowel sounds, no guarding or rigidity. SKIN: No rashes CENTRAL NERVOUS SYSTEM: Arousable, no gross focal deficit. Psychiatric: Normal mood, normal affect and normal mental status examination. EXTREMITIES: Pain in left hip. Limited motion. - Labs CBC & Chem 7: 05/19/24 04:35 05/19/24 04:35 Labs: Abnormal Lab Results - Last 24 Hours (Table) 05/18/24 05/18/24 05/18/24 Range/Units 11:28 11:39 13:09 RBC (3.80-5.40) m/uL MCV (80.0-100.0) fL MCHC (31.0-37.0) g/dL ABG pH 7.31 L (7.35-7.45) ABG pCO2 54 H (35-45) mmHg ABG pO2 74 L (83-108) mmHg ABG HCO3 27 H (21-25) mmol/L ABG Total CO2 29 H (19-24) mmol/L Chloride (98-107) mmol/L Carbon Dioxide (22-30) mmol/L BUN (7-17) mg/dL Creatinine (0.52-1.04) mg/dL Glucose (74-99) mg/dL POC Glucose (mg/dL) 145 H 128 H (70-110) mg/dL Troponin I (0.000-0.034) ng/mL 05/18/24 05/18/24 05/18/24 Range/Units 14:11 17:03 20:44 RBC (3.80-5.40) m/uL MCV (80.0-100.0) fL MCHC (31.0-37.0) g/dL ABG pH (7.35-7.45) ABG pCO2 (35-45) mmHg ABG pO2 (83-108) mmHg ABG HCO3 (21-25) mmol/L ABG Total CO2 (19-24) mmol/L Chloride (98-107) mmol/L Carbon Dioxide (22-30) mmol/L BUN (7-17) mg/dL Creatinine (0.52-1.04) mg/dL Glucose (74-99) mg/dL POC Glucose (mg/dL) 128 H 147 H (70-110) mg/dL Troponin I 0.062 H* (0.000-0.034) ng/mL 05/19/24 05/19/24 05/19/24 Range/Units 04:35 04:35 06:54 RBC 3.65 L (3.80-5.40) m/uL MCV 103.5 H (80.0-100.0) fL MCHC 30.6 L (31.0-37.0) g/dL ABG pH (7.35-7.45) ABG pCO2 (35-45) mmHg ABG pO2 (83-108) mmHg ABG HCO3 (21-25) mmol/L ABG Total CO2 (19-24) mmol/L Chloride 108 H (98-107) mmol/L Carbon Dioxide 20 L (22-30) mmol/L BUN 41 H (7-17) mg/dL Creatinine 1.06 H (0.52-1.04) mg/dL Glucose 144 H (74-99) mg/dL POC Glucose (mg/dL) 144 H (70-110) mg/dL Troponin I (0.000-0.034) ng/mL Assessment and Plan Assessment: Impression: Severe COPD with acute exacerbation Acute nondisplaced left intertrochanteric femur fracture status post fall from standing position Severe oxygen dependent chronic obstructive pulmonary disease with an FEV1 value 0.67 L, 30% of predicted Coronary artery disease with previous stent placements Acute non-ST elevation myocardial infarction Diabetes mellitus Hyperlipidemia Hypertension Hypothyroidism Recommendation: Continue to hold plans for surgery Continue to monitor in the ICU on BiPAP Continue bronchodilators Cardiology is addressing the issue as he went to clear for surgery considering her elevated troponin CT angiogram of the chest was reviewed and negative for thromboembolic disease Continue bronchodilators/DuoNeb, continue inhalers Awaiting to hear from cardiology regarding clearance for surgery. Will continue to follow Time with Patient: Less than 30
--- NOTE | 2024-05-19 11:59 | P.PN ---
Progress Note - Text Progress Note Date: 05/19/24 Surgery for 05/19/2024 for the left intertrochanteric femur fracture has been canceled due to her current medical state. Patient continues to be followed by both internal medicine, pulmonology and cardiology. Surgery is tentatively scheduled for 05/20/2024 pending clearances
[2024-05-19 12:48] LABS: Glucose,Whole Blood 149 mg/dL (70-110)
[2024-05-19] MEDS: HALOPERIDOL LACTATE 5 MG/ML 1 ML VIAL IVP PRN (13:52)
[2024-05-19 16:25] LABS: Glucose,Whole Blood 162 mg/dL (70-110)
[2024-05-19 20:37] LABS: Glucose,Whole Blood 169 mg/dL (70-110)
--- NOTE | 2024-05-19 21:47 | P.PN ---
Subjective Progress Note Date: 05/19/24 Patient is a 74-year-old female with a past medical history of coronary disease status post stent placement, COPD on 3 L oxygen via nasal cannula at home, history of CVA/TIA, hypertension, diabetes type 2, hyperlipidemia, history of ME, hypothyroidism, and prior history of smoking and recent dizzy spells. Patient presents to ER after sustaining a fall while she was in her bathroom. She slipped and fell on her left side and injured her hip. Denied any loss of consciousness as per her daughter. Patient is unable to provide much history and has been lethargic and sleepy. Denies any complaints of chest pain or shortness of breath. EKG showed sinus rhythm. 2D echocardiogram done on 06/16/2023 showed normal LV systolic function. Mildly enlarged right ventricle with RVSP around 50 mmHg and Chest x-ray on admission showed some mildly increased lung markings at the right apex of uncertain etiology. Summation density small densities are within the differential. X-ray of the hip/pelvis showed acute left femur intertrochanteric fracture. Moderate hip osteoarthrosis. On admission blood pressure 120/42 pulse 63 respiration 20 pulse ox 92% on 3 L oxygen via nasal cannula. Laboratory data showed WBC 10.6 hemoglobin 12.4 and platelets 210, MCV 100.5 Sodium 139 potassium 4.5 chloride 105 bicarb is 32 BUN 15 and creatinine 0.85 and blood sugar 126 and total bili 1.8 liver enzymes are not elevated albumin 3.3. 05/18/2024 Patient is in the MICU currently. Overnight patient has patient's respiratory status worsened requiring nonrebreather and was transferred to MICU and gradually transition to BiPAP. Patient is currently on BiPAP. Slightly agitated and trying to remove the mask. Chest x-ray showed bibasilar infiltrates correlate for atelectasis or pneumonia. Patient has been afebrile. No complaints of chest pain. Hip pain is better controlled. Patient was also found to have elevated D-dimer level. CTA chest was ordered negative for PE. Laboratory data showed sodium 141 potassium 5.1 chloride 105 BUN 22.1 creatinine 1.1 and blood sugar 152. A1c 6.0. Patient was also found to have B12 vitamin less than 150. 05/19/2024 Patient is in the MICU. Agitated and delirious. Still on Precedex drip. Currently on oxygen via nasal cannula. Repeat chest x-ray showed improving basilar aeration with mild strandy atelectasis are improving infiltrates. Patient was given another dose of IV Lasix today. EKG last night showed sinus rhythm. Afebrile. Laboratory data WBC 8.4 hemoglobin 11.5 and platelets 189 sodium 139 potassium 5.0 chloride 108 bicarb is 20 BUN 41 creatinine 1.08 and blood sugar is 144. Current medications reviewed. Objective - Vital Signs Vital signs: Vital Signs Temp 97.9 F 05/19/24 16:00 Pulse 84 05/19/24 21:00 Resp 19 05/19/24 21:00 BP 129/59 05/19/24 21:00 Pulse Ox 96 05/19/24 21:00 FiO2 35 05/19/24 19:59 Intake & Output 05/19/24 05/19/24 05/20/24 06:59 18:59 06:59 Intake Total 611.145 8219.430 243.882 Output Total 285 920 105 Balance 520.232 83.430 138.882 Weight 72.2 kg Intake: Intake, IV Titration 715.908 1621.430 243.882 Amount Dexmedetomidine/0.9% NaCl 130.232 178.430 18.882 (Pmx) 400 mcg In Empty Bag 1 bag @ 0.2 MCG/KG/HR 3.289 mls/hr IV .Q24H [facility] Rx#:[id number] Sodium Chloride 0.9% 1, 675 825 225 000 ml @ 75 mls/hr IV . [id number] [facility] Rx#:[id number] Output: Urine 285 920 105 Other: Voiding Method Indwelling Catheter Indwelling Catheter Indwelling Catheter - Exam PHYSICAL EXAMINATION: Patient is lying in the bed. Agitated and delirious.. Awake alert and oriented x 1. HEENT: Normocephalic. Neck is supple. Pupils reactive. Nostrils clear. Oral cavity is moist. Neck reveals no JVD, carotid bruits, or thyromegaly. CHEST EXAMINATION: Trachea is central. Symmetrical expansion. Bibasilar diminis hed sounds otherwise lung key clear to auscultation and percussion. CARDIAC: Normal S1, S2 with no gallops. No murmurs ABDOMEN: Soft. Bowel sounds present, nontender.. No organomegaly. No abdominal bruits. Extremities: reveal no edema. No clubbing or cyanosis Neurologically awake, alert, oriented x 1-2. patient is agitated. Able to move all extremities. No gross no focal deficits noted Skin: No rash or skin lesions. Psychiatric: Coperative. Could not be assessed completely Musculoskeletal: No joint swelling or deformity. Left hip tenderness over the trochanteric region and decreased range of motion. - Labs CBC & Chem 7: 05/19/24 04:35 05/19/24 04:35 Labs: Abnormal Lab Results - Last 24 Hours (Table) 05/19/24 05/19/24 05/19/24 Range/Units 04:35 04:35 06:54 RBC 3.65 L (3.80-5.40) m/uL MCV 103.5 H (80.0-100.0) fL MCHC 30.6 L (31.0-37.0) g/dL Chloride 108 H (98-107) mmol/L Carbon Dioxide 20 L (22-30) mmol/L BUN 41 H (7-17) mg/dL Creatinine 1.06 H (0.52-1.04) mg/dL Glucose 144 H (74-99) mg/dL POC Glucose (mg/dL) 144 H (70-110) mg/dL 05/19/24 05/19/24 05/19/24 Range/Units 12:41 16:23 20:36 RBC (3.80-5.40) m/uL MCV (80.0-100.0) fL MCHC (31.0-37.0) g/dL Chloride (98-107) mmol/L Carbon Dioxide (22-30) mmol/L BUN (7-17) mg/dL Creatinine (0.52-1.04) mg/dL Glucose (74-99) mg/dL POC Glucose (mg/dL) 149 H 162 H 169 H (70-110) mg/dL Assessment and Plan Assessment: Acute on chronic hypoxic respiratory failure secondary to COPD exacerbation. Was on BiPAP. Titrated down to nasal cannula oxygen. Acute delirium Status post mechanical fall Acute left femur intertrochanteric fracture COPD on home oxygen 3 L via nasal cannula Coronary artery disease with history of stent placement to left main at [facility] in September 2023 History of right internal carotid artery stenosis status post TCAR by vascular surgery. History of ME Hypertension Hyperlipidemia Diabetes type 2 [id number] Parkinson's disease Prior history of smoking Hypothyroidism DVT prophylaxis as per primary team. Plan: Patient will be continued on telemonitoring. Patient was given another dose of IV Lasix.. Patient is in MICU. Currently on oxygen via nasal cannula. Continue insulin sliding scale for better blood sugar control. Started back on home medication including metoprolol, lisinopril and statins. Aspirin to be sta rted immediately after surgery. Plavix is on hold. Current with home medication including Synthroid. Patient does have significant cardiac disease and peripheral vascular disease but there is no absolute contraindication for orthopedic surgery at this time. Will continue to follow and further recommendations based on the clinical course. Cardiology and pulmonary is on board. Continue to monitor respiratory status closely. Time with Patient: Greater than 30
--- NOTE | 2024-05-19 23:48 | PN ---
PROGRESS NOTE SUBJECTIVE: Chandrika is a 74-year-old lady who is admitted to hospital with hip fracture, was thought to be high-risk but supposed to go through surgery, developed sudden-onset shortness of breath due to which the surgery had been held. There is mild elevation in her troponin. An echocardiogram shows that her LV systolic function is normal, but she has severe pulmonary hypertension. An EKG yesterday revealed sinus rhythm without any acute ST-T wave changes. The mild non ST-segment elevation [place] could be related to the respiratory distress that she had. This morning she appears confused and combative in the bed and denies any cardiac symptoms. OBJECTIVE: VITAL SIGNS: Shows that the vital signs are stable. She is on saturating at 98% on 3 L of nasal cannula. Rest of the exam is unchanged. LABS: Show that the hemoglobin is 11.5, platelet count is 189, creatinine is 1. ASSESSMENT AND PLAN: 1. Preop cardiac evaluation. 2. Severe pulmonary hypertension. 3. CAD, status post prior stenting of left main and proximal LAD. 4. Elevated troponin, could either be a mild [id number] elevation [place] or due to respiratory distress. The patient is at high risk for perioperative cardiac events. I spoke to her daughter and explained to her. She will undergo surgery tomorrow. MMODL / IJN: [id number] /
[2024-05-20 06:11] LABS: Basophils % (A) 0 %; Eosinophils % (A) 0 %; HCT 33.8 % (34.0-46.0); HGB 10.8 gm/dL (11.4-16.0); Hypochromasia Slight; Lymphocytes # (A) 0.3 k/uL (1.0-4.8); Lymphocytes % (A) 4 %; MCH 32.1 pg (25.0-35.0); MCV 100.5 fL (80.0-100.0); Mean Platelet Volume 8.8; Monocytes # (A) 0.4 k/uL (0-1.0); Monocytes % (A) 4 %; Neutrophils # (A) 8.9 k/uL (1.3-7.7); Neutrophils % (A) 92 %; Platelet Count 178 k/uL (150-450); RBC 3.36 m/uL (3.80-5.40); RDW 13.5 % (11.5-15.5); WBC 9.7 k/uL (3.8-10.6)
[2024-05-20 06:24] LABS: African American GFR (CKD) >90 (>60 ml/min/1.73 sqM); Anion Gap 5 mmol/L; Blood Urea Nitrogen 39 mg/dL (7-17); Carbon Dioxide 25 mmol/L (22-30); Chloride 110 mmol/L (98-107); Glucose 139 mg/dL (74-99); Non-African American GFR(CKD) 86 (>60 ml/min/1.73 sqM); Sodium 140 mmol/L (137-145)
[2024-05-20 06:48] LABS: Glucose,Whole Blood 155 mg/dL (70-110)
--- NOTE | 2024-05-20 07:25 | XR ---
EXAMINATION TYPE: XR chest 1V portable DATE OF EXAM: 05/20/2024 COMPARISON: 05/19/2024 INDICATION: Assess lungs difficulty breathing TECHNIQUE: Single frontal view of the chest is obtained. FINDINGS: The heart size is normal. The pulmonary vasculature is normal. Mild diffuse increased lung markings are present. Correlate for pulmonary edema and atelectasis IMPRESSION: 1. Nonspecific mild increased lung markings diffusely. Correlate for pulmonary edema and atelectasis. Follow-up is recommended.
[2024-05-20] MEDS: NICOTINE 14MG/24HR PATCH TRANSDERM SCH (09:16)
--- NOTE | 2024-05-20 09:26 | P.PN ---
Subjective Progress Note Date: 05/20/24 The patient is a 74-year-old female who was admitted to the hospital with hip fracture. Patient was scheduled to undergo surgery, however she developed severe shortness of breath. Troponins were mildly elevated and therefore cardiology was consulted. Patient was seen by Dr. García yesterday, and there wa s an extensive conversation with the patient and her daughter regarding plan of care. Patient may proceed with surgery, however she is deemed a high risk candidate GENERAL: Well-appearing, well-nourished and in mild respiratory distress. On BiPAP. NECK: Supple without JVD or thyromegaly. LUNGS: Breath sounds severely diminished to auscultation bilaterally. Respiration equal and unlabored. Fine crackles noted in the lung bases HEART: Regular rate and rhythm without murmurs, rubs or gallops. S1 and S2 heard. EXTREMITIES: Normal range of motion, no edema. No clubbing or cyanosis. Peripheral pulses intact and strong. TELEMETRY: Sinus rhythm overnight IMPRESSION: Preoperative evaluation, high risk for surgery Status post hip fracture Pulmonary hypertension, severe History of CAD, prior stenting of left main and LAD Troponin elevation, NSTEMI versus respiratory distress PLAN: Patient and family have been informed that she is high risk for surgery Patient is cleared by cardiology to proceed I am dictating on behalf of Dr Oneil Cottrell's history/physical and assessment/plan. Objective - Vital Signs Vital signs: Vital Signs Temp 97.3 F L 05/20/24 04:00 Pulse 75 05/20/24 08:12 Resp 20 05/20/24 08:00 BP 145/78 05/20/24 08:00 Pulse Ox 99 05/20/24 08:00 FiO2 35 05/20/24 07:45 Intake & Output 05/19/24 05/20/24 05/20/24 18:59 06:59 18:59 Intake Total 1003.430 953.385 322.836 Output Total 920 475 130 Balance 83.430 478.385 192.836 Weight 70 kg Intake: Intake, IV Titration 1003.430 953.385 322.836 Amount Dexmedetomidine/0.9% NaCl 178.430 53.385 97.836 (Pmx) 400 mcg In Empty Bag 1 bag @ 0.2 MCG/KG/HR 3.289 mls/hr IV .Q24H [facility] Rx#:[id number] Sodium Chloride 0.9% 1, 825 900 225 000 ml @ 75 mls/hr IV . [id number] [facility] Rx#:[id number] Output: Urine 920 475 130 Other: Voiding Method Indwelling Catheter Indwelling Catheter - Labs CBC & Chem 7: 05/20/24 05:35 05/20/24 05:35 Labs: Abnormal Lab Results - Last 24 Hours (Table) 05/19/24 05/19/24 05/19/24 Range/Units 12:41 16:23 20:36 RBC (3.80-5.40) m/uL Hgb (11.4-16.0) gm/dL Hct (34.0-46.0) % MCV (80.0-100.0) fL Neutrophils # (1.3-7.7) k/uL Lymphocytes # (1.0-4.8) k/uL Chloride (98-107) mmol/L BUN (7-17) mg/dL Glucose (74-99) mg/dL POC Glucose (mg/dL) 149 H 162 H 169 H (70-110) mg/dL 05/20/24 05/20/24 05/20/24 Range/Units 05:35 05:35 06:47 RBC 3.36 L (3.80-5.40) m/uL Hgb 10.8 L (11.4-16.0) gm/dL Hct 33.8 L (34.0-46.0) % MCV 100.5 H (80.0-100.0) fL Neutrophils # 8.9 H (1.3-7.7) k/uL Lymphocytes # 0.3 L (1.0-4.8) k/uL Chloride 110 H (98-107) mmol/L BUN 39 H (7-17) mg/dL Glucose 139 H (74-99) mg/dL POC Glucose (mg/dL) 155 H (70-110) mg/dL
[2024-05-20] MEDS: ACETAMINOPHEN TAB 325 MG TAB PO PRN (09:31)
--- NOTE | 2024-05-20 10:39 | P.PN ---
Subjective Progress Note Date: 05/20/24 This is a 74-year-old female patient with a known history of coronary disease with previous stent placements, former smoker, oxygen dependent chronic obstructive pulmonary disease with an FEV1 value 30% of predicted, 0.67 L in 2021, diabetes mellitus, hypertension, hyperlipidemia, hypothyroidism. She pre sented to the emergency room this morning after sustaining a fall while up to her bathroom. She fell on her left hip and has significant left hip pain. She denied any loss of consciousness or other injuries. Left hip x-ray does reveal acute left femur intertrochanteric fracture. Moderate hip osteoarthrosis. EKG reveals sinus rhythm with no significant ST or T wave abnormalities. Chest x- ray shows no acute pulmonary process. White count 10.6. Hemoglobin 12.4. Platelets 210. Sodium 139. Potassium 4.5. Bicarb 32. BUN 15. Creatinine 0.85. Glucose 126. She is seen today in consultation in the emergency department. She is currently resting on a stretcher. Fairly comfortable at pr esent. She has received Dilaudid. Denies any worsening shortness of breath, cough or congestion. No chest pain or palpitations. She is receiving normal saline at 75 MLS per hour. She is maintaining O2 saturation in the 90s on 3 L/min per nasal cannula. She is afebrile. Hemodynamically stable. Patient was reevaluated today on 05/18/24, patient was seen yesterday and cleared for surgery for her left hip, although she does have severe end-stage COPD. Today the patient developed more shortness of breath, she was initially on few liters nasal cannula, and overnight her O2 requirement has gone up significantly, I was notified multiple times about this patient earlier today not doing well experiencing mostly episodes of shortness of breath, and episodes of nausea and vomiting. I recommended placing the patient on BiPAP, and I recommended transferring the patient to the ICU. In the meantime I recommended holding on surgical plans, and a CT angiogram of the chest was ordered which came back negative for pulmonary embolism, but it did show evidence of advanced emphysema and compressive atelectasis at the right base as well as the left base with minimal effusion present at the right base labs today showed relatively normal electrolytes, BUN is 22 creatinine 1.1, blood sugar is 152. D-dimer was elevated at 5.32, but CT angiogram showed no evidence of thromboembolic disease. Patient was reevaluated today on 05/19/2024, remains on BiPAP 12/6/35%, patient became extremely agitated yesterday, and had to place the patient on Precedex at 0.8 mcg/kg/h. Patient seems to be doing better today, she is Colmer. Troponin level has been on the rise, cardiology is evaluating the patient, she does have very strong history of coronary artery disease and multiple stents, cardiology will decide whether a cardiac catheterization will be necessary before clearing the patient for surgery. Workup by cardiology is in progress. In the meantime surgery for her intertrochanteric hip fracture is pending. Patient had a bit of low urine output, she will receive some Lasix today, and her daughter is at bedside, updated daughter on her condition. Labs today show WBC count of 8.5 hemoglobin 11.5 electrolytes are normal renal profile showed a BUN of [address] angiogram on this patient showed mostly COPD, no evidence of pulmonary embolism The patient is seen today May 20, 2024 in follow-up in the intensive care unit. She is currently sitting up in bed. Awake and alert. She is on BiPAP 12/6 and 35% FiO2. She is requiring Precedex at 1 mg/kg/h. She has normal saline at 75 MLS per hour. Chest x-ray reveals nonspecific mild increased lung markings diffusely. Mild pulmonary edema versus atelectasis. White count 9.7. Hemoglobin 10.8. Platelets 175. Sodium 140. Potassium 5.0. Bicarb 25. BUN 39. Creatinine 0.68. Glucose 139. She remains on DuoNeb ventilations, Pulmicort and Perforomist inhalations, Solu-Medrol. NicoDerm patch will be applied. The plan may be for repair of her left hip fracture today. Objective - Vital Signs Vital signs: Vital Signs Temp 97.6 F 05/20/24 09:00 Pulse 73 05/20/24 10:00 Resp 18 05/20/24 10:00 BP 186/167 05/20/24 10:00 Pulse Ox 100 05/20/24 10:00 FiO2 35 05/20/24 10:00 Intake & Output 05/19/24 05/20/24 05/20/24 18:59 06:59 18:59 Intake Total 1003.430 953.385 397.836 Output Total 920 475 175 Balance 83.430 478.385 222.836 Weight 70 kg Intake: Intake, IV Titration 1003.430 953.385 397.836 Amount Dexmedetomidine/0.9% NaCl 178.430 53.385 97.836 (Pmx) 400 mcg In Empty Bag 1 bag @ 0.2 MCG/KG/HR 3.289 mls/hr IV .Q24H [facility] Rx#:[id number] Sodium Chloride 0.9% 1, 825 900 300 000 ml @ 75 mls/hr IV . [id number] [facility] Rx#:[id number] Output: Urine 920 475 175 Other: Voiding Method Indwelling Catheter Indwelling Catheter - Exam GENERAL EXAM: Alert, 74-year-old female, on BiPAP, fairly comfortable in no apparent distress. HEAD: Normocephalic. EYES: Normal reaction of pupils, equal size. NOSE: Clear with pink turbinates. THROAT: No erythema or exudates. NECK: No masses, no JVD. CHEST: No chest wall deformity. LUNGS: Equal air entry with bilateral end expiratory wheeze, diminished. CVS: S1 and S2 normal with no audible murmur, regular rhythm. ABDOMEN: No hepatosplenomegaly, normal bowel sounds, no guarding or rigidity. SPINE: No scoliosis or deformity SKIN: No rashes CENTRAL NERVOUS SYSTEM: No focal deficits, tone is normal in all 4 extremities. EXTREMITIES: There is no peripheral edema. No clubbing, no cyanosis. Peripheral pulses are intact. - Labs CBC & Chem 7: 05/20/24 05:35 05/20/24 05:35 Labs: Abnormal Lab Results - Last 24 Hours (Table) 05/19/24 05/19/24 05/19/24 Range/Units 12:41 16:23 20:36 RBC (3.80-5.40) m/uL Hgb (11.4-16.0) gm/dL Hct (34.0-46.0) % MCV (80.0-100.0) fL Neutrophils # (1.3-7.7) k/uL Lymphocytes # (1.0-4.8) k/uL Chloride (98-107) mmol/L BUN (7-17) mg/dL Glucose (74-99) mg/dL POC Glucose (mg/dL) 149 H 162 H 169 H (70-110) mg/dL 05/20/24 05/20/24 05/20/24 Range/Units 05:35 05:35 06:47 RBC 3.36 L (3.80-5.40) m/uL Hgb 10.8 L (11.4-16.0) gm/dL Hct 33.8 L (34.0-46.0) % MCV 100.5 H (80.0-100.0) fL Neutrophils # 8.9 H (1.3-7.7) k/uL Lymphocytes # 0.3 L (1.0-4.8) k/uL Chloride 110 H (98-107) mmol/L BUN 39 H (7-17) mg/dL Glucose 139 H (74-99) mg/dL POC Glucose (mg/dL) 155 H (70-110) mg/dL Assessment and Plan Assessment: Acute nondisplaced left intertrochanteric femur fracture status post fall from standing position Severe oxygen dependent chronic obstructive pulmonary disease with an FEV1 value 0.67 L, 30% of predicted Former smoker Coronary artery disease with previous stent placements Diabetes mellitus Hyperlipidemia Hypertension Hypothyroidism Plan: The patient was seen and evaluated Chest x-ray, labs and medications reviewed The patient is high risk for surgery however no absolute contraindication Benefits outweigh the risk from the pulmonary standpoint Continue DuoNeb inhalations and Symbicort Titrate the FiO2 as tolerated Patient remains quite restless and requiring Precedex Plan for a CT scan of the head Add a NicoDerm patch We will continue to follow I have personally seen and examined the patient, performed the documentation and the assessment and plan as written. Number of minutes spent on the visit: 10.
--- NOTE | 2024-05-20 12:36 | P.PN ---
Progress Note - Text Progress Note Date: 05/20/24 Patient seen and examined at bedside today, she is on Bipap and responds to verbal stimulus but is confused. Son is present during encounter and details regarding the surgical plan were discussed and now that clearance has been obtained we will proceed today with left hip IT fracture cephalomedullary nailing. Risks and benefits of surgery were discussed including bleeding, infection, need for further surgery and even were discussed. -Carlos Bowden DO Orthopedic Surgeon
[2024-05-20] MEDS ORDERED: ceFAZolin 1 GM/50 ML BAG (PMX) ONE (12:40)
[2024-05-20] MEDS ORDERED: GLYCOPYRROLATE 0.2 MG/ML 2 ML VIAL ONE (12:40)
[2024-05-20] MEDS ORDERED: ROCURONIUM 10 MG/ML (5 ML VIAL) IV ONE (12:40)
[2024-05-20] MEDS ORDERED: PROPOFOL 10 MG/ML 20 ML VIAL IV ONE (12:40)
[2024-05-20] MEDS ORDERED: SUCCINYLCHOLINE CHLORIDE 200 MG/10 ML VIAL IV ONE (12:40)
[2024-05-20] MEDS ORDERED: PHENYLEPHRINE-0.9% NACL SYG 1,000 MCG/10 ML SYRINGE ONE (12:40)
[2024-05-20] MEDS ORDERED: NEOSTIGMINE 1 MG/ML 10 ML VIAL ONE (12:40)
[2024-05-20] MEDS: SODIUM CHLORIDE 0.9% 50 ML with ceFAZolin 2,000 MG IV ONE (12:45)
[2024-05-20] MEDS: IV FLUID CONTINUATION 900 ML IV ONE (12:45)
--- NOTE | 2024-05-20 13:51 | P.OP ---
Date of Procedure: 05/20/24 Preoperative Diagnosis: Left hip intertrochanteric femur fracture Postoperative Diagnosis: Left hip intertrochanteric femur fracture Procedure(s) Performed: Left hip intertrochanteric femur fracture cephalomedullary nailing. Implants: 1.) Gamma3 11x 180mm IMN 2.) 37.5x5mm distal locking screw 3.) A 10.5x 90mm lag screw Anesthesia: spinal Surgeon: Carlos Bowden [employer] Manager #1: iFsh Barrera Estimated Blood Loss (ml): 200 Pathology: none sent Condition: stable Disposition: PACU Description of Procedure: This is a 74 year old female who sustained a left intertrochanteric hip fracture after a fall from standing and presents today for surgical intervention. Risks and benefits of surgery were discussed with the patient including bleeding, damage to surrounding tissue, infection, need for further surgery as well as risks of anesthesia including pulmonary embolism and even and the patient wished to proceed with surgical intervention. The patient was seen in the pre- operative area by myself. Consent and H&P were completed and updated. The correct extremity was marked in the pre-operative area by myself and all other questions were answered. Operative Narrative: The patient was brought to the operating room by the department of anesthesia. Spinal anesthesia was performed. The patient was then transferred to the SWEETSER traction table. All rangel prominences were well padded. Timeout was performed indicating the correct patient, procedure and laterality and all in the room were in agreement. Closed reduction maneuver was performed consisting of traction, adduction and internal rotation. The patient was then prepped and draped in normal sterile fashion. A 5cm longitudinal incision was made 3 finger breadths above the level of the greater trochanter. The gluteal fascia was split with scalpel and blunt fingertip dissection was taken down to the tip of the greater trochanter. A starting awl was then used to initiate the starting point at the tip of the greater trochanter, inline with the medullary canal on AP and lateral views. Awl was then advanced. Ball tip guide wire was then entered through the awl and intramedullary placement was confirmed on X-ray. Opening reamer was then used to ream over the guide wire down to the level of the lesser trochanter. A 12.5 mm reamer was then used to ream the entire length of the femur. A Beaman [id number] IMN was then inserted over the ball tip guidew lio and impacted to the appropriate depth. Lag screw guide was then placed and skin incision was made along the lateral aspect of the femur, IT fascia was split and guidewire sleeve was inserted down to bone. Threaded k-wire was then advanced through the femoral neck to subchondral bone of the femoral head without penetrating the cortex and confirmed on AP/Lat views. Size was measured at 90mm. Drill was then set to 90mm and over drilling was performed. A 10.5x 90mm lag screw was then inserted to an appropriate TAD distance. Guide pin was then removed. Set screw was then placed proximally and a quarter back turn was performed and there was a small amount of play when lag screw was twisted indicating correct seating of the set screw in the lag screw rivets. Distal locking attachment was then set to static locking. Drilling was performed and measured with depth gauge. A 37.5x5mm distal locking screw was then placed. Final imaging was taken confirming appropriate reduction of fracture. Wounds were irrigated with sterile saline. Gluteal and IT fascia was closed with 0 vicryl suture, followed by subcutaneous closure with 2-0 vicryl suture and jordan and a sterile optifoam dressing. The patient was then awoken by the department of anesthesia and transferred to PACU in stable condition. Fish GARZON was present for the case and assisted in hardware placement and fracture reduction and closure. -Carlos Bowden DO Orthopedic Surgeon
[2024-05-20 14:24] LABS: Glucose,Whole Blood 134 mg/dL (70-110)
[2024-05-20] MEDS: SODIUM CHLORIDE 0.9% 1,000 ML BAG IV STA (14:55)
[2024-05-20] MEDS: methylPREDNISolone SOD SUCCI 125 MG/2 ML VIAL IV SCH (15:03)
[2024-05-20 15:13] LABS: ABG Base Excess -4.9 mmol/L; ABG HCO3 23 mmol/L (21-25); ABG Oxygen Saturation 100.3 % (94-97); ABG PCO2 60 mmHg (35-45); ABG PO2 374 mmHg (83-108); ABG TCO2 25 mmol/L (19-24); Allen Test Performed? Yes
--- NOTE | 2024-05-20 15:44 | XR ---
EXAMINATION TYPE: XR chest 1V portable DATE OF EXAM: 05/20/2024 COMPARISON: 05/20/2024 INDICATION: ET tube placement TECHNIQUE: Single frontal view of the chest is obtained. FINDINGS: The heart size is normal. The pulmonary vasculature is prominent. There may be some developing infiltrate in the retrocardiac region. Correlate for atypical pulmonary edema. Atelectasis and pneumonia could be considered. Endotracheal tube tip is 4.4 cm above. Nasogastric tube tip is in the left upper quadrant of the abdo men. IMPRESSION: 1. Developing retrocardiac infiltrate. 2. Volume overload 3. Lines and catheters discussed above.
--- NOTE | 2024-05-20 15:52 | XR ---
Fluoroscopy INDICATION: Pain FINDINGS: Fluoroscopy time: 38.4 seconds. Total dose area product (DAP) in uGy*m?, mGy*cm? (or similar): 2.8083 Images obtained: 5. IMPRESSION: 1. Documentation of fluoroscopy.
[2024-05-20] MEDS: NOREPINEPHRINE 4 MG in SODIUM CHLORIDE 0.9% 250 ML IV SCH (16:00)
[2024-05-20 16:09] LABS: Glucose,Whole Blood 111 mg/dL (70-110)
--- NOTE | 2024-05-20 17:16 | CT ---
EXAMINATION TYPE: CT brain wo con DATE OF EXAM: 05/20/2024 COMPARISON: 06/16/2023 HISTORY: 74-year-old female confused TECHNIQUE: Examination was done in axial plane without intravenous contrast. Coronal and sagittal r econstructions performed. CT DLP: 1166.1 mGycm Automated exposure control for dose reduction was used. FINDINGS: There is no evidence of acute intracranial hemorrhage, acute ischemic changes, mass, mass-effect, or extra-axial fluid collection. There is no effacement of cerebral sulci or basal subarachnoid cister ns. There is no hydrocephalus. There is no midline shift. Rodriguez-white matter distinction is preserv ed. Partially empty sella. Atherosclerotic calcifications in the carotid siphons. Mild patchy white matte r hypodensity suggesting mild burden of chronic small vessel ischemic disease. Patient is intubated with NG tube. Leftward nasal septal deviation. Paranasal sinuses and mastoid air cells well pneumatized. Orbits and globes are intact. IMPRESSION: No acute intracranial abnormality seen.
[2024-05-20] MEDS: HYDROcodone/APAP 7.5-325MG 1 EACH TAB PO PRN (20:05)
--- NOTE | 2024-05-20 20:05 | FL ---
Fluoroscopy INDICATION: Pain FINDINGS: Fluoroscopy time: 27 seconds. Total dose area product (DAP) in uGy*m?, mGy*cm? (or similar): 2.8083 Images obtained: 0. IMPRESSION: 1. Documentation of fluoroscopy.
[2024-05-20] MEDS: CHLORHEXIDINE GLUCONATE 15 ML CUP MUCOUS MEM SCH (20:06)
[2024-05-20 20:24] LABS: Glucose,Whole Blood 115 mg/dL (70-110)
[2024-05-20] MEDS: BUDESONIDE 1 MG/2 ML NEBU INHALATION SCH (20:31)
[2024-05-20] MEDS: FORMOTEROL FUMARATE 20 MCG/2 ML NEBU INHALATION SCH (20:31)
[2024-05-21 06:08] LABS: ABG HCO3 19 mmol/L (21-25); ABG Oxygen Saturation 97.5 % (94-97); ABG PCO2 41 mmHg (35-45); ABG PH 7.26 (7.35-7.45); ABG PO2 90 mmHg (83-108); ABG TCO2 20 mmol/L (19-24); Allen Test Performed? Yes
[2024-05-21 06:15] LABS: Basophils % (A) 0 %; Eosinophils % (A) 0 %; HCT 34.3 % (34.0-46.0); HGB 10.2 gm/dL (11.4-16.0); Hypochromasia Marked; Lymphocytes # (A) 0.4 k/uL (1.0-4.8); Lymphocytes % (A) 3 %; MCH 31.2 pg (25.0-35.0); MCHC 29.8 g/dL (31.0-37.0); MCV 104.6 fL (80.0-100.0); Macrocytosis Slight; Mean Platelet Volume 9.1; Monocytes # (A) 0.3 k/uL (0-1.0); Monocytes % (A) 2 %; Neutrophils # (A) 14.4 k/uL (1.3-7.7); Neutrophils % (A) 95 %; Platelet Count 279 k/uL (150-450); RBC 3.28 m/uL (3.80-5.40); RDW 13.5 % (11.5-15.5); WBC 15.2 k/uL (3.8-10.6)
[2024-05-21 06:16] LABS: Glucose,Whole Blood 180 mg/dL (70-110)
[2024-05-21 06:50] LABS: African American GFR (CKD) 67 (>60 ml/min/1.73 sqM); Anion Gap 12 mmol/L; Blood Urea Nitrogen 41 mg/dL (7-17); Calcium 8.5 mg/dL (8.4-10.2); Carbon Dioxide 16 mmol/L (22-30); Chloride 114 mmol/L (98-107); Glucose 156 mg/dL (74-99); Non-African American GFR(CKD) 58 (>60 ml/min/1.73 sqM); Potassium 4.7 mmol/L (3.5-5.1); Sodium 142 mmol/L (137-145)
--- NOTE | 2024-05-21 09:23 | P.PN ---
Subjective Progress Note Date: 05/21/24 The patient is a 74-year-old female who was admitted to the hospital with hip fracture. Patient was scheduled to undergo surgery, however she developed severe shortness of breath. Troponins were mildly elevated and therefore cardiology was consulted. Patient was deemed a high risk candidate, but underwe nt left hip intercurrent trochanteric femur fracture cephalomedullary nailing. According to nursing staff overall surgery was unremarkable. She did undergo CT scan of the brain as a standard follow-up after mechanical fall. GENERAL: Well-appearing, well-nourished. Patient is currently ventilated. NECK: Supple without JVD or thyromegaly. LUNGS: Breath sounds severely diminished to auscultation bilaterally. Respiration equal and unlabored. HEART: Regular rate and rhythm without murmurs, rubs or gallops. S1 and S2 heard. EXTREMITIES: Normal range of motion, no edema. No clubbing or cyanosis. Peripheral pulses intact and strong. TELEMETRY: Sinus rhythm overnight IMPRESSION: Preoperative evaluation, high risk for surgery Status post mechanical fall Acute hip fracture, status post cephalomedullary nailing Pulmonary hypertension, severe History of CAD, prior stenting of left main and LAD Troponin elevation, NSTEMI versus respiratory distress PLAN: Continue supportive treatment Wean from ventilator Further recommendations to be based upon clinical course I am dictating on behalf of Dr Oneil Cottrell's history/physical and assessment/plan. Objective - Vital Signs Vital signs: Vital Signs Temp 99.1 F 05/21/24 08:00 Pulse 85 05/21/24 08:00 Resp 26 H 05/21/24 08:00 BP 100/45 05/21/24 08:00 Pulse Ox 100 05/21/24 08:00 FiO2 35 05/21/24 08:00 Intake & Output 05/20/24 05/21/24 05/21/24 18:59 06:59 18:59 Intake Total 2754.536 1258.423 242.363 Output Total 580 530 105 Balance 2174.536 728.423 137.363 Weight 74.4 kg Intake: IV 1850 825 150 .9NS bolus 1000 Sodium Chloride 0.9% 1, 825 150 000 ml @ 75 mls/hr IV . [id number] [facility] Rx#:[id number] Intake, IV Titration 904.536 433.423 92.363 Amount Dexmedetomidine/0.9% NaCl 97.836 (Pmx) 400 mcg In Empty Bag 1 bag @ 0.2 MCG/KG/HR 3.289 mls/hr IV .Q24H [facility] Rx#:[id number] Empty Bag 1 bag @ 10 MCG/ 56.700 133.95 79.695 KG/MIN 4.2 mls/hr IV . [id number] [facility] with propofoL 1,000 mg Rx#:[id number] Norepinephrine 4 mg In 224.473 12.668 Sodium Chloride 0.9% 250 ml @ 0.03 MCG/KG/MIN 8. 001 mls/hr IV .Q24H [facility] Rx#:[id number] Sodium Chloride 0.9% 1, 750 75 000 ml @ 75 mls/hr IV . [id number] [facility] Rx#:[id number] Output: Urine 380 530 105 Estimated Blood Loss 200 Other: Voiding Method Indwelling Catheter Indwelling Catheter Indwelling Catheter - Labs CBC & Chem 7: 05/21/24 05:37 05/21/24 05:37 Labs: Abnormal Lab Results - Last 24 Hours (Table) 05/20/24 05/20/24 05/20/24 Range/Units 14:21 15:11 16:07 WBC (3.8-10.6) k/uL RBC (3.80-5.40) m/uL Hgb (11.4-16.0) gm/dL MCV (80.0-100.0) fL MCHC (31.0-37.0) g/dL Neutrophils # (1.3-7.7) k/uL Lymphocytes # (1.0-4.8) k/uL ABG pH 7.20 L (7.35-7.45) ABG pCO2 60 H (35-45) mmHg ABG pO2 374 H (83-108) mmHg ABG HCO3 (21-25) mmol/L ABG Total CO2 25 H (19-24) mmol/L ABG O2 Saturation 100.3 H (94-97) % Chloride (98-107) mmol/L Carbon Dioxide (22-30) mmol/L BUN (7-17) mg/dL Glucose (74-99) mg/dL POC Glucose (mg/dL) 134 H 111 H (70-110) mg/dL 05/20/24 05/21/24 05/21/24 Range/Units 20:22 05:37 05:37 WBC 15.2 H (3.8-10.6) k/uL RBC 3.28 L (3.80-5.40) m/uL Hgb 10.2 L (11.4-16.0) gm/dL MCV 104.6 H (80.0-100.0) fL MCHC 29.8 L (31.0-37.0) g/dL Neutrophils # 14.4 H (1.3-7.7) k/uL Lymphocytes # 0.4 L (1.0-4.8) k/uL ABG pH (7.35-7.45) ABG pCO2 (35-45) mmHg ABG pO2 (83-108) mmHg ABG HCO3 (21-25) mmol/L ABG Total CO2 (19-24) mmol/L ABG O2 Saturation (94-97) % Chloride 114 H (98-107) mmol/L Carbon Dioxide 16 L (22-30) mmol/L BUN 41 H (7-17) mg/dL Glucose 156 H (74-99) mg/dL POC Glucose (mg/dL) 115 H (70-110) mg/dL 05/21/24 05/21/24 Range/Units 06:00 06:14 WBC (3.8-10.6) k/uL RBC (3.80-5.40) m/uL Hgb (11.4-16.0) gm/dL MCV (80.0-100.0) fL MCHC (31.0-37.0) g/dL Neutrophils # (1.3-7.7) k/uL Lymphocytes # (1.0-4.8) k/uL ABG pH 7.26 L (7.35-7.45) ABG pCO2 (35-45) mmHg ABG pO2 (83-108) mmHg ABG HCO3 19 L (21-25) mmol/L ABG Total CO2 (19-24) mmol/L ABG O2 Saturation 97.5 H (94-97) % Chloride (98-107) mmol/L Carbon Dioxide (22-30) mmol/L BUN (7-17) mg/dL Glucose (74-99) mg/dL POC Glucose (mg/dL) 180 H (70-110) mg/dL
--- NOTE | 2024-05-21 09:28 | XR ---
EXAMINATION TYPE: XR chest 1V portable DATE OF EXAM: 05/21/2024 COMPARISON: 05/20/2024 INDICATION: Tube placement TECHNIQUE: Single frontal view of the chest is obtained. FINDINGS: The heart size is mild the prominent. The pulmonary vasculature is normal. Bibasilar mild infiltrates are present. Correlate for subsegmental atelectasis. Findings are improved . Endotracheal tube tip is 4.2 cm above the sanjana. Nasogastric tube tip is within the left upper quadr ant of the abdomen. IMPRESSION: 1. . Bibasilar infiltrates. Correlate for atelectasis. Continued Follow-up is recommended
[2024-05-21] MEDS: FUROSEMIDE 10 MG/ML 4 ML VIAL IV STA (09:40)
[2024-05-21 11:21] LABS: Glucose,Whole Blood 175 mg/dL (70-110)
--- NOTE | 2024-05-21 11:26 | P.PN ---
Subjective Progress Note Date: 05/21/24 This is a 74-year-old female patient with a known history of coronary disease with previous stent placements, former smoker, oxygen dependent chronic obstructive pulmonary disease with an FEV1 value 30% of predicted, 0.67 L in 2021, diabetes mellitus, hypertension, hyperlipidemia, hypothyroidism. She pre sented to the emergency room this morning after sustaining a fall while up to her bathroom. She fell on her left hip and has significant left hip pain. She denied any loss of consciousness or other injuries. Left hip x-ray does reveal acute left femur intertrochanteric fracture. Moderate hip osteoarthrosis. EKG reveals sinus rhythm with no significant ST or T wave abnormalities. Chest x- ray shows no acute pulmonary process. White count 10.6. Hemoglobin 12.4. Platelets 210. Sodium 139. Potassium 4.5. Bicarb 32. BUN 15. Creatinine 0.85. Glucose 126. She is seen today in consultation in the emergency department. She is currently resting on a stretcher. Fairly comfortable at pr esent. She has received Dilaudid. Denies any worsening shortness of breath, cough or congestion. No chest pain or palpitations. She is receiving normal saline at 75 MLS per hour. She is maintaining O2 saturation in the 90s on 3 L/min per nasal cannula. She is afebrile. Hemodynamically stable. Patient was reevaluated today on 05/18/24, patient was seen yesterday and cleared for surgery for her left hip, although she does have severe end-stage COPD. Today the patient developed more shortness of breath, she was initially on few liters nasal cannula, and overnight her O2 requirement has gone up significantly, I was notified multiple times about this patient earlier today not doing well experiencing mostly episodes of shortness of breath, and episodes of nausea and vomiting. I recommended placing the patient on BiPAP, and I recommended transferring the patient to the ICU. In the meantime I recommended holding on surgical plans, and a CT angiogram of the chest was ordered which came back negative for pulmonary embolism, but it did show evidence of advanced emphysema and compressive atelectasis at the right base as well as the left base with minimal effusion present at the right base labs today showed relatively normal electrolytes, BUN is 22 creatinine 1.1, blood sugar is 152. D-dimer was elevated at 5.32, but CT angiogram showed no evidence of thromboembolic disease. Patient was reevaluated today on 05/19/2024, remains on BiPAP 12/6/35%, patient became extremely agitated yesterday, and had to place the patient on Precedex at 0.8 mcg/kg/h. Patient seems to be doing better today, she is [place]. Troponin level has been on the rise, cardiology is evaluating the patient, she does have very strong history of coronary artery disease and multiple stents, cardiology will decide whether a cardiac catheterization will be necessary before clearing the patient for surgery. Workup by cardiology is in progress. In the meantime surgery for her intertrochanteric hip fracture is pending. Patient had a bit of low urine output, she will receive some Lasix today, and her daughter is at bedside, updated daughter on her condition. Labs today show WBC count of 8.5 hemoglobin 11.5 electrolytes are normal renal profile showed a BUN of [address] angiogram on this patient showed mostly COPD, no evidence of pulmonary embolism The patient is seen today May 20, 2024 in follow-up in the intensive care unit. She is currently sitting up in bed. Awake and alert. She is on BiPAP 12/6 and 35% FiO2. She is requiring Precedex at 1 mg/kg/h. She has normal saline at 75 MLS per hour. Chest x-ray reveals nonspecific mild increased lung markings diffusely. Mild pulmonary edema versus atelectasis. White count 9.7. Hemoglobin 10.8. Platelets 175. Sodium 140. Potassium 5.0. Bicarb 25. BUN 39. Creatinine 0.68. Glucose 139. She remains on DuoNeb ventilations, Pulmicort and Perforomist inhalations, Solu-Medrol. NicoDerm patch will be applied. The plan may be for repair of her left hip fracture today. The patient is seen today May 21, 2024 in follow-up in the intensive care unit. She did undergo left hip IT fracture cephalomedullary nailing yesterday. She did remain intubated on the mechanical ventilator currently on assist-control mode at a rate of 26, tidal volume 400, FiO2 40% and a PEEP of 5. Morning blood gases revealed a PaO2 of 90, pCO2 41 and a pH of 7.26. She is sedated with propofol at 45 mcg/kg/min. She has normal saline at 75 MLS per hour. She did receive 2 L of fluid resuscitation yesterday. She is currently in a 2.9 liter positive balance. Chest x-ray shows bibasilar infiltrates. Probable atelectasis. White count 15.2. Hemoglobin 10.2. Platelets 279. Sodium 142. Potassium 4.7. Bicarb 16. Chloride 114. BUN 41. Creatinine 0.96. Glucose 156. Continued on DuoNeb inhalations, Pulmicort and Perforomist inhalations, IV Solu-Medrol. NicoDerm patch in place. CT scan of the brain from yesterday revealed no acute intracranial abnormalities. Objective - Vital Signs Vital signs: Vital Signs Temp 99.1 F 05/21/24 08:00 Pulse 90 05/21/24 10:00 Resp 26 H 05/21/24 10:00 BP 126/50 05/21/24 10:00 Pulse Ox 100 05/21/24 10:00 FiO2 35 05/21/24 08:00 Intake & Output 05/20/24 05/21/24 05/21/24 18:59 06:59 18:59 Intake Total 2754.536 1258.423 457.813 Output Total 580 530 255 Balance 2174.536 728.423 202.813 Weight 74.4 kg 74.4 kg Intake: IV 1850 825 300 .9NS bolus 1000 Sodium Chloride 0.9% 1, 825 300 000 ml @ 75 mls/hr IV . [id number] [facility] Rx#:[id number] Intake, IV Titration 904.536 433.423 157.813 Amount Dexmedetomidine/0.9% NaCl 97.836 (Pmx) 400 mcg In Empty Bag 1 bag @ 0.2 MCG/KG/HR 3.289 mls/hr IV .Q24H [facility] Rx#:[id number] Empty Bag 1 bag @ 10 MCG/ 56.700 133.95 145.145 KG/MIN 4.2 mls/hr IV . [id number] [facility] with propofoL 1,000 mg Rx#:[id number] Norepinephrine 4 mg In 224.473 12.668 Sodium Chloride 0.9% 250 ml @ 0.03 MCG/KG/MIN 8. 001 mls/hr IV .Q24H [facility] Rx#:[id number] Sodium Chloride 0.9% 1, 750 75 000 ml @ 75 mls/hr IV . [id number] [facility] Rx#:[id number] Output: Urine 380 530 255 Estimated Blood Loss 200 Other: Voiding Method Indwelling Catheter Indwelling Catheter Indwelling Catheter - Exam GENERAL EXAM: Intubated, sedated, 74-year-old female, comfortable in no apparent distress. HEAD: Normocephalic. EYES: Normal reaction of pupils, equal size. NOSE: Clear with pink turbinates. THROAT: Oral endotracheal and gastric tube secured in place. No erythema or exudates. NECK: No masses, no JVD. CHEST: No chest wall deformity. LUNGS: Equal air entry with bilateral end expiratory wheeze, diminished. CVS: S1 and S2 normal with no audible murmur, regular rhythm. ABDOMEN: No hepatosplenomegaly, normal bowel sounds, no guarding or rigidity. SPINE: No scoliosis or deformity SKIN: No rashes CENTRAL NERVOUS SYSTEM: Sedated, tone is normal in all 4 extremities. EXTREMITIES: Left hip dressing dry and intact. There is no peripheral edema. No clubbing, no cyanosis. Peripheral pulses are intact. - Labs CBC & Chem 7: 05/21/24 05:37 05/21/24 05:37 Labs: Abnormal Lab Results - Last 24 Hours (Table) 05/20/24 05/20/24 05/20/24 Range/Units 14:21 15:11 16:07 WBC (3.8-10.6) k/uL RBC (3.80-5.40) m/uL Hgb (11.4-16.0) gm/dL MCV (80.0-100.0) fL MCHC (31.0-37.0) g/dL Neutrophils # (1.3-7.7) k/uL Lymphocytes # (1.0-4.8) k/uL ABG pH 7.20 L (7.35-7.45) ABG pCO2 60 H (35-45) mmHg ABG pO2 374 H (83-108) mmHg ABG HCO3 (21-25) mmol/L ABG Total CO2 25 H (19-24) mmol/L ABG O2 Saturation 100.3 H (94-97) % Chloride (98-107) mmol/L Carbon Dioxide (22-30) mmol/L BUN (7-17) mg/dL Glucose (74-99) mg/dL POC Glucose (mg/dL) 134 H 111 H (70-110) mg/dL 05/20/24 05/21/24 05/21/24 Range/Units 20:22 05:37 05:37 WBC 15.2 H (3.8-10.6) k/uL RBC 3.28 L (3.80-5.40) m/uL Hgb 10.2 L (11.4-16.0) gm/dL MCV 104.6 H (80.0-100.0) fL MCHC 29.8 L (31.0-37.0) g/dL Neutrophils # 14.4 H (1.3-7.7) k/uL Lymphocytes # 0.4 L (1.0-4.8) k/uL ABG pH (7.35-7.45) ABG pCO2 (35-45) mmHg ABG pO2 (83-108) mmHg ABG HCO3 (21-25) mmol/L ABG Total CO2 (19-24) mmol/L ABG O2 Saturation (94-97) % Chloride 114 H (98-107) mmol/L Carbon Dioxide 16 L (22-30) mmol/L BUN 41 H (7-17) mg/dL Glucose 156 H (74-99) mg/dL POC Glucose (mg/dL) 115 H (70-110) mg/dL 05/21/24 05/21/24 Range/Units 06:00 06:14 WBC (3.8-10.6) k/uL RBC (3.80-5.40) m/uL Hgb (11.4-16.0) gm/dL MCV (80.0-100.0) fL MCHC (31.0-37.0) g/dL Neutrophils # (1.3-7.7) k/uL Lymphocytes # (1.0-4.8) k/uL ABG pH 7.26 L (7.35-7.45) ABG pCO2 (35-45) mmHg ABG pO2 (83-108) mmHg ABG HCO3 19 L (21-25) mmol/L ABG Total CO2 (19-24) mmol/L ABG O2 Saturation 97.5 H (94-97) % Chloride (98-107) mmol/L Carbon Dioxide (22-30) mmol/L BUN (7-17) mg/dL Glucose (74-99) mg/dL POC Glucose (mg/dL) 180 H (70-110) mg/dL Assessment and Plan Assessment: Acute nondisplaced left intertrochanteric femur fracture status post fall from standing position. Status post repair with intramedullary nailing 05/20/2024. Postoperative day #1 Acute on chronic hypoxemic respiratory failure requiring intubation and mechanical ventilatory support on 05/20/2024, an expected outcome of surgery in a patient with severe COPD Severe oxygen dependent chronic obstructive pulmonary disease with an FEV1 value 0.67 L, 30% of predicted Former smoker Coronary artery disease with previous stent placements Diabetes mellitus Hyperlipidemia Hypertension Hypothyroidism Plan: The patient was seen and evaluated Chest x-ray, labs, ABGs and medications reviewed CT scan of the brain reviewed, no acute abnormalities Continue DuoNeb inhalations, Pulmicort and Perforomist inhalations Continue Solu-Medrol Add Lovenox for DVT prophylaxis NicoDerm patch in place Will plan for daily interruption of sedation Attempt weaning parameters if possible We will continue to follow I have personally seen and examined the patient, performed the documentation and the assessment and plan as written. Number of minutes spent on the visit: 15.
--- NOTE | 2024-05-21 12:38 | P.PN ---
Subjective Progress Note Date: 05/21/24 Principal diagnosis: Left hip IT fracture Patient was seen at bedside this morning lying in the semirecumbent position in the ICU currently intubated. Dressings are present over left hip. Nurse at bedside this morning mention that patient may be extubated later today. Objective - Vital Signs Vital signs: Vital Signs Temp 99.1 F 05/21/24 08:00 Pulse 90 05/21/24 10:00 Resp 26 H 05/21/24 10:00 BP 126/50 05/21/24 10:00 Pulse Ox 100 05/21/24 10:00 FiO2 35 05/21/24 08:00 Intake & Output 05/20/24 05/21/24 05/21/24 18:59 06:59 18:59 Intake Total 2754.536 1258.423 449.063 Output Total 580 530 255 Balance 2174.536 728.423 194.063 Weight 74.4 kg Intake: IV 1850 825 300 .9NS bolus 1000 Sodium Chloride 0.9% 1, 825 300 000 ml @ 75 mls/hr IV . [id number] [facility] Rx#:[id number] Intake, IV Titration 904.536 433.423 149.063 Amount Dexmedetomidine/0.9% NaCl 97.836 (Pmx) 400 mcg In Empty Bag 1 bag @ 0.2 MCG/KG/HR 3.289 mls/hr IV .Q24H [facility] Rx#:[id number] Empty Bag 1 bag @ 10 MCG/ 56.700 133.95 136.395 KG/MIN 4.2 mls/hr IV . [id number] [facility] with propofoL 1,000 mg Rx#:[id number] Norepinephrine 4 mg In 224.473 12.668 Sodium Chloride 0.9% 250 ml @ 0.03 MCG/KG/MIN 8. 001 mls/hr IV .Q24H [facility] Rx#:[id number] Sodium Chloride 0.9% 1, 750 75 000 ml @ 75 mls/hr IV . [id number] [facility] Rx#:[id number] Output: Urine 380 530 255 Estimated Blood Loss 200 Other: Voiding Method Indwelling Catheter Indwelling Catheter Indwelling Catheter - Exam Dressings are clean, dry, intact present over left hip. Negative for any active drainage. Patient currently intubated. Bilateral lower extremities are warm to the touch. Negative for any significant erythema/ecchymosis or open wounds. - Labs CBC & Chem 7: 05/21/24 05:37 05/21/24 05:37 Labs: Abnormal Lab Results - Last 24 Hours (Table) 05/20/24 05/20/24 05/20/24 Range/Units 14:21 15:11 16:07 WBC (3.8-10.6) k/uL RBC (3.80-5.40) m/uL Hgb (11.4-16.0) gm/dL MCV (80.0-100.0) fL MCHC (31.0-37.0) g/dL Neutrophils # (1.3-7.7) k/uL Lymphocytes # (1.0-4.8) k/uL ABG pH 7.20 L (7.35-7.45) ABG pCO2 60 H (35-45) mmHg ABG pO2 374 H (83-108) mmHg ABG HCO3 (21-25) mmol/L ABG Total CO2 25 H (19-24) mmol/L ABG O2 Saturation 100.3 H (94-97) % Chloride (98-107) mmol/L Carbon Dioxide (22-30) mmol/L BUN (7-17) mg/dL Glucose (74-99) mg/dL POC Glucose (mg/dL) 134 H 111 H (70-110) mg/dL 05/20/24 05/21/24 05/21/24 Range/Units 20:22 05:37 05:37 WBC 15.2 H (3.8-10.6) k/uL RBC 3.28 L (3.80-5.40) m/uL Hgb 10.2 L (11.4-16.0) gm/dL MCV 104.6 H (80.0-100.0) fL MCHC 29.8 L (31.0-37.0) g/dL Neutrophils # 14.4 H (1.3-7.7) k/uL Lymphocytes # 0.4 L (1.0-4.8) k/uL ABG pH (7.35-7.45) ABG pCO2 (35-45) mmHg ABG pO2 (83-108) mmHg ABG HCO3 (21-25) mmol/L ABG Total CO2 (19-24) mmol/L ABG O2 Saturation (94-97) % Chloride 114 H (98-107) mmol/L Carbon Dioxide 16 L (22-30) mmol/L BUN 41 H (7-17) mg/dL Glucose 156 H (74-99) mg/dL POC Glucose (mg/dL) 115 H (70-110) mg/dL 05/21/24 05/21/24 Range/Units 06:00 06:14 WBC (3.8-10.6) k/uL RBC (3.80-5.40) m/uL Hgb (11.4-16.0) gm/dL MCV (80.0-100.0) fL MCHC (31.0-37.0) g/dL Neutrophils # (1.3-7.7) k/uL Lymphocytes # (1.0-4.8) k/uL ABG pH 7.26 L (7.35-7.45) ABG pCO2 (35-45) mmHg ABG pO2 (83-108) mmHg ABG HCO3 19 L (21-25) mmol/L ABG Total CO2 (19-24) mmol/L ABG O2 Saturation 97.5 H (94-97) % Chloride (98-107) mmol/L Carbon Dioxide (22-30) mmol/L BUN (7-17) mg/dL Glucose (74-99) mg/dL POC Glucose (mg/dL) 180 H (70-110) mg/dL Assessment and Plan Assessment: 1. Left hip IT fracture -Postop day 1 status post left hip IM nail Plan: 1. Left hip IT fracture -surgery performed yesterday, 05/20/2024left hip IM nail. Patient currently intubated in ICU. Nurse mentioned patient to be extubated possibly later today. Dressings appear to be clean, dry, intact. Weightbearing as tolerated with walker and assistance as needed once extubated. Assess dressings daily. Pain medication as needed. We will continue to follow patient during stay in hospital. 2. Appreciate medical management 3. Pain management -[place]; Tylenol 4. DVT prophylaxis -aspirin; Lovenox 5. GI prophylaxis -senna; MiraLAX 6. PT/OT -weightbearing as tolerated with walker and assistance once extubated 7. Encourage incentive spirometer use Time with Patient: Less than 30
[2024-05-21] MEDS: ENOXAPARIN 40 MG/0.4 ML SYRINGE SQ SCH (13:07)
[2024-05-21 16:08] LABS: Glucose,Whole Blood 163 mg/dL (70-110)
[2024-05-21 17:55] LABS: Glucose,Whole Blood 175 mg/dL (70-110)
[2024-05-21 21:29] LABS: Glucose,Whole Blood 193 mg/dL (70-110)
[2024-05-21 23:33] LABS: Glucose,Whole Blood 455 mg/dL (70-110)
--- NOTE | 2024-05-22 00:56 | P.PN ---
Subjective Progress Note Date: 05/20/24 Patient is a 74-year-old female with a past medical history of coronary disease status post stent placement, COPD on 3 L oxygen via nasal cannula at home, history of CVA/TIA, hypertension, diabetes type 2, hyperlipidemia, history of NH, hypothyroidism, and prior history of smoking and recent dizzy spells. Patient presents to ER after sustaining a fall while she was in her bathroom. She slipped and fell on her left side and injured her hip. Denied any loss of consciousness as per her daughter. Patient is unable to provide much history and has been lethargic and sleepy. Denies any complaints of chest pain or shortness of breath. EKG showed sinus rhythm. 2D echocardiogram done on 06/16/2023 showed normal LV systolic function. Mildly enlarged right ventricle with RVSP around 50 mmHg and Chest x-ray on admission showed some mildly increased lung markings at the right apex of uncertain etiology. Summation density small densities are within the differential. X-ray of the hip/pelvis showed acute left femur intertrochanteric fracture. Moderate hip osteoarthrosis. On admission blood pressure 120/42 pulse 63 respiration 20 pulse ox 92% on 3 L oxygen via nasal cannula. Laboratory data showed WBC 10.6 hemoglobin 12.4 and platelets 210, MCV 100.5 Sodium 139 potassium 4.5 chloride 105 bicarb is 32 BUN 15 and creatinine 0.85 and blood sugar 126 and total bili 1.8 liver enzymes are not elevated albumin 3.3. 05/18/2024 Patient is in the MICU currently. Overnight patient has patient's respiratory status worsened requiring nonrebreather and was transferred to MICU and gradually transition to BiPAP. Patient is currently on BiPAP. Slightly agitated and trying to remove the mask. Chest x-ray showed bibasilar infiltrates correlate for atelectasis or pneumonia. Patient has been afebrile. No complaints of chest pain. Hip pain is better controlled. Patient was also found to have elevated D-dimer level. CTA chest was ordered negative for PE. Laboratory data showed sodium 141 potassium 5.1 chloride 105 BUN 22.1 creatinine 1.1 and blood sugar 152. A1c 6.0. Patient was also found to have B12 vitamin less than 150. 05/19/2024 Patient is in the MICU. Agitated and delirious. Still on Precedex drip. Currently on oxygen via nasal cannula. Repeat chest x-ray showed improving basilar aeration with mild strandy atelectasis are improving infiltrates. Patient was given another dose of IV Lasix today. EKG last night showed sinus rhythm. Afebrile. Laboratory data WBC 8.4 hemoglobin 11.5 and platelets 189 sodium 139 potassium 5.0 chloride 108 bicarb is 20 BUN 41 creatinine 1.08 and blood sugar is 144. 05/20/2024 Patient is s/p hip surgery today. Less agitated. Postoperatively patient became hypotensive. Was requiring BiPAP. Chest x-ray this morning showed nonspecific mildly increased lung markings bile diffusely. Mild pulmonary edema. Versus atelectasis. Patient is being continued on IV salmeterol, DuoNebs and Pulmicort/Perforomist inhalation. Laboratory data showed WBC 9.7 hemoglobin 10.8 and platelets 178. Sodium 140 potassium 5.0 chloride 110 bicarb is 25 BUN 39 and creatinine 0.68 and blood sugar is 139 and calcium 9.0. Current medications reviewed. Objective - Vital Signs Vital signs: Vital Signs Temp 97.8 F 05/20/24 20:00 Pulse 78 05/20/24 22:00 Resp 26 H 05/20/24 22:00 BP 100/44 05/20/24 22:00 Pulse Ox 96 05/20/24 22:00 FiO2 40 05/20/24 20:32 Intake & Output 05/20/24 05/20/24 05/21/24 06:59 18:59 06:59 Intake Total 642.550 5863.536 336.005 Output Total 475 580 140 Balance 286.781 3550.536 196.005 Weight 70 kg Intake: IV 1850 225 .9NS bolus 1000 Sodium Chloride 0.9% 1, 225 000 ml @ 75 mls/hr IV . [id number] [facility] Rx#:[id number] Intake, IV Titration 953.385 904.536 111.005 Amount Dexmedetomidine/0.9% NaCl 53.385 97.836 (Pmx) 400 mcg In Empty Bag 1 bag @ 0.2 MCG/KG/HR 3.289 mls/hr IV .Q24H [facility] Rx#:[id number] Empty Bag 1 bag @ 10 MCG/ 56.700 KG/MIN 4.2 mls/hr IV . [id number] [facility] with propofoL 1,000 mg Rx#:[id number] Norepinephrine 4 mg In 36.005 Sodium Chloride 0.9% 250 ml @ 0.03 MCG/KG/MIN 8. 001 mls/hr IV .Q24H [facility] Rx#:[id number] Sodium Chloride 0.9% 1, 900 750 75 000 ml @ 75 mls/hr IV . [id number] [facility] Rx#:[id number] Output: Urine 475 380 140 Estimated Blood Loss 200 Other: Voiding Method Indwelling Catheter Indwelling Catheter Indwelling Catheter - Exam PHYSICAL EXAMINATION: Patient is lying in the bed. delirious.. Awake alert and oriented x 1. HEENT: Normocephalic. Neck is supple. Pupils reactive. Nostrils clear. Oral cavity is moist. Neck reveals no JVD, carotid bruits, or thyromegaly. CHEST EXAMINATION: Trachea is central. Symmetrical expansion. Bibasilar diminished sounds otherwise lung key clear to auscultation and percussion. CARDIAC: Normal S1, S2 with no gallops. No murmurs ABDOMEN: Soft. Bowel sounds present, nontender.. No organomegaly. No abdominal bruits. Extremities: reveal no edema. No clubbing or cyanosis Neurologically awake, alert, oriented x 1-2. patient is agitated. Able to move all extremities. No gross no focal deficits noted Skin: No rash or skin lesions. Psychiatric: Coperative. Could not be assessed completely Musculoskeletal: No joint swelling or deformity. Left hip tenderness over the trochanteric region and decreased range of motion. - Labs CBC & Chem 7: 05/21/24 05:37 05/21/24 05:37 Labs: Abnormal Lab Results - Last 24 Hours (Table) 05/20/24 05/20/24 05/20/24 Range/Units 05:35 05:35 06:47 RBC 3.36 L (3.80-5.40) m/uL Hgb 10.8 L (11.4-16.0) gm/dL Hct 33.8 L (34.0-46.0) % MCV 100.5 H (80.0-100.0) fL Neutrophils # 8.9 H (1.3-7.7) k/uL Lymphocytes # 0.3 L (1.0-4.8) k/uL ABG pH (7.35-7.45) ABG pCO2 (35-45) mmHg ABG pO2 (83-108) mmHg ABG Total CO2 (19-24) mmol/L ABG O2 Saturation (94-97) % Chloride 110 H (98-107) mmol/L BUN 39 H (7-17) mg/dL Glucose 139 H (74-99) mg/dL POC Glucose (mg/dL) 155 H (70-110) mg/dL 05/20/24 05/20/24 05/20/24 Range/Units 14:21 15:11 16:07 RBC (3.80-5.40) m/uL Hgb (11.4-16.0) gm/dL Hct (34.0-46.0) % MCV (80.0-100.0) fL Neutrophils # (1.3-7.7) k/uL Lymphocytes # (1.0-4.8) k/uL ABG pH 7.20 L (7.35-7.45) ABG pCO2 60 H (35-45) mmHg ABG pO2 374 H (83-108) mmHg ABG Total CO2 25 H (19-24) mmol/L ABG O2 Saturation 100.3 H (94-97) % Chloride (98-107) mmol/L BUN (7-17) mg/dL Glucose (74-99) mg/dL POC Glucose (mg/dL) 134 H 111 H (70-110) mg/dL 05/20/24 Range/Units 20:22 RBC (3.80-5.40) m/uL Hgb (11.4-16.0) gm/dL Hct (34.0-46.0) % MCV (80.0-100.0) fL Neutrophils # (1.3-7.7) k/uL Lymphocytes # (1.0-4.8) k/uL ABG pH (7.35-7.45) ABG pCO2 (35-45) mmHg ABG pO2 (83-108) mmHg ABG Total CO2 (19-24) mmol/L ABG O2 Saturation (94-97) % Chloride (98-107) mmol/L BUN (7-17) mg/dL Glucose (74-99) mg/dL POC Glucose (mg/dL) 115 H (70-110) mg/dL Assessment and Plan Assessment: Acute on chronic hypoxic respiratory failure secondary to COPD exacerbation. Patient is requiring BiPAP. Acute delirium Status post mechanical fall Acute left femur intertrochanteric fracture. Status post IM nailing. Postoperative day 0 COPD on home oxygen 3 L via nasal cannula Coronary artery disease with history of stent placement to left main at [facility] in September 2023 History of right internal carotid artery stenosis status post TCAR by vascular surgery. History of NH Hypertension Hyperlipidemia Diabetes type 2 [id number] Parkinson's disease Prior history of smoking Hypothyroidism DVT prophylaxis as per primary team. Plan: Patient is s/p left hip IM nail Continue with BiPAP Patient will be continued on telemonitoring. Patient was given another dose of IV Lasix.. Patient is in MICU. Currently on oxygen via nasal cannula. Continue insulin sliding scale for better blood sugar control. Started back on home medication including metoprolol, lisinopril and statins. Aspirin to be started immediately after surgery. Plavix is on hold. Current with home medication including Synthroid. Will continue to follow and further recommendations based on the clinical course. Cardiology and pulmonary is on board. Continue to monitor respiratory status closely. Time with Patient: Greater than 30
--- NOTE | 2024-05-22 01:02 | P.PN ---
Subjective Progress Note Date: 05/21/24 Patient is a 74-year-old female with a past medical history of coronary disease status post stent placement, COPD on 3 L oxygen via nasal cannula at home, history of CVA/TIA, hypertension, diabetes type 2, hyperlipidemia, history of TX, hypothyroidism, and prior history of smoking and recent dizzy spells. Patient presents to ER after sustaining a fall while she was in her bathroom. She slipped and fell on her left side and injured her hip. Denied any loss of consciousness as per her daughter. Patient is unable to provide much history and has been lethargic and sleepy. Denies any complaints of chest pain or shortness of breath. EKG showed sinus rhythm. 2D echocardiogram done on 06/16/2023 showed normal LV systolic function. Mildly enlarged right ventricle with RVSP around 50 mmHg and Chest x-ray on admission showed some mildly increased lung markings at the right apex of uncertain etiology. Summation density small densities are within the differential. X-ray of the hip/pelvis showed acute left femur intertrochanteric fracture. Moderate hip osteoarthrosis. On admission blood pressure 120/42 pulse 63 respiration 20 pulse ox 92% on 3 L oxygen via nasal cannula. Laboratory data showed WBC 10.6 hemoglobin 12.4 and platelets 210, MCV 100.5 Sodium 139 potassium 4.5 chloride 105 bicarb is 32 BUN 15 and creatinine 0.85 and blood sugar 126 and total bili 1.8 liver enzymes are not elevated albumin 3.3. 05/18/2024 Patient is in the MICU currently. Overnight patient has patient's respiratory status worsened requiring nonrebreather and was transferred to MICU and gradually transition to BiPAP. Patient is currently on BiPAP. Slightly agitated and trying to remove the mask. Chest x-ray showed bibasilar infiltrates correlate for atelectasis or pneumonia. Patient has been afebrile. No complaints of chest pain. Hip pain is better controlled. Patient was also found to have elevated D-dimer level. CTA chest was ordered negative for PE. Laboratory data showed sodium 141 potassium 5.1 chloride 105 BUN 22.1 creatinine 1.1 and blood sugar 152. A1c 6.0. Patient was also found to have B12 vitamin less than 150. 05/19/2024 Patient is in the MICU. Agitated and delirious. Still on Precedex drip. Currently on oxygen via nasal cannula. Repeat chest x-ray showed improving basilar aeration with mild strandy atelectasis are improving infiltrates. Patient was given another dose of IV Lasix today. EKG last night showed sinus rhythm. Afebrile. Laboratory data WBC 8.4 hemoglobin 11.5 and platelets 189 sodium 139 potassium 5.0 chloride 108 bicarb is 20 BUN 41 creatinine 1.08 and blood sugar is 144. 05/20/2024 Patient is s/p hip surgery today. Less agitated. Postoperatively patient became hypotensive. Was requiring BiPAP. Chest x-ray this morning showed nonspecific mildly increased lung markings bile diffusely. Mild pulmonary edema. Versus atelectasis. Patient is being continued on IV salmeterol, DuoNebs and Pulmicort/Perforomist inhalation. Laboratory data showed WBC 9.7 hemoglobin 10.8 and platelets 178. Sodium 140 potassium 5.0 chloride 110 bicarb is 25 BUN 39 and creatinine 0.68 and blood sugar is 139 and calcium 9.0. 05/21/2024 Patient is currently in the MICU. Sedated and intubated. On assist-control. ABG showed pH 7.26 pCO2 41 pO2 90. On IV hydration with normal saline 75 cc/h.. Patient did receive 2 L IV fluid bolus yesterday due to hypotension. Chest x- ray showed bibasilar infiltrates and possible atelectasis. CT head showed no acute intracranial process. Laboratory data showed WBC 9.7 hemoglobin 10.8 and MCV 100.5 and platelets 178 sodium 140 potassium 5.0 chloride 110 bicarb is 25 BUN 39 creatinine 0.68 and blood sugar is 139. Andrea hurt is currently not on pressor support. Cardiology and pulmonary is on board. Current medications reviewed. Objective - Vital Signs Vital signs: Vital Signs Temp 98.1 F 05/21/24 16:00 Pulse 76 05/21/24 20:06 Resp 26 H 05/21/24 19:00 BP 112/43 05/21/24 19:00 Pulse Ox 99 05/21/24 19:00 FiO2 40 05/21/24 19:51 Intake & Output 05/21/24 05/21/24 05/22/24 06:59 18:59 06:59 Intake Total 8710.631 9650.618 147.765 Output Total 530 1195 45 Balance 728.423 74.618 102.765 Weight 74.4 kg 74.4 kg Intake: IV 825 900 75 Sodium Chloride 0.9% 1, 825 900 75 000 ml @ 75 mls/hr IV . [id number] [facility] Rx#:[id number] Intake, IV Titration 433.423 279.618 72.765 Amount Empty Bag 1 bag @ 10 MCG/ 133.95 266.950 72.765 KG/MIN 4.2 mls/hr IV . [id number] [facility] with propofoL 1,000 mg Rx#:[id number] Norepinephrine 4 mg In 224.473 12.668 Sodium Chloride 0.9% 250 ml @ 0.03 MCG/KG/MIN 8. 001 mls/hr IV .Q24H [facility] Rx#:[id number] Sodium Chloride 0.9% 1, 75 000 ml @ 75 mls/hr IV . [id number] [facility] Rx#:[id number] Tube Feeding 60 Other 30 Output: Urine 530 1195 45 Other: Voiding Method Indwelling Catheter Indwelling Catheter - Exam PHYSICAL EXAMINATION: Patient is sedated and intubated. HEENT: Normocephalic. Neck is supple. Pupils reactive. Nostrils clear. Oral cavity is moist. Neck reveals no JVD, carotid bruits, or thyromegaly. CHEST EXAMINATION: Trachea is central. Symmetrical expansion. Bibasilar diminished sounds otherwise lung key clear to auscultation and percussion. CARDIAC: Normal S1, S2 with no gallops. No murmurs ABDOMEN: Soft. Bowel sounds present, nontender.. No organomegaly. No abdominal bruits. Extremities: reveal no edema. No clubbing or cyanosis Neurologically sedated and intubated. No gross no focal deficits noted Skin: No rash or skin lesions. Psychiatric: Could not be assessed completely Musculoskeletal: No joint swelling or deformity. Left hip surgical site intact. - Labs CBC & Chem 7: 05/21/24 05:37 05/21/24 05:37 Labs: Abnormal Lab Results - Last 24 Hours (Table) 05/21/24 05/21/24 05/21/24 Range/Units 05:37 05:37 06:00 WBC 15.2 H (3.8-10.6) k/uL RBC 3.28 L (3.80-5.40) m/uL Hgb 10.2 L (11.4-16.0) gm/dL MCV 104.6 H (80.0-100.0) fL MCHC 29.8 L (31.0-37.0) g/dL Neutrophils # 14.4 H (1.3-7.7) k/uL Lymphocytes # 0.4 L (1.0-4.8) k/uL ABG pH 7.26 L (7.35-7.45) ABG HCO3 19 L (21-25) mmol/L ABG O2 Saturation 97.5 H (94-97) % Chloride 114 H (98-107) mmol/L Carbon Dioxide 16 L (22-30) mmol/L BUN 41 H (7-17) mg/dL Glucose 156 H (74-99) mg/dL POC Glucose (mg/dL) (70-110) mg/dL 05/21/24 05/21/24 05/21/24 Range/Units 06:14 11:19 16:06 WBC (3.8-10.6) k/uL RBC (3.80-5.40) m/uL Hgb (11.4-16.0) gm/dL MCV (80.0-100.0) fL MCHC (31.0-37.0) g/dL Neutrophils # (1.3-7.7) k/uL Lymphocytes # (1.0-4.8) k/uL ABG pH (7.35-7.45) ABG HCO3 (21-25) mmol/L ABG O2 Saturation (94-97) % Chloride (98-107) mmol/L Carbon Dioxide (22-30) mmol/L BUN (7-17) mg/dL Glucose (74-99) mg/dL POC Glucose (mg/dL) 180 H 175 H 163 H (70-110) mg/dL 05/21/24 05/21/24 Range/Units 17:54 21:27 WBC (3.8-10.6) k/uL RBC (3.80-5.40) m/uL Hgb (11.4-16.0) gm/dL MCV (80.0-100.0) fL MCHC (31.0-37.0) g/dL Neutrophils # (1.3-7.7) k/uL Lymphocytes # (1.0-4.8) k/uL ABG pH (7.35-7.45) ABG HCO3 (21-25) mmol/L ABG O2 Saturation (94-97) % Chloride (98-107) mmol/L Carbon Dioxide (22-30) mmol/L BUN (7-17) mg/dL Glucose (74-99) mg/dL POC Glucose (mg/dL) 175 H 193 H (70-110) mg/dL Assessment and Plan Assessment: Acute on chronic hypoxic respiratory failure secondary to COPD exacerbation. Patient is on mechanical ventilator. Postoperative hypotension. Improved with fluid boluses. Acute delirium on admission Status post mechanical fall Acute left femur intertrochanteric fracture. Status post IM nailing. Postoperative day 1 COPD on home oxygen 3 L via nasal cannula Coronary artery disease with history of stent placement to left main at [facility] in September 2023 History of right internal carotid artery stenosis status post TCAR by vascular surgery. History of TX Hypertension Hyperlipidemia Diabetes type 2 [id number] Parkinson's disease Prior history of smoking Hypothyroidism DVT prophylaxis as per primary team. Plan: Patient is s/p left hip IM nail Patient is on mechanical ventilator. Patient will be continued on telemonitoring. Continue insulin sliding scale for better blood sugar control. Started back on home medication including metoprolol, lisinopril and statins. Continue with aspirin.. Will start back on Plavix once cleared by surgery. Current with home medication including Synthroid. Will continue to follow and further recommendations based on the clinical course. Cardiology and pulmonary is on board. Time with Patient: Greater than 30
[2024-05-22 05:32] LABS: Glucose,Whole Blood 215 mg/dL (70-110)
[2024-05-22 05:51] LABS: ABG Base Excess -2.3 mmol/L; ABG HCO3 24 mmol/L (21-25); ABG Oxygen Saturation 97.3 % (94-97); ABG PCO2 48 mmHg (35-45); ABG PH 7.31 (7.35-7.45); ABG PO2 87 mmHg (83-108); ABG TCO2 26 mmol/L (19-24); Allen Test Performed? Yes
[2024-05-22 06:25] LABS: African American GFR (CKD) 83 (>60 ml/min/1.73 sqM); Anion Gap 5 mmol/L; Blood Urea Nitrogen 47 mg/dL (7-17); Calcium 8.5 mg/dL (8.4-10.2); Carbon Dioxide 21 mmol/L (22-30); Chloride 114 mmol/L (98-107); Glucose 203 mg/dL (74-99); Non-African American GFR(CKD) 72 (>60 ml/min/1.73 sqM); Potassium 4.3 mmol/L (3.5-5.1); Sodium 140 mmol/L (137-145)
[2024-05-22 06:49] LABS: Basophils % (A) 0 %; Eosinophils % (A) 0 %; HCT 32.5 % (34.0-46.0); HGB 10.1 gm/dL (11.4-16.0); Hypochromasia Slight; Lymphocytes # (A) 0.7 k/uL (1.0-4.8); Lymphocytes % (A) 6 %; MCH 31.6 pg (25.0-35.0); MCHC 31.1 g/dL (31.0-37.0); MCV 101.7 fL (80.0-100.0); Macrocytosis Slight; Monocytes # (A) 0.6 k/uL (0-1.0); Monocytes % (A) 5 %; Neutrophils # (A) 10.1 k/uL (1.3-7.7); Neutrophils % (A) 89 %; Platelet Count 168 k/uL (150-450); RBC 3.19 m/uL (3.80-5.40); RDW 13.8 % (11.5-15.5); WBC 11.4 k/uL (3.8-10.6)
--- NOTE | 2024-05-22 07:05 | XR ---
EXAMINATION TYPE: XR chest 1V portable DATE OF EXAM: 05/22/2024 COMPARISON: 05/21/2024 INDICATION: Tube placement difficulty breathing TECHNIQUE: Single frontal view of the chest is obtained. FINDINGS: The heart size is mildly prominent. The pulmonary vasculature is normal. Scattered diffuse alveolar infiltrate appears to be present. Correlate for pulmonary edema. Findings are worsening. There is placement of an endotracheal tube 4.5 cm above the sanjana. Nasogastric tube transverses the thorax with the tip in the abdomen IMPRESSION: 1. Diffuse alveolar infiltrate. Correlate for pulmonary edema. Follow-up recommended. 2. Lines and catheters discussed above
[2024-05-22] MEDS: FUROSEMIDE 10 MG/ML 10 ML VIAL IV STA (09:42)
--- NOTE | 2024-05-22 09:48 | P.PN ---
Subjective Progress Note Date: 05/22/24 The patient is a 74-year-old female who was admitted to the hospital with hip fracture. Patient was scheduled to undergo surgery, however she developed severe shortness of breath. Troponins were mildly elevated and therefore cardiology was consulted. Patient was deemed a high risk candidate, but underwe nt left hip intercurrent trochanteric femur fracture cephalomedullary nailing. Unfortunately the patient was not able to be extubated yesterday due to not passing her weaning parameters. Nursing staff states that they will attempt again later today. GENERAL: Well-appearing, well-nourished. Patient is currently ventilated. NECK: Supple without JVD or thyromegaly. LUNGS: Breath sounds severely diminished to auscultation bilaterally. Respiration equal and unlabored. HEART: Regular rate and rhythm without murmurs, rubs or gallops. S1 and S2 heard. EXTREMITIES: Normal range of motion, no edema. No clubbing or cyanosis. Peripheral pulses intact and strong. TELEMETRY: Sinus rhythm overnight. No episodes of atrial fibrillation IMPRESSION: Preoperative evaluation, high risk for surgery Status post mechanical fall Acute hip fracture, status post cephalomedullary nailing Pulmonary hypertension, severe History of CAD, prior stenting of left main and LAD Troponin elevation, NSTEMI versus respiratory distress PLAN: Continue supportive treatment Wean from ventilator No further recommendations from the cardiac standpoint Outpatient follow-up with primary pricing intern I am dictating on behalf of Dr Oneil Cottrell's history/physical and assessment/plan. Objective - Vital Signs Vital signs: Vital Signs Temp 98.7 F 05/22/24 08:00 Pulse 71 05/22/24 09:00 Resp 26 H 05/22/24 09:00 BP 106/45 05/22/24 09:00 Pulse Ox 100 05/22/24 09:00 FiO2 40 05/22/24 08:00 Intake & Output 05/21/24 05/22/24 05/22/24 18:59 06:59 18:59 Intake Total 4316.166 5971.765 428.61 Output Total 1195 580 165 Balance 74.618 702.765 263.61 Weight 74.4 kg 74.6 kg Intake: IV 900 825 225 Sodium Chloride 0.9% 1, 900 825 225 000 ml @ 75 mls/hr IV . [id number] [facility] Rx#:[id number] Intake, IV Titration 279.618 172.765 92.61 Amount Empty Bag 1 bag @ 10 MCG/ 266.950 172.765 92.61 KG/MIN 4.2 mls/hr IV . [id number] [facility] with propofoL 1,000 mg Rx#:[id number] Norepinephrine 4 mg In 12.668 Sodium Chloride 0.9% 250 ml @ 0.03 MCG/KG/MIN 8. 001 mls/hr IV .Q24H [facility] Rx#:[id number] Tube Feeding 60 285 111 Other 30 Output: Urine 1195 580 165 Other: Voiding Method Indwelling Catheter Indwelling Catheter Indwelling Catheter # Bowel Movements 1 - Labs CBC & Chem 7: 05/22/24 05:24 05/22/24 05:24 Labs: Abnormal Lab Results - Last 24 Hours (Table) 05/21/24 05/21/24 05/21/24 Range/Units 11:19 16:06 17:54 WBC (3.8-10.6) k/uL RBC (3.80-5.40) m/uL Hgb (11.4-16.0) gm/dL Hct (34.0-46.0) % MCV (80.0-100.0) fL Neutrophils # (1.3-7.7) k/uL Lymphocytes # (1.0-4.8) k/uL ABG pH (7.35-7.45) ABG pCO2 (35-45) mmHg ABG Total CO2 (19-24) mmol/L ABG O2 Saturation (94-97) % Chloride (98-107) mmol/L Carbon Dioxide (22-30) mmol/L BUN (7-17) mg/dL Glucose (74-99) mg/dL POC Glucose (mg/dL) 175 H 163 H 175 H (70-110) mg/dL 05/21/24 05/21/24 05/22/24 Range/Units 21:27 23:32 05:24 WBC 11.4 H (3.8-10.6) k/uL RBC 3.19 L (3.80-5.40) m/uL Hgb 10.1 L (11.4-16.0) gm/dL Hct 32.5 L (34.0-46.0) % MCV 101.7 H (80.0-100.0) fL Neutrophils # 10.1 H (1.3-7.7) k/uL Lymphocytes # 0.7 L (1.0-4.8) k/uL ABG pH (7.35-7.45) ABG pCO2 (35-45) mmHg ABG Total CO2 (19-24) mmol/L ABG O2 Saturation (94-97) % Chloride (98-107) mmol/L Carbon Dioxide (22-30) mmol/L BUN (7-17) mg/dL Glucose (74-99) mg/dL POC Glucose (mg/dL) 193 H 455 H (70-110) mg/dL 05/22/24 05/22/24 05/22/24 Range/Units 05:24 05:30 05:47 WBC (3.8-10.6) k/uL RBC (3.80-5.40) m/uL Hgb (11.4-16.0) gm/dL Hct (34.0-46.0) % MCV (80.0-100.0) fL Neutrophils # (1.3-7.7) k/uL Lymphocytes # (1.0-4.8) k/uL ABG pH 7.31 L (7.35-7.45) ABG pCO2 48 H (35-45) mmHg ABG Total CO2 26 H (19-24) mmol/L ABG O2 Saturation 97.3 H (94-97) % Chloride 114 H (98-107) mmol/L Carbon Dioxide 21 L (22-30) mmol/L BUN 47 H (7-17) mg/dL Glucose 203 H (74-99) mg/dL POC Glucose (mg/dL) 215 H (70-110) mg/dL
--- NOTE | 2024-05-22 10:40 | P.PN ---
Subjective Progress Note Date: 05/22/24 Principal diagnosis: Status post IM nail left intertrochanteric femur fracture Patient was evaluated in the ICU, she remains intubated at this time. Nursing staff mentioned they are attempting to extubate again later today. Labs remain stable at this time. Bandages remained stable Objective - Vital Signs Vital signs: Vital Signs Temp 98.7 F 05/22/24 08:00 Pulse 68 05/22/24 10:00 Resp 26 H 05/22/24 10:00 BP 120/48 05/22/24 10:00 Pulse Ox 100 05/22/24 10:00 FiO2 40 05/22/24 08:00 Intake & Output 05/21/24 05/22/24 05/22/24 18:59 06:59 18:59 Intake Total 9467.945 4908.765 438.61 Output Total 1195 580 290 Balance 74.618 702.765 148.61 Weight 74.4 kg 74.6 kg Intake: IV 900 825 235 Sodium Chloride 0.9% 1, 900 825 235 000 ml @ 10 mls/hr IV . Q24H [facility] Rx#:[id number] Intake, IV Titration 279.618 172.765 92.61 Amount Empty Bag 1 bag @ 10 MCG/ 266.950 172.765 92.61 KG/MIN 4.2 mls/hr IV . [id number] [facility] with propofoL 1,000 mg Rx#:[id number] Norepinephrine 4 mg In 12.668 Sodium Chloride 0.9% 250 ml @ 0.03 MCG/KG/MIN 8. 001 mls/hr IV .Q24H [facility] Rx#:[id number] Tube Feeding 60 285 111 Other 30 Output: Urine 1195 580 290 Other: Voiding Method Indwelling Catheter Indwelling Catheter Indwelling Catheter # Bowel Movements 1 - Exam Left lower extremity: Foam dressings are in good condition. There is minimal soft tissue swelling and ecchymosis surrounding the medial and lateral aspects of the incision. Calf is soft, no tenderness with palpation. Plantar flexion, dorsiflexion, EHL, FHL are intact. Sensory exam to light touch throughout the extremity is intact, dorsal pedis pulses 2+. - Labs CBC & Chem 7: 05/22/24 05:24 05/22/24 05:24 Labs: Abnormal Lab Results - Last 24 Hours (Table) 05/21/24 05/21/24 05/21/24 Range/Units 11:19 16:06 17:54 WBC (3.8-10.6) k/uL RBC (3.80-5.40) m/uL Hgb (11.4-16.0) gm/dL Hct (34.0-46.0) % MCV (80.0-100.0) fL Neutrophils # (1.3-7.7) k/uL Lymphocytes # (1.0-4.8) k/uL ABG pH (7.35-7.45) ABG pCO2 (35-45) mmHg ABG Total CO2 (19-24) mmol/L ABG O2 Saturation (94-97) % Chloride (98-107) mmol/L Carbon Dioxide (22-30) mmol/L BUN (7-17) mg/dL Glucose (74-99) mg/dL POC Glucose (mg/dL) 175 H 163 H 175 H (70-110) mg/dL 05/21/24 05/21/24 05/22/24 Range/Units 21:27 23:32 05:24 WBC 11.4 H (3.8-10.6) k/uL RBC 3.19 L (3.80-5.40) m/uL Hgb 10.1 L (11.4-16.0) gm/dL Hct 32.5 L (34.0-46.0) % MCV 101.7 H (80.0-100.0) fL Neutrophils # 10.1 H (1.3-7.7) k/uL Lymphocytes # 0.7 L (1.0-4.8) k/uL ABG pH (7.35-7.45) ABG pCO2 (35-45) mmHg ABG Total CO2 (19-24) mmol/L ABG O2 Saturation (94-97) % Chloride (98-107) mmol/L Carbon Dioxide (22-30) mmol/L BUN (7-17) mg/dL Glucose (74-99) mg/dL POC Glucose (mg/dL) 193 H 455 H (70-110) mg/dL 05/22/24 05/22/24 05/22/24 Range/Units 05:24 05:30 05:47 WBC (3.8-10.6) k/uL RBC (3.80-5.40) m/uL Hgb (11.4-16.0) gm/dL Hct (34.0-46.0) % MCV (80.0-100.0) fL Neutrophils # (1.3-7.7) k/uL Lymphocytes # (1.0-4.8) k/uL ABG pH 7.31 L (7.35-7.45) ABG pCO2 48 H (35-45) mmHg ABG Total CO2 26 H (19-24) mmol/L ABG O2 Saturation 97.3 H (94-97) % Chloride 114 H (98-107) mmol/L Carbon Dioxide 21 L (22-30) mmol/L BUN 47 H (7-17) mg/dL Glucose 203 H (74-99) mg/dL POC Glucose (mg/dL) 215 H (70-110) mg/dL Assessment and Plan Assessment: Postoperative day #2 status post intramedullary nail left intertrochanteric femur fracture COPD Coronary artery disease Multiple medical comorbidities Plan: DVT prophylaxis, continue HELENA hose and compression stockings, she remains on Lovenox. Okay to restart Plavix Pain control, continue on current regimen Weight-bear as tolerated, recommend use of a walker at all times PT/OT evaluation once extubated Other medical specialty recommendations appreciated Orthopedically patient remains stable, will continue to follow Time with Patient: Less than 30
[2024-05-22 11:15] LABS: Glucose,Whole Blood 249 mg/dL (70-110)
--- NOTE | 2024-05-22 12:28 | P.PN ---
Subjective Progress Note Date: 05/22/24 This is a 74-year-old female patient with a known history of coronary disease with previous stent placements, former smoker, oxygen dependent chronic obstructive pulmonary disease with an FEV1 value 30% of predicted, 0.67 L in 2021, diabetes mellitus, hypertension, hyperlipidemia, hypothyroidism. She pre sented to the emergency room this morning after sustaining a fall while up to her bathroom. She fell on her left hip and has significant left hip pain. She denied any loss of consciousness or other injuries. Left hip x-ray does reveal acute left femur intertrochanteric fracture. Moderate hip osteoarthrosis. EKG reveals sinus rhythm with no significant ST or T wave abnormalities. Chest x- ray shows no acute pulmonary process. White count 10.6. Hemoglobin 12.4. Platelets 210. Sodium 139. Potassium 4.5. Bicarb 32. BUN 15. Creatinine 0.85. Glucose 126. She is seen today in consultation in the emergency department. She is currently resting on a stretcher. Fairly comfortable at pr esent. She has received Dilaudid. Denies any worsening shortness of breath, cough or congestion. No chest pain or palpitations. She is receiving normal saline at 75 MLS per hour. She is maintaining O2 saturation in the 90s on 3 L/min per nasal cannula. She is afebrile. Hemodynamically stable. Patient was reevaluated today on 05/18/24, patient was seen yesterday and cleared for surgery for her left hip, although she does have severe end-stage COPD. Today the patient developed more shortness of breath, she was initially on few liters nasal cannula, and overnight her O2 requirement has gone up significantly, I was notified multiple times about this patient earlier today not doing well experiencing mostly episodes of shortness of breath, and episodes of nausea and vomiting. I recommended placing the patient on BiPAP, and I recommended transferring the patient to the ICU. In the meantime I recommended holding on surgical plans, and a CT angiogram of the chest was ordered which came back negative for pulmonary embolism, but it did show evidence of advanced emphysema and compressive atelectasis at the right base as well as the left base with minimal effusion present at the right base labs today showed relatively normal electrolytes, BUN is 22 creatinine 1.1, blood sugar is 152. D-dimer was elevated at 5.32, but CT angiogram showed no evidence of thromboembolic disease. Patient was reevaluated today on 05/19/2024, remains on BiPAP 12/6/35%, patient became extremely agitated yesterday, and had to place the patient on Precedex at 0.8 mcg/kg/h. Patient seems to be doing better today, she is Col[place]. Troponin level has been on the rise, cardiology is evaluating the patient, she does have very strong history of coronary artery disease and multiple stents, cardiology will decide whether a cardiac catheterization will be necessary before clearing the patient for surgery. Workup by cardiology is in progress. In the meantime surgery for her intertrochanteric hip fracture is pending. Patient had a bit of low urine output, she will receive some Lasix today, and her daughter is at bedside, updated daughter on her condition. Labs today show WBC count of 8.5 hemoglobin 11.5 electrolytes are normal renal profile showed a BUN of [address] angiogram on this patient showed mostly COPD, no evidence of pulmonary embolism The patient is seen today May 20, 2024 in follow-up in the intensive care unit. She is currently sitting up in bed. Awake and alert. She is on BiPAP 12/6 and 35% FiO2. She is requiring Precedex at 1 mg/kg/h. She has normal saline at 75 MLS per hour. Chest x-ray reveals nonspecific mild increased lung markings diffusely. Mild pulmonary edema versus atelectasis. White count 9.7. Hemoglobin 10.8. Platelets 175. Sodium 140. Potassium 5.0. Bicarb 25. BUN 39. Creatinine 0.68. Glucose 139. She remains on DuoNeb ventilations, Pulmicort and Perforomist inhalations, Solu-Medrol. NicoDerm patch will be applied. The plan may be for repair of her left hip fracture today. The patient is seen today May 21, 2024 in follow-up in the intensive care unit. She did undergo left hip IT fracture cephalomedullary nailing yesterday. She did remain intubated on the mechanical ventilator currently on assist-control mode at a rate of 26, tidal volume 400, FiO2 40% and a PEEP of 5. Morning blood gases revealed a PaO2 of 90, pCO2 41 and a pH of 7.26. She is sedated with propofol at 45 mcg/kg/min. She has normal saline at 75 MLS per hour. She did receive 2 L of fluid resuscitation yesterday. She is currently in a 2.9 liter positive balance. Chest x-ray shows bibasilar infiltrates. Probable atelectasis. White count 15.2. Hemoglobin 10.2. Platelets 279. Sodium 142. Potassium 4.7. Bicarb 16. Chloride 114. BUN 41. Creatinine 0.96. Glucose 156. Continued on DuoNeb inhalations, Pulmicort and Perforomist inhalations, IV Solu-Medrol. NicoDerm patch in place. CT scan of the brain from yesterday revealed no acute intracranial abnormalities. The patient is seen today May 22, 2024 in follow-up in the intensive care unit. She remains intubated on mechanical ventilator currently on assist-control mode at a rate of 26, tidal volume 400, FiO2 40% and a PEEP of 5. Morning blood gases revealed a PaO2 of 87, pCO2 48 and a pH of 7.21. She remains sedated on propofol at 45 mcg/kg/min. Normal saline at 75 MLS per hour. She is being nourished with vital AF at 37 MLS per hour which is goal. Chest x-ray reveals diffuse alveolar infiltrate. White count 11.4. Hemoglobin 10.1. Platelets 168. Sodium 140. Potassium 4.3. Bicarb 21. BUN 47. Creatinine 0.81. Glucose 203. She is currently in a 770 mL positive balance. Remains on DuoNeb inhalations, Pulmicort and Perforomist inhalations, Solu-Medrol. NicoDerm patch in place. Lovenox for DVT prophylaxis. Objective - Vital Signs Vital signs: Vital Signs Temp 98.7 F 05/22/24 08:00 Pulse 76 05/22/24 12:11 Resp 26 H 05/22/24 10:00 BP 120/48 05/22/24 10:00 Pulse Ox 100 05/22/24 10:00 FiO2 40 05/22/24 08:00 Intake & Output 05/21/24 05/22/24 05/22/24 18:59 06:59 18:59 Intake Total 3247.995 5741.765 438.61 Output Total 1195 580 290 Balance 74.618 702.765 148.61 Weight 74.4 kg 74.6 kg Intake: IV 900 825 235 Sodium Chloride 0.9% 1, 900 825 235 000 ml @ 10 mls/hr IV . Q24H GE[facility]IE Rx#:[id number] Intake, IV Titration 279.618 172.765 92.61 Amount Empty Bag 1 bag @ 10 MCG/ 266.950 172.765 92.61 KG/MIN 4.2 mls/hr IV . [id number] GE[facility]IE with propofoL 1,000 mg Rx#:[id number] Norepinephrine 4 mg In 12.668 Sodium Chloride 0.9% 250 ml @ 0.03 MCG/KG/MIN 8. 001 mls/hr IV .Q24H GE[facility]IE Rx#:[id number] Tube Feeding 60 285 111 Other 30 Output: Urine 1195 580 290 Other: Voiding Method Indwelling Catheter Indwelling Catheter Indwelling Catheter # Bowel Movements 1 - Exam GENERAL EXAM: Intubated, 74-year-old female, on the mechanical ventilator, in no apparent distress. HEAD: Normocephalic. EYES: Normal reaction of pupils, equal size. NOSE: Clear with pink turbinates. THROAT: Oral endotracheal and gastric tube secured in place. No erythema or exudates. NECK: No masses, no JVD. CHEST: No chest wall deformity. LUNGS: Equal air entry with bilateral end expiratory wheeze, diminished. CVS: S1 and S2 normal with no audible murmur, regular rhythm. ABDOMEN: No hepatosplenomegaly, normal bowel sounds, no guarding or rigidity. SPINE: No scoliosis or deformity SKIN: No rashes CENTRAL NERVOUS SYSTEM: Sedated, tone is normal in all 4 extremities. EXTREMITIES: Left hip dressing dry and intact. There is no peripheral edema. No clubbing, no cyanosis. Peripheral pulses are intact. - Labs CBC & Chem 7: 05/22/24 05:24 05/22/24 05:24 Labs: Abnormal Lab Results - Last 24 Hours (Table) 05/21/24 05/21/24 05/21/24 Range/Units 16:06 17:54 21:27 WBC (3.8-10.6) k/uL RBC (3.80-5.40) m/uL Hgb (11.4-16.0) gm/dL Hct (34.0-46.0) % MCV (80.0-100.0) fL Neutrophils # (1.3-7.7) k/uL Lymphocytes # (1.0-4.8) k/uL ABG pH (7.35-7.45) ABG pCO2 (35-45) mmHg ABG Total CO2 (19-24) mmol/L ABG O2 Saturation (94-97) % Chloride (98-107) mmol/L Carbon Dioxide (22-30) mmol/L BUN (7-17) mg/dL Glucose (74-99) mg/dL POC Glucose (mg/dL) 163 H 175 H 193 H (70-110) mg/dL 05/21/24 05/22/24 05/22/24 Range/Units 23:32 05:24 05:24 WBC 11.4 H (3.8-10.6) k/uL RBC 3.19 L (3.80-5.40) m/uL Hgb 10.1 L (11.4-16.0) gm/dL Hct 32.5 L (34.0-46.0) % MCV 101.7 H (80.0-100.0) fL Neutrophils # 10.1 H (1.3-7.7) k/uL Lymphocytes # 0.7 L (1.0-4.8) k/uL ABG pH (7.35-7.45) ABG pCO2 (35-45) mmHg ABG Total CO2 (19-24) mmol/L ABG O2 Saturation (94-97) % Chloride 114 H (98-107) mmol/L Carbon Dioxide 21 L (22-30) mmol/L BUN 47 H (7-17) mg/dL Glucose 203 H (74-99) mg/dL POC Glucose (mg/dL) 455 H (70-110) mg/dL 05/22/24 05/22/24 05/22/24 Range/Units 05:30 05:47 11:13 WBC (3.8-10.6) k/uL RBC (3.80-5.40) m/uL Hgb (11.4-16.0) gm/dL Hct (34.0-46.0) % MCV (80.0-100.0) fL Neutrophils # (1.3-7.7) k/uL Lymphocytes # (1.0-4.8) k/uL ABG pH 7.31 L (7.35-7.45) ABG pCO2 48 H (35-45) mmHg ABG Total CO2 26 H (19-24) mmol/L ABG O2 Saturation 97.3 H (94-97) % Chloride (98-107) mmol/L Carbon Dioxide (22-30) mmol/L BUN (7-17) mg/dL Glucose (74-99) mg/dL POC Glucose (mg/dL) 215 H 249 H (70-110) mg/dL Assessment and Plan Assessment: Acute nondisplaced left intertrochanteric femur fracture status post fall from standing position. Status post repair with intramedullary nailing 05/20/2024. Postoperative day #2 Acute on chronic hypoxemic respiratory failure requiring intubation and mechanical ventilatory support on 05/20/2024, an expected outcome of surgery in a patient with severe COPD Severe oxygen dependent chronic obstructive pulmonary disease with an FEV1 value 0.67 L, 30% of predicted Former smoker Coronary artery disease with previous stent placements Diabetes mellitus Hyperlipidemia Hypertension Hypothyroidism Plan: The patient was seen and evaluated Chest x-ray, labs, ABGs and medications reviewed Give Lasix 60 mg IVP x 1 Continue bronchodilators, steroids Continue Lovenox for DVT prophylaxis Will plan for daily interruption of sedation Attempt weaning parameters if possible We will continue to follow I have personally seen and examined the patient, performed the documentation and the assessment and plan as written. Number of minutes spent on the visit: 15.
[2024-05-22 16:37] LABS: Glucose,Whole Blood 231 mg/dL (70-110)
[2024-05-22 17:04] LABS: Glucose,Whole Blood 225 mg/dL (70-110)
[2024-05-22 20:02] LABS: Glucose,Whole Blood 227 mg/dL (70-110)
--- NOTE | 2024-05-22 20:23 | P.PN ---
Subjective Patient is a 74-year-old female with a past medical history of coronary disease status post stent placement, COPD on 3 L oxygen via nasal cannula at home, history of CVA/TIA, hypertension, diabetes type 2, hyperlipidemia, history of DC, hypothyroidism, and prior history of smoking and recent dizzy spells. Patient presents to ER after sustaining a fall while she was in her bathroom. She slipped and fell on her left side and injured her hip. Denied any loss of consciousness as per her daughter. Patient is unable to provide much history and has been lethargic and sleepy. Denies any complaints of chest pain or shortness of breath. EKG showed sinus rhythm. 2D echocardiogram done on 06/16/2023 showed normal LV systolic function. Mildly enlarged right ventricle with RVSP around 50 mmHg and Chest x-ray on admission showed some mildly increased lung markings at the right apex of uncertain etiology. Summation density small densities are within the differential. X-ray of the hip/pelvis showed acute left femur intertrochanteric fracture. Moderate hip osteoarthrosis. On admission blood pressure 120/42 pulse 63 respiration 20 pulse ox 92% on 3 L oxygen via nasal cannula. Laboratory data showed WBC 10.6 hemoglobin 12.4 and platelets 210, MCV 100.5 Sodium 139 potassium 4.5 chloride 105 bicarb is 32 BUN 15 and creatinine 0.85 and blood sugar 126 and total bili 1.8 liver enzymes are not elevated albumin 3.3. 05/18/2024 Patient is in the MICU currently. Overnight patient has patient's respiratory status worsened requiring nonrebreather and was transferred to MICU and gradually transition to BiPAP. Patient is currently on BiPAP. Slightly agitated and trying to remove the mask. Chest x-ray showed bibasilar infiltrates correlate for atelectasis or pneumonia. Patient has been afebrile. No complaints of chest pain. Hip pain is better controlled. Patient was also found to have elevated D-dimer level. CTA chest was ordered negative for PE. Laboratory data showed sodium 141 potassium 5.1 chloride 105 BUN 22.1 creatinine 1.1 and blood sugar 152. A1c 6.0. Patient was also found to have B12 vitamin less than 150. 05/19/2024 Patient is in the MICU. Agitated and delirious. Still on Precedex drip. Currently on oxygen via nasal cannula. Repeat chest x-ray showed improving basilar aeration with mild strandy atelectasis are improving infiltrates. Patient was given another dose of IV Lasix today. EKG last night showed sinus rhythm. Afebrile. Laboratory data WBC 8.4 hemoglobin 11.5 and platelets 189 sodium 139 potassium 5.0 chloride 108 bicarb is 20 BUN 41 creatinine 1.08 and blood sugar is 144. 05/20/2024 Patient is s/p hip surgery today. Less agitated. Postoperatively patient became hypotensive. Was requiring BiPAP. Chest x-ray this morning showed nonspecific mildly increased lung markings bile diffusely. Mild pulmonary edema. Versus atelectasis. Patient is being continued on IV salmeterol, DuoNebs and Pulmicort/Perforomist inhalation. Laboratory data showed WBC 9.7 hemoglobin 10.8 and platelets 178. Sodium 140 potassium 5.0 chloride 110 bicarb is 25 BUN 39 and creatinine 0.68 and blood sugar is 139 and calcium 9.0. 05/21/2024 Patient is currently in the MICU. Sedated and intubated. On assist-control. ABG showed pH 7.26 pCO2 41 pO2 90. On IV hydration with normal saline 75 cc/h.. Patient did receive 2 L IV fluid bolus yesterday due to hypotension. Chest x- ray showed bibasilar infiltrates and possible atelectasis. CT head showed no acute intracranial process. Laboratory data showed WBC 9.7 hemoglobin 10.8 and MCV 100.5 and platelets 178 sodium 140 potassium 5.0 chloride 110 bicarb is 25 BUN 39 creatinine 0.68 and blood sugar is 139. Patient is currently not on pressor support. Cardiology and pulmonary is on board. 05/22 Patient remains in the ICU intubated and sedated with pulmonary/critical care following closely Patient received some dose of Lasix today IV fluid was decreased Undergoing a breathing trial Labs and images reviewed Objective - Vital Signs Vital signs: Vital Signs Temp 98.7 F 05/22/24 08:00 Pulse 76 05/22/24 12:45 Resp 26 H 05/22/24 10:00 BP 120/48 05/22/24 10:00 Pulse Ox 100 05/22/24 10:00 FiO2 40 05/22/24 08:00 Intake & Output 05/21/24 05/22/24 05/22/24 18:59 06:59 18:59 Intake Total 0535.098 2493.765 438.61 Output Total 1195 580 290 Balance 74.618 702.765 148.61 Weight 74.4 kg 74.6 kg Intake: IV 900 825 235 Sodium Chloride 0.9% 1, 900 825 235 000 ml @ 10 mls/hr IV . Q24H [facility] Rx#:[id number] Intake, IV Titration 279.618 172.765 92.61 Amount Empty Bag 1 bag @ 10 MCG/ 266.950 172.765 92.61 KG/MIN 4.2 mls/hr IV . [id number] [facility] with propofoL 1,000 mg Rx#:[id number] Norepinephrine 4 mg In 12.668 Sodium Chloride 0.9% 250 ml @ 0.03 MCG/KG/MIN 8. 001 mls/hr IV .Q24H [facility] Rx#:[id number] Tube Feeding 60 285 111 Other 30 Output: Urine 1195 580 290 Other: Voiding Method Indwelling Catheter Indwelling Catheter Indwelling Catheter # Bowel Movements 1 - Exam -GENERAL: The patient is intubated and sedated HEENT: Pupils are round and equally reacting to light. EOMI. No scleral icterus. No conjunctival pallor. Normocephalic, atraumatic. No pharyngeal erythema. No thyromegaly. CARDIOVASCULAR: S1 and S2 present. No murmurs, rubs, or gallops. PULMONARY: Chest is clear to auscultation, no wheezing , no crackles. ABDOMEN: Soft, nontender, nondistended, normoactive bowel sounds. No palpable organomegaly. MUSCULOSKELETAL: No joint swelling or deformity. EXTREMITIES: No cyanosis, clubbing, or pedal edema. NEUROLOGICAL: Gross neurological examination did not reveal any focal deficits. SKIN: No rashes. no petechiae. - Labs CBC & Chem 7: 05/22/24 05:24 05/22/24 05:24 Labs: Abnormal Lab Results - Last 24 Hours (Table) 05/21/24 05/21/24 05/21/24 Range/Units 16:06 17:54 21:27 WBC (3.8-10.6) k/uL RBC (3.80-5.40) m/uL Hgb (11.4-16.0) gm/dL Hct (34.0-46.0) % MCV (80.0-100.0) fL Neutrophils # (1.3-7.7) k/uL Lymphocytes # (1.0-4.8) k/uL ABG pH (7.35-7.45) ABG pCO2 (35-45) mmHg ABG Total CO2 (19-24) mmol/L ABG O2 Saturation (94-97) % Chloride (98-107) mmol/L Carbon Dioxide (22-30) mmol/L BUN (7-17) mg/dL Glucose (74-99) mg/dL POC Glucose (mg/dL) 163 H 175 H 193 H (70-110) mg/dL 05/21/24 05/22/24 05/22/24 Range/Units 23:32 05:24 05:24 WBC 11.4 H (3.8-10.6) k/uL RBC 3.19 L (3.80-5.40) m/uL Hgb 10.1 L (11.4-16.0) gm/dL Hct 32.5 L (34.0-46.0) % MCV 101.7 H (80.0-100.0) fL Neutrophils # 10.1 H (1.3-7.7) k/uL Lymphocytes # 0.7 L (1.0-4.8) k/uL ABG pH (7.35-7.45) ABG pCO2 (35-45) mmHg ABG Total CO2 (19-24) mmol/L ABG O2 Saturation (94-97) % Chloride 114 H (98-107) mmol/L Carbon Dioxide 21 L (22-30) mmol/L BUN 47 H (7-17) mg/dL Glucose 203 H (74-99) mg/dL POC Glucose (mg/dL) 455 H (70-110) mg/dL 05/22/24 05/22/24 05/22/24 Range/Units 05:30 05:47 11:13 WBC (3.8-10.6) k/uL RBC (3.80-5.40) m/uL Hgb (11.4-16.0) gm/dL Hct (34.0-46.0) % MCV (80.0-100.0) fL Neutrophils # (1.3-7.7) k/uL Lymphocytes # (1.0-4.8) k/uL ABG pH 7.31 L (7.35-7.45) ABG pCO2 48 H (35-45) mmHg ABG Total CO2 26 H (19-24) mmol/L ABG O2 Saturation 97.3 H (94-97) % Chloride (98-107) mmol/L Carbon Dioxide (22-30) mmol/L BUN (7-17) mg/dL Glucose (74-99) mg/dL POC Glucose (mg/dL) 215 H 249 H (70-110) mg/dL Assessment and Plan Assessment: Acute on chronic hypoxic respiratory failure secondary to COPD exacerbation. Patient is on mechanical ventilator. Postoperative hypotension. Improved with fluid boluses. Acute delirium on admission Status post mechanical fall Acute left femur intertrochanteric fracture. Status post IM nailing. Postoperative day 1 COPD on home oxygen 3 L via nasal cannula Coronary artery disease with history of stent placement to left main at [facility] in September 2023 History of right internal carotid artery stenosis status post TCAR by vascular surgery. History of DC Hypertension Hyperlipidemia Diabetes type 2 [id number] Parkinson's disease Prior history of smoking Hypothyroidism Plan: Patient is s/p left hip IM nail Patient is on mechanical ventilator. Patient will be continued on telemonitoring. Continue insulin sliding scale for better blood sugar control. Started back on home medication including metoprolol, lisinopril and statins. Continue with aspirin.. Will start back on Plavix once cleared by surgery. Current with home medication including Synthroid. Will continue to follow and further recommendations based on the clinical course. Cardiology and pulmonary is on board. Time with Patient: Greater than 30
[2024-05-23 00:15] LABS: Glucose,Whole Blood 255 mg/dL (70-110)
[2024-05-23] MEDS: INSULIN ASPART (NovoLOG) 100 UNIT/ML VIAL SQ SCH ×2 (00:34→16:30)
[2024-05-23 03:37] LABS: Basophils % (A) 0 %; Eosinophils % (A) 0 %; HCT 31.7 % (34.0-46.0); HGB 9.9 gm/dL (11.4-16.0); Hypochromasia Moderate; Lymphocytes # (A) 0.5 k/uL (1.0-4.8); Lymphocytes % (A) 4 %; MCH 31.9 pg (25.0-35.0); MCHC 31.3 g/dL (31.0-37.0); MCV 101.8 fL (80.0-100.0); Macrocytosis Slight; Mean Platelet Volume 9.4; Monocytes # (A) 0.7 k/uL (0-1.0); Monocytes % (A) 5 %; Neutrophils # (A) 11.8 k/uL (1.3-7.7); Neutrophils % (A) 90 %; Platelet Count 219 k/uL (150-450); RBC 3.12 m/uL (3.80-5.40); RDW 13.8 % (11.5-15.5); WBC 13.1 k/uL (3.8-10.6)
[2024-05-23 04:05] LABS: African American GFR (CKD) >90 (>60 ml/min/1.73 sqM); Anion Gap 5 mmol/L; Blood Urea Nitrogen 54 mg/dL (7-17); Calcium 8.3 mg/dL (8.4-10.2); Carbon Dioxide 25 mmol/L (22-30); Chloride 110 mmol/L (98-107); Glucose 235 mg/dL (74-99); Magnesium 2.1 mg/dL (1.6-2.3); Non-African American GFR(CKD) 81 (>60 ml/min/1.73 sqM); Potassium 3.6 mmol/L (3.5-5.1); Sodium 140 mmol/L (137-145)
[2024-05-23] MEDS ORDERED: Potassium Replacement Protocol 1 EACH MISC MISCELLANE PRN (04:25)
[2024-05-23] MEDS: POTASSIUM BICARBONATE/CIT AC 20 MEQ TABLET.EFF NG-TUBE SCH ×2 (04:33→15:31)
[2024-05-23 05:52] LABS: Glucose,Whole Blood 242 mg/dL (70-110)
[2024-05-23 06:16] LABS: ABG Base Excess 3.8 mmol/L; ABG HCO3 29 mmol/L (21-25); ABG PCO2 46 mmHg (35-45); ABG PH 7.41 (7.35-7.45); ABG TCO2 30 mmol/L (19-24); Allen Test Performed? Yes
[2024-05-23 06:18] LABS: ABG PO2 56 mmHg (83-108)
--- NOTE | 2024-05-23 06:46 | XR ---
EXAMINATION TYPE: XR chest 1V portable DATE OF EXAM: 05/23/2024 COMPARISON: 05/22/2024 INDICATION: Tube placement TECHNIQUE: Single frontal view of the chest is obtained. FINDINGS: The heart size is normal. The pulmonary vasculature is normal. Bibasilar infiltrates are present, greater on the right. Findings are increasing over the interval Endotracheal tube tip is above the sanjana. Nasogastric tube tip is in the left upper quadrant of the abdomen IMPRESSION: 1. Increasing right lower lobe infiltrate. Some mild left lower lobe infiltrate may be present. 2. Lines and catheters discussed above
--- NOTE | 2024-05-23 10:59 | P.PN ---
Subjective Progress Note Date: 05/23/24 This is a 74-year-old female patient with a known history of coronary disease with previous stent placements, former smoker, oxygen dependent chronic obstructive pulmonary disease with an FEV1 value 30% of predicted, 0.67 L in 2021, diabetes mellitus, hypertension, hyperlipidemia, hypothyroidism. She pre sented to the emergency room this morning after sustaining a fall while up to her bathroom. She fell on her left hip and has significant left hip pain. She denied any loss of consciousness or other injuries. Left hip x-ray does reveal acute left femur intertrochanteric fracture. Moderate hip osteoarthrosis. EKG reveals sinus rhythm with no significant ST or T wave abnormalities. Chest x- ray shows no acute pulmonary process. White count 10.6. Hemoglobin 12.4. Platelets 210. Sodium 139. Potassium 4.5. Bicarb 32. BUN 15. Creatinine 0.85. Glucose 126. She is seen today in consultation in the emergency department. She is currently resting on a stretcher. Fairly comfortable at pr esent. She has received Dilaudid. Denies any worsening shortness of breath, cough or congestion. No chest pain or palpitations. She is receiving normal saline at 75 MLS per hour. She is maintaining O2 saturation in the 90s on 3 L/min per nasal cannula. She is afebrile. Hemodynamically stable. Patient was reevaluated today on 05/18/24, patient was seen yesterday and cleared for surgery for her left hip, although she does have severe end-stage COPD. Today the patient developed more shortness of breath, she was initially on few liters nasal cannula, and overnight her O2 requirement has gone up significantly, I was notified multiple times about this patient earlier today not doing well experiencing mostly episodes of shortness of breath, and episodes of nausea and vomiting. I recommended placing the patient on BiPAP, and I recommended transferring the patient to the ICU. In the meantime I recommended holding on surgical plans, and a CT angiogram of the chest was ordered which came back negative for pulmonary embolism, but it did show evidence of advanced emphysema and compressive atelectasis at the right base as well as the left base with minimal effusion present at the right base labs today showed relatively normal electrolytes, BUN is 22 creatinine 1.1, blood sugar is 152. D-dimer was elevated at 5.32, but CT angiogram showed no evidence of thromboembolic disease. Patient was reevaluated today on 05/19/2024, remains on BiPAP 12/6/35%, patient became extremely agitated yesterday, and had to place the patient on Precedex at 0.8 mcg/kg/h. Patient seems to be doing better today, she is Colmer. Troponin level has been on the rise, cardiology is evaluating the patient, she does have very strong history of coronary artery disease and multiple stents, cardiology will decide whether a cardiac catheterization will be necessary before clearing the patient for surgery. Workup by cardiology is in progress. In the meantime surgery for her intertrochanteric hip fracture is pending. Patient had a bit of low urine output, she will receive some Lasix today, and her daughter is at bedside, updated daughter on her condition. Labs today show WBC count of 8.5 hemoglobin 11.5 electrolytes are normal renal profile showed a BUN of [address] angiogram on this patient showed mostly COPD, no evidence of pulmonary embolism The patient is seen today May 20, 2024 in follow-up in the intensive care unit. She is currently sitting up in bed. Awake and alert. She is on BiPAP 12/6 and 35% FiO2. She is requiring Precedex at 1 mg/kg/h. She has normal saline at 75 MLS per hour. Chest x-ray reveals nonspecific mild increased lung markings diffusely. Mild pulmonary edema versus atelectasis. White count 9.7. Hemoglobin 10.8. Platelets 175. Sodium 140. Potassium 5.0. Bicarb 25. BUN 39. Creatinine 0.68. Glucose 139. She remains on DuoNeb ventilations, Pulmicort and Perforomist inhalations, Solu-Medrol. NicoDerm patch will be applied. The plan may be for repair of her left hip fracture today. The patient is seen today May 21, 2024 in follow-up in the intensive care unit. She did undergo left hip IT fracture cephalomedullary nailing yesterday. She did remain intubated on the mechanical ventilator currently on assist-control mode at a rate of 26, tidal volume 400, FiO2 40% and a PEEP of 5. Morning blood gases revealed a PaO2 of 90, pCO2 41 and a pH of 7.26. She is sedated with propofol at 45 mcg/kg/min. She has normal saline at 75 MLS per hour. She did receive 2 L of fluid resuscitation yesterday. She is currently in a 2.9 liter positive balance. Chest x-ray shows bibasilar infiltrates. Probable atelectasis. White count 15.2. Hemoglobin 10.2. Platelets 279. Sodium 142. Potassium 4.7. Bicarb 16. Chloride 114. BUN 41. Creatinine 0.96. Glucose 156. Continued on DuoNeb inhalations, Pulmicort and Perforomist inhalations, IV Solu-Medrol. NicoDerm patch in place. CT scan of the brain from yesterday revealed no acute intracranial abnormalities. The patient is seen today May 22, 2024 in follow-up in the intensive care unit. She remains intubated on mechanical ventilator currently on assist-control mode at a rate of 26, tidal volume 400, FiO2 40% and a PEEP of 5. Morning blood gases revealed a PaO2 of 87, pCO2 48 and a pH of 7.21. She remains sedated on propofol at 45 mcg/kg/min. Normal saline at 75 MLS per hour. She is being nourished with vital AF at 37 MLS per hour which is goal. Chest x-ray reveals diffuse alveolar infiltrate. White count 11.4. Hemoglobin 10.1. Platelets 168. Sodium 140. Potassium 4.3. Bicarb 21. BUN 47. Creatinine 0.81. Glucose 203. She is currently in a 770 mL positive balance. Remains on DuoNeb inhalations, Pulmicort and Perforomist inhalations, Solu-Medrol. NicoDerm patch in place. Lovenox for DVT prophylaxis. The patient is seen today May 23, 2024 in follow-up in the intensive care unit. Postoperative day #3. She remains intubated on the mechanical ventilator and assist-control mode at a rate of 26, tidal volume 400, FiO2 40% and a PEEP of 5. ABGs reveal a PaO2 of 56, pCO2 46 and a pH of 7.41. She is sedated on propofol at 50 mcg/kg/min. Normal saline at KVO. She is being nourished with vital HP at 37 MLS per hour which is goal. She did undergo a daily interruption of sedation yesterday at which time she became quite tachycardic and decreasing FiO2 within approximately 10 minutes. Chest x-ray reveals a right lower lobe infiltrate and mild left lower lobe infiltrate. White count 13.1. Hemoglobin 9.9. Platelets 219. Sodium 140. Potassium 3.6. Bicarb 25. BUN 54. Creatinine 0.73. Glucose 235. Michael on DuoNeb ventilations, Pulmicort and Perforomist inhalations, Solu-Medrol. NicoDerm patch in place. Lovenox for DVT prophylaxis. Objective - Vital Signs Vital signs: Vital Signs Temp 98.2 F 05/23/24 04:00 Pulse 66 05/23/24 08:29 Resp 8 L 05/23/24 07:00 BP 130/60 05/23/24 07:00 Pulse Ox 94 L 05/23/24 07:00 FiO2 40 05/23/24 08:14 Intake & Output 05/22/24 05/23/24 05/23/24 18:59 06:59 18:59 Intake Total 618.61 917.540 17.64 Output Total 1830 600 Balance -1211.39 317.540 17.64 Weight 74 kg Intake: IV 315 130 Sodium Chloride 0.9% 1, 315 130 000 ml @ 10 mls/hr IV . Q24H GEORGIE Rx#:[id number] Intake, IV Titration 192.61 253.540 17.64 Amount Empty Bag 1 bag @ 10 MCG/ 192.61 253.540 17.64 KG/MIN 4.2 mls/hr IV . [id number] GEORGIE with propofoL 1,000 mg Rx#:[id number] Tube Feeding 111 444 Other 90 Output: Urine 1830 600 Other: Voiding Method Indwelling Catheter Indwelling Catheter - Exam GENERAL EXAM: Intubated, 74-year-old female, on 40% FiO2 on the ventilator, in no apparent distress. HEAD: Normocephalic. EYES: Normal reaction of pupils, equal size. NOSE: Clear with pink turbinates. THROAT: Oral endotracheal and gastric tube secured in place. No erythema or exudates. NECK: No masses, no JVD. CHEST: No chest wall deformity. LUNGS: Equal air entry with bilateral end expiratory wheeze, diminished. CVS: S1 and S2 normal with no audible murmur, regular rhythm. ABDOMEN: No hepatosplenomegaly, normal bowel sounds, no guarding or rigidity. SPINE: No scoliosis or deformity SKIN: No rashes CENTRAL NERVOUS SYSTEM: Sedated, tone is normal in all 4 extremities. EXTREMITIES: Left hip dressing dry and intact. There is no peripheral edema. No clubbing, no cyanosis. Peripheral pulses are intact. - Labs CBC & Chem 7: 05/23/24 03:15 05/23/24 03:15 Labs: Abnormal Lab Results - Last 24 Hours (Table) 05/22/24 05/22/24 05/22/24 Range/Units 11:13 16:36 17:03 WBC (3.8-10.6) k/uL RBC (3.80-5.40) m/uL Hgb (11.4-16.0) gm/dL Hct (34.0-46.0) % MCV (80.0-100.0) fL Neutrophils # (1.3-7.7) k/uL Lymphocytes # (1.0-4.8) k/uL ABG pCO2 (35-45) mmHg ABG pO2 (83-108) mmHg ABG HCO3 (21-25) mmol/L ABG Total CO2 (19-24) mmol/L ABG O2 Saturation (94-97) % Chloride (98-107) mmol/L BUN (7-17) mg/dL Glucose (74-99) mg/dL POC Glucose (mg/dL) 249 H 231 H 225 H (70-110) mg/dL Calcium (8.4-10.2) mg/dL 05/22/24 05/23/24 05/23/24 Range/Units 20:01 00:14 03:15 WBC 13.1 H (3.8-10.6) k/uL RBC 3.12 L (3.80-5.40) m/uL Hgb 9.9 L (11.4-16.0) gm/dL Hct 31.7 L (34.0-46.0) % MCV 101.8 H (80.0-100.0) fL Neutrophils # 11.8 H (1.3-7.7) k/uL Lymphocytes # 0.5 L (1.0-4.8) k/uL ABG pCO2 (35-45) mmHg ABG pO2 (83-108) mmHg ABG HCO3 (21-25) mmol/L ABG Total CO2 (19-24) mmol/L ABG O2 Saturation (94-97) % Chloride (98-107) mmol/L BUN (7-17) mg/dL Glucose (74-99) mg/dL POC Glucose (mg/dL) 227 H 255 H (70-110) mg/dL Calcium (8.4-10.2) mg/dL 05/23/24 05/23/24 05/23/24 Range/Units 03:15 04:32 05:51 WBC (3.8-10.6) k/uL RBC (3.80-5.40) m/uL Hgb (11.4-16.0) gm/dL Hct (34.0-46.0) % MCV (80.0-100.0) fL Neutrophils # (1.3-7.7) k/uL Lymphocytes # (1.0-4.8) k/uL ABG pCO2 46 H (35-45) mmHg ABG pO2 56 L* (83-108) mmHg ABG HCO3 29 H (21-25) mmol/L ABG Total CO2 30 H (19-24) mmol/L ABG O2 Saturation 91.0 L (94-97) % Chloride 110 H (98-107) mmol/L BUN 54 H (7-17) mg/dL Glucose 235 H (74-99) mg/dL POC Glucose (mg/dL) 242 H (70-110) mg/dL Calcium 8.3 L (8.4-10.2) mg/dL Assessment and Plan Assessment: Acute nondisplaced left intertrochanteric femur fracture status post fall from standing position. Status post repair with intramedullary nailing 05/20/2024. Postoperative day #3 Acute on chronic hypoxemic respiratory failure requiring intubation and mechanical ventilatory support on 05/20/2024, an expected outcome of surgery in a patient with severe COPD Severe oxygen dependent chronic obstructive pulmonary disease with an FEV1 value 0.67 L, 30% of predicted Former smoker Coronary artery disease with previous stent placements Diabetes mellitus Hyperlipidemia Hypertension Hypothyroidism Plan: The patient was seen and evaluated Chest x-ray, labs, ABGs and medications reviewed Continue bronchodilators, steroids Continue Lovenox for DVT prophylaxis Continue tube feedings Will plan for daily interruption of sedation Attempt to obtainweaning parameters If patient continues to fail weaning trials will require trach and PEG tube placement We will continue to follow I have personally seen and examined the patient, performed the documentation and the assessment and plan as written. Number of minutes spent on the visit: 15.
[2024-05-23 11:36] LABS: Glucose,Whole Blood 268 mg/dL (70-110)
[2024-05-23 16:14] LABS: Glucose,Whole Blood 281 mg/dL (70-110)
[2024-05-23 20:00] LABS: Glucose,Whole Blood 211 mg/dL (70-110)
--- NOTE | 2024-05-23 22:35 | P.PN ---
Subjective Patient is a 74-year-old female with a past medical history of coronary disease status post stent placement, COPD on 3 L oxygen via nasal cannula at home, history of CVA/TIA, hypertension, diabetes type 2, hyperlipidemia, history of LA, hypothyroidism, and prior history of smoking and recent dizzy spells. Patient presents to ER after sustaining a fall while she was in her bathroom. She slipped and fell on her left side and injured her hip. Denied any loss of consciousness as per her daughter. Patient is unable to provide much history and has been lethargic and sleepy. Denies any complaints of chest pain or shortness of breath. EKG showed sinus rhythm. 2D echocardiogram done on 06/16/2023 showed normal LV systolic function. Mildly enlarged right ventricle with RVSP around 50 mmHg and Chest x-ray on admission showed some mildly increased lung markings at the right apex of uncertain etiology. Summation density small densities are within the differential. X-ray of the hip/pelvis showed acute left femur intertrochanteric fracture. Moderate hip osteoarthrosis. On admission blood pressure 120/42 pulse 63 respiration 20 pulse ox 92% on 3 L oxygen via nasal cannula. Laboratory data showed WBC 10.6 hemoglobin 12.4 and platelets 210, MCV 100.5 Sodium 139 potassium 4.5 chloride 105 bicarb is 32 BUN 15 and creatinine 0.85 and blood sugar 126 and total bili 1.8 liver enzymes are not elevated albumin 3.3. 05/18/2024 Patient is in the MICU currently. Overnight patient has patient's respiratory status worsened requiring nonrebreather and was transferred to MICU and gradually transition to BiPAP. Patient is currently on BiPAP. Slightly agitated and trying to remove the mask. Chest x-ray showed bibasilar infiltrates correlate for atelectasis or pneumonia. Patient has been afebrile. No complaints of chest pain. Hip pain is better controlled. Patient was also found to have elevated D-dimer level. CTA chest was ordered negative for PE. Laboratory data showed sodium 141 potassium 5.1 chloride 105 BUN 22.1 creatinine 1.1 and blood sugar 152. A1c 6.0. Patient was also found to have B12 vitamin less than 150. 05/19/2024 Patient is in the MICU. Agitated and delirious. Still on Precedex drip. Currently on oxygen via nasal cannula. Repeat chest x-ray showed improving basilar aeration with mild strandy atelectasis are improving infiltrates. Patient was given another dose of IV Lasix today. EKG last night showed sinus rhythm. Afebrile. Laboratory data WBC 8.4 hemoglobin 11.5 and platelets 189 sodium 139 potassium 5.0 chloride 108 bicarb is 20 BUN 41 creatinine 1.08 and blood sugar is 144. 05/20/2024 Patient is s/p hip surgery today. Less agitated. Postoperatively patient became hypotensive. Was requiring BiPAP. Chest x-ray this morning showed nonspecific mildly increased lung markings bile diffusely. Mild pulmonary edema. Versus atelectasis. Patient is being continued on IV salmeterol, DuoNebs and Pulmicort/Perforomist inhalation. Laboratory data showed WBC 9.7 hemoglobin 10.8 and platelets 178. Sodium 140 potassium 5.0 chloride 110 bicarb is 25 BUN 39 and creatinine 0.68 and blood sugar is 139 and calcium 9.0. 05/21/2024 Patient is currently in the MICU. Sedated and intubated. On assist-control. ABG showed pH 7.26 pCO2 41 pO2 90. On IV hydration with normal saline 75 cc/h.. Patient did receive 2 L IV fluid bolus yesterday due to hypotension. Chest x- ray showed bibasilar infiltrates and possible atelectasis. CT head showed no acute intracranial process. Laboratory data showed WBC 9.7 hemoglobin 10.8 and MCV 100.5 and platelets 178 sodium 140 potassium 5.0 chloride 110 bicarb is 25 BUN 39 creatinine 0.68 and blood sugar is 139. Patient is currently not on pressor support. Cardiology and pulmonary is on board. 05/22 Patient remains in the ICU intubated and sedated with pulmonary/critical care following closely Patient received some dose of Lasix today IV fluid was decreased Undergoing a breathing trial Labs and images reviewed 05/23 Patient remains in the ICU intubated and on mechanical ventilation with pulmonary/critical care team following closely Patient is going breathing trial today She still mildly uncomfortable Not following commands quite well while off sedation Objective - Vital Signs Vital signs: Vital Signs Temp 98.2 F 05/23/24 04:00 Pulse 66 05/23/24 08:29 Resp 8 L 05/23/24 07:00 BP 130/60 05/23/24 07:00 Pulse Ox 94 L 05/23/24 07:00 FiO2 40 07/18/24 08:14 Intake & Output 05/22/24 05/23/24 05/23/24 18:59 06:59 18:59 Intake Total 618.61 917.540 83.090 Output Total 1830 600 Balance -1211.39 317.540 83.090 Weight 74 kg Intake: IV 315 130 Sodium Chloride 0.9% 1, 315 130 000 ml @ 10 mls/hr IV . Q24H GE[facility]IE Rx#:[id number] Intake, IV Titration 192.61 253.540 83.090 Amount Empty Bag 1 bag @ 10 MCG/ 192.61 253.540 83.090 KG/MIN 4.2 mls/hr IV . [id number] GEORGIE with propofoL 1,000 mg Rx#:[id number] Tube Feeding 111 444 Other 90 Output: Urine 1830 600 Other: Voiding Method Indwelling Catheter Indwelling Catheter - Exam -GENERAL: The patient is intubated and sedated HEENT: Pupils are round and equally reacting to light. EOMI. No scleral icterus. No conjunctival pallor. Normocephalic, atraumatic. No pharyngeal erythema. No thyromegaly. CARDIOVASCULAR: S1 and S2 present. No murmurs, rubs, or gallops. PULMONARY: Chest is clear to auscultation, no wheezing , no crackles. ABDOMEN: Soft, nontender, nondistended, normoactive bowel sounds. No palpable organomegaly. MUSCULOSKELETAL: No joint swelling or deformity. EXTREMITIES: No cyanosis, clubbing, or pedal edema. NEUROLOGICAL: Gross neurological examination did not reveal any focal deficits. SKIN: No rashes. no petechiae. - Labs CBC & Chem 7: 05/23/24 03:15 05/23/24 17:01 Labs: Abnormal Lab Results - Last 24 Hours (Table) 05/22/24 05/22/24 05/22/24 Range/Units 11:13 16:36 17:03 WBC (3.8-10.6) k/uL RBC (3.80-5.40) m/uL Hgb (11.4-16.0) gm/dL Hct (34.0-46.0) % MCV (80.0-100.0) fL Neutrophils # (1.3-7.7) k/uL Lymphocytes # (1.0-4.8) k/uL ABG pCO2 (35-45) mmHg ABG pO2 (83-108) mmHg ABG HCO3 (21-25) mmol/L ABG Total CO2 (19-24) mmol/L ABG O2 Saturation (94-97) % Chloride (98-107) mmol/L BUN (7-17) mg/dL Glucose (74-99) mg/dL POC Glucose (mg/dL) 249 H 231 H 225 H (70-110) mg/dL Calcium (8.4-10.2) mg/dL 05/22/24 05/23/24 05/23/24 Range/Units 20:01 00:14 03:15 WBC 13.1 H (3.8-10.6) k/uL RBC 3.12 L (3.80-5.40) m/uL Hgb 9.9 L (11.4-16.0) gm/dL Hct 31.7 L (34.0-46.0) % MCV 101.8 H (80.0-100.0) fL Neutrophils # 11.8 H (1.3-7.7) k/uL Lymphocytes # 0.5 L (1.0-4.8) k/uL ABG pCO2 (35-45) mmHg ABG pO2 (83-108) mmHg ABG HCO3 (21-25) mmol/L ABG Total CO2 (19-24) mmol/L ABG O2 Saturation (94-97) % Chloride (98-107) mmol/L BUN (7-17) mg/dL Glucose (74-99) mg/dL POC Glucose (mg/dL) 227 H 255 H (70-110) mg/dL Calcium (8.4-10.2) mg/dL 05/23/24 05/23/24 05/23/24 Range/Units 03:15 04:32 05:51 WBC (3.8-10.6) k/uL RBC (3.80-5.40) m/uL Hgb (11.4-16.0) gm/dL Hct (34.0-46.0) % MCV (80.0-100.0) fL Neutrophils # (1.3-7.7) k/uL Lymphocytes # (1.0-4.8) k/uL ABG pCO2 46 H (35-45) mmHg ABG pO2 56 L* (83-108) mmHg ABG HCO3 29 H (21-25) mmol/L ABG Total CO2 30 H (19-24) mmol/L ABG O2 Saturation 91.0 L (94-97) % Chloride 110 H (98-107) mmol/L BUN 54 H (7-17) mg/dL Glucose 235 H (74-99) mg/dL POC Glucose (mg/dL) 242 H (70-110) mg/dL Calcium 8.3 L (8.4-10.2) mg/dL Assessment and Plan Assessment: Acute on chronic hypoxic respiratory failure secondary to COPD exacerbation. Patient is on mechanical ventilator. Postoperative hypotension. Improved with fluid boluses. Acute delirium on admission Status post mechanical fall Acute left femur intertrochanteric fracture. Status post IM nailing. Postoperative day 1 COPD on home oxygen 3 L via nasal cannula Coronary artery disease with history of stent placement to left main at [facility] in September 2023 History of right internal carotid artery stenosis status post TCAR by vascular surgery. History of LA Hypertension Hyperlipidemia Diabetes type 2 [id number] Parkinson's disease Prior history of smoking Hypothyroidism Plan: Patient is s/p left hip IM nail Patient is on mechanical ventilator. Patient will be continued on telemonitoring. Continue insulin sliding scale for better blood sugar control. Started back on home medication including metoprolol, lisinopril and statins. Continue with aspirin.. Will start back on Plavix once cleared by surgery. Current with home medication including Synthroid. Will continue to follow and further recommendations based on the clinical course. Cardiology and pulmonary is on board. Time with Patient: Greater than 30
[2024-05-24 00:37] LABS: Glucose,Whole Blood 274 mg/dL (70-110)
[2024-05-24 05:09] LABS: Glucose,Whole Blood 253 mg/dL (70-110)
[2024-05-24 05:23] LABS: ABG Base Excess 6.3 mmol/L; ABG HCO3 31 mmol/L (21-25); ABG Oxygen Saturation 90.9 % (94-97); ABG PCO2 46 mmHg (35-45); ABG PH 7.44 (7.35-7.45); ABG TCO2 33 mmol/L (19-24); Allen Test Performed? Yes
[2024-05-24 05:27] LABS: ABG PO2 56 mmHg (83-108)
[2024-05-24 05:59] LABS: HCT 30.5 % (34.0-46.0); HGB 9.7 gm/dL (11.4-16.0); Hypochromasia Marked; MCH 32.1 pg (25.0-35.0); MCHC 31.9 g/dL (31.0-37.0); MCV 100.8 fL (80.0-100.0); Macrocytosis Slight; Mean Platelet Volume 9.5; Platelet Count 227 k/uL (150-450); RBC 3.03 m/uL (3.80-5.40); RDW 13.8 % (11.5-15.5); WBC 11.1 k/uL (3.8-10.6)
[2024-05-24 06:10] LABS: African American GFR (CKD) >90 (>60 ml/min/1.73 sqM); Anion Gap -1 mmol/L; Blood Urea Nitrogen 59 mg/dL (7-17); Calcium 8.3 mg/dL (8.4-10.2); Carbon Dioxide 29 mmol/L (22-30); Chloride 110 mmol/L (98-107); Glucose 254 mg/dL (74-99); Magnesium 2.2 mg/dL (1.6-2.3); Non-African American GFR(CKD) 86 (>60 ml/min/1.73 sqM); Potassium 4.7 mmol/L (3.5-5.1); Sodium 138 mmol/L (137-145)
--- NOTE | 2024-05-24 07:20 | XR ---
EXAMINATION TYPE: XR chest 1V portable DATE OF EXAM: 05/24/2024 Comparison: 05/23/2024 Clinical History: 74-year-old female Vented Findings: ET and NG tubes are satisfactory. Limited due to semiupright view and leftward patient rotation. Hear t size stable, upper limits of normal. Hyperinflation. [id number] right and small left pleural effusions and interstitial prominence persists. Impression: Limited by rotation. Undergo a [id number] right and small left pleural effusions with adjacent atelectasis and or consolidation. Background COPD and possible mild pulmonary vascular congestion al so similar.
[2024-05-24 07:58] LABS: Glucose,Whole Blood 200 mg/dL (70-110)
--- NOTE | 2024-05-24 09:59 | P.PN ---
Subjective Progress Note Date: 05/24/24 Principal diagnosis: Status post IM nail left intertrochanteric femur fracture Patient was evaluated in the ICU, she remains intubated at this time. Bandages remained stable Objective - Vital Signs Vital signs: Vital Signs Temp 98.0 F 05/24/24 08:00 Pulse 71 05/24/24 09:00 Resp 36 H 05/24/24 09:00 BP 124/46 05/24/24 09:00 Pulse Ox 100 05/24/24 09:00 FiO2 50 05/24/24 08:45 Intake & Output 05/23/24 05/24/24 05/24/24 18:59 06:59 18:59 Intake Total 796.915 857.7 234 Output Total 613 617 105 Balance 183.915 240.7 129 Weight 74 kg 75.8 kg Intake: IV 110 120 30 Sodium Chloride 0.9% 1, 110 120 30 000 ml @ 10 mls/hr IV . Q24H [facility] Rx#:[id number] Intake, IV Titration 189.915 163.7 100 Amount Empty Bag 1 bag @ 10 MCG/ 189.915 163.7 100 KG/MIN 4.2 mls/hr IV . [id number] [facility] with propofoL 1,000 mg Rx#:[id number] Tube Feeding 407 444 74 Other 90 130 30 Output: Urine 613 617 105 Other: Voiding Method Indwelling Catheter Indwelling Catheter Indwelling Catheter - Exam Left lower extremity: Foam dressings are in good condition. There is minimal soft tissue swelling and ecchymosis surrounding the medial and lateral aspects of the incision. Calf is soft, no tenderness with palpation. Plantar flexion, dorsiflexion, EHL, FHL are intact. Sensory exam to light touch throughout the extremity is intact, dorsal pedis pulses 2+. - Labs CBC & Chem 7: 05/24/24 05:45 05/24/24 05:45 Labs: Abnormal Lab Results - Last 24 Hours (Table) 05/23/24 05/23/24 05/23/24 Range/Units 03:15 11:34 16:12 WBC (3.8-10.6) k/uL RBC (3.80-5.40) m/uL Hgb (11.4-16.0) gm/dL Hct (34.0-46.0) % MCV (80.0-100.0) fL ABG pCO2 (35-45) mmHg ABG pO2 (83-108) mmHg ABG HCO3 (21-25) mmol/L ABG Total CO2 (19-24) mmol/L ABG O2 Saturation (94-97) % Chloride (98-107) mmol/L BUN (7-17) mg/dL Glucose (74-99) mg/dL POC Glucose (mg/dL) 268 H 281 H (70-110) mg/dL Calcium (8.4-10.2) mg/dL Procalcitonin 0.11 H (0.02-0.09) ng/mL 05/23/24 05/24/24 05/24/24 Range/Units 19:59 00:36 05:07 WBC (3.8-10.6) k/uL RBC (3.80-5.40) m/uL Hgb (11.4-16.0) gm/dL Hct (34.0-46.0) % MCV (80.0-100.0) fL ABG pCO2 (35-45) mmHg ABG pO2 (83-108) mmHg ABG HCO3 (21-25) mmol/L ABG Total CO2 (19-24) mmol/L ABG O2 Saturation (94-97) % Chloride (98-107) mmol/L BUN (7-17) mg/dL Glucose (74-99) mg/dL POC Glucose (mg/dL) 211 H 274 H 253 H (70-110) mg/dL Calcium (8.4-10.2) mg/dL Procalcitonin (0.02-0.09) ng/mL 05/24/24 05/24/24 05/24/24 Range/Units 05:20 05:45 05:45 WBC 11.1 H (3.8-10.6) k/uL RBC 3.03 L (3.80-5.40) m/uL Hgb 9.7 L (11.4-16.0) gm/dL Hct 30.5 L (34.0-46.0) % MCV 100.8 H (80.0-100.0) fL ABG pCO2 46 H (35-45) mmHg ABG pO2 56 L* (83-108) mmHg ABG HCO3 31 H (21-25) mmol/L ABG Total CO2 33 H (19-24) mmol/L ABG O2 Saturation 90.9 L (94-97) % Chloride 110 H (98-107) mmol/L BUN 59 H (7-17) mg/dL Glucose 254 H (74-99) mg/dL POC Glucose (mg/dL) (70-110) mg/dL Calcium 8.3 L (8.4-10.2) mg/dL Procalcitonin (0.02-0.09) ng/mL 05/24/24 Range/Units 07:57 WBC (3.8-10.6) k/uL RBC (3.80-5.40) m/uL Hgb (11.4-16.0) gm/dL Hct (34.0-46.0) % MCV (80.0-100.0) fL ABG pCO2 (35-45) mmHg ABG pO2 (83-108) mmHg ABG HCO3 (21-25) mmol/L ABG Total CO2 (19-24) mmol/L ABG O2 Saturation (94-97) % Chloride (98-107) mmol/L BUN (7-17) mg/dL Glucose (74-99) mg/dL POC Glucose (mg/dL) 200 H (70-110) mg/dL Calcium (8.4-10.2) mg/dL Procalcitonin (0.02-0.09) ng/mL Assessment and Plan Assessment: Postoperative day #4 status post intramedullary nail left intertrochanteric femur fracture COPD Coronary artery disease Multiple medical comorbidities Plan: DVT prophylaxis, continue HELENA hose and compression stockings, she remains on Lovenox. Okay to restart Plavix Pain control, continue on current regimen Weight-bear as tolerated, recommend use of a walker at all times PT/OT evaluation once extubated Other medical specialty recommendations appreciated Recommend dressing change in 05/27/2024, jordan can be removed on 06/03/2024 Please contact our orthopedic service there are any questions regarding this patient Time with Patient: Less than 30
[2024-05-24] MEDS ORDERED: fentaNYL (PF) 50 MCG/ML 2 ML AMP ONE (10:49)
[2024-05-24] MEDS ORDERED: ROCURONIUM 10 MG/ML (5 ML VIAL) IV ONE (10:49)
[2024-05-24] MEDS ORDERED: PROPOFOL 10 MG/ML 20 ML VIAL IV ONE (10:49)
--- NOTE | 2024-05-24 11:25 | P.OP ---
Date of Procedure: 05/24/24 Preoperative Diagnosis: protein calorie malnutrition Respiratory failure Postoperative Diagnosis: same Procedure(s) Performed: EGD PEG tube placement Tracheostomy Anesthesia: JYOTSNA Surgeon: Jose Lockhart Estimated Blood Loss (ml): 5 Pathology: none sent Condition: stable Disposition: PACU Description of Procedure: The patient's placed on the bed in the supine position. The patient received general anesthesia. The neck was prepped and draped in usual sterile fashion. A standard transverse skin incision was made approximately 2 cm above the sternal notch. Using electrocautery the subcutaneous tissues were divided. The platysma was divided. A Wheatlander retractor was placed in the wound. Next the strap muscles were divided in the midline. Another weatlander retractor was placed the wound. The pretracheal fat was then divided with left cautery. The trachea was exposed. At this point the ZIGZAGGER advance the and the tracheal tube into the right mainstem bronchus. The balloon was inflated. A tracheotomy was then performed between the second and third tracheal rings. The perivascular tissues a gracilis the trachea. The endotracheal tube was brought back under direct vision. And then the #8 Portex tracheostomy tube was placed into the trachea. End-tidal CO2 was confirmed. The patient had been connected to the ventilator. The patient was ventilated satisfactory. The skin incision site was then closed with 3-0 nylon after the retractors were withdrawn. An umbilical tie was used to secure the tracheostomy tube. Next the gastroscope placed oropharynx passed in the esophagus and stomach. There is no evidence of any outlet obstruction. Stomach was insufflated with air. The light reflux seen the anterior abdominal wall. The abdomen was prepped and draped usual fashion. The skin was incised. And the needles placed and stomach under direct visualization. The needle was snared. And the wires placed through the needle and the wire was snared and brought the oropharynx. The PEG tube was placed over top the wire brought down to the stomach. The PEG tube was secured. At the 3 cm michelle. The one-piece bolster was used. Patient tolerated procedure well.
--- NOTE | 2024-05-24 11:26 | P.GSCN ---
History of Present Illness Consult date: 05/24/24 History of present illness: CHIEF COMPLAINT: Fall Reason for consult :trach and PEG placement HISTORY OF PRESENT ILLNESS: status post fall and left hip and trochanteric femur fracture. She is status post orthopedic surgery on 05/20/2024. Patient has severe end-stage COPD exacerbation and difficulty to wean from the vent. Surgical service has been consulted for trach and PEG placement. PAST MEDICAL HISTORY: Coronary Artery Disease (CAD), Chest Pain / Angina, COPD, CVA/TIA, Diabetes Mellitus, Hyperlipidemia, Hypertension, Myocardial Infarction ([place]), Thyroid D isorder, 3 L home O2, Parkinson's, mild CVA PAST SURGICAL HISTORY: Cholecystectomy, Heart Catheterization With Stent, Hysterectomy, Orthopedic Surgery MEDICATIONS: See below ALLERGIES: See below SOCIAL HISTORY: No illicit drug use. REVIEW OF SYSTEMS: CONSTITUTIONAL: Denies fever or chills. HEENT: Denies blurred vision, vision changes, or eye pain. Denies hemoptysis CARDIOVASCULAR: Denies chest pain or pressure. RESPIRATORY: No shortness of breath. GASTROINTESTINAL: See HPI for pertinent findings HEMATOLOGIC: Denies bleeding disorders. GENITOURINARY: Denies any blood in urine or increased urinary frequency. SKIN: Denies pruitis. Denies rash. PHYSICAL EXAM: VITAL SIGNS: Reviewed GENERAL: intubated and sedated ABDOMEN: Soft. Nondistended. nontender LABORATORY DATA: WBC 11.1 Hgb 9.7 platelets 227 Na 138 K 4.7 Cr 0.68 Albumin 3.3 IMAGING: ASSESSMENT: 1. Acute on chronic hypoxic respiratory failure with difficulty to wean from the vent 2. Severe COPD 3. Moderate protein calorie malnutrition PLAN: -Patient scheduled for tracheostomy and PEG tube placement today with Dr. jones -Hold tube feeds Physician [employer] Specialist note has been reviewed by physician. Signing provider agrees with the documented findings, assessment, and plan of care. Past Medical History Past Medical History: Coronary Artery Disease (CAD), Chest Pain / Angina, COPD, CVA/TIA, Diabetes Mellitus, Hyperlipidemia, Hypertension, Myocardial Infarction ([place]), Thyroid Disorder Additional Past Medical History / Comment(s): 3L home oxygen ATC,parkinson's was told with last mi she'd also had a mild cva. pt reports she's been having dizzy spells and a couple of near falls in last few days. Last Myocardial Infarction Date:: History of Any Multi-Drug Resistant Organisms: None Reported Past Surgical History: Cholecystectomy, Heart Catheterization With Stent, Hysterectomy, Orthopedic Surgery Additional Past Surgical History / Comment(s): trigger finger surgery, tongue surgery, dental surgery, cataracts and lens implant, bladder surgery Past Anesthesia/Blood Transfusion Reactions: No Reported Reaction Additional Past Anesthesia/Blood Transfusion Reaction / Comm: no blood tx hx Date of Last Stent Placement:: Past Psychological History: No Psychological Hx Reported Smoking Status: Former smoker - Past Family History Father Family Medical History: Coronary Artery Disease (CAD), Myocardial Infarction ([place]) Additional Family Medical History / Comment(s): Father from myocardial infarction at 67 years old Mother Additional Family Medical History / Comment(s): sepsis Medications and Allergies Home Medications Medication Instructions Recorded Confirmed Type Albuterol Inhaler [Ventolin Hfa 2 puff INHALATION RT-Q4H PRN 06/14/23 05/17/24 History Inhaler] Budesonide-Formot 160-4.5 Mcg 2 puff INHALATION RT-BID 06/14/23 05/17/24 History [Symbicort 160-4.5 Mcg Inhaler] Clopidogrel [Plavix] 75 mg PO DAILY 06/14/23 05/17/24 History Nitroglycerin Sl Tabs [Nitrostat] 0.4 mg SUBLINGUAL Q5M PRN 06/14/23 05/17/24 History lisinopriL [Zestril] 20 mg PO DAILY 06/14/23 05/17/24 History rOPINIRole HCL [Requip] 1 mg PO BID 06/14/23 05/17/24 History sitaGLIPtin [Januvia] 100 mg PO DAILY 06/14/23 05/17/24 History Atorvastatin Calcium [Lipitor] 40 mg PO DAILY 05/17/24 05/17/24 History Levothyroxine Sodium [Synthroid] 125 mcg PO DAILY 05/17/24 05/17/24 History Meclizine [Antivert] 25 mg PO TID PRN 05/17/24 05/17/24 History Metoprolol Succinate (ER) [Toprol 25 mg PO DAILY 05/17/24 05/17/24 History Xl] Allergies Allergy/AdvReac Type Severity Reaction Status Date / Time diazepam [From Valium] Allergy Rash/Hives Verified 05/17/24 10:40 divalproex sodium Allergy Rash/Hives Verified 05/17/24 10:40 [From Depakote] empagliflozin Allergy Unknown Verified 05/17/24 10:40 [From Jardiance] levofloxacin Allergy Rash/Hives Verified 05/17/24 10:40 propoxyphene [From Darvon] Allergy Rash/Hives Verified 05/17/24 10:40 Surgical - Exam Vital Signs Temp Pulse Resp BP Pulse Ox 97.7 F 63 20 120/42 92 L 05/17/24 07:51 05/17/24 07:51 05/17/24 07:51 05/17/24 07:51 05/17/24 07:51 Results - Labs 05/24/24 05:45 05/24/24 05:45 Abnormal Lab Results - Last 24 Hours (Table) 05/23/24 05/23/24 05/23/24 Range/Units 03:15 11:34 16:12 WBC (3.8-10.6) k/uL RBC (3.80-5.40) m/uL Hgb (11.4-16.0) gm/dL Hct (34.0-46.0) % MCV (80.0-100.0) fL ABG pCO2 (35-45) mmHg ABG pO2 (83-108) mmHg ABG HCO3 (21-25) mmol/L ABG Total CO2 (19-24) mmol/L ABG O2 Saturation (94-97) % Chloride (98-107) mmol/L BUN (7-17) mg/dL Glucose (74-99) mg/dL POC Glucose (mg/dL) 268 H 281 H (70-110) mg/dL Calcium (8.4-10.2) mg/dL Procalcitonin 0.11 H (0.02-0.09) ng/mL 05/23/24 05/24/24 05/24/24 Range/Units 19:59 00:36 05:07 WBC (3.8-10.6) k/uL RBC (3.80-5.40) m/uL Hgb (11.4-16.0) gm/dL Hct (34.0-46.0) % MCV (80.0-100.0) fL ABG pCO2 (35-45) mmHg ABG pO2 (83-108) mmHg ABG HCO3 (21-25) mmol/L ABG Total CO2 (19-24) mmol/L ABG O2 Saturation (94-97) % Chloride (98-107) mmol/L BUN (7-17) mg/dL Glucose (74-99) mg/dL POC Glucose (mg/dL) 211 H 274 H 253 H (70-110) mg/dL Calcium (8.4-10.2) mg/dL Procalcitonin (0.02-0.09) ng/mL 05/24/24 05/24/24 05/24/24 Range/Units 05:20 05:45 05:45 WBC 11.1 H (3.8-10.6) k/uL RBC 3.03 L (3.80-5.40) m/uL Hgb 9.7 L (11.4-16.0) gm/dL Hct 30.5 L (34.0-46.0) % MCV 100.8 H (80.0-100.0) fL ABG pCO2 46 H (35-45) mmHg ABG pO2 56 L* (83-108) mmHg ABG HCO3 31 H (21-25) mmol/L ABG Total CO2 33 H (19-24) mmol/L ABG O2 Saturation 90.9 L (94-97) % Chloride 110 H (98-107) mmol/L BUN 59 H (7-17) mg/dL Glucose 254 H (74-99) mg/dL POC Glucose (mg/dL) (70-110) mg/dL Calcium 8.3 L (8.4-10.2) mg/dL Procalcitonin (0.02-0.09) ng/mL 05/24/24 Range/Units 07:57 WBC (3.8-10.6) k/uL RBC (3.80-5.40) m/uL Hgb (11.4-16.0) gm/dL Hct (34.0-46.0) % MCV (80.0-100.0) fL ABG pCO2 (35-45) mmHg ABG pO2 (83-108) mmHg ABG HCO3 (21-25) mmol/L ABG Total CO2 (19-24) mmol/L ABG O2 Saturation (94-97) % Chloride (98-107) mmol/L BUN (7-17) mg/dL Glucose (74-99) mg/dL POC Glucose (mg/dL) 200 H (70-110) mg/dL Calcium (8.4-10.2) mg/dL Procalcitonin (0.02-0.09) ng/mL Diabetes panel 05/23/24 05/24/24 Range/Units 17:01 05:45 Sodium 138 (137-145) mmol/L Potassium 4.5 4.7 (3.5-5.1) mmol/L Chloride 110 H (98-107) mmol/L Carbon Dioxide 29 (22-30) mmol/L BUN 59 H (7-17) mg/dL Creatinine 0.68 (0.52-1.04) mg/dL Glucose 254 H (74-99) mg/dL Calcium 8.3 L (8.4-10.2) mg/dL Calcium panel 05/24/24 Range/Units 05:45 Calcium 8.3 L (8.4-10.2) mg/dL Pituitary panel 05/23/24 05/24/24 Range/Units 17:01 05:45 Sodium 138 (137-145) mmol/L Potassium 4.5 4.7 (3.5-5.1) mmol/L Chloride 110 H (98-107) mmol/L Carbon Dioxide 29 (22-30) mmol/L BUN 59 H (7-17) mg/dL Creatinine 0.68 (0.52-1.04) mg/dL Glucose 254 H (74-99) mg/dL Calcium 8.3 L (8.4-10.2) mg/dL Adrenal panel 05/23/24 05/24/24 Range/Units 17:01 05:45 Sodium 138 (137-145) mmol/L Potassium 4.5 4.7 (3.5-5.1) mmol/L Chloride 110 H (98-107) mmol/L Carbon Dioxide 29 (22-30) mmol/L BUN 59 H (7-17) mg/dL Creatinine 0.68 (0.52-1.04) mg/dL Glucose 254 H (74-99) mg/dL Calcium 8.3 L (8.4-10.2) mg/dL
[2024-05-24 11:45] LABS: Glucose,Whole Blood 167 mg/dL (70-110)
[2024-05-24 11:56] LABS: Glucose,Whole Blood 180 mg/dL (70-110)
[2024-05-24 15:37] LABS: Glucose,Whole Blood 162 mg/dL (70-110)
--- NOTE | 2024-05-24 15:41 | P.PN ---
Subjective Progress Note Date: 05/24/24 74-year-old female with a past medical history of coronary disease status post stent placement, COPD on 3 L oxygen via nasal cannula at home, history of CVA/TIA, hypertension, diabetes type 2, hyperlipidemia, history of NE, hypothyroidism, and prior history of smoking and recent dizzy spells. Patient presents to ER after sustaining a fall while she was in her bathroom. She slipped and fell on her left side and injured her hip. Denied any loss of consciousness as per her daughter. Patient is unable to provide much history and has been lethargic and sleepy. Denies any complaints of chest pain or shortness of breath. EKG showed sinus rhythm. 2D echocardiogram done on 06/16/2023 showed normal LV systolic function. Mildly enlarged right ventricle with RVSP around 50 mmHg and Chest x-ray on admission showed some mildly increased lung markings at the right apex of uncertain etiology. Summation density small densities are within the differential. X-ray of the hip/pelvis showed acute left femur intertrochanteric fracture. Moderate hip osteoarthrosis. On admission blood pressure 120/42 pulse 63 respiration 20 pulse ox 92% on 3 L oxygen via nasal cannula. Laboratory data showed WBC 10.6 hemoglobin 12.4 and platelets 210, MCV 100.5 Sodium 139 potassium 4.5 chloride 105 bicarb is 32 BUN 15 and creatinine 0.85 and blood sugar 126 and total bili 1.8 liver enzymes are not elevated albumin 3.3. Objective - Vital Signs Vital signs: Vital Signs Temp 98.0 F 05/24/24 08:00 Pulse 68 05/24/24 15:00 Resp 27 H 05/24/24 15:00 BP 113/44 05/24/24 15:00 Pulse Ox 100 05/24/24 15:00 FiO2 50 05/24/24 12:00 Intake & Output 05/23/24 05/24/24 05/24/24 18:59 06:59 18:59 Intake Total 796.915 857.7 394 Output Total 613 617 335 Balance 183.915 240.7 59 Weight 74 kg 75.8 kg Intake: IV 110 120 90 Sodium Chloride 0.9% 1, 110 120 90 000 ml @ 10 mls/hr IV . Q24H [facility] Rx#:[id number] Intake, IV Titration 189.915 163.7 200 Amount Empty Bag 1 bag @ 10 MCG/ 189.915 163.7 200 KG/MIN 4.2 mls/hr IV . [id number] [facility] with propofoL 1,000 mg Rx#:[id number] Tube Feeding 407 444 74 Other 90 130 30 Output: Urine 613 617 335 Other: Voiding Method Indwelling Catheter Indwelling Catheter Indwelling Catheter - Exam -GENERAL: The patient is intubated and sedated HEENT: Pupils are round and equally reacting to light. EOMI. No scleral icterus. No conjunctival pallor. Normocephalic, atraumatic. No pharyngeal erythema. No thyromegaly. CARDIOVASCULAR: S1 and S2 present. No murmurs, rubs, or gallops. PULMONARY: Chest is clear to auscultation, no wheezing , no crackles. ABDOMEN: Soft, nontender, nondistended, normoactive bowel sounds. No palpable organomegaly. MUSCULOSKELETAL: No joint swelling or deformity. EXTREMITIES: No cyanosis, clubbing, or pedal edema. NEUROLOGICAL: Gross neurological examination did not reveal any focal deficits. SKIN: No rashes. no petechiae. - Labs CBC & Chem 7: 05/24/24 05:45 05/24/24 05:45 Labs: Abnormal Lab Results - Last 24 Hours (Table) 05/23/24 05/23/24 05/24/24 Range/Units 16:12 19:59 00:36 WBC (3.8-10.6) k/uL RBC (3.80-5.40) m/uL Hgb (11.4-16.0) gm/dL Hct (34.0-46.0) % MCV (80.0-100.0) fL ABG pCO2 (35-45) mmHg ABG pO2 (83-108) mmHg ABG HCO3 (21-25) mmol/L ABG Total CO2 (19-24) mmol/L ABG O2 Saturation (94-97) % Chloride (98-107) mmol/L BUN (7-17) mg/dL Glucose (74-99) mg/dL POC Glucose (mg/dL) 281 H 211 H 274 H (70-110) mg/dL Calcium (8.4-10.2) mg/dL 05/24/24 05/24/24 05/24/24 Range/Units 05:07 05:20 05:45 WBC 11.1 H (3.8-10.6) k/uL RBC 3.03 L (3.80-5.40) m/uL Hgb 9.7 L (11.4-16.0) gm/dL Hct 30.5 L (34.0-46.0) % MCV 100.8 H (80.0-100.0) fL ABG pCO2 46 H (35-45) mmHg ABG pO2 56 L* (83-108) mmHg ABG HCO3 31 H (21-25) mmol/L ABG Total CO2 33 H (19-24) mmol/L ABG O2 Saturation 90.9 L (94-97) % Chloride (98-107) mmol/L BUN (7-17) mg/dL Glucose (74-99) mg/dL POC Glucose (mg/dL) 253 H (70-110) mg/dL Calcium (8.4-10.2) mg/dL 05/24/24 05/24/24 05/24/24 Range/Units 05:45 07:57 11:44 WBC (3.8-10.6) k/uL RBC (3.80-5.40) m/uL Hgb (11.4-16.0) gm/dL Hct (34.0-46.0) % MCV (80.0-100.0) fL ABG pCO2 (35-45) mmHg ABG pO2 (83-108) mmHg ABG HCO3 (21-25) mmol/L ABG Total CO2 (19-24) mmol/L ABG O2 Saturation (94-97) % Chloride 110 H (98-107) mmol/L BUN 59 H (7-17) mg/dL Glucose 254 H (74-99) mg/dL POC Glucose (mg/dL) 200 H 167 H (70-110) mg/dL Calcium 8.3 L (8.4-10.2) mg/dL 05/24/24 05/24/24 Range/Units 11:54 15:36 WBC (3.8-10.6) k/uL RBC (3.80-5.40) m/uL Hgb (11.4-16.0) gm/dL Hct (34.0-46.0) % MCV (80.0-100.0) fL ABG pCO2 (35-45) mmHg ABG pO2 (83-108) mmHg ABG HCO3 (21-25) mmol/L ABG Total CO2 (19-24) mmol/L ABG O2 Saturation (94-97) % Chloride (98-107) mmol/L BUN (7-17) mg/dL Glucose (74-99) mg/dL POC Glucose (mg/dL) 180 H 162 H (70-110) mg/dL Calcium (8.4-10.2) mg/dL Assessment and Plan Assessment: Acute on chronic hypoxic respiratory failure secondary to COPD exacerbation. Patient is on mechanical ventilator. Postoperative hypotension. Improved with fluid boluses. Acute delirium on admission Status post mechanical fall Acute left femur intertrochanteric fracture. Status post IM nailing. Postoperative day 1 COPD on home oxygen 3 L via nasal cannula Coronary artery disease with history of stent placement to left main at [facility] in September 2023 History of right internal carotid artery stenosis status post TCAR by vascular surgery. History of NE Hypertension Hyperlipidemia Diabetes type 2 [id number] Parkinson's disease Prior history of smoking Hypothyroidism Plan: Patient is s/p left hip IM nail Patient is on mechanical ventilator. Patient will be continued on telemonitoring. Continue insulin sliding scale for better blood sugar control. Started back on home medication including metoprolol, lisinopril and statins. Continue with aspirin.. Will start back on Plavix once cleared by surgery. Current with home medication including Synthroid. Will continue to follow and further recommendations based on the clinical course. Cardiology and pulmonary is on board.
[2024-05-24 20:06] LABS: Glucose,Whole Blood 180 mg/dL (70-110)
[2024-05-25 00:02] LABS: Glucose,Whole Blood 262 mg/dL (70-110)
[2024-05-25 03:42] LABS: Glucose,Whole Blood 233 mg/dL (70-110)
[2024-05-25 05:15] LABS: ABG Base Excess 5.8 mmol/L; ABG HCO3 31 mmol/L (21-25); ABG Oxygen Saturation 95.6 % (94-97); ABG PCO2 48 mmHg (35-45); ABG PH 7.42 (7.35-7.45); ABG PO2 71 mmHg (83-108); ABG TCO2 33 mmol/L (19-24); Allen Test Performed? Yes
[2024-05-25 05:59] LABS: Basophils % (A) 0 %; Eosinophils % (A) 0 %; HCT 31.6 % (34.0-46.0); HGB 9.9 gm/dL (11.4-16.0); Hypochromasia Marked; Lymphocytes # (A) 0.4 k/uL (1.0-4.8); Lymphocytes % (A) 3 %; MCH 31.6 pg (25.0-35.0); MCHC 31.5 g/dL (31.0-37.0); MCV 100.2 fL (80.0-100.0); Mean Platelet Volume 8.6; Monocytes # (A) 0.6 k/uL (0-1.0); Monocytes % (A) 4 %; Neutrophils # (A) 12.3 k/uL (1.3-7.7); Neutrophils % (A) 92 %; Platelet Count 236 k/uL (150-450); RBC 3.15 m/uL (3.80-5.40); RDW 13.8 % (11.5-15.5); WBC 13.4 k/uL (3.8-10.6)
[2024-05-25 06:07] LABS: African American GFR (CKD) >90 (>60 ml/min/1.73 sqM); Anion Gap 5 mmol/L; Blood Urea Nitrogen 55 mg/dL (7-17); Calcium 8.4 mg/dL (8.4-10.2); Carbon Dioxide 28 mmol/L (22-30); Chloride 110 mmol/L (98-107); Glucose 164 mg/dL (74-99); Non-African American GFR(CKD) 86 (>60 ml/min/1.73 sqM); Potassium 4.2 mmol/L (3.5-5.1); Sodium 143 mmol/L (137-145)
--- NOTE | 2024-05-25 07:17 | XR ---
EXAMINATION TYPE: XR chest 1V DATE OF EXAM: 05/25/2024 5:04 AM CLINICAL INDICATION:Female, 74 years old with history of Mechanical ventilation; [facility] COMPARISON: Chest radiograph from one day prior. TECHNIQUE: XR chest 1V Frontal view of the chest. FINDINGS: Lungs/Pleura: There is no evidence of pleural effusion, focal consolidation, or pneumothorax. Pulmonary vascularity: Unremarkable. Heart/mediastinum: Cardiomediastinal silhouette is unremarkable. Musculoskeletal: No acute osseous pathology. Other findings: None Lines/Tubes: Tracheostomy cannula tip projecting over the trachea. Suspected PEG tube now in place. IMPRESSION: Stable appearance of lungs with now a tracheostomy cannula.
--- NOTE | 2024-05-25 07:52 | PN ---
PROGRESS NOTE DATE OF SERVICE: 05/24/2024 HISTORY OF PRESENT ILLNESS: This patient is seen today on May 24, 2024 in followup in the intensive care unit, postoperative day #4. She remains intubated on mechanical ventilator on assist-control mode at a rate of 26, tidal volume 400, FiO2 60%, and a PEEP of 5. Morning blood gases revealed a pO2 of 56, pCO2 46, pH 7.44. She is currently sedated on propofol at 50 mcg/kg per minute. She has normal saline at KVO. She has a VITAL AF at 37 mL/h, which is goal. This will be placed on hold. The plan is for tracheostomy and PEG tube placement today. A chest x-ray reveals small to moderate right and left bilateral pleural effusions with adjacent atelectasis. Background COPD. LABORATORY DATA: Lab results reveal a white count of 11.1. Hemoglobin 9.7. Platelets 227. Sodium 138, potassium 4.7, bicarb 39. BUN 59. Creatinine 0.68, glucose 254. She remains on DuoNeb inhalations, Pulmicort and Perforomist inhalation, Solu-Medrol. Lovenox for DVT prophylaxis. Nicoderm patch in place. PHYSICAL EXAMINATION: GENERAL: Intubated, 74-year-old female, 60% FiO2 on mechanical ventilator. In no apparent distress. HEENT: Head normocephalic. Eyes, sluggish reaction to pupils, equal size. Nose clear with pink turbinates. Throat, oral endotracheal and gastric tubes situated place. No erythema or exudate. NECK: No masses, no JVD. CHEST: No chest wall deformity. LUNGS: Equal air entry with bilateral end-expiratory wheezes, diminished. CVS: S1 and S2 normal with no audible murmur, regular rhythm. ABDOMEN: No hepatosplenomegaly, normal bowel sounds. No guarding or rigidity. SPINE: No scoliosis or deformity. SKIN: No rashes. CENTRAL NERVOUS SYSTEM: Sedated, tone is normal in all 4 extremities. EXTREMITIES: Left hip dressing dry and intact. No peripheral edema. No clubbing or cyanosis. Peripheral pulses are intact. ASSESSMENT: 1. Acute nondisplaced left intertrochanteric femur fracture, status post fall from standing position. Status post repair with intramedullary nailing on 05/20/2024. Postoperative day #4. 2. Acute on chronic hypoxemic respiratory failure requiring intubation, mechanical ventilatory support on 05/20/2024. 3. Severe oxygen-dependent chronic obstructive pulmonary disease with FEV1 value 0.67 L, 30% of predicted. 4. Former smoker. 5. Coronary artery disease with previous stent placement. 6. Diabetes mellitus. 7. Hyperlipidemia. 8. Hypertension. 9. Hypothyroidism. PLAN: The patient was seen and evaluated. Chest x-ray, labs, ABGs, and medications reviewed. Continue bronchodilators and steroids. Hold tube feedings for now. Plan is for tracheostomy and PEG tube placement today. Lovenox for DVT prophylaxis. We will continue to follow and make further recommendations based on her clinical status. I have personally seen and examined the patient, performed the documentation and the assessment and plan as written. Number of minutes spent on this visit: 15. YASEMIN / ANDI: [id number] /
[2024-05-25 08:46] LABS: Glucose,Whole Blood 165 mg/dL (70-110)
[2024-05-25] MEDS: QUEtiapine 25 MG TAB PO SCH (09:05)
--- NOTE | 2024-05-25 10:21 | P.PN ---
Progress Note - Text Progress Note Date: 05/24/24 Attestation note dated May 24, 2024. 74-year-old female seen in room 256. The patient remains on mechanical ventilator. Her blood gases show pO2 of 56, pCO2 of 46, pH of 7.44. The patient is postoperative day 4 status post repair of left hip fracture. Labs, x-rays, medications are all reviewed. We will continue to follow the patient, make recommendations along the way. The assessment and plan, were developed by myself. The patient was seen in conjunction with the nurse practitioner
--- NOTE | 2024-05-25 10:34 | P.PN ---
Subjective Progress Note Date: 05/25/24 Principal diagnosis: Respiratory failure. This is a 74-year-old female patient with a known history of coronary disease with previous stent placements, former smoker, oxygen dependent chronic obstructive pulmonary disease with an FEV1 value 30% of predicted, 0.67 L in 2021, diabetes mellitus, hypertension, hyperlipidemia, hypothyroidism. She presented to the emergency room this morning after sustaining a fall while up to her bathroom. She fell on her left hip and has significant left hip pain. She denied any loss of consciousness or other injuries. Left hip x-ray does reveal acute left femur intertrochanteric fracture. Moderate hip osteoarthrosis. EKG reveals sinus rhythm with no significant ST or T wave abnormalities. Chest x- ray shows no acute pulmonary process. White count 10.6. Hemoglobin 12.4. Platelets 210. Sodium 139. Potassium 4.5. Bicarb 32. BUN 15. Creatinine 0.85. Glucose 126. She is seen today in consultation in the emergency department. She is currently resting on a stretcher. Fairly comfortable at present. She has received Dilaudid. Denies any worsening shortness of breath, cough or congestion. No chest pain or palpitations. She is receiving normal saline at 75 MLS per hour. She is maintaining O2 saturation in the 90s on 3 L/min per nasal cannula. She is afebrile. Hemodynamically stable. Patient was reevaluated today on 05/18/24, patient was seen yesterday and cleared for surgery for her left hip, although she does have severe end-stage COPD. Today the patient developed more shortness of breath, she was initially on few liters nasal cannula, and overnight her O2 requirement has gone up significantly, I was notified multiple times about this patient earlier today not doing well experiencing mostly episodes of shortness of breath, and episodes of nausea and vomiting. I recommended placing the patient on BiPAP, and I recommended transferring the patient to the ICU. In the meantime I recommended holding on surgical plans, and a CT angiogram of the chest was ordered which came back negative for pulmonary embolism, but it did show evidence of advanced emphysema and compressive atelectasis at the right base as well as the left base with minimal effusion present at the right base labs today showed relatively normal electrolytes, BUN is 22 creatinine 1.1, blood sugar is 152. D-dimer was elevated at 5.32, but CT angiogram showed no evidence of thromboembolic disease. Patient was reevaluated today on 05/19/2024, remains on BiPAP 12/6/35%, patient became extremely agitated yesterday, and had to place the patient on Precedex at 0.8 mcg/kg/h. Patient seems to be doing better today, she is Col[place]. Troponin level has been on the rise, cardiology is evaluating the patient, she does have very strong history of coronary artery disease and multiple stents, cardiology will decide whether a cardiac catheterization will be necessary before clearing the patient for surgery. Workup by cardiology is in progress. In the meantime surgery for her intertrochanteric hip fracture is pending. Patient had a bit of low urine output, she will receive some Lasix today, and her daughter is at bedside, updated daughter on her condition. Labs today show WBC count of 8.5 hemoglobin 11.5 electrolytes are normal renal profile showed a BUN of [address] angiogram on this patient showed mostly COPD, no evidence of pulmonary embolism The patient is seen today May 20, 2024 in follow-up in the intensive care unit. She is currently sitting up in bed. Awake and alert. She is on BiPAP 12/6 and 35% FiO2. She is requiring Precedex at 1 mg/kg/h. She has normal saline at 75 MLS per hour. Chest x-ray reveals nonspecific mild increased lung markings diffusely. Mild pulmonary edema versus atelectasis. White count 9.7. Hemoglobin 10.8. Platelets 175. Sodium 140. Potassium 5.0. Bicarb 25. BUN 39. Creatinine 0.68. Glucose 139. She remains on DuoNeb ventilations, Pulmicort and Perforomist inhalations, Solu-Medrol. NicoDerm patch will be applied. The plan may be for repair of her left hip fracture today. The patient is seen today May 21, 2024 in follow-up in the intensive care unit. She did undergo left hip IT fracture cephalomedullary nailing yesterday. She did remain intubated on the mechanical ventilator currently on assist-control mode at a rate of 26, tidal volume 400, FiO2 40% and a PEEP of 5. Morning blood gases revealed a PaO2 of 90, pCO2 41 and a pH of 7.26. She is sedated with propofol at 45 mcg/kg/min. She has normal saline at 75 MLS per hour. She did receive 2 L of fluid resuscitation yesterday. She is currently in a 2.9 liter positive balance. Chest x-ray shows bibasilar infiltrates. Probable atelectasis. White count 15.2. Hemoglobin 10.2. Platelets 279. Sodium 142. Potassium 4.7. Bicarb 16. Chloride 114. BUN 41. Creatinine 0.96. Glucose 156. Continued on DuoNeb inhalations, Pulmicort and Perforomist inhalations, IV Solu-Medrol. NicoDerm patch in place. CT scan of the brain from yesterday revealed no acute intracranial abnormalities. The patient is seen today May 22, 2024 in follow-up in the intensive care unit. She remains intubated on mechanical ventilator currently on assist-control mode at a rate of 26, tidal volume 400, FiO2 40% and a PEEP of 5. Morning blood gases revealed a PaO2 of 87, pCO2 48 and a pH of 7.21. She remains sedated on propofol at 45 mcg/kg/min. Normal saline at 75 MLS per hour. She is being nourished with vital AF at 37 MLS per hour which is goal. Chest x-ray reveals diffuse alveolar infiltrate. White count 11.4. Hemoglobin 10.1. Platelets 168. Sodium 140. Potassium 4.3. Bicarb 21. BUN 47. Creatinine 0.81. Glucose 203. She is currently in a 770 mL positive balance. Remains on DuoNeb inhalations, Pulmicort and Perforomist inhalations, Solu-Medrol. NicoDerm patch in place. Lovenox for DVT prophylaxis. The patient is seen today May 23, 2024 in follow-up in the intensive care unit. Postoperative day #3. She remains intubated on the mechanical ventilator and assist-control mode at a rate of 26, tidal volume 400, FiO2 40% and a PEEP of 5. ABGs reveal a PaO2 of 56, pCO2 46 and a pH of 7.41. She is sedated on propofol at 50 mcg/kg/min. Normal saline at KVO. She is being nourished with vital HP at 37 MLS per hour which is goal. She did undergo a daily interruption of sedation yesterday at which time she became quite tachycardic and decreasing FiO2 within approximately 10 minutes. Chest x-ray reveals a right lower lobe infiltrate and mild left lower lobe infiltrate. White count 13.1. Hemoglobin 9.9. Platelets 219. Sodium 140. Potassium 3.6. Bicarb 25. BUN 54. Creatinine 0.73. Glucose 235. Michael on DuoNeb ventilations, Pulmicort and Perforomist inhalations, Solu-Medrol. NicoDerm patch in place. Lovenox for DVT prophylaxis. Progress note dated May 25, 2024. 74-year-old female seen today in room 256. The patient remains on the mechani freda ventilator. She is on volume assist-control, rate 26, tidal volume 400, FiO2 50%, PEEP of 5. Blood gases show up pO2 of 71, pCO2 of 48, pH of 7.42. This is a mixed acid-base disturbance. The patient had a tracheostomy and PEG tube placement on May 24. She remains on propofol at 50 mcg/kg/min, and saline at KVO. She is getting vital AF at 37 cc an hour, which will be resumed later today, after 24 hours, after the insertion of the PEG tube. The patient will have a daily interruption of sedation today. In addition, we add Seroquel 25 mg 3 times a day to her regimen. Current labs include a white count 13.4, hemoglobin 9.9, hematocrit 31.6, and a platelet count of 236,000. Sodium 143, potassium 4.2, chlorides 110, CO2 28, BUN 55, and creatinine 0.67. Glucose 165. Calcium 8.4. Chest x-ray shows a stable chest x-ray, with a well-placed midline tracheostomy tube. Objective - Vital Signs Vital signs: Vital Signs Temp 98.0 F 05/25/24 08:00 Pulse 92 05/25/24 09:00 Resp 22 05/25/24 09:00 BP 145/55 05/25/24 09:00 Pulse Ox 97 05/25/24 09:00 FiO2 50 05/25/24 08:00 Intake & Output 05/24/24 05/25/24 05/25/24 18:59 06:59 18:59 Intake Total 424 389.05 125 Output Total 465 635 100 Balance -41 -245.95 25 Weight 73.9 kg Intake: IV 120 120 30 Sodium Chloride 0.9% 1, 120 120 30 000 ml @ 10 mls/hr IV . [facility] Rx#:[id number] Intake, IV Titration 200 269.05 95 Amount Empty Bag 1 bag @ 10 MCG/ 200 269.05 95 KG/MIN 4.2 mls/hr IV . [id number] [facility] with propofoL 1,000 mg Rx#:[id number] Tube Feeding 74 0 Other 30 Output: Urine 465 635 100 Other: Voiding Method Indwelling Catheter Indwelling Catheter Indwelling Catheter - Exam No acute distress, sedated on propofol. HEENT examination is grossly unremarkable. Mucous membranes are moist. No oral lesions. Neck supple. Full range of motion. No adenopathy thyromegaly or neck vein distention. Midline tracheostomy tube is noted. Cardiovascular examination reveals regular rhythm rate. S1-S2 normal. No S3 or S4. No discernible murmur noted. Heart rate 75 bpm. Lungs reveal diminished bilateral breath sounds. Scattered rhonchi are noted. No wheezes. Breath sounds equal bilaterally. Abdomen soft bowel sounds are heard. No masses or tenderness. PEG tube is noted. Extremities are intact. No cyanosis clubbing or edema. Skin is without rash or lesion. Neurologic examination cannot be assessed at this time. - Labs CBC & Chem 7: 05/25/24 05:18 05/25/24 05:18 Labs: Abnormal Lab Results - Last 24 Hours (Table) 05/24/24 05/24/24 05/24/24 Range/Units 11:44 11:54 15:36 WBC (3.8-10.6) k/uL RBC (3.80-5.40) m/uL Hgb (11.4-16.0) gm/dL Hct (34.0-46.0) % MCV (80.0-100.0) fL Neutrophils # (1.3-7.7) k/uL Lymphocytes # (1.0-4.8) k/uL ABG pCO2 (35-45) mmHg ABG pO2 (83-108) mmHg ABG HCO3 (21-25) mmol/L ABG Total CO2 (19-24) mmol/L Chloride (98-107) mmol/L BUN (7-17) mg/dL Glucose (74-99) mg/dL POC Glucose (mg/dL) 167 H 180 H 162 H (70-110) mg/dL 05/24/24 05/25/24 05/25/24 Range/Units 20:05 00:01 03:40 WBC (3.8-10.6) k/uL RBC (3.80-5.40) m/uL Hgb (11.4-16.0) gm/dL Hct (34.0-46.0) % MCV (80.0-100.0) fL Neutrophils # (1.3-7.7) k/uL Lymphocytes # (1.0-4.8) k/uL ABG pCO2 (35-45) mmHg ABG pO2 (83-108) mmHg ABG HCO3 (21-25) mmol/L ABG Total CO2 (19-24) mmol/L Chloride (98-107) mmol/L BUN (7-17) mg/dL Glucose (74-99) mg/dL POC Glucose (mg/dL) 180 H 262 H 233 H (70-110) mg/dL 05/25/24 05/25/24 05/25/24 Range/Units 05:10 05:18 05:18 WBC 13.4 H (3.8-10.6) k/uL RBC 3.15 L (3.80-5.40) m/uL Hgb 9.9 L (11.4-16.0) gm/dL Hct 31.6 L (34.0-46.0) % MCV 100.2 H (80.0-100.0) fL Neutrophils # 12.3 H (1.3-7.7) k/uL Lymphocytes # 0.4 L (1.0-4.8) k/uL ABG pCO2 48 H (35-45) mmHg ABG pO2 71 L (83-108) mmHg ABG HCO3 31 H (21-25) mmol/L ABG Total CO2 33 H (19-24) mmol/L Chloride 110 H (98-107) mmol/L BUN 55 H (7-17) mg/dL Glucose 164 H (74-99) mg/dL POC Glucose (mg/dL) (70-110) mg/dL 05/25/24 Range/Units 08:44 WBC (3.8-10.6) k/uL RBC (3.80-5.40) m/uL Hgb (11.4-16.0) gm/dL Hct (34.0-46.0) % MCV (80.0-100.0) fL Neutrophils # (1.3-7.7) k/uL Lymphocytes # (1.0-4.8) k/uL ABG pCO2 (35-45) mmHg ABG pO2 (83-108) mmHg ABG HCO3 (21-25) mmol/L ABG Total CO2 (19-24) mmol/L Chloride (98-107) mmol/L BUN (7-17) mg/dL Glucose (74-99) mg/dL POC Glucose (mg/dL) 165 H (70-110) mg/dL Assessment and Plan Assessment: Acute nondisplaced left intertrochanteric femur fracture status post fall from standing position. Status post repair with intramedullary nailing 05/20/2024. Postoperative day #4. Postop day #1, status post tracheostomy and PEG tube placement, for failure to wean. Acute on chronic hypoxemic respiratory failure requiring intubation and mechanical ventilatory support on 05/20/2024, an expected outcome of surgery in a patient with severe COPD. Severe oxygen dependent chronic obstructive pulmonary disease with an FEV1 value 0.67 L, 30% of predicted. Former smoker. Coronary artery disease with previous stent placements. Diabetes mellitus. Hyperlipidemia. Hypertension. Hypothyroidism. Plan: Plan dated May 25, 2024. The patient had a tracheostomy and PEG tube placed yesterday. Tube feedings will be resumed sometime later today. The patient remains on the mechanical ventilator. Vent settings and blood gases are appropriate. Labs, x-rays, and medications are all reviewed. We will continue to follow the patient, make recommendations along the way. Today is postoperative day #4, S/P repair of a nondisplaced left intertrochanteric femur fracture. The patient's overall prognosis remains guarded. Tube feedings were resumed later today. She continues on GI and DVT prophylaxis. Prognosis is significantly guarded. Time with Patient: Greater than 30
[2024-05-25 12:01] LABS: Glucose,Whole Blood 248 mg/dL (70-110)
[2024-05-25 16:12] LABS: Glucose,Whole Blood 218 mg/dL (70-110)
--- NOTE | 2024-05-25 16:55 | P.PN ---
Progress Note - Text Progress Note Date: 05/25/24 CHIEF COMPLAINT: Fall HISTORY OF PRESENT ILLNESS: Patient is s/p tracheostomy and EGD with PEG insertion. NAEO PHYSICAL EXAM: VITAL SIGNS: Reviewed GENERAL: no acute distress. ABDOMEN: Soft. Nondistended. ASSESSMENT: 1. Acute on chronic hypoxic respiratory failure with difficulty to wean from the vent 2. Severe COPD 3. Moderate protein calorie malnutrition PLAN: -Tube Feeds per employment counselor
--- NOTE | 2024-05-25 18:58 | P.PN ---
Subjective Progress Note Date: 05/25/24 74-year-old female with a past medical history of coronary disease status post stent placement, COPD on 3 L oxygen via nasal cannula at home, history of CVA/TIA, hypertension, diabetes type 2, hyperlipidemia, history of UT, hypothyroidism, and prior history of smoking and recent dizzy spells. Patient presents to ER after sustaining a fall while she was in her bathroom. She slipped and fell on her left side and injured her hip. Denied any loss of consciousness as per her daughter. Patient is unable to provide much history and has been lethargic and sleepy. Denies any complaints of chest pain or shortness of breath. EKG showed sinus rhythm. 2D echocardiogram done on 06/16/2023 showed normal LV systolic function. Mildly enlarged right ventricle with RVSP around 50 mmHg and Chest x-ray on admission showed some mildly increased lung markings at the right apex of uncertain etiology. Summation density small densities are within the differential. X-ray of the hip/pelvis showed acute left femur intertrochanteric fracture. Moderate hip osteoarthrosis. On admission blood pressure 120/42 pulse 63 respiration 20 pulse ox 92% on 3 L oxygen via nasal cannula. Laboratory data showed WBC 10.6 hemoglobin 12.4 and platelets 210, MCV 100.5 Sodium 139 potassium 4.5 chloride 105 bicarb is 32 BUN 15 and creatinine 0.85 and blood sugar 126 and total bili 1.8 liver enzymes are not elevated albumin 3.3. 24-hour interval change 05/25/2024 Patient is seen and evaluated with nursing staff at bedside; The patient remains on the mechanical ventilator. She is on volume assist-control, rate 26, tidal volume 400, FiO2 50%, PEEP of 5. Blood gases show up pO2 of 71, pCO2 of 48, pH of 7.42. This is a mixed acid-base disturbance. The patient had a tracheostomy and PEG tube placement on May 24. She remains on propofol at 50 mcg/kg/min, and saline at KVO. She is getting vital AF at 37 cc an hour, which will be resumed later today, after 24 hours, after the insertion of the PEG tube. The patient will have a daily interruption of sedation today. In addition, we add Seroquel 25 mg 3 times a day to her regimen. Current labs include a white count 13.4, hemoglobin 9.9, hematocrit 31.6, and a platelet count of 236,000. Sodium 143, potassium 4.2, chlorides 110, CO2 28, BUN 55, and creatinine 0.67. Glucose 165. Calcium 8.4. Chest x-ray shows a stable chest x-ray, with a well-placed midline tracheostomy tube Objective - Vital Signs Vital signs: Vital Signs Temp 98.0 F 05/25/24 08:00 Pulse 92 05/25/24 09:00 Resp 22 05/25/24 09:00 BP 145/55 05/25/24 09:00 Pulse Ox 97 05/25/24 09:00 FiO2 50 05/25/24 08:00 Intake & Output 05/24/24 05/25/24 05/25/24 18:59 06:59 18:59 Intake Total 424 389.05 125 Output Total 465 635 100 Balance -41 -245.95 25 Weight 73.9 kg Intake: IV 120 120 30 Sodium Chloride 0.9% 1, 120 120 30 000 ml @ 10 mls/hr IV . Q24H [facility] Rx#:[id number] Intake, IV Titration 200 269.05 95 Amount Empty Bag 1 bag @ 10 MCG/ 200 269.05 95 KG/MIN 4.2 mls/hr IV . [id number] [facility] with propofoL 1,000 mg Rx#:[id number] Tube Feeding 74 0 Other 30 Output: Urine 465 635 100 Other: Voiding Method Indwelling Catheter Indwelling Catheter Indwelling Catheter - Exam -GENERAL: The patient is intubated and sedated HEENT: Pupils are round and equally reacting to light. EOMI. No scleral icterus. No conjunctival pallor. Normocephalic, atraumatic. No pharyngeal erythema. No thyromegaly. CARDIOVASCULAR: S1 and S2 present. No murmurs, rubs, or gallops. PULMONARY: Chest is clear to auscultation, no wheezing , no crackles. ABDOMEN: Soft, nontender, nondistended, normoactive bowel sounds. No palpable organomegaly. MUSCULOSKELETAL: No joint swelling or deformity. EXTREMITIES: No cyanosis, clubbing, or pedal edema. NEUROLOGICAL: Gross neurological examination did not reveal any focal deficits. SKIN: No rashes. no petechiae. - Labs CBC & Chem 7: 05/25/24 05:18 05/25/24 05:18 Labs: Abnormal Lab Results - Last 24 Hours (Table) 05/24/24 05/24/24 05/24/24 Range/Units 11:44 11:54 15:36 WBC (3.8-10.6) k/uL RBC (3.80-5.40) m/uL Hgb (11.4-16.0) gm/dL Hct (34.0-46.0) % MCV (80.0-100.0) fL Neutrophils # (1.3-7.7) k/uL Lymphocytes # (1.0-4.8) k/uL ABG pCO2 (35-45) mmHg ABG pO2 (83-108) mmHg ABG HCO3 (21-25) mmol/L ABG Total CO2 (19-24) mmol/L Chloride (98-107) mmol/L BUN (7-17) mg/dL Glucose (74-99) mg/dL POC Glucose (mg/dL) 167 H 180 H 162 H (70-110) mg/dL 05/24/24 05/25/24 05/25/24 Range/Units 20:05 00:01 03:40 WBC (3.8-10.6) k/uL RBC (3.80-5.40) m/uL Hgb (11.4-16.0) gm/dL Hct (34.0-46.0) % MCV (80.0-100.0) fL Neutrophils # (1.3-7.7) k/uL Lymphocytes # (1.0-4.8) k/uL ABG pCO2 (35-45) mmHg ABG pO2 (83-108) mmHg ABG HCO3 (21-25) mmol/L ABG Total CO2 (19-24) mmol/L Chloride (98-107) mmol/L BUN (7-17) mg/dL Glucose (74-99) mg/dL POC Glucose (mg/dL) 180 H 262 H 233 H (70-110) mg/dL 05/25/24 05/25/24 05/25/24 Range/Units 05:10 05:18 05:18 WBC 13.4 H (3.8-10.6) k/uL RBC 3.15 L (3.80-5.40) m/uL Hgb 9.9 L (11.4-16.0) gm/dL Hct 31.6 L (34.0-46.0) % MCV 100.2 H (80.0-100.0) fL Neutrophils # 12.3 H (1.3-7.7) k/uL Lymphocytes # 0.4 L (1.0-4.8) k/uL ABG pCO2 48 H (35-45) mmHg ABG pO2 71 L (83-108) mmHg ABG HCO3 31 H (21-25) mmol/L ABG Total CO2 33 H (19-24) mmol/L Chloride 110 H (98-107) mmol/L BUN 55 H (7-17) mg/dL Glucose 164 H (74-99) mg/dL POC Glucose (mg/dL) (70-110) mg/dL 05/25/24 Range/Units 08:44 WBC (3.8-10.6) k/uL RBC (3.80-5.40) m/uL Hgb (11.4-16.0) gm/dL Hct (34.0-46.0) % MCV (80.0-100.0) fL Neutrophils # (1.3-7.7) k/uL Lymphocytes # (1.0-4.8) k/uL ABG pCO2 (35-45) mmHg ABG pO2 (83-108) mmHg ABG HCO3 (21-25) mmol/L ABG Total CO2 (19-24) mmol/L Chloride (98-107) mmol/L BUN (7-17) mg/dL Glucose (74-99) mg/dL POC Glucose (mg/dL) 165 H (70-110) mg/dL Assessment and Plan Assessment: Acute on chronic hypoxic respiratory failure secondary to COPD exacerbation. Patient is on mechanical ventilator. Postoperative hypotension. Improved with fluid boluses. Acute delirium on admission Status post mechanical fall Acute left femur intertrochanteric fracture. Status post IM nailing. Postoperative day 1 COPD on home oxygen 3 L via nasal cannula Coronary artery disease with history of stent placement to left main at [facility] in September 2023 History of right internal carotid artery stenosis status post TCAR by vascular surgery. History of UT Hypertension Hyperlipidemia Diabetes type 2 [id number] Parkinson's disease Prior history of smoking Hypothyroidism Plan: Patient is s/p left hip IM nail Patient is on mechanical ventilator. Patient will be continued on telemonitoring. Continue insulin sliding scale for better blood sugar control. Started back on home medication including metoprolol, lisinopril and statins. Continue with aspirin.. Will start back on Plavix once cleared by surgery. Current with home medication including Synthroid. Will continue to follow and further recommendations based on the clinical cours e. Cardiology and pulmonary is on board.
[2024-05-25 20:37] LABS: Glucose,Whole Blood 216 mg/dL (70-110)
[2024-05-25] MEDS: METOPROLOL TARTRATE 25 MG TAB PO SCH (20:52)
[2024-05-25 23:36] LABS: Glucose,Whole Blood 197 mg/dL (70-110)
[2024-05-26] MEDS ORDERED: HEPARIN SODIUM 1,000 UN/ML (10ML VL) IV PRN (01:55)
[2024-05-26] MEDS: HEPARIN SODIUM 1,000 UN/ML (10ML VL) IV ONE (02:09)
[2024-05-26] MEDS: HEPARIN SOD,PORK IN 0.45% NACL 25,000 UNIT in 0.45% NACL 1 250ML.BAG IV SCH (02:10)
[2024-05-26] MEDS: DILTIAZEM DRIP BOLUS FROM BAG 1 MG SOLN IV ONE (02:14)
[2024-05-26] MEDS: DILTIAZEM 125 MG in SODIUM CHLORIDE 0.9% 100 ML IV SCH (02:28)
[2024-05-26 03:06] LABS: Basophils % (A) 0 %; Eosinophils % (A) 0 %; HCT 31.1 % (34.0-46.0); HGB 9.8 gm/dL (11.4-16.0); Hypochromasia Marked; Lymphocytes # (A) 0.4 k/uL (1.0-4.8); Lymphocytes % (A) 2 %; MCH 31.5 pg (25.0-35.0); MCHC 31.5 g/dL (31.0-37.0); MCV 100.1 fL (80.0-100.0); Mean Platelet Volume 9.5; Monocytes % (A) 6 %; Neutrophils # (A) 15.6 k/uL (1.3-7.7); Neutrophils % (A) 91 %; Platelet Count 249 k/uL (150-450); RBC 3.11 m/uL (3.80-5.40); RDW 13.9 % (11.5-15.5); WBC 17.2 k/uL (3.8-10.6)
[2024-05-26] MEDS: METOPROLOL TARTRATE 5 MG/5 ML VIAL IVP STA ×2 (03:51→04:32)
[2024-05-26 04:12] LABS: Glucose,Whole Blood 251 mg/dL (70-110)
[2024-05-26] MEDS: SODIUM CHLORIDE 0.9% 500 ML 500 ML IV SCH (04:12)
[2024-05-26 04:30] LABS: African American GFR (CKD) 76 (>60 ml/min/1.73 sqM); Anion Gap 7 mmol/L; Blood Urea Nitrogen 62 mg/dL (7-17); Calcium 8.6 mg/dL (8.4-10.2); Carbon Dioxide 25 mmol/L (22-30); Chloride 110 mmol/L (98-107); Glucose 192 mg/dL (74-99); Magnesium 2.5 mg/dL (1.6-2.3); Non-African American GFR(CKD) 66 (>60 ml/min/1.73 sqM); Potassium 4.3 mmol/L (3.5-5.1); Sodium 142 mmol/L (137-145)
[2024-05-26 05:19] LABS: ABG HCO3 29 mmol/L (21-25); ABG PCO2 49 mmHg (35-45); ABG PH 7.38 (7.35-7.45); ABG PO2 66 mmHg (83-108); ABG TCO2 30 mmol/L (19-24); Allen Test Performed? Yes
--- NOTE | 2024-05-26 07:01 | XR ---
EXAMINATION TYPE: XR chest 1V portable DATE OF EXAM: 05/26/2024 4:52 AM CLINICAL INDICATION:Female, 74 years old with history of mechanically ventilated; [facility] COMPARISON: Chest radiograph from one day prior. TECHNIQUE: XR chest 1V portable Frontal view of the chest. FINDINGS: Lungs/Pleura: There is no evidence of pleural effusion, focal consolidation, or pneumothorax. Pulmonary vascularity: Unremarkable. Heart/mediastinum: Cardiomediastinal silhouette is prominent in size. Atherosclerotic calcifications are seen in the aorta. Musculoskeletal: No acute osseous pathology. Other findings: None Lines/Tubes: Tracheostomy cannula tip projecting over the trachea. Suspected PEG tube now in place. IMPRESSION: Stable appearance of lungs with now a tracheostomy cannula.
[2024-05-26 07:37] LABS: Glucose,Whole Blood 191 mg/dL (70-110)
[2024-05-26 07:53] LABS: Glucose,Whole Blood 240 mg/dL (70-110)
[2024-05-26] MEDS ORDERED: DEXTROSE 5% IN WATER 100 ML with AMIODARONE 300 MG IV ONE (08:33)
[2024-05-26] MEDS: SODIUM CHLORIDE 0.9% 250 ML IV SCH (09:16)
[2024-05-26] MEDS: AMIODARONE 300 MG in D5W 250ml IV ONE (09:17)
--- NOTE | 2024-05-26 09:44 | P.PN ---
Subjective Progress Note Date: 05/26/24 Principal diagnosis: Respiratory failure. This is a 74-year-old female patient with a known history of coronary disease with previous stent placements, former smoker, oxygen dependent chronic obstructive pulmonary disease with an FEV1 value 30% of predicted, 0.67 L in 2021, diabetes mellitus, hypertension, hyperlipidemia, hypothyroidism. She presented to the emergency room this morning after sustaining a fall while up to her bathroom. She fell on her left hip and has significant left hip pain. She denied any loss of consciousness or other injuries. Left hip x-ray does reveal acute left femur intertrochanteric fracture. Moderate hip osteoarthrosis. EKG reveals sinus rhythm with no significant ST or T wave abnormalities. Chest x- ray shows no acute pulmonary process. White count 10.6. Hemoglobin 12.4. Platelets 210. Sodium 139. Potassium 4.5. Bicarb 32. BUN 15. Creatinine 0.85. Glucose 126. She is seen today in consultation in the emergency department. She is currently resting on a stretcher. Fairly comfortable at present. She has received Dilaudid. Denies any worsening shortness of breath, cough or congestion. No chest pain or palpitations. She is receiving normal saline at 75 MLS per hour. She is maintaining O2 saturation in the 90s on 3 L/min per nasal cannula. She is afebrile. Hemodynamically stable. Patient was reevaluated today on 05/18/24, patient was seen yesterday and cleared for surgery for her left hip, although she does have severe end-stage COPD. Today the patient developed more shortness of breath, she was initially on few liters nasal cannula, and overnight her O2 requirement has gone up significantly, I was notified multiple times about this patient earlier today not doing well experiencing mostly episodes of shortness of breath, and episodes of nausea and vomiting. I recommended placing the patient on BiPAP, and I recommended transferring the patient to the ICU. In the meantime I recommended holding on surgical plans, and a CT angiogram of the chest was ordered which came back negative for pulmonary embolism, but it did show evidence of advanced emphysema and compressive atelectasis at the right base as well as the left base with minimal effusion present at the right base labs today showed relatively normal electrolytes, BUN is 22 creatinine 1.1, blood sugar is 152. D-dimer was elevated at 5.32, but CT angiogram showed no evidence of thromboembolic disease. Patient was reevaluated today on 05/19/2024, remains on BiPAP 12/6/35%, patient became extremely agitated yesterday, and had to place the patient on Precedex at 0.8 mcg/kg/h. Patient seems to be doing better today, she is [place]. Troponin level has been on the rise, cardiology is evaluating the patient, she does have very strong history of coronary artery disease and multiple stents, cardiology will decide whether a cardiac catheterization will be necessary before clearing the patient for surgery. Workup by cardiology is in progress. In the meantime surgery for her intertrochanteric hip fracture is pending. Patient had a bit of low urine output, she will receive some Lasix today, and her daughter is at bedside, updated daughter on her condition. Labs today show WBC count of 8.5 hemoglobin 11.5 electrolytes are normal renal profile showed a BUN of [address] angiogram on this patient showed mostly COPD, no evidence of pulmonary embolism The patient is seen today May 20, 2024 in follow-up in the intensive care unit. She is currently sitting up in bed. Awake and alert. She is on BiPAP 12/6 and 35% FiO2. She is requiring Precedex at 1 mg/kg/h. She has normal saline at 75 MLS per hour. Chest x-ray reveals nonspecific mild increased lung markings diffusely. Mild pulmonary edema versus atelectasis. White count 9.7. Hemoglobin 10.8. Platelets 175. Sodium 140. Potassium 5.0. Bicarb 25. BUN 39. Creatinine 0.68. Glucose 139. She remains on DuoNeb ventilations, Pulmicort and Perforomist inhalations, Solu-Medrol. NicoDerm patch will be applied. The plan may be for repair of her left hip fracture today. The patient is seen today May 21, 2024 in follow-up in the intensive care unit. She did undergo left hip IT fracture cephalomedullary nailing yesterday. She did remain intubated on the mechanical ventilator currently on assist-control mode at a rate of 26, tidal volume 400, FiO2 40% and a PEEP of 5. Morning blood gases revealed a PaO2 of 90, pCO2 41 and a pH of 7.26. She is sedated with propofol at 45 mcg/kg/min. She has normal saline at 75 MLS per hour. She did receive 2 L of fluid resuscitation yesterday. She is currently in a 2.9 liter positive balance. Chest x-ray shows bibasilar infiltrates. Probable atelectasis. White count 15.2. Hemoglobin 10.2. Platelets 279. Sodium 142. Potassium 4.7. Bicarb 16. Chloride 114. BUN 41. Creatinine 0.96. Glucose 156. Continued on DuoNeb inhalations, Pulmicort and Perforomist inhalations, IV Solu-Medrol. NicoDerm patch in place. CT scan of the brain from yesterday revealed no acute intracranial abnormalities. The patient is seen today May 22, 2024 in follow-up in the intensive care unit. She remains intubated on mechanical ventilator currently on assist-control mode at a rate of 26, tidal volume 400, FiO2 40% and a PEEP of 5. Morning blood gases revealed a PaO2 of 87, pCO2 48 and a pH of 7.21. She remains sedated on propofol at 45 mcg/kg/min. Normal saline at 75 MLS per hour. She is being nourished with vital AF at 37 MLS per hour which is goal. Chest x-ray reveals diffuse alveolar infiltrate. White count 11.4. Hemoglobin 10.1. Platelets 168. Sodium 140. Potassium 4.3. Bicarb 21. BUN 47. Creatinine 0.81. Glucose 203. She is currently in a 770 mL positive balance. Remains on DuoNeb inhalations, Pulmicort and Perforomist inhalations, Solu-Medrol. NicoDerm patch in place. Lovenox for DVT prophylaxis. The patient is seen today May 23, 2024 in follow-up in the intensive care unit. Postoperative day #3. She remains intubated on the mechanical ventilator and assist-control mode at a rate of 26, tidal volume 400, FiO2 40% and a PEEP of 5. ABGs reveal a PaO2 of 56, pCO2 46 and a pH of 7.41. She is sedated on propofol at 50 mcg/kg/min. Normal saline at KVO. She is being nourished with vital HP at 37 MLS per hour which is goal. She did undergo a daily interruption of sedation yesterday at which time she became quite tachycardic and decreasing FiO2 within approximately 10 minutes. Chest x-ray reveals a right lower lobe infiltrate and mild left lower lobe infiltrate. White count 13.1. Hemoglobin 9.9. Platelets 219. Sodium 140. Potassium 3.6. Bicarb 25. BUN 54. Creatinine 0.73. Glucose 235. Michael on DuoNeb ventilations, Pulmicort and Perforomist inhalations, Solu-Medrol. NicoDerm patch in place. Lovenox for DVT prophylaxis. Progress note dated May 25, 2024. 74-year-old female seen today in room 256. The patient remains on the mechani freda ventilator. She is on volume assist-control, rate 26, tidal volume 400, FiO2 50%, PEEP of 5. Blood gases show up pO2 of 71, pCO2 of 48, pH of 7.42. This is a mixed acid-base disturbance. The patient had a tracheostomy and PEG tube placement on May 24. She remains on propofol at 50 mcg/kg/min, and saline at KVO. She is getting vital AF at 37 cc an hour, which will be resumed later today, after 24 hours, after the insertion of the PEG tube. The patient will have a daily interruption of sedation today. In addition, we add Seroquel 25 mg 3 times a day to her regimen. Current labs include a white count 13.4, hemoglobin 9.9, hematocrit 31.6, and a platelet count of 236,000. Sodium 143, potassium 4.2, chlorides 110, CO2 28, BUN 55, and creatinine 0.67. Glucose 165. Calcium 8.4. Chest x-ray shows a stable chest x-ray, with a well-placed midline tracheostomy tube. Progress note dated May 26, 2024. 74-year-old female seen today in room 256. The patient remains on the mechan ical ventilator. She is on volume assist-control, rate 26, tidal volume 400, FiO2 50%, PEEP of 5. Blood gases show pO2 of 66, pCO2 of 49, pH is 7.38. For sedation she is on propofol at 40 mcg/kg/min, heparin via weight-based protocol for atrial fibrillation, Cardizem 15 mg an hour, and amiodarone at 1 mg/min. The patient's atrial fibrillation, developed early in the morning. She is getting vital AF at 37 cc an hour. The patient have a daily interruption of sedation, on May 25, she did poorly. She will likely not have 1 today. White count 17.2, hemoglobin 9.8, hematocrit 31.1, platelet count normal. Sodium 142, potassium 4.3, chlorides 110, CO2 25, BUN 62, creatinine 0.87. Glucose is 240. Calcium 8.6. Magnesium 2.5. Chest x-ray is largely unchanged. Midline tracheostomy tube was noted. Objective - Vital Signs Vital signs: Vital Signs Temp 99.7 F H 05/26/24 04:00 Pulse 154 H 05/26/24 07:00 Resp 26 H 05/26/24 07:00 BP 117/59 05/26/24 07:00 Pulse Ox 98 05/26/24 07:00 FiO2 50 05/26/24 08:15 Intake & Output 05/25/24 05/26/24 05/26/24 18:59 06:59 18:59 Intake Total 692.275 802.851 151.873 Output Total 455 665 75 Balance 237.275 137.851 76.873 Weight 75.3 kg Intake: IV 120 120 10 Sodium Chloride 0.9% 1, 120 90 000 ml @ 10 mls/hr IV . Q24H [facility] Rx#:[id number] Sodium Chloride 0.9% 500 30 10 ml 500 ml @ 10 mls/hr IV .Q24H [facility] Rx#:[id number] Intake, IV Titration 253.275 148.851 104.873 Amount Diltiazem 125 mg In 3.917 86.25 Sodium Chloride 0.9% 100 ml @ Per Protocol IV .Q0M [facility] Rx#:[id number] Empty Bag 1 bag @ 10 MCG/ 253.275 125.72 KG/MIN 4.2 mls/hr IV . [id number] [facility] with propofoL 1,000 mg Rx#:[id number] Heparin Sod,Pork in 0.45% 19.214 18.623 NaCl 25,000 unit In 0.45 % NaCl 1 250ml.bag @ 12 UNITS/KG/HR 8.868 mls/hr IV .Q24H [facility] Rx#: [id number] Tube Feeding 259 444 37 Other 60 90 Output: Urine 455 665 75 Other: Voiding Method Indwelling Catheter Indwelling Catheter - Exam No acute distress, sedated on propofol. HEENT examination is grossly unremarkable. Mucous membranes are moist. No oral lesions. Neck supple. Full range of motion. No adenopathy thyromegaly or neck vein distention. Midline tracheostomy tube is noted. Cardiovascular examination reveals an irregular rhythm and rate. S1-S2 normal. No S3 or S4. No discernible murmur noted. Heart rate 122 bpm. Lungs reveal diminished bilateral breath sounds. Scattered rhonchi are noted. No wheezes. Breath sounds equal bilaterally. Saturations are now 98%. Abdomen soft bowel sounds are heard. No masses or tenderness. PEG tube is noted. Extremities are intact. No cyanosis clubbing or edema. Skin is without rash or lesion. Neurologic examination cannot be assessed at this time. - Labs CBC & Chem 7: 05/26/24 02:40 05/26/24 02:40 Labs: Abnormal Lab Results - Last 24 Hours (Table) 05/25/24 05/25/24 05/25/24 Range/Units 11:59 16:11 20:35 WBC (3.8-10.6) k/uL RBC (3.80-5.40) m/uL Hgb (11.4-16.0) gm/dL Hct (34.0-46.0) % MCV (80.0-100.0) fL Neutrophils # (1.3-7.7) k/uL Lymphocytes # (1.0-4.8) k/uL APTT (22.0-30.0) sec ABG pCO2 (35-45) mmHg ABG pO2 (83-108) mmHg ABG HCO3 (21-25) mmol/L ABG Total CO2 (19-24) mmol/L ABG O2 Saturation (94-97) % Chloride (98-107) mmol/L BUN (7-17) mg/dL Glucose (74-99) mg/dL POC Glucose (mg/dL) 248 H 218 H 216 H (70-110) mg/dL Magnesium (1.6-2.3) mg/dL 05/25/24 05/26/24 05/26/24 Range/Units 23:35 02:35 02:40 WBC 17.2 H (3.8-10.6) k/uL RBC 3.11 L (3.80-5.40) m/uL Hgb 9.8 L (11.4-16.0) gm/dL Hct 31.1 L (34.0-46.0) % MCV 100.1 H (80.0-100.0) fL Neutrophils # 15.6 H (1.3-7.7) k/uL Lymphocytes # 0.4 L (1.0-4.8) k/uL APTT 129.4 H* (22.0-30.0) sec ABG pCO2 (35-45) mmHg ABG pO2 (83-108) mmHg ABG HCO3 (21-25) mmol/L ABG Total CO2 (19-24) mmol/L ABG O2 Saturation (94-97) % Chloride (98-107) mmol/L BUN (7-17) mg/dL Glucose (74-99) mg/dL POC Glucose (mg/dL) 197 H (70-110) mg/dL Magnesium (1.6-2.3) mg/dL 05/26/24 05/26/24 05/26/24 Range/Units 02:40 04:10 05:16 WBC (3.8-10.6) k/uL RBC (3.80-5.40) m/uL Hgb (11.4-16.0) gm/dL Hct (34.0-46.0) % MCV (80.0-100.0) fL Neutrophils # (1.3-7.7) k/uL Lymphocytes # (1.0-4.8) k/uL APTT (22.0-30.0) sec ABG pCO2 49 H (35-45) mmHg ABG pO2 66 L (83-108) mmHg ABG HCO3 29 H (21-25) mmol/L ABG Total CO2 30 H (19-24) mmol/L ABG O2 Saturation 93.0 L (94-97) % Chloride 110 H (98-107) mmol/L BUN 62 H (7-17) mg/dL Glucose 192 H (74-99) mg/dL POC Glucose (mg/dL) 251 H (70-110) mg/dL Magnesium 2.5 H (1.6-2.3) mg/dL 05/26/24 05/26/24 Range/Units 07:35 07:52 WBC (3.8-10.6) k/uL RBC (3.80-5.40) m/uL Hgb (11.4-16.0) gm/dL Hct (34.0-46.0) % MCV (80.0-100.0) fL Neutrophils # (1.3-7.7) k/uL Lymphocytes # (1.0-4.8) k/uL APTT (22.0-30.0) sec ABG pCO2 (35-45) mmHg ABG pO2 (83-108) mmHg ABG HCO3 (21-25) mmol/L ABG Total CO2 (19-24) mmol/L ABG O2 Saturation (94-97) % Chloride (98-107) mmol/L BUN (7-17) mg/dL Glucose (74-99) mg/dL POC Glucose (mg/dL) 191 H 240 H (70-110) mg/dL Magnesium (1.6-2.3) mg/dL Assessment and Plan Assessment: Acute nondisplaced left intertrochanteric femur fracture status post fall from standing position. Status post repair with intramedullary nailing 05/20/2024. Postoperative day #5. Postop day #2, status post tracheostomy and PEG tube placement, for failure to wean. Acute atrial fibrillation with rapid ventricular response. Acute on chronic hypoxemic respiratory failure requiring intubation and mechanical ventilatory support on 05/20/2024, an expected outcome of surgery in a patient with severe COPD. Severe oxygen dependent chronic obstructive pulmonary disease with an FEV1 value 0.67 L, 30% of predicted. Former smoker. Coronary artery disease with previous stent placements. Diabetes mellitus. Hyperlipidemia. Hypertension. Hypothyroidism. Plan: Plan dated May 25, 2024. The patient had a tracheostomy and PEG tube placed yesterday. Tube feedings will be resumed sometime later today. The patient remains on the mechanical ventilator. Vent settings and blood gases are appropriate. Labs, x-rays, and medications are all reviewed. We will continue to follow the patient, make recommendations along the way. Today is postoperative day #4, S/P repair of a nondisplaced left intertrochanteric femur fracture. The patient's overall prog nosis remains guarded. Tube feedings were resumed later today. She continues on GI and DVT prophylaxis. Prognosis is significantly guarded. Plan dated May 26, 2024. The patient developed atrial fibrillation with rapid ventricular response last night. She is currently on a Cardizem drip at 15 mg an hour, amiodarone at 1 mg/min, and IV heparin via weight-based protocol. She continues on propofol for sedation at 40 mcg/kg/min. Blood gases are reasonable. She continues on vital AF at 37 cc an hour, which is goal. The patient did poorly with her daily interruption of sedation yesterday. She will not have one today. Labs, x-rays, and medications are reviewed. The patient's overall prognosis remains very guarded. Time with Patient: Greater than 30
--- NOTE | 2024-05-26 10:05 | P.PN ---
Subjective Progress Note Date: 05/26/24 Patient sage in the ICU. Vital signs appear stable. Tracheostomy site is clean. There are some mucus discharge. PEG tube site is clean. Patient to receive supportive care. Objective - Vital Signs Vital signs: Vital Signs Temp 98.1 F 05/26/24 08:00 Pulse 149 H 05/26/24 09:30 Resp 24 05/26/24 09:30 BP 127/63 05/26/24 09:30 Pulse Ox 98 05/26/24 09:30 FiO2 50 05/26/24 08:15 Intake & Output 05/25/24 05/26/24 05/26/24 18:59 06:59 18:59 Intake Total 692.275 802.851 275.873 Output Total 455 665 150 Balance 237.275 137.851 125.873 Weight 75.3 kg Intake: IV 120 120 30 Sodium Chloride 0.9% 1, 120 90 000 ml @ 10 mls/hr IV . Q24H [facility] Rx#:[id number] Sodium Chloride 0.9% 500 30 30 ml 500 ml @ 10 mls/hr IV .Q24H [facility] Rx#:[id number] Intake, IV Titration 253.275 148.851 104.873 Amount Diltiazem 125 mg In 3.917 86.25 Sodium Chloride 0.9% 100 ml @ Per Protocol IV .Q0M [facility] Rx#:[id number] Empty Bag 1 bag @ 10 MCG/ 253.275 125.72 KG/MIN 4.2 mls/hr IV . [id number] [facility] with propofoL 1,000 mg Rx#:[id number] Heparin Sod,Pork in 0.45% 19.214 18.623 NaCl 25,000 unit In 0.45 % NaCl 1 250ml.bag @ 12 UNITS/KG/HR 8.868 mls/hr IV .Q24H [facility] Rx#: [id number] Tube Feeding 259 444 111 Other 60 90 30 Output: Urine 455 665 150 Other: Voiding Method Indwelling Catheter Indwelling Catheter Indwelling Catheter - Labs CBC & Chem 7: 05/26/24 02:40 05/26/24 02:40 Labs: Abnormal Lab Results - Last 24 Hours (Table) 05/25/24 05/25/24 05/25/24 Range/Units 11:59 16:11 20:35 WBC (3.8-10.6) k/uL RBC (3.80-5.40) m/uL Hgb (11.4-16.0) gm/dL Hct (34.0-46.0) % MCV (80.0-100.0) fL Neutrophils # (1.3-7.7) k/uL Lymphocytes # (1.0-4.8) k/uL APTT (22.0-30.0) sec ABG pCO2 (35-45) mmHg ABG pO2 (83-108) mmHg ABG HCO3 (21-25) mmol/L ABG Total CO2 (19-24) mmol/L ABG O2 Saturation (94-97) % Chloride (98-107) mmol/L BUN (7-17) mg/dL Glucose (74-99) mg/dL POC Glucose (mg/dL) 248 H 218 H 216 H (70-110) mg/dL Magnesium (1.6-2.3) mg/dL 05/25/24 05/26/24 05/26/24 Range/Units 23:35 02:35 02:40 WBC 17.2 H (3.8-10.6) k/uL RBC 3.11 L (3.80-5.40) m/uL Hgb 9.8 L (11.4-16.0) gm/dL Hct 31.1 L (34.0-46.0) % MCV 100.1 H (80.0-100.0) fL Neutrophils # 15.6 H (1.3-7.7) k/uL Lymphocytes # 0.4 L (1.0-4.8) k/uL APTT 129.4 H* (22.0-30.0) sec ABG pCO2 (35-45) mmHg ABG pO2 (83-108) mmHg ABG HCO3 (21-25) mmol/L ABG Total CO2 (19-24) mmol/L ABG O2 Saturation (94-97) % Chloride (98-107) mmol/L BUN (7-17) mg/dL Glucose (74-99) mg/dL POC Glucose (mg/dL) 197 H (70-110) mg/dL Magnesium (1.6-2.3) mg/dL 05/26/24 05/26/24 05/26/24 Range/Units 02:40 04:10 05:16 WBC (3.8-10.6) k/uL RBC (3.80-5.40) m/uL Hgb (11.4-16.0) gm/dL Hct (34.0-46.0) % MCV (80.0-100.0) fL Neutrophils # (1.3-7.7) k/uL Lymphocytes # (1.0-4.8) k/uL APTT (22.0-30.0) sec ABG pCO2 49 H (35-45) mmHg ABG pO2 66 L (83-108) mmHg ABG HCO3 29 H (21-25) mmol/L ABG Total CO2 30 H (19-24) mmol/L ABG O2 Saturation 93.0 L (94-97) % Chloride 110 H (98-107) mmol/L BUN 62 H (7-17) mg/dL Glucose 192 H (74-99) mg/dL POC Glucose (mg/dL) 251 H (70-110) mg/dL Magnesium 2.5 H (1.6-2.3) mg/dL 05/26/24 05/26/24 Range/Units 07:35 07:52 WBC (3.8-10.6) k/uL RBC (3.80-5.40) m/uL Hgb (11.4-16.0) gm/dL Hct (34.0-46.0) % MCV (80.0-100.0) fL Neutrophils # (1.3-7.7) k/uL Lymphocytes # (1.0-4.8) k/uL APTT (22.0-30.0) sec ABG pCO2 (35-45) mmHg ABG pO2 (83-108) mmHg ABG HCO3 (21-25) mmol/L ABG Total CO2 (19-24) mmol/L ABG O2 Saturation (94-97) % Chloride (98-107) mmol/L BUN (7-17) mg/dL Glucose (74-99) mg/dL POC Glucose (mg/dL) 191 H 240 H (70-110) mg/dL Magnesium (1.6-2.3) mg/dL
--- NOTE | 2024-05-26 10:21 | P.PN ---
Subjective HISTORY OF PRESENT ILLNESS: 05/22/2024 The patient is a 74-year-old female who was admitted to the hospital with hip fracture. Patient was scheduled to undergo surgery, however she developed severe shortness of breath. Troponins were mildly elevated and therefore cardiology was consulted. Patient was deemed a high risk candidate, but underwent left hip intercurrent trochanteric femur fracture cephalomedullary nailing. Unfortunately the patient was not able to be extubated yesterday due to not passing her weaning parameters. Nursing staff states that they will attempt again later today. 05/26/2024 Cardiology was reconsulted this morning secondary to A-fib with RVR. Patient examined this morning in the intensive care unit. Patient remains on mechanical ventilation. Bedside telemetry reveals atrial tachycardia/atrial fibrillation with a heart rate in the 150s. She is currently on IV Cardizem at 15 mg an hour. PHYSICAL EXAM: VITAL SIGNS: Reviewed. GENERAL: Well-developed in no acute distress. Remains on mechanical ventilati on. NECK: Supple. No JVD or thyromegaly LUNGS: Respirations even and unlabored. Lungs essentially clear to auscultation bilaterally. HEART: Tachycardic. Irregular rate and rhythm. S1 and S2 heard. EXTREMITIES: Normal range of motion. No clubbing or cyanosis. Peripheral pulses intact. No lower extremity edema ASSESSMENT: Status post mechanical fall Status post left hip intertrochanteric femur fracture cephalomedullary nailing Acute hypoxic respiratory failure requiring mechanical ventilation Status post trach and PEG, May 24, 2024 Paroxysmal atrial fibrillation/atrial flutter with RVR CAD status post complex left main PCI Elliot Salas 09/2023 Elevated troponins, flat, likely type II NC secondary to oxygen supply and demand mismatch Right internal carotid stenosis, S/p TCAR Hypertension Hyperlipidemia COPD with home oxygen use Diabetes Parkinson's disease Recent cessation of nicotine use, patient quit smoking 2 weeks ago PLAN: Continue IV heparin Continue IV Cardizem. Wean if heart rate will tolerate. Begin IV amiodarone bolus and drip per protocol. Patient to receive 300 mg b olus over 2 hours. Patient appears dry this morning with a BUN rising up to 62. 15 on admission. Give 250 cc bolus. If patient's urine output improves with IV bolus, would recommend maintenance IV fluids at 50 cc an hour Continue telemetry monitoring Patient did have an echo performed. However it is not uploaded in the system. Will speak to echo department tomorrow to have echo manually put into [employer]. Further recommendations pending patient course Nurse practitioner note has been reviewed by physician. Signing provider agrees with the documented findings, assessment, and plan of care documented by RE[employer] MANAGER as a scribe. Objective - Vital Signs Vital signs: Vital Signs Temp 98.1 F 05/26/24 08:00 Pulse 149 H 05/26/24 09:30 Resp 24 05/26/24 09:30 BP 127/63 05/26/24 09:30 Pulse Ox 98 05/26/24 09:30 FiO2 50 05/26/24 08:15 Intake & Output 05/25/24 05/26/24 05/26/24 18:59 06:59 18:59 Intake Total 692.275 802.851 275.873 Output Total 455 665 150 Balance 237.275 137.851 125.873 Weight 75.3 kg Intake: IV 120 120 30 Sodium Chloride 0.9% 1, 120 90 000 ml @ 10 mls/hr IV . Q24H [facility] Rx#:[id number] Sodium Chloride 0.9% 500 30 30 ml 500 ml @ 10 mls/hr IV .Q24H [facility] Rx#:[id number] Intake, IV Titration 253.275 148.851 104.873 Amount Diltiazem 125 mg In 3.917 86.25 Sodium Chloride 0.9% 100 ml @ Per Protocol IV .Q0M [facility] Rx#:[id number] Empty Bag 1 bag @ 10 MCG/ 253.275 125.72 KG/MIN 4.2 mls/hr IV . [id number] [facility] with propofoL 1,000 mg Rx#:[id number] Heparin Sod,Pork in 0.45% 19.214 18.623 NaCl 25,000 unit In 0.45 % NaCl 1 250ml.bag @ 12 UNITS/KG/HR 8.868 mls/hr IV .Q24H [facility] Rx#: [id number] Tube Feeding 259 444 111 Other 60 90 30 Output: Urine 455 665 150 Other: Voiding Method Indwelling Catheter Indwelling Catheter Indwelling Catheter - Labs CBC & Chem 7: 05/26/24 02:40 05/26/24 02:40 Labs: Abnormal Lab Results - Last 24 Hours (Table) 05/25/24 05/25/24 05/25/24 Range/Units 11:59 16:11 20:35 WBC (3.8-10.6) k/uL RBC (3.80-5.40) m/uL Hgb (11.4-16.0) gm/dL Hct (34.0-46.0) % MCV (80.0-100.0) fL Neutrophils # (1.3-7.7) k/uL Lymphocytes # (1.0-4.8) k/uL APTT (22.0-30.0) sec ABG pCO2 (35-45) mmHg ABG pO2 (83-108) mmHg ABG HCO3 (21-25) mmol/L ABG Total CO2 (19-24) mmol/L ABG O2 Saturation (94-97) % Chloride (98-107) mmol/L BUN (7-17) mg/dL Glucose (74-99) mg/dL POC Glucose (mg/dL) 248 H 218 H 216 H (70-110) mg/dL Magnesium (1.6-2.3) mg/dL 05/25/24 05/26/24 05/26/24 Range/Units 23:35 02:35 02:40 WBC 17.2 H (3.8-10.6) k/uL RBC 3.11 L (3.80-5.40) m/uL Hgb 9.8 L (11.4-16.0) gm/dL Hct 31.1 L (34.0-46.0) % MCV 100.1 H (80.0-100.0) fL Neutrophils # 15.6 H (1.3-7.7) k/uL Lymphocytes # 0.4 L (1.0-4.8) k/uL APTT 129.4 H* (22.0-30.0) sec ABG pCO2 (35-45) mmHg ABG pO2 (83-108) mmHg ABG HCO3 (21-25) mmol/L ABG Total CO2 (19-24) mmol/L ABG O2 Saturation (94-97) % Chloride (98-107) mmol/L BUN (7-17) mg/dL Glucose (74-99) mg/dL POC Glucose (mg/dL) 197 H (70-110) mg/dL Magnesium (1.6-2.3) mg/dL 05/26/24 05/26/24 05/26/24 Range/Units 02:40 04:10 05:16 WBC (3.8-10.6) k/uL RBC (3.80-5.40) m/uL Hgb (11.4-16.0) gm/dL Hct (34.0-46.0) % MCV (80.0-100.0) fL Neutrophils # (1.3-7.7) k/uL Lymphocytes # (1.0-4.8) k/uL APTT (22.0-30.0) sec ABG pCO2 49 H (35-45) mmHg ABG pO2 66 L (83-108) mmHg ABG HCO3 29 H (21-25) mmol/L ABG Total CO2 30 H (19-24) mmol/L ABG O2 Saturation 93.0 L (94-97) % Chloride 110 H (98-107) mmol/L BUN 62 H (7-17) mg/dL Glucose 192 H (74-99) mg/dL POC Glucose (mg/dL) 251 H (70-110) mg/dL Magnesium 2.5 H (1.6-2.3) mg/dL 05/26/24 05/26/24 Range/Units 07:35 07:52 WBC (3.8-10.6) k/uL RBC (3.80-5.40) m/uL Hgb (11.4-16.0) gm/dL Hct (34.0-46.0) % MCV (80.0-100.0) fL Neutrophils # (1.3-7.7) k/uL Lymphocytes # (1.0-4.8) k/uL APTT (22.0-30.0) sec ABG pCO2 (35-45) mmHg ABG pO2 (83-108) mmHg ABG HCO3 (21-25) mmol/L ABG Total CO2 (19-24) mmol/L ABG O2 Saturation (94-97) % Chloride (98-107) mmol/L BUN (7-17) mg/dL Glucose (74-99) mg/dL POC Glucose (mg/dL) 191 H 240 H (70-110) mg/dL Magnesium (1.6-2.3) mg/dL
[2024-05-26] MEDS: AMIODARONE 360 MG in DEXTROSE 5% IN WATER 200 ML IV ONE (11:02)
[2024-05-26 11:48] LABS: Glucose,Whole Blood 290 mg/dL (70-110)
--- NOTE | 2024-05-26 14:24 | P.PN ---
Subjective 74-year-old female with a past medical history of coronary disease status post stent placement, COPD on 3 L oxygen via nasal cannula at home, history of CVA/TIA, hypertension, diabetes type 2, hyperlipidemia, history of NV, hypothyroidism, and prior history of smoking and recent dizzy spells. Patient presents to ER after sustaining a fall while she was in her bathroom. She slipped and fell on her left side and injured her hip. Denied any loss of consciousness as per her daughter. Patient is unable to provide much history and has been lethargic and sleepy. Denies any complaints of chest pain or shortness of breath. EKG showed sinus rhythm. 2D echocardiogram done on 06/16/2023 showed normal LV systolic function. Mildly enlarged right ventricle with RVSP around 50 mmHg and Chest x-ray on admission showed some mildly increased lung markings at the right apex of uncertain etiology. Summation density small densities are within the differential. X-ray of the hip/pelvis showed acute left femur intertrochanteric fracture. Moderate hip osteoarthrosis. On admission blood pressure 120/42 pulse 63 respiration 20 pulse ox 92% on 3 L oxygen via nasal cannula. Laboratory data showed WBC 10.6 hemoglobin 12.4 and platelets 210, MCV 100.5 Sodium 139 potassium 4.5 chloride 105 bicarb is 32 BUN 15 and creatinine 0.85 and blood sugar 126 and total bili 1.8 liver enzymes are not elevated albumin 3.3. 24-hour interval change 05/25/2024 Patient is seen and evaluated with nursing staff at bedside; The patient remains on the mechanical ventilator. She is on volume assist-control, rate 26, tidal volume 400, FiO2 50%, PEEP of 5. Blood gases show up pO2 of 71, pCO2 of 48, pH of 7.42. This is a mixed acid-base disturbance. The patient had a tracheostomy and PEG tube placement on May 24. She remains on propofol at 50 mcg/kg/min, and saline at KVO. She is getting vital AF at 37 cc an hour, which will be resumed later today, after 24 hours, after the insertion of the PEG tube. The patient will have a daily interruption of sedation today. In addition, we add Seroquel 25 mg 3 times a day to her regimen. Current labs include a white count 13.4, hemoglobin 9.9, hematocrit 31.6, and a platelet count of 236,000. Sodium 143, potassium 4.2, chlorides 110, CO2 28, BUN 55, and creatinine 0.67. Glucose 165. Calcium 8.4. Chest x-ray shows a stable chest x-ray, with a well-placed midline tracheostomy tube 05/26/2024 The patient is seen and evaluated in room at bedside; discussed with nursing staff remains on the mechanical ventilator. Patient converted to atrial fibrillation with RVR Blood gases show pO2 of 66, pCO2 of 49, pH is 7.38. Patient seems to have converted to normal sinus rhythm but remains on heparin via weight-based protocol for atrial fibrillation, Cardizem 15 mg an hour, and amiodarone at 1 mg/min. --White count 17.2, hemoglobin 9.8, hematocrit 31.1, platelet count normal. Sodium 142, potassium 4.3, chlorides 110, CO2 25, BUN 62, creatinine 0.87. Glucose is 240. Calcium 8.6. Magnesium 2.5. Chest x-ray is largely unchanged. Objective - Vital Signs Vital signs: Vital Signs Temp 98.1 F 05/26/24 08:00 Pulse 149 H 05/26/24 09:30 Resp 24 05/26/24 09:30 BP 127/63 05/26/24 09:30 Pulse Ox 98 05/26/24 09:30 FiO2 50 05/26/24 08:15 Intake & Output 05/25/24 05/26/24 05/26/24 18:59 06:59 18:59 Intake Total 692.275 802.851 275.873 Output Total 455 665 150 Balance 237.275 137.851 125.873 Weight 75.3 kg Intake: IV 120 120 30 Sodium Chloride 0.9% 1, 120 90 000 ml @ 10 mls/hr IV . Q24H [facility] Rx#:[id number] Sodium Chloride 0.9% 500 30 30 ml 500 ml @ 10 mls/hr IV .Q24H [facility] Rx#:[id number] Intake, IV Titration 253.275 148.851 104.873 Amount Diltiazem 125 mg In 3.917 86.25 Sodium Chloride 0.9% 100 ml @ Per Protocol IV .Q0M [facility] Rx#:[id number] Empty Bag 1 bag @ 10 MCG/ 253.275 125.72 KG/MIN 4.2 mls/hr IV . [id number] [facility] with propofoL 1,000 mg Rx#:[id number] Heparin Sod,Pork in 0.45% 19.214 18.623 NaCl 25,000 unit In 0.45 % NaCl 1 250ml.bag @ 12 UNITS/KG/HR 8.868 mls/hr IV .Q24H [facility] Rx#: [id number] Tube Feeding 259 444 111 Other 60 90 30 Output: Urine 455 665 150 Other: Voiding Method Indwelling Catheter Indwelling Catheter Indwelling Catheter - Exam -GENERAL: The patient is intubated and sedated HEENT: Pupils are round and equally reacting to light. EOMI. No scleral icterus. No conjunctival pallor. Normocephalic, atraumatic. No pharyngeal erythema. No thyromegaly. CARDIOVASCULAR: S1 and S2 present. No murmurs, rubs, or gallops. PULMONARY: Chest is clear to auscultation, no wheezing , no crackles. ABDOMEN: Soft, nontender, nondistended, normoactive bowel sounds. No palpable organomegaly. MUSCULOSKELETAL: No joint swelling or deformity. EXTREMITIES: No cyanosis, clubbing, or pedal edema. NEUROLOGICAL: Gross neurological examination did not reveal any focal deficits. SKIN: No rashes. no petechiae. - Labs CBC & Chem 7: 05/26/24 02:40 05/26/24 02:40 Labs: Abnormal Lab Results - Last 24 Hours (Table) 05/25/24 05/25/24 05/25/24 Range/Units 11:59 16:11 20:35 WBC (3.8-10.6) k/uL RBC (3.80-5.40) m/uL Hgb (11.4-16.0) gm/dL Hct (34.0-46.0) % MCV (80.0-100.0) fL Neutrophils # (1.3-7.7) k/uL Lymphocytes # (1.0-4.8) k/uL APTT (22.0-30.0) sec ABG pCO2 (35-45) mmHg ABG pO2 (83-108) mmHg ABG HCO3 (21-25) mmol/L ABG Total CO2 (19-24) mmol/L ABG O2 Saturation (94-97) % Chloride (98-107) mmol/L BUN (7-17) mg/dL Glucose (74-99) mg/dL POC Glucose (mg/dL) 248 H 218 H 216 H (70-110) mg/dL Magnesium (1.6-2.3) mg/dL 05/25/24 05/26/24 05/26/24 Range/Units 23:35 02:35 02:40 WBC 17.2 H (3.8-10.6) k/uL RBC 3.11 L (3.80-5.40) m/uL Hgb 9.8 L (11.4-16.0) gm/dL Hct 31.1 L (34.0-46.0) % MCV 100.1 H (80.0-100.0) fL Neutrophils # 15.6 H (1.3-7.7) k/uL Lymphocytes # 0.4 L (1.0-4.8) k/uL APTT 129.4 H* (22.0-30.0) sec ABG pCO2 (35-45) mmHg ABG pO2 (83-108) mmHg ABG HCO3 (21-25) mmol/L ABG Total CO2 (19-24) mmol/L ABG O2 Saturation (94-97) % Chloride (98-107) mmol/L BUN (7-17) mg/dL Glucose (74-99) mg/dL POC Glucose (mg/dL) 197 H (70-110) mg/dL Magnesium (1.6-2.3) mg/dL 05/26/24 05/26/24 05/26/24 Range/Units 02:40 04:10 05:16 WBC (3.8-10.6) k/uL RBC (3.80-5.40) m/uL Hgb (11.4-16.0) gm/dL Hct (34.0-46.0) % MCV (80.0-100.0) fL Neutrophils # (1.3-7.7) k/uL Lymphocytes # (1.0-4.8) k/uL APTT (22.0-30.0) sec ABG pCO2 49 H (35-45) mmHg ABG pO2 66 L (83-108) mmHg ABG HCO3 29 H (21-25) mmol/L ABG Total CO2 30 H (19-24) mmol/L ABG O2 Saturation 93.0 L (94-97) % Chloride 110 H (98-107) mmol/L BUN 62 H (7-17) mg/dL Glucose 192 H (74-99) mg/dL POC Glucose (mg/dL) 251 H (70-110) mg/dL Magnesium 2.5 H (1.6-2.3) mg/dL 05/26/24 05/26/24 Range/Units 07:35 07:52 WBC (3.8-10.6) k/uL RBC (3.80-5.40) m/uL Hgb (11.4-16.0) gm/dL Hct (34.0-46.0) % MCV (80.0-100.0) fL Neutrophils # (1.3-7.7) k/uL Lymphocytes # (1.0-4.8) k/uL APTT (22.0-30.0) sec ABG pCO2 (35-45) mmHg ABG pO2 (83-108) mmHg ABG HCO3 (21-25) mmol/L ABG Total CO2 (19-24) mmol/L ABG O2 Saturation (94-97) % Chloride (98-107) mmol/L BUN (7-17) mg/dL Glucose (74-99) mg/dL POC Glucose (mg/dL) 191 H 240 H (70-110) mg/dL Magnesium (1.6-2.3) mg/dL Assessment and Plan Assessment: Acute on chronic hypoxic respiratory failure secondary to COPD exacerbation. Patient is on mechanical ventilator. Postoperative hypotension. Improved with fluid boluses. Acute delirium on admission Status post mechanical fall Acute left femur intertrochanteric fracture. Status post IM nailing. Postoperative day 1 COPD on home oxygen 3 L via nasal cannula Coronary artery disease with history of stent placement to left main at [facility] in September 2023 History of right internal carotid artery stenosis status post TCAR by vascular surgery. History of NV Hypertension Hyperlipidemia Diabetes type 2 [id number] Parkinson's disease Prior history of smoking Hypothyroidism Plan: Patient is s/p left hip IM nail Patient is on mechanical ventilator. Patient will be continued on telemonitoring. Continue insulin sliding scale for better blood sugar control. Started back on home medication including metoprolol, lisinopril and statins. Continue with aspirin.. Will start back on Plavix once cleared by surgery. Current with home medication including Synthroid. Will continue to follow and further recommendations based on the clinical course. Cardiology and pulmonary is on board.
[2024-05-26 15:59] LABS: Glucose,Whole Blood 177 mg/dL (70-110)
[2024-05-26] MEDS: methylPREDNISolone SOD SUCCI 40 MG/ML 1 ML VIAL IV SCH (16:00)
[2024-05-26] MEDS: AMIODARONE 450 MG in DEXTROSE 5% IN WATER 250 ML IV SCH (16:00)
[2024-05-26 20:06] LABS: Glucose,Whole Blood 205 mg/dL (70-110)
[2024-05-26] MEDS: SODIUM CHLORIDE 0.9% 500 ML 500 ML IV ONE ×2 (22:58→23:27)
[2024-05-26 23:32] LABS: Glucose,Whole Blood 216 mg/dL (70-110)
[2024-05-27] MEDS: NOREPINEPHRINE 4 MG in SODIUM CHLORIDE 0.9% 250 ML IV SCH (00:11)
[2024-05-27 02:04] LABS: ABG Base Excess -5.5 mmol/L; ABG HCO3 23 mmol/L (21-25); ABG Oxygen Saturation 82.6 % (94-97); ABG PCO2 60 mmHg (35-45); ABG TCO2 25 mmol/L (19-24)
[2024-05-27 02:12] LABS: ABG PO2 55 mmHg (83-108); Allen Test Performed? no
[2024-05-27] MEDS: VASOPRESSIN 20 UNIT in SODIUM CHLORIDE 0.9% 50 ML IV SCH (02:14)
[2024-05-27 02:33] LABS: HCT 37.3 % (34.0-46.0); HGB 11.5 gm/dL (11.4-16.0); Hypochromasia Marked; MCH 31.8 pg (25.0-35.0); MCHC 30.8 g/dL (31.0-37.0); MCV 103.2 fL (80.0-100.0); Macrocytosis Slight; Mean Platelet Volume 11.5; Platelet Count 192 k/uL (150-450); RBC 3.61 m/uL (3.80-5.40); RDW 14.1 % (11.5-15.5); WBC 38.6 k/uL (3.8-10.6)
[2024-05-27 03:35] LABS: African American GFR (CKD) 33 (>60 ml/min/1.73 sqM); Anion Gap 7 mmol/L; Blood Urea Nitrogen 80 mg/dL (7-17); Calcium 7.6 mg/dL (8.4-10.2); Carbon Dioxide 19 mmol/L (22-30); Chloride 112 mmol/L (98-107); Glucose 175 mg/dL (74-99); Magnesium 2.6 mg/dL (1.6-2.3); Non-African American GFR(CKD) 28 (>60 ml/min/1.73 sqM); Potassium 5.6 mmol/L (3.5-5.1); Sodium 138 mmol/L (137-145)
[2024-05-27 03:47] LABS: Glucose,Whole Blood 179 mg/dL (70-110)
--- NOTE | 2024-05-27 03:51 | XR ---
EXAM: XR Abdomen, 1 View CLINICAL HISTORY: ITS.REASON XR Reason: abdominal distention TECHNIQUE: Frontal supine view of the abdomen/pelvis. COMPARISON: None FINDINGS: Hardware: G-tube projected over the left abdomen. Abdomen: Dilated gas-filled small bowel, concerning for obstruction. No free air. Bones: Intramedullary delfino and screw fixation of the left femur. Soft tissues: Normal. Lower chest: Moderate left pleural effusion. Left lower lung atelectasis versus pneumonia. Other: Vascular calcifications. Cholecystectomy clips in the right upper quadrant. IMPRESSION: 1. Dilated gas-filled small bowel, concerning for obstruction. 2. Moderate left pleural effusion. Left lower lung atelectasis versus pneumonia.
[2024-05-27 04:26] LABS: ABG Base Excess -7.2 mmol/L; ABG HCO3 22 mmol/L (21-25); ABG Oxygen Saturation 83.8 % (94-97); ABG PCO2 58 mmHg (35-45); ABG TCO2 23 mmol/L (19-24); Allen Test Performed? Yes
[2024-05-27] MEDS: PIPERACILLIN-TAZOBACTAM 3.375 GM in SODIUM CHLORIDE 0.9% 100 ML IVPB SCH (04:27)
[2024-05-27 04:58] LABS: ABG PH 7.18 (7.35-7.45)
[2024-05-27 04:59] LABS: ABG PO2 56 mmHg (83-108)
--- NOTE | 2024-05-27 05:03 | P.PCN ---
Date of Procedure: 05/27/24 Preoperative Diagnosis: Hypotension and shock Postoperative Diagnosis: Hypotension and shock Procedure(s) Performed: Insertion of a right brachial arterial line Indications for Procedure: Continuous blood pressure monitoring and frequent blood draws Description of Procedure: Informed consent was obtained, and a procedural timeout was performed . The patient was placed in supine position. The right brachial region was prepared in a sterile fashion, and a sterile drape was applied. The right brachial artery was palpated, easily cannulated, and a guidewire was placed. A Cook catheter was inserted over the guidewire, and the guidewire was removed. There was good arterial blood flow, good arterial waveform, and no complications. The line was secured with using a 3-0 silk suture.
[2024-05-27] MEDS: SODIUM CHLORIDE 0.9% 1,000 ML BAG IV STA (05:52)
--- NOTE | 2024-05-27 07:14 | P.PN ---
Subjective Progress Note Date: 05/27/24 The patient is a 74-year-old female patient with a past medical history significant for history of CAD with prior left main stenting as well as paroxysmal atrial fibrillation as well as multiple comorbid conditions who was admitted to the hospital after mechanical fall and subsequently she was intubated and subsequently she had a trach tube and PEG tube. May 27, 2024 The patient was seen and evaluated this morning. Unfortunately she was hypotensive last night. She underwent an x-ray which showed possible small bowel obstruction and she has been vomiting. Her pressure has dropped and currently she is on vasopressors. Her kidney function is worse likely because of the hypotension. Blood culture was sent. We are going to stop the Cardizem and continue amiodarone and continue heparin at this point. Obtain a limited echocardiogram. The examination is remarkable for stable blood pressure with vasopressors as well as heart rate is stable with diminished breathing sounds bilaterally no edema was noted in the lower extremities Assessment Respiratory failure Paroxysmal atrial fibrillation Hypotension Possible intra-abdominal acute process/infection Coronary artery disease Multiple comorbid conditions Renal failure Plan DC Cardizem Continue amiodarone Continue IV heparin Repeat an echo will obtain limited echo Follow-up with the patient Objective - Vital Signs Vital signs: Vital Signs Temp 98.5 F 05/27/24 04:00 Pulse 88 05/27/24 07:00 Resp 32 H 05/27/24 07:00 BP 148/55 05/27/24 07:00 Pulse Ox 90 L 05/27/24 07:00 FiO2 50 05/27/24 04:00 Intake & Output 05/26/24 05/27/24 05/27/24 18:59 06:59 18:59 Intake Total 3826.123 8296.104 13 Output Total 485 1370 1300 Balance 597.927 3377.104 -1287 Weight 78.4 kg Intake: IV 120 2138 13 Pressure Bag 18 3 Sodium Chloride 0.9% 1, 1000 000 ml @ 10 mls/hr IV . Q24H [facility] Rx#:[id number] Sodium Chloride 0.9% 500 120 120 10 ml 500 ml @ 10 mls/hr IV .Q24H [facility] Rx#:[id number] Sodium Chloride 0.9% 500 1000 ml 500 ml @ 999 mls/hr IV .Q31M [facility] Rx#:[id number] Intake, IV Titration 446.172 617.104 Amount Diltiazem 125 mg In 200.583 42.666 Sodium Chloride 0.9% 100 ml @ Per Protocol IV .Q0M [facility] Rx#:[id number] Empty Bag 1 bag @ 10 MCG/ 171.96 186.10 KG/MIN 4.2 mls/hr IV . [id number] [facility] with propofoL 1,000 mg Rx#:[id number] Heparin Sod,Pork in 0.45% 73.629 134.338 NaCl 25,000 unit In 0.45 % NaCl 1 250ml.bag @ 12 UNITS/KG/HR 8.868 mls/hr IV .Q24H [facility] Rx#: [id number] Norepinephrine 4 mg In 254.000 Sodium Chloride 0.9% 250 ml @ 0.03 MCG/KG/MIN 8. 607 mls/hr IV .Q24H [facility] Rx#:[id number] Tube Feeding 444 222 Other 90 30 Output: Gastric Drainage 1300 1300 Urine 485 70 0 Other: Voiding Method Indwelling Catheter Indwelling Catheter ABP, PAP, CO, CI - Last Documented Arterial Blood Pressure 111/37 - Labs CBC & Chem 7: 05/27/24 02:17 05/27/24 02:17 Labs: Abnormal Lab Results - Last 24 Hours (Table) 05/26/24 05/26/24 05/26/24 Range/Units 07:35 07:52 11:46 WBC (3.8-10.6) k/uL RBC (3.80-5.40) m/uL MCV (80.0-100.0) fL MCHC (31.0-37.0) g/dL APTT (22.0-30.0) sec ABG pH (7.35-7.45) ABG pCO2 (35-45) mmHg ABG pO2 (83-108) mmHg ABG Total CO2 (19-24) mmol/L ABG O2 Saturation (94-97) % ABG Lactic Acid (0.5-1.6) mmol/L Potassium (3.5-5.1) mmol/L Chloride (98-107) mmol/L Carbon Dioxide (22-30) mmol/L BUN (7-17) mg/dL Creatinine (0.52-1.04) mg/dL Glucose (74-99) mg/dL POC Glucose (mg/dL) 191 H 240 H 290 H (70-110) mg/dL Calcium (8.4-10.2) mg/dL Magnesium (1.6-2.3) mg/dL 05/26/24 05/26/24 05/26/24 Range/Units 14:02 15:57 20:04 WBC (3.8-10.6) k/uL RBC (3.80-5.40) m/uL MCV (80.0-100.0) fL MCHC (31.0-37.0) g/dL APTT 34.5 H (22.0-30.0) sec ABG pH (7.35-7.45) ABG pCO2 (35-45) mmHg ABG pO2 (83-108) mmHg ABG Total CO2 (19-24) mmol/L ABG O2 Saturation (94-97) % ABG Lactic Acid (0.5-1.6) mmol/L Potassium (3.5-5.1) mmol/L Chloride (98-107) mmol/L Carbon Dioxide (22-30) mmol/L BUN (7-17) mg/dL Creatinine (0.52-1.04) mg/dL Glucose (74-99) mg/dL POC Glucose (mg/dL) 177 H 205 H (70-110) mg/dL Calcium (8.4-10.2) mg/dL Magnesium (1.6-2.3) mg/dL 05/26/24 05/26/24 05/27/24 Range/Units 21:14 23:31 02:01 WBC (3.8-10.6) k/uL RBC (3.80-5.40) m/uL MCV (80.0-100.0) fL MCHC (31.0-37.0) g/dL APTT 61.0 H (22.0-30.0) sec ABG pH 7.20 L (7.35-7.45) ABG pCO2 60 H (35-45) mmHg ABG pO2 55 L* (83-108) mmHg ABG Total CO2 25 H (19-24) mmol/L ABG O2 Saturation 82.6 L (94-97) % ABG Lactic Acid (0.5-1.6) mmol/L Potassium (3.5-5.1) mmol/L Chloride (98-107) mmol/L Carbon Dioxide (22-30) mmol/L BUN (7-17) mg/dL Creatinine (0.52-1.04) mg/dL Glucose (74-99) mg/dL POC Glucose (mg/dL) 216 H (70-110) mg/dL Calcium (8.4-10.2) mg/dL Magnesium (1.6-2.3) mg/dL 05/27/24 05/27/24 05/27/24 Range/Units 02:17 02:17 03:44 WBC 38.6 H (3.8-10.6) k/uL RBC 3.61 L (3.80-5.40) m/uL MCV 103.2 H (80.0-100.0) fL MCHC 30.8 L (31.0-37.0) g/dL APTT (22.0-30.0) sec ABG pH (7.35-7.45) ABG pCO2 (35-45) mmHg ABG pO2 (83-108) mmHg ABG Total CO2 (19-24) mmol/L ABG O2 Saturation (94-97) % ABG Lactic Acid (0.5-1.6) mmol/L Potassium 5.6 H (3.5-5.1) mmol/L Chloride 112 H (98-107) mmol/L Carbon Dioxide 19 L (22-30) mmol/L BUN 80 H (7-17) mg/dL Creatinine 1.74 H (0.52-1.04) mg/dL Glucose 175 H (74-99) mg/dL POC Glucose (mg/dL) 179 H (70-110) mg/dL Calcium 7.6 L (8.4-10.2) mg/dL Magnesium 2.6 H (1.6-2.3) mg/dL 05/27/24 05/27/24 Range/Units 03:45 04:23 WBC (3.8-10.6) k/uL RBC (3.80-5.40) m/uL MCV (80.0-100.0) fL MCHC (31.0-37.0) g/dL APTT (22.0-30.0) sec ABG pH 7.18 L* (7.35-7.45) ABG pCO2 58 H (35-45) mmHg ABG pO2 56 L* (83-108) mmHg ABG Total CO2 (19-24) mmol/L ABG O2 Saturation 83.8 L (94-97) % ABG Lactic Acid 1.7 H (0.5-1.6) mmol/L Potassium (3.5-5.1) mmol/L Chloride (98-107) mmol/L Carbon Dioxide (22-30) mmol/L BUN (7-17) mg/dL Creatinine (0.52-1.04) mg/dL Glucose (74-99) mg/dL POC Glucose (mg/dL) (70-110) mg/dL Calcium (8.4-10.2) mg/dL Magnesium (1.6-2.3) mg/dL
--- NOTE | 2024-05-27 07:45 | XR ---
EXAMINATION TYPE: XR chest 1V portable DATE OF EXAM: 05/27/2024 COMPARISON: 05/26/2024 HISTORY: Shortness of breath TECHNIQUE: Frontal and lateral views of the chest are obtained. FINDINGS: Scattered senescent parenchymal changes noted. Hyperinflation compatible with COPD. Basilar opacity likely reflects a combination of effusion and/or atelectasis. Underlying infiltrate n ot excluded. Overall no change. Heart size is stable. Mediastinal structures are stable and grossly unremarkable. No evidence for hilar prominence. Degenerative changes dorsal spine. IMPRESSION: 1. Basilar opacity likely reflects a combination of effusion and/or atelectasis. Underlying infiltrat e not excluded. Overall no change.
[2024-05-27 07:59] LABS: Glucose,Whole Blood 134 mg/dL (70-110)
--- NOTE | 2024-05-27 08:11 | CA ---
Transthoracic Echo Report Name: Chandrika Mcgrath Age: 74 Gender: F : 1950 Exam Date: 05/18/2024 12:39 Exam Location: [facility] Ht (in): 65 Wt (lb): 145 Ordering Physician: Jass Grubbs DO ([id number]) Attending/Referring Phys: Office Manager Receptionist Glo Stephenson RDCS Procedure CPT: Indications: re: Preop clearance Cardiac Hx: Technical Quality: Fair Contrast 1: Total Dose (mL): Contrast 2: Total Dose (mL): MEASUREMENTS (Male / Female) Normal Values 2D ECHO LV Diastolic Diameter PLAX 4.5 cm 4.2 - 5.9 / 3.9 - 5.3 cm LV Systolic Diameter PLAX 2.8 cm IVS Diastolic Thickness 0.9 cm 0.6 - 1.0 / 0.6 - 0.9 cm LVPW Diastolic Thickness 1.0 cm 0.6 - 1.0 / 0.6 - 0.9 cm LV Relative Wall Thickness 0.4 RV Internal Dim ED PLAX 2.3 cm LA Systolic Diameter LX 4.4 cm 3.0 - 4.0 / 2.7 - 3.8 cm LV Diastolic Volume MOD BP 35.2 cm??? 67 - 155 / 56 - 104 cm??? LV Systolic Volume MOD BP 16.2 cm??? 22 - 58 / 19 - 49 cm??? LV Ejection Fraction MOD BP 53.8 % >= 55 % LV Cardiac Index MOD BP 846.0 cm???/min???m??? LV Diastolic Volume MOD 4C 33.0 cm??? LV Systolic Volume MOD 4C 17.6 cm??? LV Ejection Fraction MOD 4C 46.6 % LV Cardiac Index MOD 4C 687.8 cm???/min???m??? LV Diastolic Length 4C 5.8 cm LV Systolic Length 4C 5.3 cm LV Diastolic Volume MOD 2C 37.8 cm??? LV Systolic Volume MOD 2C 14.8 cm??? LV Ejection Fraction MOD 2C 60.8 % LV Cardiac Index MOD 2C 1027.9 cm???/min???m??? LV Diastolic Length 2C 5.9 cm LV Systolic Length 2C 5.4 cm LA Volume 35.4 cm??? 18 - 58 / 22 - 52 cm??? LA Volume Index 20.3 cm???/m??? 16 - 28 cm???/m??? M-MODE Aortic Root Diameter MM 3.3 cm LA Systolic Diameter MM 3.3 cm LA Ao Ratio MM 1.0 AV Cusp Separation MM 1.8 cm DOPPLER MV Area PHT 2.5 cm??? Mitral E Point Velocity 64.8 cm/s Mitral A Point Velocity 92.8 cm/s Mitral E to A Ratio 0.7 MV Deceleration Time 303.3 ms TR Peak Velocity 416.4 cm/s TR Peak Gradient 69.4 mmHg Right Atrial Pressure 15.0 mmHg Pulmonary Artery Systolic Pressu 84.4 mmHg Right Ventricular Systolic Press 84.4 mmHg FINDINGS Left Ventricle Left ventricular ejection fraction is estimated at 55-60%. Left ventricular cavity size normal. No obvious regional wall motion abnormalities. Left ventricular wall thickness normal. Right Ventricle Mild right ventricular dilatation. Severe pulmonary hypertension. Right Atrium Moderate right atrial dilatation. Left Atrium Moderately increased left atrial diameter. Mitral Valve Structurally normal mitral valve. Mild mitral regurgitation. No mitral stenosis. Aortic Valve Trileaflet aortic valve. No aortic valve stenosis or regurgitation. Tricuspid Valve Structurally normal tricuspid valve. Moderate tricuspid regurgitation. Pulmonic Valve Structurally normal pulmonic valve. Trace pulmonic regurgitation. No pulmonic stenosis. Pericardium No pericardial or pleural effusion. Echo free space anterior to the right ventricle likely represents a fat pad. Aorta Normal size aortic root and proximal ascending aorta. CONCLUSIONS Normal LV function Dilated right atrium Severe pulmonary hypertension with an RV systolic pressure of 84 mm Moderate tricuspid regurgitation Previewed by: Dr. Chandler García MD (Electronically Signed) Final Date: 18 May 2024 18:50
[2024-05-27] MEDS: AMIODARONE 450 MG in DEXTROSE 5% IN WATER 250 ML IV SCH (08:22)
--- NOTE | 2024-05-27 10:32 | P.PN ---
Subjective Progress Note Date: 05/27/24 This is a 74-year-old female patient with a known history of coronary disease with previous stent placements, former smoker, oxygen dependent chronic obstructive pulmonary disease with an FEV1 value 30% of predicted, 0.67 L in 2021, diabetes mellitus, hypertension, hyperlipidemia, hypothyroidism. She pre sented to the emergency room this morning after sustaining a fall while up to her bathroom. She fell on her left hip and has significant left hip pain. She denied any loss of consciousness or other injuries. Left hip x-ray does reveal acute left femur intertrochanteric fracture. Moderate hip osteoarthrosis. EKG reveals sinus rhythm with no significant ST or T wave abnormalities. Chest x- ray shows no acute pulmonary process. White count 10.6. Hemoglobin 12.4. Platelets 210. Sodium 139. Potassium 4.5. Bicarb 32. BUN 15. Creatinine 0.85. Glucose 126. She is seen today in consultation in the emergency department. She is currently resting on a stretcher. Fairly comfortable at pr esent. She has received Dilaudid. Denies any worsening shortness of breath, cough or congestion. No chest pain or palpitations. She is receiving normal saline at 75 MLS per hour. She is maintaining O2 saturation in the 90s on 3 L/min per nasal cannula. She is afebrile. Hemodynamically stable. Patient was reevaluated today on 05/18/24, patient was seen yesterday and cleared for surgery for her left hip, although she does have severe end-stage COPD. Today the patient developed more shortness of breath, she was initially on few liters nasal cannula, and overnight her O2 requirement has gone up significantly, I was notified multiple times about this patient earlier today not doing well experiencing mostly episodes of shortness of breath, and episodes of nausea and vomiting. I recommended placing the patient on BiPAP, and I recommended transferring the patient to the ICU. In the meantime I recommended holding on surgical plans, and a CT angiogram of the chest was ordered which came back negative for pulmonary embolism, but it did show evidence of advanced emphysema and compressive atelectasis at the right base as well as the left base with minimal effusion present at the right base labs today showed relatively normal electrolytes, BUN is 22 creatinine 1.1, blood sugar is 152. D-dimer was elevated at 5.32, but CT angiogram showed no evidence of thromboembolic disease. Patient was reevaluated today on 05/19/2024, remains on BiPAP 12/6/35%, patient became extremely agitated yesterday, and had to place the patient on Precedex at 0.8 mcg/kg/h. Patient seems to be doing better today, she is [place]. Troponin level has been on the rise, cardiology is evaluating the patient, she does have very strong history of coronary artery disease and multiple stents, cardiology will decide whether a cardiac catheterization will be necessary before clearing the patient for surgery. Workup by cardiology is in progress. In the meantime surgery for her intertrochanteric hip fracture is pending. Patient had a bit of low urine output, she will receive some Lasix today, and her daughter is at bedside, updated daughter on her condition. Labs today show WBC count of 8.5 hemoglobin 11.5 electrolytes are normal renal profile showed a BUN of [address] angiogram on this patient showed mostly COPD, no evidence of pulmonary embolism The patient is seen today May 20, 2024 in follow-up in the intensive care unit. She is currently sitting up in bed. Awake and alert. She is on BiPAP 12/6 and 35% FiO2. She is requiring Precedex at 1 mg/kg/h. She has normal saline at 75 MLS per hour. Chest x-ray reveals nonspecific mild increased lung markings diffusely. Mild pulmonary edema versus atelectasis. White count 9.7. Hemoglobin 10.8. Platelets 175. Sodium 140. Potassium 5.0. Bicarb 25. BUN 39. Creatinine 0.68. Glucose 139. She remains on DuoNeb ventilations, Pulmicort and Perforomist inhalations, Solu-Medrol. NicoDerm patch will be applied. The plan may be for repair of her left hip fracture today. The patient is seen today May 21, 2024 in follow-up in the intensive care unit. She did undergo left hip IT fracture cephalomedullary nailing yesterday. She did remain intubated on the mechanical ventilator currently on assist-control mode at a rate of 26, tidal volume 400, FiO2 40% and a PEEP of 5. Morning blood gases revealed a PaO2 of 90, pCO2 41 and a pH of 7.26. She is sedated with propofol at 45 mcg/kg/min. She has normal saline at 75 MLS per hour. She did receive 2 L of fluid resuscitation yesterday. She is currently in a 2.9 liter positive balance. Chest x-ray shows bibasilar infiltrates. Probable atelectasis. White count 15.2. Hemoglobin 10.2. Platelets 279. Sodium 142. Potassium 4.7. Bicarb 16. Chloride 114. BUN 41. Creatinine 0.96. Glucose 156. Continued on DuoNeb inhalations, Pulmicort and Perforomist inhalations, IV Solu-Medrol. NicoDerm patch in place. CT scan of the brain from yesterday revealed no acute intracranial abnormalities. The patient is seen today May 22, 2024 in follow-up in the intensive care unit. She remains intubated on mechanical ventilator currently on assist-control mode at a rate of 26, tidal volume 400, FiO2 40% and a PEEP of 5. Morning blood gases revealed a PaO2 of 87, pCO2 48 and a pH of 7.21. She remains sedated on propofol at 45 mcg/kg/min. Normal saline at 75 MLS per hour. She is being nourished with vital AF at 37 MLS per hour which is goal. Chest x-ray reveals diffuse alveolar infiltrate. White count 11.4. Hemoglobin 10.1. Platelets 168. Sodium 140. Potassium 4.3. Bicarb 21. BUN 47. Creatinine 0.81. Glucose 203. She is currently in a 770 mL positive balance. Remains on DuoNeb inhalations, Pulmicort and Perforomist inhalations, Solu-Medrol. NicoDerm patch in place. Lovenox for DVT prophylaxis. The patient is seen today May 23, 2024 in follow-up in the intensive care unit. Postoperative day #3. She remains intubated on the mechanical ventilator and assist-control mode at a rate of 26, tidal volume 400, FiO2 40% and a PEEP of 5. ABGs reveal a PaO2 of 56, pCO2 46 and a pH of 7.41. She is sedated on propofol at 50 mcg/kg/min. Normal saline at KVO. She is being nourished with vital HP at 37 MLS per hour which is goal. She did undergo a daily interruption of sedation yesterday at which time she became quite tachycardic and decreasing FiO2 within approximately 10 minutes. Chest x-ray reveals a right lower lobe infiltrate and mild left lower lobe infiltrate. White count 13.1. Hemoglobin 9.9. Platelets 219. Sodium 140. Potassium 3.6. Bicarb 25. BUN 54. Creatinine 0.73. Glucose 235. Michael on DuoNeb ventilations, Pulmicort and Perforomist inhalations, Solu-Medrol. NicoDerm patch in place. Lovenox for DVT prophylaxis. Progress note dated May 25, 2024. 74-year-old female seen today in room 256. The patient remains on the mechanical ventilator. She is on volume assist-control, rate 26, tidal volume 400, FiO2 50%, PEEP of 5. Blood gases show up pO2 of 71, pCO2 of 48, pH of 7.42. This is a mixed acid-base disturbance. The patient had a tracheostomy and PEG tube placement on May 24. She remains on propofol at 50 mcg/kg/min, and saline at KVO. She is getting vital AF at 37 cc an hour, which will be resumed later today, after 24 hours, after the insertion of the PEG tube. The patient will have a daily interruption of sedation today. In addition, we add Seroquel 25 mg 3 times a day to her regimen. Current labs include a white count 13.4, hemoglobin 9.9, hematocrit 31.6, and a platelet count of 236,000. Sodium 143, potassium 4.2, chlorides 110, CO2 28, BUN 55, and creatinine 0.67. Glucose 165. Calcium 8.4. Chest x-ray shows a stable chest x-ray, with a well-placed midline tracheostomy tube. Progress note dated May 26, 2024. 74-year-old female seen today in room 256. The patient remains on the mechanical ventilator. She is on volume assist-control, rate 26, tidal volume 400, FiO2 50%, PEEP of 5. Blood gases show pO2 of 66, pCO2 of 49, pH is 7.38. For sedation she is on propofol at 40 mcg/kg/min, heparin via weight-based protocol for atrial fibrillation, Cardizem 15 mg an hour, and amiodarone at 1 mg/min. The patient's atrial fibrillation, developed early in the morning. She is getting vital AF at 37 cc an hour. The patient have a daily interruption of sedation, on May 25, she did poorly. She will likely not have 1 today. White count 17.2, hemoglobin 9.8, hematocrit 31.1, platelet count normal. Sodium 142, potassium 4.3, chlorides 110, CO2 25, BUN 62, creatinine 0.87. Glucose is 240. Calcium 8.6. Magnesium 2.5. Chest x-ray is largely unchanged. Midline tracheostomy tube was noted. The patient is seen today May 27, 2024 in follow-up in the intensive care unit. She remains intubated on mechanical ventilator and assist-control mode with a rate of 32, tidal volume 400, FiO2 50% and a PEEP of 10. Morning blood gases revealed a PaO2 of 56, pCO2 58 and a pH of 7.18. She did have issues with hypotension and abdominal distention last night. Nasogastric tube was placed on suction and 1.5 L was drained. Tube feedings remain on hold. She received 2 L of fluid resuscitation. She is currently on norepinephrine at 39 mcg/min. Vasopressin at 0.03 units/min. Sedated on propofol at 20 mcg/kg/min. Remains on a heparin drip. Remains on amiodarone drip at 0.5 mg/min. Normal saline at KVO. Chest x-ray reveals basilar opacities reflecting effusion/atelectasis. No change compared to previous. White count 38.6. Hemoglobin 11.5. Platelets 192. Sodium 138. Potassium 5.6. Bicarb 19. BUN 80. Creatinine 1.74. Glucose 175. Procalcitonin 12.0. She remains on antibiotics in the form of Zosyn. Continued on bronchodilators and steroids. Objective - Vital Signs Vital signs: Vital Signs Temp 97.3 F L 05/27/24 08:00 Pulse 90 05/27/24 09:00 Resp 32 H 05/27/24 09:00 BP 119/74 05/27/24 09:00 Pulse Ox 90 L 05/27/24 07:00 FiO2 50 05/27/24 07:25 Intake & Output 05/26/24 05/27/24 05/27/24 18:59 06:59 18:59 Intake Total 6039.278 4472.104 306 Output Total 485 1370 1700 Balance 975.822 2715.104 -1394 Weight 78.4 kg Intake: IV 120 2138 52 Pressure Bag 18 12 Sodium Chloride 0.9% 1, 1000 000 ml @ 10 mls/hr IV . Q24H [facility] Rx#:[id number] Sodium Chloride 0.9% 500 120 120 40 ml 500 ml @ 10 mls/hr IV .Q24H [facility] Rx#:[id number] Sodium Chloride 0.9% 500 1000 ml 500 ml @ 999 mls/hr IV .Q31M [facility] Rx#:[id number] Intake, IV Titration 446.172 871.104 254 Amount Diltiazem 125 mg In 200.583 42.666 Sodium Chloride 0.9% 100 ml @ Per Protocol IV .Q0M [facility] Rx#:[id number] Empty Bag 1 bag @ 10 MCG/ 171.96 186.10 KG/MIN 4.2 mls/hr IV . [id number] [facility] with propofoL 1,000 mg Rx#:[id number] Heparin Sod,Pork in 0.45% 73.629 134.338 NaCl 25,000 unit In 0.45 % NaCl 1 250ml.bag @ 12 UNITS/KG/HR 8.868 mls/hr IV .Q24H [facility] Rx#: [id number] Norepinephrine 4 mg In 508.000 254 Sodium Chloride 0.9% 250 ml @ 0.03 MCG/KG/MIN 8. 607 mls/hr IV .Q24H [facility] Rx#:[id number] Tube Feeding 444 222 Other 90 30 Output: Gastric Drainage 1300 1700 Urine 485 70 0 Other: Voiding Method Indwelling Catheter Indwelling Catheter ABP, PAP, CO, CI - Last Documented Arterial Blood Pressure 99/34 - Exam GENERAL EXAM: Intubated, 74-year-old female, on 50% FiO2 on the ventilator, in no apparent distress. HEAD: Normocephalic. EYES: Normal reaction of pupils, equal size. NOSE: Clear with pink turbinates. THROAT: Oral endotracheal and gastric tube secured in place. No erythema or exudates. NECK: No masses, no JVD. CHEST: No chest wall deformity. LUNGS: Equal air entry with bilateral end expiratory wheeze, diminished. CVS: S1 and S2 normal with no audible murmur, regular rhythm. ABDOMEN: No hepatosplenomegaly, normal bowel sounds, no guarding or rigidity. SPINE: No scoliosis or deformity SKIN: No rashes CENTRAL NERVOUS SYSTEM: Sedated, tone is normal in all 4 extremities. EXTREMITIES: Left hip dressing dry and intact. There is no peripheral edema. No clubbing, no cyanosis. Peripheral pulses are intact. - Labs CBC & Chem 7: 05/27/24 02:17 05/27/24 02:17 Labs: Abnormal Lab Results - Last 24 Hours (Table) 05/26/24 05/26/24 05/26/24 Range/Units 11:46 14:02 15:57 WBC (3.8-10.6) k/uL RBC (3.80-5.40) m/uL MCV (80.0-100.0) fL MCHC (31.0-37.0) g/dL APTT 34.5 H (22.0-30.0) sec ABG pH (7.35-7.45) ABG pCO2 (35-45) mmHg ABG pO2 (83-108) mmHg ABG Total CO2 (19-24) mmol/L ABG O2 Saturation (94-97) % ABG Lactic Acid (0.5-1.6) mmol/L Potassium (3.5-5.1) mmol/L Chloride (98-107) mmol/L Carbon Dioxide (22-30) mmol/L BUN (7-17) mg/dL Creatinine (0.52-1.04) mg/dL Glucose (74-99) mg/dL POC Glucose (mg/dL) 290 H 177 H (70-110) mg/dL Calcium (8.4-10.2) mg/dL Magnesium (1.6-2.3) mg/dL Procalcitonin (0.02-0.09) ng/mL 05/26/24 05/26/24 05/26/24 Range/Units 20:04 21:14 23:31 WBC (3.8-10.6) k/uL RBC (3.80-5.40) m/uL MCV (80.0-100.0) fL MCHC (31.0-37.0) g/dL APTT 61.0 H (22.0-30.0) sec ABG pH (7.35-7.45) ABG pCO2 (35-45) mmHg ABG pO2 (83-108) mmHg ABG Total CO2 (19-24) mmol/L ABG O2 Saturation (94-97) % ABG Lactic Acid (0.5-1.6) mmol/L Potassium (3.5-5.1) mmol/L Chloride (98-107) mmol/L Carbon Dioxide (22-30) mmol/L BUN (7-17) mg/dL Creatinine (0.52-1.04) mg/dL Glucose (74-99) mg/dL POC Glucose (mg/dL) 205 H 216 H (70-110) mg/dL Calcium (8.4-10.2) mg/dL Magnesium (1.6-2.3) mg/dL Procalcitonin (0.02-0.09) ng/mL 05/27/24 05/27/24 05/27/24 Range/Units 02:01 02:17 02:17 WBC 38.6 H (3.8-10.6) k/uL RBC 3.61 L (3.80-5.40) m/uL MCV 103.2 H (80.0-100.0) fL MCHC 30.8 L (31.0-37.0) g/dL APTT (22.0-30.0) sec ABG pH 7.20 L (7.35-7.45) ABG pCO2 60 H (35-45) mmHg ABG pO2 55 L* (83-108) mmHg ABG Total CO2 25 H (19-24) mmol/L ABG O2 Saturation 82.6 L (94-97) % ABG Lactic Acid (0.5-1.6) mmol/L Potassium 5.6 H (3.5-5.1) mmol/L Chloride 112 H (98-107) mmol/L Carbon Dioxide 19 L (22-30) mmol/L BUN 80 H (7-17) mg/dL Creatinine 1.74 H (0.52-1.04) mg/dL Glucose 175 H (74-99) mg/dL POC Glucose (mg/dL) (70-110) mg/dL Calcium 7.6 L (8.4-10.2) mg/dL Magnesium 2.6 H (1.6-2.3) mg/dL Procalcitonin (0.02-0.09) ng/mL 05/27/24 05/27/24 05/27/24 Range/Units 03:44 03:45 03:45 WBC (3.8-10.6) k/uL RBC (3.80-5.40) m/uL MCV (80.0-100.0) fL MCHC (31.0-37.0) g/dL APTT (22.0-30.0) sec ABG pH (7.35-7.45) ABG pCO2 (35-45) mmHg ABG pO2 (83-108) mmHg ABG Total CO2 (19-24) mmol/L ABG O2 Saturation (94-97) % ABG Lactic Acid 1.7 H (0.5-1.6) mmol/L Potassium (3.5-5.1) mmol/L Chloride (98-107) mmol/L Carbon Dioxide (22-30) mmol/L BUN (7-17) mg/dL Creatinine (0.52-1.04) mg/dL Glucose (74-99) mg/dL POC Glucose (mg/dL) 179 H (70-110) mg/dL Calcium (8.4-10.2) mg/dL Magnesium (1.6-2.3) mg/dL Procalcitonin 12.00 H (0.02-0.09) ng/mL 05/27/24 05/27/24 Range/Units 04:23 07:58 WBC (3.8-10.6) k/uL RBC (3.80-5.40) m/uL MCV (80.0-100.0) fL MCHC (31.0-37.0) g/dL APTT (22.0-30.0) sec ABG pH 7.18 L* (7.35-7.45) ABG pCO2 58 H (35-45) mmHg ABG pO2 56 L* (83-108) mmHg ABG Total CO2 (19-24) mmol/L ABG O2 Saturation 83.8 L (94-97) % ABG Lactic Acid (0.5-1.6) mmol/L Potassium (3.5-5.1) mmol/L Chloride (98-107) mmol/L Carbon Dioxide (22-30) mmol/L BUN (7-17) mg/dL Creatinine (0.52-1.04) mg/dL Glucose (74-99) mg/dL POC Glucose (mg/dL) 134 H (70-110) mg/dL Calcium (8.4-10.2) mg/dL Magnesium (1.6-2.3) mg/dL Procalcitonin (0.02-0.09) ng/mL Assessment and Plan Assessment: Acute nondisplaced left intertrochanteric femur fracture status post fall from standing position. Status post repair with intramedullary nailing 05/20/2024. Acute on chronic hypoxemic respiratory failure requiring intubation and mechanical ventilatory support on 05/20/2024, secondary to severe COPD Failure to wean from the mechanical ventilator requiring tracheostomy and PEG tube placement on 05/24/2024 Severe hypotension suspect secondary to sepsis and septic shock. Currently maxed out on norepinephrine and vasopressin Severe oxygen dependent chronic obstructive pulmonary disease with an FEV1 value 0.67 L, 30% of predicted Former smoker Coronary artery disease with previous stent placements Diabetes mellitus Hyperlipidemia Hypertension Hypothyroidism Plan: The patient was seen and evaluated Chest x-ray, labs, ABGs and medications reviewed Patient has become severely hypotensive Remains on maximum norepinephrine as well as vasopressin Blood cultures are pending Nasogastric tube with significant output, tube feedings on hold Prognosis is quite poor May be need to be considered for comfort care To speak to the family for at least a DNR CODE STATUS We will continue to follow I have personally seen and examined the patient, performed the documentation and the assessment and plan as written. Number of minutes spent on the visit: 15.
[2024-05-27 11:08] VITALS: BP 119/42
[2024-05-27 11:44] LABS: Glucose,Whole Blood 111 mg/dL (70-110)
[2024-05-27 12:36] VITALS: TEMP 97.2
[2024-05-27 13:04] VITALS: BMI 28.8
--- NOTE | 2024-05-27 13:17 | P.PN ---
Subjective Progress Note Date: 05/27/24 74-year-old female with a past medical history of coronary disease status post stent placement, COPD on 3 L oxygen via nasal cannula at home, history of CVA/TIA, hypertension, diabetes type 2, hyperlipidemia, history of MO, hypothyroidism, and prior history of smoking and recent dizzy spells. Patient presents to ER after sustaining a fall while she was in her bathroom. She slipped and fell on her left side and injured her hip. Denied any loss of consciousness as per her daughter. Patient is unable to provide much history and has been lethargic and sleepy. Denies any complaints of chest pain or s hortness of breath. EKG showed sinus rhythm. 2D echocardiogram done on 06/16/2023 showed normal LV systolic function. Mildly enlarged right ventricle with RVSP around 50 mmHg and Chest x-ray on admission showed some mildly increased lung markings at the right apex of uncertain etiology. Summation density small densities are within the differential. X-ray of the hip/pelvis showed acute left femur intertrochanteric fracture. Moderate hip osteoarthrosis. On admission blood pressure 120/42 pulse 63 respiration 20 pulse ox 92% on 3 L oxygen via nasal cannula. Laboratory data showed WBC 10.6 hemoglobin 12.4 and platelets 210, MCV 100.5 Sodium 139 potassium 4.5 chloride 105 bicarb is 32 BUN 15 and creatinine 0.85 and blood sugar 126 and total bili 1.8 liver enzymes are not elevated albumin 3.3. 24-hour interval change 05/25/2024 Patient is seen and evaluated with nursing staff at bedside; The patient remains on the mechanical ventilator. She is on volume assist-control, rate 26, tidal volume 400, FiO2 50%, PEEP of 5. Blood gases show up pO2 of 71, pCO2 of 48, pH of 7.42. This is a mixed acid-base disturbance. The patient had a tracheostomy and PEG tube placement on May 24. She remains on propofol at 50 mcg/kg/min, and saline at KVO. She is getting vital AF at 37 cc an hour, which will be resumed later today, after 24 hours, after the insertion of the PEG tube. The patient will have a daily interruption of sedation today. In addition, we add Seroquel 25 mg 3 times a day to her regimen. Current labs include a white count 13.4, hemoglobin 9.9, hematocrit 31.6, and a platelet count of 236,000. Sodium 143, potassium 4.2, chlorides 110, CO2 28, BUN 55, and creatinine 0.67. Glucose 165. Calcium 8.4. Chest x-ray shows a stable chest x-ray, with a well-placed midline tracheostomy tube 05/26/2024 The patient is seen and evaluated in room at bedside; discussed with nursing staff remains on the mechanical ventilator. Patient converted to atrial fibrillation with RVR Blood gases show pO2 of 66, pCO2 of 49, pH is 7.38. Patient seems to have converted to normal sinus rhythm but remains on heparin via weight-based protocol for atrial fibrillation, Cardizem 15 mg an hour, and amiodarone at 1 mg/min. --White count 17.2, hemoglobin 9.8, hematocrit 31.1, platelet count normal. Sodium 142, potassium 4.3, chlorides 110, CO2 25, BUN 62, creatinine 0.87. Glucose is 240. Calcium 8.6. Magnesium 2.5. Chest x-ray is largely unchanged. 05/27. Patient seen and examined blood work done this morning showed WBC 38.6, hemoglobin 11.5, sodium 138, potassium 5.6, BUN 80, creatinine 1.74. Currently on Levophed and vasopressors both maxed out. Children at the bedside, discussed with them regarding patient's poor prognosis and possible transitioning to comfort care, family amenable, will discuss among themselves before coming up with a final decision REVIEW OF SYSTEMS: Currently intubated and sedated PHYSICAL EXAMINATION: GENERAL: The patient is intubated HEENT: Pupils are round and equally reacting to light. EOMI. No scleral icterus. No conjunctival pallor. Normocephalic, atraumatic. No pharyngeal erythema. No thyromegaly. CARDIOVASCULAR: S1 and S2 present. No murmurs, rubs, or gallops. PULMONARY: Chest is clear to auscultation, no wheezing or crackles. ABDOMEN: Soft, nontender, nondistended, normoactive bowel sounds. No palpable organomegaly. MUSCULOSKELETAL: No joint swelling or deformity. EXTREMITIES: No cyanosis, clubbing, or pedal edema. NEUROLOGICAL: Intubated SKIN: No rashes. Assessment and plan Acute on chronic hypoxic respiratory failure secondary to COPD exacerbation. Patient is on mechanical ventilator. Postoperative hypotension. Improved with fluid boluses. Acute delirium on admission Status post mechanical fall Acute left femur intertrochanteric fracture. Status post IM nailing. Postoperative day 1 COPD on home oxygen 3 L via nasal cannula Coronary artery disease with history of stent placement to left main at [facility] in September 2023 History of right internal carotid artery stenosis status post TCAR by vascular surgery. History of MO Hypertension Hyperlipidemia Diabetes type 2 [id number] Parkinson's disease Prior history of smoking Hypothyroidism Monitor vital signs Monitor CBC Monitor CMP Aggressive bronchopulmonary hygiene Continue vent management per ICU Continue amiodarone drip Continue aspirin, Lipitor Continue heparin drip continue IV Zosyn Continue pressors in the form of Levophed and vasopressin Surgery following Cardiology following Critical care following Labs and medication were reviewed.. Continue same treatment. Continue with symptomatic treatment. Resume home medication. Monitor labs and vitals. DVT and GI prophylaxis. Further recommendations as per clinical course of the patient Dictation was produced using [employer] dictation software. please excuse any grammatical, word or spelling errors. Objective - Vital Signs Vital signs: Vital Signs Temp 98.5 F 05/27/24 04:00 Pulse 86 05/27/24 07:41 Resp 32 H 05/27/24 07:00 BP 148/55 05/27/24 07:00 Pulse Ox 90 L 05/27/24 07:00 FiO2 50 05/27/24 07:25 Intake & Output 05/26/24 05/27/24 05/27/24 18:59 06:59 18:59 Intake Total 7161.192 2535.104 267 Output Total 485 1370 1300 Balance 407.364 2302.104 -1033 Weight 78.4 kg Intake: IV 120 2138 13 Pressure Bag 18 3 Sodium Chloride 0.9% 1, 1000 000 ml @ 10 mls/hr IV . Q24H [facility] Rx#:[id number] Sodium Chloride 0.9% 500 120 120 10 ml 500 ml @ 10 mls/hr IV .Q24H [facility] Rx#:[id number] Sodium Chloride 0.9% 500 1000 ml 500 ml @ 999 mls/hr IV .Q31M [facility] Rx#:[id number] Intake, IV Titration 446.172 871.104 254 Amount Diltiazem 125 mg In 200.583 42.666 Sodium Chloride 0.9% 100 ml @ Per Protocol IV .Q0M [facility] Rx#:[id number] Empty Bag 1 bag @ 10 MCG/ 171.96 186.10 KG/MIN 4.2 mls/hr IV . [id number] [facility] with propofoL 1,000 mg Rx#:[id number] Heparin Sod,Pork in 0.45% 73.629 134.338 NaCl 25,000 unit In 0.45 % NaCl 1 250ml.bag @ 12 UNITS/KG/HR 8.868 mls/hr IV .Q24H [facility] Rx#: [id number] Norepinephrine 4 mg In 508.000 254 Sodium Chloride 0.9% 250 ml @ 0.03 MCG/KG/MIN 8. 607 mls/hr IV .Q24H [facility] Rx#:[id number] Tube Feeding 444 222 Other 90 30 Output: Gastric Drainage 1300 1300 Urine 485 70 0 Other: Voiding Method Indwelling Catheter Indwelling Catheter ABP, PAP, CO, CI - Last Documented Arterial Blood Pressure 111/37 - Labs CBC & Chem 7: 05/27/24 02:17 05/27/24 02:17 Labs: Abnormal Lab Results - Last 24 Hours (Table) 05/26/24 05/26/24 05/26/24 Range/Units 11:46 14:02 15:57 WBC (3.8-10.6) k/uL RBC (3.80-5.40) m/uL MCV (80.0-100.0) fL MCHC (31.0-37.0) g/dL APTT 34.5 H (22.0-30.0) sec ABG pH (7.35-7.45) ABG pCO2 (35-45) mmHg ABG pO2 (83-108) mmHg ABG Total CO2 (19-24) mmol/L ABG O2 Saturation (94-97) % ABG Lactic Acid (0.5-1.6) mmol/L Potassium (3.5-5.1) mmol/L Chloride (98-107) mmol/L Carbon Dioxide (22-30) mmol/L BUN (7-17) mg/dL Creatinine (0.52-1.04) mg/dL Glucose (74-99) mg/dL POC Glucose (mg/dL) 290 H 177 H (70-110) mg/dL Calcium (8.4-10.2) mg/dL Magnesium (1.6-2.3) mg/dL Procalcitonin (0.02-0.09) ng/mL 05/26/24 05/26/24 05/26/24 Range/Units 20:04 21:14 23:31 WBC (3.8-10.6) k/uL RBC (3.80-5.40) m/uL MCV (80.0-100.0) fL MCHC (31.0-37.0) g/dL APTT 61.0 H (22.0-30.0) sec ABG pH (7.35-7.45) ABG pCO2 (35-45) mmHg ABG pO2 (83-108) mmHg ABG Total CO2 (19-24) mmol/L ABG O2 Saturation (94-97) % ABG Lactic Acid (0.5-1.6) mmol/L Potassium (3.5-5.1) mmol/L Chloride (98-107) mmol/L Carbon Dioxide (22-30) mmol/L BUN (7-17) mg/dL Creatinine (0.52-1.04) mg/dL Glucose (74-99) mg/dL POC Glucose (mg/dL) 205 H 216 H (70-110) mg/dL Calcium (8.4-10.2) mg/dL Magnesium (1.6-2.3) mg/dL Procalcitonin (0.02-0.09) ng/mL 05/27/24 05/27/24 05/27/24 Range/Units 02:01 02:17 02:17 WBC 38.6 H (3.8-10.6) k/uL RBC 3.61 L (3.80-5.40) m/uL MCV 103.2 H (80.0-100.0) fL MCHC 30.8 L (31.0-37.0) g/dL APTT (22.0-30.0) sec ABG pH 7.20 L (7.35-7.45) ABG pCO2 60 H (35-45) mmHg ABG pO2 55 L* (83-108) mmHg ABG Total CO2 25 H (19-24) mmol/L ABG O2 Saturation 82.6 L (94-97) % ABG Lactic Acid (0.5-1.6) mmol/L Potassium 5.6 H (3.5-5.1) mmol/L Chloride 112 H (98-107) mmol/L Carbon Dioxide 19 L (22-30) mmol/L BUN 80 H (7-17) mg/dL Creatinine 1.74 H (0.52-1.04) mg/dL Glucose 175 H (74-99) mg/dL POC Glucose (mg/dL) (70-110) mg/dL Calcium 7.6 L (8.4-10.2) mg/dL Magnesium 2.6 H (1.6-2.3) mg/dL Procalcitonin (0.02-0.09) ng/mL 05/27/24 05/27/24 05/27/24 Range/Units 03:44 03:45 03:45 WBC (3.8-10.6) k/uL RBC (3.80-5.40) m/uL MCV (80.0-100.0) fL MCHC (31.0-37.0) g/dL APTT (22.0-30.0) sec ABG pH (7.35-7.45) ABG pCO2 (35-45) mmHg ABG pO2 (83-108) mmHg ABG Total CO2 (19-24) mmol/L ABG O2 Saturation (94-97) % ABG Lactic Acid 1.7 H (0.5-1.6) mmol/L Potassium (3.5-5.1) mmol/L Chloride (98-107) mmol/L Carbon Dioxide (22-30) mmol/L BUN (7-17) mg/dL Creatinine (0.52-1.04) mg/dL Glucose (74-99) mg/dL POC Glucose (mg/dL) 179 H (70-110) mg/dL Calcium (8.4-10.2) mg/dL Magnesium (1.6-2.3) mg/dL Procalcitonin 12.00 H (0.02-0.09) ng/mL 05/27/24 05/27/24 Range/Units 04:23 07:58 WBC (3.8-10.6) k/uL RBC (3.80-5.40) m/uL MCV (80.0-100.0) fL MCHC (31.0-37.0) g/dL APTT (22.0-30.0) sec ABG pH 7.18 L* (7.35-7.45) ABG pCO2 58 H (35-45) mmHg ABG pO2 56 L* (83-108) mmHg ABG Total CO2 (19-24) mmol/L ABG O2 Saturation 83.8 L (94-97) % ABG Lactic Acid (0.5-1.6) mmol/L Potassium (3.5-5.1) mmol/L Chloride (98-107) mmol/L Carbon Dioxide (22-30) mmol/L BUN (7-17) mg/dL Creatinine (0.52-1.04) mg/dL Glucose (74-99) mg/dL POC Glucose (mg/dL) 134 H (70-110) mg/dL Calcium (8.4-10.2) mg/dL Magnesium (1.6-2.3) mg/dL Procalcitonin (0.02-0.09) ng/mL
[2024-05-27 13:18] VITALS: PULSE 83; RESP 32
--- NOTE | 2024-05-27 13:58 | P.PN ---
Subjective Progress Note Date: 05/27/24 CHIEF COMPLAINT: Fall with hip fracture HISTORY OF PRESENT ILLNESS: Patient remains in the ICU on mechanical ventilation. She is status post tracheostomy and PEG tube placement. Nursing staff reports that patient had a large amount of emesis yesterday through the mouth and the tracheostomy tube. No bowel movements. They did place the NG tube with 1.5 mL out. Currently 600 L of tannish output. Small amount of blood-tinged tannish output noted in the NG tube being patient had to be restarted on the Levophed and vasopressin. Her KUB had reported dilated gas- filled small bowel loops. Consider obstruction. White count did go up from 17- 38.6 PHYSICAL EXAM: VITAL SIGNS: Reviewed. GENERAL: no acute distress. Patient on mechanical ventilation and sedated HEENT: Tracheostomy site clean dry and intact ABDOMEN: Mildly distended. PEG tube site clean dry and intact NEUROLOGIC: Alert and oriented. Cranial nerves II through XII grossly intact. ASSESSMENT: 1. Acute on chronic hypoxic respiratory failure status post tracheostomy placement 2. Severe COPD 3. Moderate protein calorie malnutrition status post PEG tube placement 4. Possible ileus versus bowel obstruction. KUB x-ray had reported dilated gas and fluid-filled small bowel 5. Prior abdominal surgeries PLAN: -Continue to hold tube feeds -Continue to keep PEG tube to suction -CT scan pelvis was ordered by critical care service. Patient has not been stable enough to go down for CAT scan Physician Senior Stack Engineer note has been reviewed by physician. Signing provider agrees with the documented findings, assessment, and plan of care. Objective - Vital Signs Vital signs: Vital Signs Temp 97.3 F L 05/27/24 08:00 Pulse 88 05/27/24 11:19 Resp 32 H 05/27/24 11:00 BP 119/42 05/27/24 11:00 Pulse Ox 90 L 05/27/24 07:00 FiO2 50 05/27/24 11:05 Intake & Output 05/26/24 05/27/24 05/27/24 18:59 06:59 18:59 Intake Total 3656.812 9260.104 675.576 Output Total 485 1370 1700 Balance 883.692 1056.104 -1024.424 Weight 78.4 kg Intake: IV 120 2138 165 Piperacillin-Tazobactam 3 100 .375 gm In Sodium Chloride 0.9% 100 ml @ 25 mls/hr IVPB Q8H [facility] Rx#: [id number] Pressure Bag 18 15 Sodium Chloride 0.9% 1, 1000 000 ml @ 10 mls/hr IV . Q24H [facility] Rx#:[id number] Sodium Chloride 0.9% 500 120 120 50 ml 500 ml @ 10 mls/hr IV .Q24H [facility] Rx#:[id number] Sodium Chloride 0.9% 500 1000 ml 500 ml @ 999 mls/hr IV .Q31M [facility] Rx#:[id number] Intake, IV Titration 446.172 871.104 510.576 Amount Diltiazem 125 mg In 200.583 42.666 Sodium Chloride 0.9% 100 ml @ Per Protocol IV .Q0M [facility] Rx#:[id number] Empty Bag 1 bag @ 10 MCG/ 171.96 186.10 KG/MIN 4.2 mls/hr IV . [id number] [facility] with propofoL 1,000 mg Rx#:[id number] Heparin Sod,Pork in 0.45% 73.629 134.338 NaCl 25,000 unit In 0.45 % NaCl 1 250ml.bag @ 12 UNITS/KG/HR 8.868 mls/hr IV .Q24H [facility] Rx#: [id number] Norepinephrine 4 mg In 508.000 471.561 Sodium Chloride 0.9% 250 ml @ 0.03 MCG/KG/MIN 8. 607 mls/hr IV .Q24H [facility] Rx#:[id number] Vasopressin 20 unit In 39.015 Sodium Chloride 0.9% 50 ml @ 0.03 UNITS/MIN 4.59 mls/hr IV .Q11H7M [facility] Rx# :[id number] Tube Feeding 444 222 Other 90 30 Output: Gastric Drainage 1300 1700 Urine 485 70 0 Other: Voiding Method Indwelling Catheter Indwelling Catheter Indwelling Catheter ABP, PAP, CO, CI - Last Documented Arterial Blood Pressure 100/34 - Labs CBC & Chem 7: 05/27/24 02:17 05/27/24 02:17 Labs: Abnormal Lab Results - Last 24 Hours (Table) 05/26/24 05/26/24 05/26/24 Range/Units 11:46 14:02 15:57 WBC (3.8-10.6) k/uL RBC (3.80-5.40) m/uL MCV (80.0-100.0) fL MCHC (31.0-37.0) g/dL APTT 34.5 H (22.0-30.0) sec ABG pH (7.35-7.45) ABG pCO2 (35-45) mmHg ABG pO2 (83-108) mmHg ABG Total CO2 (19-24) mmol/L ABG O2 Saturation (94-97) % ABG Lactic Acid (0.5-1.6) mmol/L Potassium (3.5-5.1) mmol/L Chloride (98-107) mmol/L Carbon Dioxide (22-30) mmol/L BUN (7-17) mg/dL Creatinine (0.52-1.04) mg/dL Glucose (74-99) mg/dL POC Glucose (mg/dL) 290 H 177 H (70-110) mg/dL Calcium (8.4-10.2) mg/dL Magnesium (1.6-2.3) mg/dL Procalcitonin (0.02-0.09) ng/mL 05/26/24 05/26/24 05/26/24 Range/Units 20:04 21:14 23:31 WBC (3.8-10.6) k/uL RBC (3.80-5.40) m/uL MCV (80.0-100.0) fL MCHC (31.0-37.0) g/dL APTT 61.0 H (22.0-30.0) sec ABG pH (7.35-7.45) ABG pCO2 (35-45) mmHg ABG pO2 (83-108) mmHg ABG Total CO2 (19-24) mmol/L ABG O2 Saturation (94-97) % ABG Lactic Acid (0.5-1.6) mmol/L Potassium (3.5-5.1) mmol/L Chloride (98-107) mmol/L Carbon Dioxide (22-30) mmol/L BUN (7-17) mg/dL Creatinine (0.52-1.04) mg/dL Glucose (74-99) mg/dL POC Glucose (mg/dL) 205 H 216 H (70-110) mg/dL Calcium (8.4-10.2) mg/dL Magnesium (1.6-2.3) mg/dL Procalcitonin (0.02-0.09) ng/mL 05/27/24 05/27/24 05/27/24 Range/Units 02:01 02:17 02:17 WBC 38.6 H (3.8-10.6) k/uL RBC 3.61 L (3.80-5.40) m/uL MCV 103.2 H (80.0-100.0) fL MCHC 30.8 L (31.0-37.0) g/dL APTT (22.0-30.0) sec ABG pH 7.20 L (7.35-7.45) ABG pCO2 60 H (35-45) mmHg ABG pO2 55 L* (83-108) mmHg ABG Total CO2 25 H (19-24) mmol/L ABG O2 Saturation 82.6 L (94-97) % ABG Lactic Acid (0.5-1.6) mmol/L Potassium 5.6 H (3.5-5.1) mmol/L Chloride 112 H (98-107) mmol/L Carbon Dioxide 19 L (22-30) mmol/L BUN 80 H (7-17) mg/dL Creatinine 1.74 H (0.52-1.04) mg/dL Glucose 175 H (74-99) mg/dL POC Glucose (mg/dL) (70-110) mg/dL Calcium 7.6 L (8.4-10.2) mg/dL Magnesium 2.6 H (1.6-2.3) mg/dL Procalcitonin (0.02-0.09) ng/mL 05/27/24 05/27/24 05/27/24 Range/Units 03:44 03:45 03:45 WBC (3.8-10.6) k/uL RBC (3.80-5.40) m/uL MCV (80.0-100.0) fL MCHC (31.0-37.0) g/dL APTT (22.0-30.0) sec ABG pH (7.35-7.45) ABG pCO2 (35-45) mmHg ABG pO2 (83-108) mmHg ABG Total CO2 (19-24) mmol/L ABG O2 Saturation (94-97) % ABG Lactic Acid 1.7 H (0.5-1.6) mmol/L Potassium (3.5-5.1) mmol/L Chloride (98-107) mmol/L Carbon Dioxide (22-30) mmol/L BUN (7-17) mg/dL Creatinine (0.52-1.04) mg/dL Glucose (74-99) mg/dL POC Glucose (mg/dL) 179 H (70-110) mg/dL Calcium (8.4-10.2) mg/dL Magnesium (1.6-2.3) mg/dL Procalcitonin 12.00 H (0.02-0.09) ng/mL 05/27/24 05/27/24 Range/Units 04:23 07:58 WBC (3.8-10.6) k/uL RBC (3.80-5.40) m/uL MCV (80.0-100.0) fL MCHC (31.0-37.0) g/dL APTT (22.0-30.0) sec ABG pH 7.18 L* (7.35-7.45) ABG pCO2 58 H (35-45) mmHg ABG pO2 56 L* (83-108) mmHg ABG Total CO2 (19-24) mmol/L ABG O2 Saturation 83.8 L (94-97) % ABG Lactic Acid (0.5-1.6) mmol/L Potassium (3.5-5.1) mmol/L Chloride (98-107) mmol/L Carbon Dioxide (22-30) mmol/L BUN (7-17) mg/dL Creatinine (0.52-1.04) mg/dL Glucose (74-99) mg/dL POC Glucose (mg/dL) 134 H (70-110) mg/dL Calcium (8.4-10.2) mg/dL Magnesium (1.6-2.3) mg/dL Procalcitonin (0.02-0.09) ng/mL
--- NOTE | 2024-05-28 20:35 | CDI ---
Documentation Clarification Form Date: 05/28/2024 08:22:48 PM From: Radha Lanier Phone: Admit Date: 05/17/2024 10:05:00 AM Patient Name: Chandrika Mcgrath Visit Number: [id number] Discharge Date: 05/27/2024 05:30:00 PM ATTENTION: The Clinical Documentation Specialists (CDI) and [facility] Coding Staff appreciate your assistance in clarifying documentation. Please respond to the clarification below the line at the bottom and electronically sign. The CDI & [facility] Coding staff will review the response and follow-up if needed. Please note: Queries are made part of the Legal Health Record. If you have any questions, please contact the author of this message via ITS. Doctor/Provider: Gary Shrestha Shock is documented per Procedure Note 05/27. Additional clarification regarding the type of shock is requested. Patient history/risk factors: 74yo F, Nondisplacedleft intertrochanteric femur fracture sp fall, NIDDMII w PAD, AECOPD/emphysema, CAD, moderate PCM, postop Dx- NSTEMI II, ACHRF, A fib/Flutter, ileus, mixed acid-base disturbance, kidney failure Clinical Indicators: Was requiringBiPAP. CXRshowed nonspecific mildly increased lung markings bile diffusely. Mildpulmonary edema. Versusatelectasis. Patient is being continued on IV salmeterol, DuoNebs and Pulmicort/Perforomist inhalation. Treatment: Insertionof a right brachialarterial line, Levophed andvasopressorsboth maxed out; trach & PEG inserted Please clarify the type of shock, if known: [ ] Hypovolemic Shock [ ] Traumatic Shock [ ] Other, please specify [ X ] Unable to determine (Template Last Revised: January 2021) MTDD
--- NOTE | 2024-05-28 21:03 | CDI ---
Documentation Clarification Form Date: 05/28/2024 08:22:48 PM From: Radha Lanier Phone: Admit Date: 05/17/2024 10:05:00 AM Patient Name: Chandrika Mcgrath Visit Number: [id number] Discharge Date: 05/27/2024 05:30:00 PM ATTENTION: The Clinical Documentation Specialists (CDI) and [facility] Coding Staff appreciate your assistance in clarifying documentation. Please respond to the clarification below the line at the bottom and electronically sign. The CDI & [facility] Coding staff will review the response and follow-up if needed. Please note: Queries are made part of the Legal Health Record. If you have any questions, please contact the author of this message via ITS. Doctor/Provider: Luis Tinoco Your patient has an abnormal lab value: Glucose 455 per Progress Note 05/22. Please clarify if there is an additional diagnosis and/or clinical significance related to this value. History/Risk Factors: 74yo F, Nondisplaced left intertrochanteric femur fracture sp fall, NIDDMII w PAD, AECOPD/emphysema, CAD, moderate PCM, Parkinson's, former smoker (<2wk ago) Postop Dx- NSTEMI II, ACHRF, A fib/Flutter, ileus, mixed acid-base disturbance, kidney failure Clinical indicators: A1C 6.0 Glucose: 05/17 126 05/18 121-152 05/19 128-169 05/21 156-193 05/22 163- 455 Treatment: Continue insulin sliding scale for better blood sugar control. Started back on home medication including metoprolol, Lisinopril and statins. Aspirin to be started immediately after surgery. Plavix is on hold. Is there an additional diagnosis and/or clinical significance related to the above lab result/information? [ x ] Diabetes Mellitus Type II with hyperglycemia [ ] No additional diagnosis/Not clinically significant [ ] Other, please specify [ ] Unable to determine (Template Last Revised: December 2020) MTDD
--- NOTE | 2024-05-29 09:22 | P.DS ---
Providers Date of admission: 05/17/24 10:05 Expected date of discharge: 05/27/24 Attending physician: Luis Tinoco Consults: 05/17/24 10:05 Consult Physician Urgent Consulting Provider: Luis Tinoco Consult Reason/Comments: Medical management and surgical clearance Do you want consulting provider notified?: Yes 05/17/24 10:33 Consult Physician Routine Consulting Provider: Jass Grubbs Consult Reason/Comments: Cardiac clearance for hip surgery Do you want consulting provider notified?: Yes 05/17/24 10:34 Consult Physician Routine Consulting Provider: Lisandra Estrella Consult Reason/Comments: COPD management Do you want consulting provider notified?: Yes 05/23/24 12:53 Consult Physician Routine Consulting Provider: Jose Lockhart Consult Reason/Comments: Trach and Peg Do you want consulting provider notified?: Yes 05/26/24 01:57 Consult Physician Urgent Consulting Provider: Oneil Cottrell Consult Reason/Comments: NOS afib RVR Do you want consulting provider notified?: Yes, Notify in am 05/27/24 03:59 Consult Physician Routine Consulting Provider: Jose Lockhart Consult Reason/Comments: bowel obstruction Do you want consulting provider notified?: Yes Primary care physician: Celso Almeida Hospital Course: Discharge diagnoses; Acute on chronic hypoxic respiratory failure secondary to COPD exacerbation. Patient is on mechanical ventilator. Septic shock Postoperative hypotension. Improved with fluid boluses. Acute delirium on admission Status post mechanical fall Acute left femur intertrochanteric fracture. Status post IM nailing. Postoperative day 1 COPD on home oxygen 3 L via nasal cannula Coronary artery disease with history of stent placement to left main at [facility] in September 2023 History of right internal carotid artery stenosis status post TCAR by vascular surgery. History of CT Hypertension Hyperlipidemia Diabetes type 2 vau-pvieeeh-rhyzabeph Parkinson's disease Prior history of smoking Hypothyroidism Hospital course; 74-year-old female with a past medical history of coronary disease status post stent placement, COPD on 3 L oxygen via nasal cannula at home, history of CVA/TIA, hypertension, diabetes type 2, hyperlipidemia, history of CT, hypothyroidism, and prior history of smoking and recent dizzy spells. Patient presents to ER after sustaining a fall while she was in her bathroom. She s lipped and fell on her left side and injured her hip. Denied any loss of consciousness as per her daughter. Patient is unable to provide much history and has been lethargic and sleepy. Denies any complaints of chest pain or shortness of breath. EKG showed sinus rhythm. 2D echocardiogram done on 06/16/2023 showed normal LV systolic function. Mildly enlarged right ventricle with RVSP around 50 mmHg and Chest x-ray on admission showed some mildly increased lung markings at the right apex of uncertain etiology. Summation density small densities are within the differential. X-ray of the hip/pelvis showed acute left femur intertrochanteric fracture. Moderate hip osteoarthrosis. On admission blood pressure 120/42 pulse 63 respiration 20 pulse ox 92% on 3 L oxygen via nasal cannula. Laboratory data showed WBC 10.6 hemoglobin 12.4 and platelets 210, MCV 100.5 Sodium 139 potassium 4.5 chloride 105 bicarb is 32 BUN 15 and creatinine 0.85 and blood sugar 126 and total bili 1.8 liver enzymes are not elevated albumin 3.3. 24-hour interval change 05/25/2024 Patient is seen and evaluated with nursing staff at bedside; The patient remains on the mechanical ventilator. She is on volume assist-control, rate 26, tidal volume 400, FiO2 50%, PEEP of 5. Blood gases show up pO2 of 71, pCO2 of 48, pH of 7.42. This is a mixed acid-base disturbance. The patient had a tracheostomy and PEG tube placement on May 24. She remains on propofol at 50 mcg/kg/min, and saline at KVO. She is getting vital AF at 37 cc an hour, which will be resumed later today, after 24 hours, after the insertion of the PEG tube. The patient will have a daily interruption of sedation today. In addition, we add Seroquel 25 mg 3 times a day to her regimen. Current labs include a white count 13.4, hemoglobin 9.9, hematocrit 31.6, and a platelet count of 236,000. Sodium 143, potassium 4.2, chlorides 110, CO2 28, BUN 55, and creatinine 0.67. Glucose 165. Calcium 8.4. Chest x-ray shows a stable chest x-ray, with a well-placed midline tracheostomy tube 05/26/2024 The patient is seen and evaluated in room at bedside; discussed with nursing staff remains on the mechanical ventilator. Patient converted to atrial fibrillation with RVR Blood gases show pO2 of 66, pCO2 of 49, pH is 7.38. Patient seems to have converted to normal sinus rhythm but remains on heparin via weight-based protocol for atrial fibrillation, Cardizem 15 mg an hour, and amiodarone at 1 mg/min. --White count 17.2, hemoglobin 9.8, hematocrit 31.1, platelet count normal. Sodium 142, potassium 4.3, chlorides 110, CO2 25, BUN 62, creatinine 0.87. Glucose is 240. Calcium 8.6. Magnesium 2.5. Chest x-ray is largely unchanged. 05/27. Patient seen and examined blood work done this morning showed WBC 38.6, hemoglobin 11.5, sodium 138, potassium 5.6, BUN 80, creatinine 1.74. Currently on Levophed and vasopressors both maxed out. Children at the bedside, discussed with them regarding patient's poor prognosis and possible transitioning to comfort care, family amenable, will discuss among themselves before coming up with a final decision. Patient was later transitioned to comfort care, pronounced on 05/27/2024 at 13;45 . Dictation was produced using [employer] dictation software. please excuse any grammatical, word or spelling errors. Patient Condition at Discharge: Poor Plan - Discharge Summary New Discharge Prescriptions: No Action sitaGLIPtin [Januvia] 100 mg PO DAILY Nitroglycerin Sl Tabs [Nitrostat] 0.4 mg SUBLINGUAL Q5M PRN PRN Reason: Chest Pain lisinopriL [Zestril] 20 mg PO DAILY Meclizine [Antivert] 25 mg PO TID PRN PRN Reason: Vertigo Metoprolol Succinate (ER) [Toprol Xl] 25 mg PO DAILY Budesonide-Formot 160-4.5 Mcg [Symbicort 160-4.5 Mcg Inhaler] 2 puff INHALATION RT-BID rOPINIRole HCL [Requip] 1 mg PO BID Clopidogrel [Plavix] 75 mg PO DAILY Albuterol Inhaler [Ventolin Hfa Inhaler] 2 puff INHALATION RT-Q4H PRN PRN Reason: Shortness Of Breath Atorvastatin Calcium [Lipitor] 40 mg PO DAILY Levothyroxine Sodium [Synthroid] 125 mcg PO DAILY Discharge Medication List Albuterol Inhaler [Ventolin Hfa Inhaler] 2 puff INHALATION RT-Q4H PRN 06/14/23 [History] Budesonide-Formot 160-4.5 Mcg [Symbicort 160-4.5 Mcg Inhaler] 2 puff INHALATION RT-BID 06/14/23 [History] Clopidogrel [Plavix] 75 mg PO DAILY 06/14/23 [History] Nitroglycerin Sl Tabs [Nitrostat] 0.4 mg SUBLINGUAL Q5M PRN 06/14/23 [History] lisinopriL [Zestril] 20 mg PO DAILY 06/14/23 [History] rOPINIRole HCL [Requip] 1 mg PO BID 06/14/23 [History] sitaGLIPtin [Januvia] 100 mg PO DAILY 06/14/23 [History] Atorvastatin Calcium [Lipitor] 40 mg PO DAILY 05/17/24 [History] Levothyroxine Sodium [Synthroid] 125 mcg PO DAILY 05/17/24 [History] Meclizine [Antivert] 25 mg PO TID PRN 05/17/24 [History] Metoprolol Succinate (ER) [Toprol Xl] 25 mg PO DAILY 05/17/24 [History] Follow up Appointment(s)/Referral(s): Carlos Bowden DO [Doctor of Osteopathic Medicine] - 2 Weeks Celso Almeida MD [Primary Care Provider] - 1-2 days Activity/Diet/Wound Care/Special Instructions: Orthopedic Discharge Instructions: 1. Wound care and infection precautions, keep incision dry and covered while showering, no lotions, creams, moisturizers. No soaking, pools, hot tubs. Do not scrub over incision. SHU CAN BE REMOVED ON 06/03/2024 2. Weight-bear as tolerated with walker / cane until follow-up. 3. Ice and elevate when necessary. Do not exceed 20 minutes per hour with ice pack. 4. Utilize compression sleeve until seen at first follow up appointment. 5. Pain meds and anticoagulants per prescription. 6. Pain medication has potential to cause constipation. Increase oral fluid and fiber intake. Contact primary care provider if you have not had a bowel movement within 48 hours after discharge. 7. No anti-inflammatory medication until discussed at first post operative visit, this including Motrin, Aleve, Mobic, Diclofenac, aspirin. 8. Contact [facility] with any questions, . Discharge Disposition: - Preliminary Cause of Preliminary Cause of : Acute on chronic hypoxemic respiratory failure
--- NOTE | 2024-05-29 10:53 | CDI ---
Documentation Clarification Form Date: 05/29/2024 10:23:52 AM From: Radha Lanier Phone: Admit Date: 05/17/2024 10:05:00 AM Patient Name: Chandrika Mcgrath Visit Number: [id number] Discharge Date: 05/27/2024 05:30:00 PM ATTENTION: The Clinical Documentation Specialists (CDI) and [facility] Coding Staff appreciate your assistance in clarifying documentation. Please respond to the clarification below the line at the bottom and electronically sign. The CDI & [facility] Coding staff will review the response and follow-up if needed. Please note: Queries are made part of the Legal Health Record. If you have any questions, please contact the author of this message via ITS. Doctor/Provider: Luis Tinoco Your patient has diagnostic/radiology results: E Coli. The patient also has septic shock. Please clarify if there is an additional diagnosis and/or clinical significance related to this result and if there is a relationship between the diagnoses. History/Risk Factors: 74yo F, AECOPD, septic shock, PO hypotension, acute delirium, Lt Femur intertrochanteric fx, CAD, Hx ME, HTN, HLD, DMII, Parkinson's, hypothyroidism, former smoking Clinical indicators: Septic shock, Postoperative hypotension. Improved with fluid boluses. Treatment: Patient has become severelyhypotensive. Remains on maxnorepinephrineas well asvasopressin. Blood cultures arepending. NGTwith significant output, tube feedings on hold. Prognosis is quite poor. Made DNR and comfort care. Is there an additional diagnosis and/or clinical significance related to the above diagnostic/radiology result? [ x ] Sepsis due to E Coli [ ] Result is not clinically significant (no additional diagnosis) [ ] Other, please specify [ ] Unable to determine (Template Last Reviewed: December 2020) MTDD
--- NOTE | 2024-06-04 13:24 | CDI ---
Documentation Clarification Form Date: 06/04/2024 From: Evelyne Georges Phone: [phone] Admit Date: 05/17/2024 10:05:00 AM Patient Name: Chandrika Mcgrath Visit Number: [id number] Discharge Date: 05/27/2024 05:30:00 PM ATTENTION: The Clinical Documentation Specialists (CDI) and [facility] Coding Staff appreciate your assistance in clarifying documentation. Please respond to the clarification below the line at the bottom and electronically sign. The CDI & [facility] Coding staff will review the response and follow-up if needed. Please note: Queries are made part of the Legal Health Record. If you have any questions, please contact the author of this message via ITS. Doctor/Provider: Carlos Bowden DO: Post-operative hypotension is documented in the IM progress note 05/21 and in subsequent notes which may lack sufficient clinical evidence/support in the medical record. Additional clarification is requested. History/Risk Factors: 74-year-old female with a history of CAD, COPD on home oxygen, CVA, HTN, DM2 who presents after fall and found to have left hip fracture s/p cephalomedullary nailing on 05/20 Clinical Indicators: 05/17 Triage VS: 120/42, 97.7, 63, 20, 92% 3 liters nasal cannula 05/20 BP range: 73/35-100/42 05/20 IM PN, Subjective: "05/20 Patient is s/p hip surgery today. Postoperatively patient became hypotensive." 05/21 IM PN, Patient did receive 2 L IV fluid bolus yesterday due to hypotension. Patient currently not on pressor support." Assessment: "Postoperative hypotension. Improved with fluid boluses." 05/24 Procedure: PEG tube insertion 05/27 Critical Care PN, Assessment: Severe hypotension suspect secondary to sepsis and septic shock. Currently maxed out on norepinephrine and vasopressin." 05/27 Procedure: Insertion right brachial Arterial line, Postoperative Diagnosis: Hypotension and shock 05/17, 05/19- WBC: 10.6, 8.5, 9.7, 15.2, 11.4, 13.1, 11.1, 13.4, 17.2, 38.6 05/23, 05/27 Procalcitonin: 0.11, 12.00 Treatment: Cefazolin 2gram IV once 05/20 Zosyn 3.375gram IV [id number] 05/27 Normal Saline 1000cc once 05/20 and 05/26 x3 Norepinephrine titrated to effect 05/20-05/21 then 05/26-05/27 Vasopressin titrated drip 05/27 Metoprolol 25mg PO daily 05/17-05/22 Norvasc 10mg oral 05/18-05/27 Normal Saline 75cc/hour 05/18-05/26 Please clarify if Post-operative hypotension: [ ] Yes, Post-operative hypotension is due to sepsis and septic shock [ ] Post-operative hypotension due to(please clarify) [ ] Other (please specify diagnosis) [ x ] Unable to determine MTDD
--- NOTE | 2024-06-06 07:05 | CDI ---
Documentation Clarification Form Date: 06/06/2024 From: Evelyne Georges Phone: [phone] Admit Date: 05/17/2024 10:05:00 AM Patient Name: Chandrika Mcgrath Visit Number: [id number] Discharge Date: 05/27/2024 05:30:00 PM ATTENTION: The Clinical Documentation Specialists (CDI) and [facility] Coding Staff appreciate your assistance in clarifying documentation. Please respond to the clarification below the line at the bottom and electronically sign. The CDI & [facility] Coding staff will review the response and follow-up if needed. Please note: Queries are made part of the Legal Health Record. If you have any questions, please contact the author of this message via ITS. Doctor/Provider: Gary Shrestha DO: Post-operative hypotension is documented in the IM progress note 05/21 and in subsequent notes which may lack sufficient clinical evidence/support in the medical record. Additional clarification is requested. History/Risk Factors: 74-year-old female with a history of CAD, COPD on home oxygen, CVA, HTN, DM2 who presents after fall and found to have left hip fracture s/p cephalomedullary nailing on 05/20 Clinical Indicators: 05/17 Triage VS: 120/42, 97.7, 63, 20, 92% 3 liters nasal cannula 05/20 BP range: 73/35-100/42 05/20 IM PN, Subjective: "05/20 Patient is s/p hip surgery today. Postoperatively patient became hypotensive." 05/21 IM PN, Patient did receive 2 L IV fluid bolus yesterday due to hypotension. Patient currently not on pressor support." Assessment: "Postoperative hypotension. Improved with fluid boluses." 05/24 Procedure: PEG tube insertion 05/27 Critical Care PN, Assessment: Severe hypotension suspect secondary to sepsis and septic shock. Currently maxed out on norepinephrine and vasopressin." 05/27 Procedure: Insertion right brachial Arterial line, Postoperative Diagnosis: Hypotension and shock 05/17, 05/19- WBC: 10.6, 8.5, 9.7, 15.2, 11.4, 13.1, 11.1, 13.4, 17.2, 38.6 05/23, 05/27 Procalcitonin: 0.11, 12.00 Treatment: Cefazolin 2gram IV once 05/20 Zosyn 3.375gram IV [id number] 05/27 Normal Saline 1000cc once 05/20 and 05/26 x3 Norepinephrine titrated to effect 05/20-05/21 then 05/26-05/27 Vasopressin titrated drip 05/27 Metoprolol 25mg PO daily 05/17-05/22 Norvasc 10mg oral 05/18-05/27 Normal Saline 75cc/hour 05/18-05/26 Please clarify if Post-operative hypotension: [ X] Yes, Post-operative hypotension is due to sepsis and septic shock [ ] No, post-operative hypotension is due to(please clarify): [ ] Other (please specify diagnosis) [ ] Unable to determine If you read the note from 05/27, it states that the hypotension is secondary to sepsis,septic shock. Next time ask the person who saw the patient and dictated the note. DALIA
== END 2024-05-27 17:30 | disposition expired | DRG 3 ==
LOC: EC 07:42 → 4SSUR 10:05 → 2SICU 05-18 09:00
PROVIDERS: ADMIT Internal Medicine; ATTEND Internal Medicine
PROC: 5A09357 Assistance with Respiratory Ventilation, Less than 24 Consecutive Hours, Continuous Positive Airway Pressure (ICD-10-PCS; 2024-05-18)
PROC: 0QS706Z Reposition Left Upper Femur with Intramedullary Internal Fixation Device, Open Approach (ICD-10-PCS; 2024-05-20)
PROC: 5A1955Z Respiratory Ventilation, Greater than 96 Consecutive Hours (ICD-10-PCS; 2024-05-20)
PROC: 3E033XZ Introduction of Vasopressor into Peripheral Vein, Percutaneous Approach (ICD-10-PCS; 2024-05-20)
PROC: 3E0G76Z Introduction of Nutritional Substance into Upper GI, Via Natural or Artificial Opening (ICD-10-PCS; 2024-05-21)
PROC: 0DH63UZ Insertion of Feeding Device into Stomach, Percutaneous Approach (ICD-10-PCS; 2024-05-24)
PROC: 0B110F4 Bypass Trachea to Cutaneous with Tracheostomy Device, Open Approach (ICD-10-PCS; principal; 2024-05-24 08:30)
PROC: 03HY32Z Insertion of Monitoring Device into Upper Artery, Percutaneous Approach (ICD-10-PCS; 2024-05-27)
PROC: 4A133B1 Monitoring of Arterial Pressure, Peripheral, Percutaneous Approach (ICD-10-PCS; 2024-05-27)
PROC: 4A133J1 Monitoring of Arterial Pulse, Peripheral, Percutaneous Approach (ICD-10-PCS; 2024-05-27)
DX: S72.145A Nondisplaced intertrochanteric fracture of left femur, initial encounter for closed fracture (principal); R65.21 Severe sepsis with septic shock; I21.A1 Myocardial infarction type 2; J96.21 Acute and chronic respiratory failure with hypoxia; A41.51 Sepsis due to Escherichia coli [E. coli]; E44.0 Moderate protein-calorie malnutrition; E87.4 Mixed disorder of acid-base balance; I48.92 Unspecified atrial flutter; K56.7 Ileus, unspecified; F05 Delirium due to known physiological condition; I47.19 Other supraventricular tachycardia; I27.20 Pulmonary hypertension, unspecified; E11.51 Type 2 diabetes mellitus with diabetic peripheral angiopathy without gangrene; I48.0 Paroxysmal atrial fibrillation; J43.9 Emphysema, unspecified; E11.65 Type 2 diabetes mellitus with hyperglycemia; Z51.5 Encounter for palliative care; Z66 Do not resuscitate; G20.A1 Parkinson's disease without dyskinesia, without mention of fluctuations; Z99.81 Dependence on supplemental oxygen; N19 Unspecified kidney failure; I10 Essential (primary) hypertension; E03.9 Hypothyroidism, unspecified; Z53.8 Procedure and treatment not carried out for other reasons; Z79.02 Long term (current) use of antithrombotics/antiplatelets; Z95.828 Presence of other vascular implants and grafts; I25.10 Atherosclerotic heart disease of native coronary artery without angina pectoris; M16.12 Unilateral primary osteoarthritis, left hip; G25.0 Essential tremor; E78.5 Hyperlipidemia, unspecified; W01.0XXA Fall on same level from slipping, tripping and stumbling without subsequent striking against object, initial encounter; Y92.003 Bedroom of unspecified non-institutional (private) residence as the place of occurrence of the external cause; Z79.82 Long term (current) use of aspirin; Z79.51 Long term (current) use of inhaled steroids; Z79.890 Hormone replacement therapy; Z79.84 Long term (current) use of oral hypoglycemic drugs; I25.2 Old myocardial infarction; Z86.73 Personal history of transient ischemic attack (TIA), and cerebral infarction without residual deficits; Z95.5 Presence of coronary angioplasty implant and graft; Z79.899 Other long term (current) drug therapy; Z88.8 Allergy status to other drugs, medicaments and biological substances; Z88.5 Allergy status to narcotic agent; Z87.891 Personal history of nicotine dependence; Z68.28 Body mass index [BMI] 28.0-28.9, adult
CPT/HCPCS: 36415; 36600; 43246; 51702; 70450; 71045; 71275; 73501; 73502; 74018; 80048; 80053; 82607; 82747; 82805; 83036; 83605; 83735; 84132; 84145; 84484; 85025; 85027; 85379; 85610; 85730; 87040; 93005; 93306; 94002; 94003; 94640; 94660; 94760; 96361; 96374; 96376; 99285